=== PATIENT | male | born 1960 | race Caucasian/White ===

== ENCOUNTER 2016-10-19 04:30 | Inpatient (IN) ==
[2016-10-19] MEDS ORDERED: NS 2,000 ML ONE (04:39)
[2016-10-19] MEDS ORDERED: NARCAN ONE (04:42)
[2016-10-19] MEDS ORDERED: NS 1,000 ML IV ONE ×4 (04:45→05:45)
[2016-10-19] MEDS ORDERED: AMIDATE ONE (04:46)
[2016-10-19] MEDS ORDERED: QUELICIN ONE (04:47)
[2016-10-19] MEDS ORDERED: AMIDATE IV ONE (04:58)
[2016-10-19] MEDS ORDERED: DIPRIVAN 1% 1,000 MG/100 ML BOTTLE ONE (04:59)
[2016-10-19] MEDS ORDERED: QUELICIN IV ONE (04:59)
[2016-10-19] MEDS ORDERED: NARCAN IV ONE (05:00)
[2016-10-19] MEDS: DIPRIVAN 1% 1,000 MG/100 ML BOTTLE IV SCH ×4 (05:05→23:27)
[2016-10-19] MEDS ORDERED: ZOSYN 3.375 GM/NS 3.375 GM/50 ML IVPB IV ONE (05:50)
[2016-10-19] MEDS ORDERED: VANCOMYCIN 1 GM/NS 1 GM/250 ML IVPB IV ONE ×3 (05:51→16:00)
[2016-10-19 06:07] LABS: ALLEN TEST YES; BLOOD TYPE ARTERIAL; DRAW SITE R RADIAL; PCO2(98.6) 32 mmHg (35-45); PO2(98.6) 211 mmHg (60-100); SAMPLE BLOOD; SRATE 16 BPM; TVOL 500 mL; pH(98.6) 7.29 (7.35-7.45)
[2016-10-19 06:08] LABS: MODALITY VENTILATOR
[2016-10-19] MEDS: LEVOPHED 8 MG in D5 1/2 NS 250 ML IV SCH ×6 (06:15→20:21)
--- NOTE | 2016-10-19 06:28 | PROVIDER DOCUMENTATION ---
HPI-Critical Care - General Chief Complaint: Shortness of Breath Stated Complaint: SOB Time Seen by Provider: 10/19/16 05:42 Source: EMS, half-way records Unable to obtain history due to:: urgency Allergies/Adverse Reactions: Allergies Allergy/AdvReac Type Severity Reaction Status Date / Time Sulfa (Sulfonamide Allergy Severe ANAPHYLAXIS Verified 10/19/16 05:21 Antibiotics) Home Medications: Home Medication List Medication Instructions Recorded Confirmed Last Taken Type Fluoxetine HCl [Prozac] 20 mg PO DAILY 07/29/14 10/19/16 10/18/16 History Furosemide [Lasix] 20 mg PO DAILY 07/29/14 10/19/16 10/18/16 History Multivit,Th Iron,Other Min 1 each PO DAILY 07/29/14 10/19/16 10/18/16 History [Thera-M] Polyethylene Glycol 3350 [Miralax] 17 gm PO BID 07/29/14 10/19/16 10/18/16 History Ropinirole HCl [Requip] 1 mg PO QHS 07/29/14 10/19/16 10/18/16 History Cyanocobalamin 1,000 microgm .SEE ORDER 05/13/15 10/19/16 Unknown History DIRECTED Diazepam [Valium] 5 mg PO HS 05/13/15 10/19/16 10/18/16 History Meloxicam [Mobic] 15 mg PO DAILY 04/30/16 10/19/16 10/18/16 History Potassium Chloride E.r. [Klor-Con] 10 meq PO DAILY 10/19/16 10/19/16 10/18/16 History - History of Present Illness-Critical Care Nature of Presenting Problem: 56 yo WM with mental retardation lives in assisted. He was found in extremis early this am with near agonal respiration , hypotension, and non verbal. Baseline is not known but he has apparently been bed and wheelchair bound for years. The aid who came with him preports that he had fever yesterday Onset/Duration: reports: unsure Timing: reports: getting worse EMS Initial Findings:: unresponsive EMS Initial HR: 130 EMS Initial BP: 80/60 EMS Initial D-stick: >120 EMS Initial EKG Rhythm: sinus Pre-hospital Treatment: Initiated oxygen, Initiated other (no IV) Improves Condition (Modifying Factors): improves with: nothing Nitro Today/Relief: no nitro taken today Aspirin Treatment Today: no aspirin today Prior Chest Pain/Cardiac Workup: reports: no prior chest pain Similar Symptoms Previously?: No Recently Seen Here or By Another Healthcare Provider: No Review of Systems - Adult - REVIEW OF SYSTEMS - ADULT ROS:: unobtainable per condition Constitutional: reports: fever Past History - Adult - PAST MEDICAL HISTORY-ADULT Review of Records: reports: Nursing Assessment Review, Medications Reviewed, Social history reviewed & non-contributory. (spoke with patient,s mother who confirms full code status) Major Childhood Illnesses: reports: denies history Cardiovascular: reports: cardiac disease Genitourinary: reports: cancer (testicular) Musculoskeletal: reports: other (contractures in legs unable to ambulitate) Neurological: reports: cognitive dysfunction (MR), Seizures/Epilepsy - PRIOR SURGERIES/PROCEDURES Surgical/Procedure History: reports: orthopedic (extremity) (elbow), other ( polyp removed, testicular) - IMMUNIZATION STATUS Childhood Immunizations: See Nurse Assessment Flu Vaccine: See Nurse Assessment - SOCIAL HISTORY Smoking: non-smoker Physical Exam-General - PHYSICAL EXAM-ADULT Initial Vital Signs Reviewed: Yes - CONSTITUTIONAL General Appearance: obtunded - EYES Eyes: PERRL/EOMI, pink conjunctivae, sunken eyes - HEAD, EARS, NOSE, MOUTH & THROAT HENMT: normocephalic/atraumatic, dental decay, pharyngeal erythema, other (bile noted in trachea while intubation in progress) - NECK Neck: supple - RESPIRATORY Respiratory: respiratory distress, decreased breath sounds, rales, rhonchi, retractions, splinting, increased rate - CARDIOVASCULAR Cardiovascular: regular rate, rhythm - GASTROINTESTINAL (ABDOMEN) Abdominal Exam: non tender, no organomegaly (Baclofen pump noted in RLQ), no pulsatile mass - LYMPHATIC Lymphatic: no adenopathy - MUSCULOSKELETAL Back Exam: decreased range of motion, other (bilateral knee contractures) Extremity: slow capillary refill Peripheral Pulses: radial (R): 1+, radial (L): 1+, dorsalis-pedis (R): 1+, dorsalis-pedis (L): 1+ - SKIN Integumentary: normal color, other (dry) Progress - PLAN OF CARE/RESULTS Progress/Plan/Lab Results: Vital Signs - 8 hr 10/19/16 04:38 10/19/16 04:50 10/19/16 05:00 Temperature Pulse Rate 107 H 105 H 99 H Respiratory Rate 22 18 Blood Pressure 77/48 77/48 92/60 O2 Sat by Pulse Oximetry 82 L 90 L 100 10/19/16 05:18 10/19/16 05:54 10/19/16 06:42 Temperature 97.6 F Pulse Rate 101 H 94 H 97 H Respiratory Rate 25 H 26 H 24 Blood Pressure 95/47 71/38 77/46 O2 Sat by Pulse Oximetry 100 100 95 10/19/16 06:47 10/19/16 06:57 Temperature Pulse Rate 111 H 98 H Respiratory Rate 23 22 Blood Pressure 87/51 85/55 O2 Sat by Pulse Oximetry 97 97 Laboratory Results - last 24 hr 10/19/16 05:50 Specimen Type ARTERIAL Sample Site R RADIAL pH 7.29 L pCO2 32 L pO2 211 H HCO3 17.2 L Base Excess -10.0 L Graham Test YES A-a O2 Difference 462.0 Lactate 3.00 H Blood Gas Modality VENTILATOR Spontaneous Rate 16 FiO2 % 100.0 Tidal Volume 500 PEEP 5.0 Orders Category Date Time Status CHEST-PORTABLE [RAD] Stat Exams 10/19/16 05:49 Completed ABG [RESP] Routine Lab 10/19/16 05:50 Completed BLOOD CULTURE [BLDCUL] Stat Lab 10/19/16 05:40 Received CBC WITH ELECTRONIC DIFF [HEME] Stat Lab 10/19/16 05:30 Results COMPREHENSIVE METABOLIC PANEL [CHEM] Stat Lab 10/19/16 05:30 Received PROTIME WITH INR [COAG] Stat Lab 10/19/16 05:30 Received UA NIMS W/REFLEX CULT [URINALYSIS] Stat Lab 10/19/16 05:43 Uncollected 0.9% Sodium Chloride Inj [Ns] 1,000 ml Med 10/19/16 04:39 Discontinued .ROUTE As Directed 0.9% Sodium Chloride Inj [Ns] 1,000 ml Med 10/19/16 04:45 Discontinued IV 999 mls/hr 0.9% Sodium Chloride Inj [Ns] 1,000 ml Med 10/19/16 05:25 Discontinued IV 999 mls/hr 0.9% Sodium Chloride Inj [Ns] 1,000 ml Med 10/19/16 05:44 Discontinued IV 999 mls/hr 0.9% Sodium Chloride Inj [Ns] 1,000 ml Med 10/19/16 05:45 Discontinued IV 999 mls/hr Dextrose 5%-0.45% NaCl Inj [D5 1/2 Ns] 250 ml Med 10/19/16 06:00 Active Norepinephrine [Levophed] 8 mg IV As Directed Dopamine 400 mg/D5w Med 10/19/16 07:10 Ordered 400 mg in 500 ml IV As Directed Etomidate [Amidate] Med 10/19/16 04:58 Discontinued 20 mg IV NOW ONE Etomidate [Amidate] Med 10/19/16 04:46 Discontinued 40 mg .ROUTE .STK-MED ONE Naloxone [Narcan] Med 10/19/16 04:42 Discontinued 2 mg .ROUTE .STK-MED ONE Naloxone [Narcan] Med 10/19/16 05:00 Discontinued 2 mg IV NOW ONE Piperacil/Tazobact 3.375 gm/Ns [Zosyn 3.375 gm/Ns] Med 10/19/16 05:50 Discontinued 3.375 gm in 50 ml IV NOW Propofol [Diprivan 1%] Med 10/19/16 04:59 Discontinued 1,000 mg in 100 ml .ROUTE As Directed Propofol [Diprivan 1%] Med 10/19/16 05:05 Active 1,000 mg in 100 ml IV 4.763 mls/hr Succinylcholine [Quelicin] Med 10/19/16 04:59 Discontinued 140 mg IV NOW ONE Succinylcholine [Quelicin] Med 10/19/16 04:47 Discontinued 200 mg .ROUTE .STK-MED ONE Vancomycin 1 gm/Ns Med 10/19/16 05:51 Discontinued 1 gm in 250 ml IV NOW He arrived hypotensive and without angioaccess. He was breathing 40 times per min and with O2 sat of 80% prompting urgent intubatiion and then placement of central line, blood sampling , cultures, etc. He was given 3000 ml of saline with increase in BP to 95/ at which a norepi drip was started. He did have a large BM shortly after admission. Zosyn and vancomycin started, CXR confirms advanced ARDS. Result Diagrams: 10/19/16 05:30 - XRAY 1 XRAY Study: Chest Impression: Abnormal (ARDS pattern with satisfactory placement of endotracheal tube , central line, and possibly ngt.) - CONSULTS/PCP/HOSPITALIST Notification #1 *Consult/PCP/Hospitalist*: Dr Connell Time Discussed: 07:12 Reason/Comments: Discussed with Donald - CHANGE OF SHIFT REPORT (ED Provider) Items Pending: Labs Procedures - INTUBATION Mallampati Class: 1 Intubation Method: orotracheal Equipment: ETT Pretreated with 100% Oxygen?: Yes Breath Sounds after Intubation: equal ETT Primary Tube Confirmation: Capnometry CO2 Change, Direct Visualization, Chest Rise and Fall, Tube placement verified on XRAY Intubation Complications: no complications Vent Settings: Initial ventilator orders written Departure - Departure Date of Disposition Decision: 10/19/16 Time of Disposition Decision: 07:13 DIAGNOSIS: ARDS (adult respiratory distress syndrome) Disposition: ADMITTED INPATIENT 09 Certified Medical Emergency: Emergent Condition: Critical Referrals and Follow-Ups: None,PCP [Primary Care Provider] - - Critical Care Note This patient required my direct & personal management of CC.: Yes Total Time (mins): 120 Critical Care Statement: This patient required my direct personal management to treat or rule out processes, the absence of which, could potentiallly result in sudden, clinically significant life or limb threatening deterioration.
--- NOTE | 2016-10-19 06:54 | Diag Imaging Result Doc PS360 ---
EXAM: CHEST-PORTABLE HISTORY: post intubation/CENTRAL LINE TECHNIQUE: Portable COMPARISON: 04/30/2016 FINDINGS: An endotracheal tube has been placed since the prior exam. The tip lies approximately 4 cm above the marsha. Interval placement of a left subclavian line with tip overlying the mid superior vena cava. No pneumothorax. Interval development of dense bilateral infiltrates. Heart is not enlarged. No pleural effusions identified. IMPRESSION: 1.Endotracheal and left subclavian lines in good position 2.Interval development of dense bilateral infiltrates. Electronically signed by Errol Santos 10/19/2016 6:52 AM
[2016-10-19 07:03] LABS: MANUAL DIFF NEEDED? NO
[2016-10-19] MEDS ORDERED: DOPAMINE 400 MG/D5W 400 MG/500 ML IV.SOLN IV SCH (07:10)
[2016-10-19 07:17] LABS: EOS# 0.01 X1000 (0.0-0.7); EOS% 0.4 % (0.0-10.0); HEMATOCRIT 36.5 % (42.0-52.0); HEMOGLOBIN 11.8 g/dL (14.0-18.0); LYMPH# 0.42 X1000 (1.2-3.4); LYMPH% 17.6 % (20.5-51.1); MCH 31.6 PG (27-31); MCHC 32.3 g/dL (33-37); MCV 97.6 FL (81-99); MONO# 0.05 X1000 (0.11-0.59); MONO% 2.1 % (1.7-9.3); MPV 10.6 FL (7.4-10.4); NEUT% 79.9 % (42.2-75.2); PLT 99 X1000 (130-400); RBC 3.74 XMIL (4.7-6.1)
[2016-10-19 07:24] LABS: INR 1.22
[2016-10-19 07:42] LABS: ALBUMIN 2.3 g/dL (3.5-5.0); CALCIUM 7.3 mg/dL (8.8-10.2); POTASSIUM 3.4 mmol/L (3.5-5.1); TOTAL BILIRUBIN 0.46 mg/dL (0.20-1.00)
[2016-10-19] MEDS ORDERED: DUONEB (A & A) INH PRN (07:55)
[2016-10-19] MEDS ORDERED: VANCOMYCIN IV PER PHARMACY MISC SCH (08:00)
[2016-10-19] MEDS: NEO-SYNEPHRINE 50 MG in NS 250 ML IV SCH ×5 (08:22→20:21)
[2016-10-19 08:29] LABS: PROTEIN CREAT RATIO 0.8; UR CREAT RANDOM 156.9 mg/dL (14-26); UR PROT RANDOM 123.5 mg/dL
[2016-10-19 08:32] LABS: URINE SOURCE CLEAN CATCH
[2016-10-19 08:33] LABS: FREE T4 1.02 ng/dL (0.93-1.70)
[2016-10-19 08:34] LABS: UR AMPHETAMINES QUAL NONE DETECTED (NONE DETECT); UR BARBITUATES QUAL NONE DETECTED (NONE DETECT); UR BENZODIAZEPIN QUAL PRESUMPTIVE POSITIVE (NONE DETECT); UR CANNABINOIDS QUAL NONE DETECTED (NONE DETECT); UR COCAINE QUAL NONE DETECTED (NONE DETECT); UR METHADONE QUAL NONE DETECTED (NONE DETECT); UR OPIATES QUAL NONE DETECTED (NONE DETECT); UR OXYCODONE QUAL NONE DETECTED (NONE DETECT); UR PCP QUAL NONE DETECTED (NONE DETECT)
[2016-10-19 08:40] LABS: BILIRUBIN URINE NEGATIVE (NEGATIVE); BLOOD URINE LARGE (NEGATIVE); CLARITY CLEAR (CLEAR); COLOR YELLOW; GLUCOSE URINE NEGATIVE (NEGATIVE); LEUKOCYTES URINE MODERATE (NEGATIVE); NITRITE URINE NEGATIVE (NEGATIVE); PH URINE 5.5; PROTEIN URINE 100 mg/dL (NEGATIVE); SP GRAVITY URINE 1.025; UROBILINOGEN URINE 0.2 EU/dL (0.2-1.0)
[2016-10-19 08:42] LABS: ACETAMINOPHEN 3.2 ug/mL (10-30)
[2016-10-19] MEDS: POTASSIUM CHLORIDE 20 MEQ/SWI 20 MEQ/100 ML IVPB IV SCH ×2 (08:43→10:54)
[2016-10-19 08:48] LABS: URINE CULTURE NEEDED? YES
[2016-10-19 08:49] LABS: URINE WBC 20-40 /HPF (<10)
[2016-10-19 08:50] LABS: URINE EPITHELIAL CELLS <10 /HPF (<10)
[2016-10-19 08:51] LABS: URINE CAST NONE SEEN /LPF; URINE CRYSTAL NONE SEEN /HPF
[2016-10-19] MEDS ORDERED: NS 1,000 ML ONE (08:56)
[2016-10-19] MEDS: NS 1,000 ML IV SCH ×4 (09:04→23:28)
[2016-10-19] MEDS: HEPARIN SUBQ SCH ×2 (09:22→20:20)
[2016-10-19] MEDS: PEPCID IV SCH ×2 (09:22→20:20)
[2016-10-19 09:34] LABS: ALLEN TEST YES; BE -9.6 mmoll (-3.0-3.0); BLOOD TYPE ARTERIAL; DRAW SITE L RADIAL; METHB 0.1 % (0.0-1.5); O2(CT) 17.3 mL/dL (15.0-23.0); PCO2(98.6) 36 mmHg (35-45); PO2(98.6) 221 mmHg (60-100); SAMPLE BLOOD; SAO2 100.8 % (95.0-100.0); SRATE 16 BPM; THB 12.1 g/dL (11.5-17.4); TVOL 500 mL; pH(98.6) 7.27 (7.35-7.45)
[2016-10-19 09:36] LABS: MODALITY VENTILATOR
[2016-10-19] MEDS: VERSED 100 MG in NS 80 ML IV SCH ×2 (09:53→11:35)
[2016-10-19] MEDS: DUONEB (A & A) INH SCH ×3 (09:55→21:07)
[2016-10-19] MEDS ORDERED: NS 1,000 ML IV PRN (12:49)
[2016-10-19] MEDS: MERREM 500 MG in NS 50 ML IV SCH ×2 (14:06→21:37)
[2016-10-19] MEDS: LEVAQUIN 250 MG/D5W 250 MG/50 ML IVPB IV SCH (14:47)
[2016-10-19] MEDS: TYLENOL LIQUID PO PRN ×2 (20:20→21:23)
--- NOTE | 2016-10-19 20:48 | CONSULTATION ---
DATE OF CONSULTATION: 10/19/2016 DIAGNOSES: 1. Aspiration pneumonia. 2. Respiratory failure. 3. Mental retardation with dependency. 4. Septic shock. 5. Acute on chronic renal failure. RECOMMENDATIONS: He is being mechanically ventilated, will volume resuscitate him and give him broad-spectrum antibiotics, enteral feedings, DVT prophylaxis will be implemented. He will hopefully stabilize and improve although I am not sure what our functional outcome will be. Will follow closely along with you. HISTORY: This very unfortunate 56-year-old male white apparently is a resident of a shelter. He requires 1-on-1 support with assistance in bathing and dressing and feeding. He developed respiratory distress after some nausea and vomiting today and presented to the emergency room where he was intubated and a central line was placed by Dr. Marcial. He subsequently is placed in the ICU on mechanical support and I am consulted to assist in his care. He can give no further history. PAST MEDICAL HISTORY: Is positive for a history of testicular cancer with therapy, he has also had a history of mental retardation and dependency. REVIEW OF SYSTEMS: Except for the features mentioned above are negative for weight loss, night sweats, weakness or anorexia. No ENT symptoms of odynophagia, dysphagia, epistaxis or painful swallowing. No eye symptoms of blindness, blurring or diplopia. No other cardiac or pulmonary symptoms other than mentioned, no nausea, vomiting, constipation, diarrhea, the review of systems except for the features mentioned above are all otherwise negative. FAMILY HISTORY: Noncontributory. SOCIAL HISTORY: He is a resident in a shelter for several years and is dependent. PHYSICAL EXAM: Vital signs: Shows a blood pressure of 100/60 with a pulse of 120, respirations of 20 on mechanical ventilation and has a temperature of 97.4 degrees. HEENT: Reveals a membreno- shaped face. Pupils are equal and reactive. Nonicteric. Chest: Reveals bilateral equal breath sounds with mechanical ventilation. Cardiac: Reveals a regular rhythm without an appreciable murmur. Abdomen: Soft. Skin: Warm and dry. Neurologically: He is sedated, has reportedly moved all 4. LAB: The sodium is 140, potassium 3.4, chloride 106, CO2 , BUN 41, creatinine 2.1, glucose 100. White count is 2300 with a hemoglobin 11.8, hematocrit 36.2, platelets of 99,000. ABG shows a 7.27 pH, 36 CO2 and 221 O2 on 100%, rate is 16, assist control 500 tidal volume, 5 of PEEP. cc: Royal Alexandra MD
--- NOTE | 2016-10-19 21:07 | Diag Imaging Result Doc PS360 ---
EXAM: CHEST/ABD TUBE PLACEMENT HISTORY: ng tube placement TECHNIQUE: Portable upright AP chest and abdomen single view COMPARISON: Compared to portable chest performed earlier FINDINGS: Interval placement of a nasogastric tube. This overlies the esophagus and stomach. There are bilateral lung infiltrates. These actually appear somewhat less pronounced than they did previously. Heart is not enlarged. IMPRESSION: Nasogastric tube overlies the esophagus and stomach. Interval decrease in the bilateral infiltrates. Electronically signed by Errol Santos 10/19/2016 9:05 PM
[2016-10-20] MEDS: LEVOPHED 8 MG in D5 1/2 NS 250 ML IV SCH ×4 (01:28→20:21)
[2016-10-20] MEDS: NEO-SYNEPHRINE 50 MG in NS 250 ML IV SCH (01:29)
[2016-10-20] MEDS: DUONEB (A & A) INH SCH ×4 (03:20→21:05)
[2016-10-20] MEDS: DIPRIVAN 1% 1,000 MG/100 ML BOTTLE IV SCH ×4 (04:05→22:31)
[2016-10-20 04:41] LABS: HEMOGLOBIN 11.6 g/dL (14.0-18.0); MCHC 33.1 g/dL (33-37); MCV 96.7 FL (81-99); MPV 11.2 FL (7.4-10.4); RBC 3.62 XMIL (4.7-6.1)
[2016-10-20 04:56] LABS: ALLEN TEST YES; BE -11.1 mmoll (-3.0-3.0); BLOOD TYPE ARTERIAL; DRAW SITE R RADIAL; METHB 1.5 % (0.0-1.5); O2(CT) 16.2 mL/dL (15.0-23.0); PCO2(98.6) 32 mmHg (35-45); PO2(98.6) 147 mmHg (60-100); SAMPLE BLOOD; SAO2 98.7 % (95.0-100.0); SRATE 16 BPM; THB 11.7 g/dL (11.5-17.4); TVOL 500 mL; pH(98.6) 7.27 (7.35-7.45)
[2016-10-20 04:58] LABS: MODALITY VENTILATOR
[2016-10-20] MEDS: MERREM 500 MG in NS 50 ML IV SCH ×3 (05:09→21:54)
[2016-10-20 05:18] LABS: CALCIUM 7.4 mg/dL (8.8-10.2); POTASSIUM 5.6 mmol/L (3.5-5.1)
[2016-10-20] MEDS: NS 1,000 ML IV SCH (06:10)
--- NOTE | 2016-10-20 07:20 | Diag Imaging Result Doc PS360 ---
CHEST-PORTABLE - 10/20/2016 INDICATION: dyspnea TECHNIQUE: COMPARISON: 10/19/2016 FINDINGS: Support lines and tubes are stable. There is improvement in the diffuse bilateral multifocal alveolar infiltrates. Heart size remains top normal. No pneumothorax or large effusion. IMPRESSION: Improvement from prior. Electronically signed by Immanuel Brown 10/20/2016 7:18 AM
--- NOTE | 2016-10-20 07:55 | HISTORY AND PHYSICAL ---
CHIEF COMPLAINT: Respiratory failure. HISTORY OF PRESENT ILLNESS: The patient is a 56-year-old male who lives in a assisted. Apparently overnight, he became more lethargic, short of breath, difficulty to arouse. Therefore, he was brought to the emergency department. REVIEW OF SYSTEMS: The patient apparently typically is bed and wheelchair bound for the last several years. Over the past 24 hours, he has had fever. His blood pressure has become low. He has become more short of breath and obviously labored breathing. He had fever in the past 24 hours per the aide. Otherwise, the aide denies any knowledge of chest pains, GI or issues. PAST MEDICAL HISTORY: Known coronary artery disease, history of testicular cancer. He has moderate cognitive dysfunction, history of seizures, had surgery on his elbow. FAMILY HISTORY: Noncontributory. SOCIAL HISTORY: Patient is a nonsmoker and nondrinker. He lives in a assisted. PHYSICAL EXAMINATION: VITAL SIGNS: Temperature 97.6, pulse 98-107, respiratory rate 18-26, BP 77/48. GENERAL: Patient is in moderate distress. He is nonverbal. HEENT: Normocephalic and atraumatic. Positive pharyngeal erythema. Poor dentition. NECK: Supple. No appreciable JVD or bruits. CARDIOVASCULAR: Tachycardia. Otherwise, no appreciable murmur. CHEST: Decreased breath sounds throughout. He is currently intubated. There is report of bile in his trachea during the intubation process. ABDOMEN: Soft. No masses. Nondistended. EXTREMITIES: No edema. NEUROLOGIC: Unable to assess. Patient currently is sedated and intubated, although the ER notes he was nonverbal and would not respond to commands prior to sedation. LABS: ABG with a pH of 7.2, pCO2 of 32, PO2 of 211, with a -10 base excess on a 100% FiO2 and mechanical ventilation. ASSESSMENT: 1. Acute respiratory failure. 2. Sepsis secondary to pneumonia. 3. Pneumonia. 4. Acute respiratory distress syndrome. 5. Fever. PLAN: We will admit the patient to the ICU. Consult pulmonology. Continue antibiotics which have been started in the ER. We will continue ventilatory support as well as pressors for his blood pressure. Hopefully, the patient will recover. Currently, he has a poor prognosis. TIME SPENT: 35 minutes were spent in total care. cc: MD Dr. Graham Duncan
[2016-10-20] MEDS: PEPCID IV SCH ×2 (08:11→19:31)
[2016-10-20] MEDS: LEVAQUIN 250 MG/D5W 250 MG/50 ML IVPB IV SCH (08:11)
[2016-10-20] MEDS: HEPARIN SUBQ SCH ×2 (08:11→20:20)
--- NOTE | 2016-10-20 12:52 | EKG Report ---
Test Performed on : 10/19/2016 06:01:25 AM Test Reason : SOB Blood Pressure : / mmHG Vent. Rate : 100 BPM Atrial Rate : 100 BPM P-R Int : 142 ms QRS Dur : 076 ms QT Int : 356 ms P-R-T Axes : 056 -27 054 degrees QTc Int : 459 ms Normal sinus rhythm. Low voltage QRS Borderline ECG When compared with ECG of 13-MAY-2015 04:40, Non-specific change in ST segment in Inferior leads Unconfirmed Result
[2016-10-20] MEDS: SODIUM BICARBONATE 8.4% 100 MEQ in D5W 1,000 ML IV SCH ×2 (14:24→20:21)
[2016-10-21] MEDS: LEVOPHED 8 MG in D5 1/2 NS 250 ML IV SCH ×3 (01:27→17:20)
[2016-10-21] MEDS: DIPRIVAN 1% 1,000 MG/100 ML BOTTLE IV SCH ×7 (02:10→23:45)
[2016-10-21] MEDS: VANCOMYCIN 1,500 MG in NS 250 ML IV SCH (03:18)
[2016-10-21] MEDS: SODIUM BICARBONATE 8.4% 100 MEQ in D5W 1,000 ML IV SCH ×4 (03:46→23:45)
[2016-10-21] MEDS: DUONEB (A & A) INH SCH ×4 (03:56→20:49)
[2016-10-21 04:36] LABS: ALLEN TEST YES; BE -2.9 mmoll (-3.0-3.0); BLOOD TYPE ARTERIAL; DRAW SITE R RADIAL; METHB 0.6 % (0.0-1.5); O2(CT) 14.3 mL/dL (15.0-23.0); PCO2(98.6) 37 mmHg (35-45); PO2(98.6) 168 mmHg (60-100); SAMPLE BLOOD; SRATE 16 BPM; THB 10.1 g/dL (11.5-17.4); TVOL 500 mL; pH(98.6) 7.38 (7.35-7.45)
[2016-10-21 04:37] LABS: MODALITY VENTILATOR
[2016-10-21 04:57] LABS: HEMATOCRIT 30.3 % (42.0-52.0); MCH 31.5 PG (27-31); MCV 95.6 FL (81-99); RBC 3.17 XMIL (4.7-6.1)
[2016-10-21] MEDS: MERREM 500 MG in NS 50 ML IV SCH ×3 (05:07→21:00)
[2016-10-21 05:14] LABS: CALCIUM 7.9 mg/dL (8.8-10.2); MAGNESIUM 1.5 mg/dL (1.5-2.7); POTASSIUM 4.4 mmol/L (3.5-5.1); TOTAL BILIRUBIN 0.32 mg/dL (0.20-1.00); TOTAL PROTEIN 4.7 g/dL (6.3-8.3)
--- NOTE | 2016-10-21 07:17 | Diag Imaging Result Doc PS360 ---
EXAM: CHEST-PORTABLE HISTORY: respiratory failure TECHNIQUE: AP portable chest at 0500 COMMENT: There is an endotracheal tube with its tip at thoracic inlet and a left subclavian central venous catheter with its tip in superior vena cava. There is fluffy alveolar opacification throughout much of the left lung. This was also the case at the time the previous study 10/20/2016, however there may be some slight improvement in the apical portion of the upper lobe. There is also some improvement in opacification of the right upper and lower lobes despite the fact that the inspiration is less optimal than on the previous study. IMPRESSION: Improved pulmonary edema and/or pneumonia. Electronically signed by Alfredito Fulton 10/21/2016 7:15 AM
[2016-10-21] MEDS: LEVAQUIN 250 MG/D5W 250 MG/50 ML IVPB IV SCH (08:40)
[2016-10-21] MEDS: PEPCID IV SCH ×2 (08:40→19:10)
[2016-10-21] MEDS: HEPARIN SUBQ SCH ×2 (08:40→20:27)
--- NOTE | 2016-10-21 13:29 | EKG Report ---
Test Performed on : 10/21/2016 10:36:54 AM Test Reason : TACHYCARDIA Blood Pressure : / mmHG Vent. Rate : 072 BPM Atrial Rate : 072 BPM P-R Int : 126 ms QRS Dur : 078 ms QT Int : 426 ms P-R-T Axes : 062 027 065 degrees QTc Int : 466 ms Normal sinus rhythm. Low voltage QRS Borderline ECG When compared with ECG of 19-OCT-2016 06:01, (Unconfirmed) Non-specific change in ST segment in Anterior leads Confirmed by Finn Melendez MD ([id number]) on 11/04/2016 1:15:51 PM
[2016-10-21] MEDS: ALBUMIN 25% IV SCH ×2 (13:34→19:09)
[2016-10-21] MEDS ORDERED: LASIX IV ONE (22:00)
[2016-10-22] MEDS: ALBUMIN 25% IV SCH (01:56)
[2016-10-22] MEDS: DUONEB (A & A) INH SCH ×4 (03:42→21:35)
[2016-10-22] MEDS: DIPRIVAN 1% 1,000 MG/100 ML BOTTLE IV SCH ×6 (03:46→22:23)
[2016-10-22 04:32] LABS: ALLEN TEST YES; BLOOD TYPE ARTERIAL; DRAW SITE R RADIAL; PCO2(98.6) 43 mmHg (35-45); PO2(98.6) 106 mmHg (60-100); SAMPLE BLOOD; SRATE 12 BPM; TVOL 500 mL; pH(98.6) 7.46 (7.35-7.45)
[2016-10-22 04:33] LABS: MODALITY VENTILATOR
[2016-10-22] MEDS: MERREM 500 MG in NS 50 ML IV SCH ×3 (05:22→22:23)
[2016-10-22 05:43] LABS: HEMATOCRIT 27.9 % (42.0-52.0); HEMOGLOBIN 9.2 g/dL (14.0-18.0); MCH 32.1 PG (27-31); MCV 97.2 FL (81-99); MPV 11.5 FL (7.4-10.4); RBC 2.87 XMIL (4.7-6.1)
[2016-10-22 06:06] LABS: ALBUMIN 2.7 g/dL (3.5-5.0); CALCIUM 8.2 mg/dL (8.8-10.2); MAGNESIUM 1.5 mg/dL (1.5-2.7); POTASSIUM 3.8 mmol/L (3.5-5.1); TOTAL BILIRUBIN 0.52 mg/dL (0.20-1.00); TOTAL PROTEIN 5.1 g/dL (6.3-8.3)
--- NOTE | 2016-10-22 07:19 | Diag Imaging Result Doc PS360 ---
EXAM: CHEST-PORTABLE HISTORY: respiratory failure TECHNIQUE: Portable chest COMPARISON: 10/21/2016 FINDINGS: Endotracheal tube remains in good position. No change in the nasogastric tube or left subclavian line. No pneumothorax. There are bilateral infiltrates. Heart is not enlarged. No pleural effusions identified. The overall appearance is quite similar to that of the prior exam. IMPRESSION: Stable chest. Electronically signed by Errol Santos 10/22/2016 7:17 AM
[2016-10-22] MEDS: PEPCID IV SCH ×2 (08:21→20:13)
[2016-10-22] MEDS: LEVAQUIN 250 MG/D5W 250 MG/50 ML IVPB IV SCH (08:21)
[2016-10-22] MEDS: HEPARIN SUBQ SCH ×2 (08:22→20:12)
[2016-10-22] MEDS: LEVOPHED 8 MG in D5 1/2 NS 250 ML IV SCH ×2 (09:39→22:22)
[2016-10-22] MEDS: D5W 1,000 ML IV SCH ×2 (09:57→23:24)
[2016-10-22] MEDS: NEUTRA-PHOS PO SCH ×3 (11:14→22:23)
[2016-10-22] MEDS: SODIUM BICARBONATE 8.4% 100 MEQ in D5W 1,000 ML IV SCH ×2 (11:29→22:31)
[2016-10-22] MEDS: VANCOMYCIN 1,500 MG in NS 250 ML IV SCH (17:07)
[2016-10-22] MEDS: SODIUM CHLORIDE 0.9% INJ SCH (20:13)
[2016-10-22] MEDS: TYLENOL LIQUID PO PRN (20:24)
[2016-10-23] MEDS: DIPRIVAN 1% 1,000 MG/100 ML BOTTLE IV SCH ×7 (01:15→22:58)
[2016-10-23] MEDS: DUONEB (A & A) INH SCH ×4 (03:38→18:55)
[2016-10-23 04:15] LABS: ALLEN TEST YES; BE 9.9 mmoll (-3.0-3.0); BLOOD TYPE ARTERIAL; DRAW SITE R RADIAL; METHB 1.1 % (0.0-1.5); O2(CT) 13.7 mL/dL (15.0-23.0); PO2(98.6) 123 mmHg (60-100); SAMPLE BLOOD; SAO2 98.7 % (95.0-100.0); SRATE 12 BPM; THB 9.9 g/dL (11.5-17.4); TVOL 500 mL; pH(98.6) 7.41 (7.35-7.45)
[2016-10-23 04:16] LABS: MODALITY VENTILATOR; PCO2(98.6) 57 mmHg (35-45)
[2016-10-23 05:10] LABS: ALBUMIN 2.9 g/dL (3.5-5.0); CALCIUM 8.4 mg/dL (8.8-10.2); MAGNESIUM 1.8 mg/dL (1.5-2.7); POTASSIUM 3.9 mmol/L (3.5-5.1); TOTAL BILIRUBIN 0.43 mg/dL (0.20-1.00); TOTAL PROTEIN 5.2 g/dL (6.3-8.3)
[2016-10-23] MEDS: MERREM 500 MG in NS 50 ML IV SCH ×3 (05:14→23:00)
--- NOTE | 2016-10-23 07:18 | Diag Imaging Result Doc PS360 ---
EXAM: CHEST-PORTABLE INDICATION: respiratory failure TECHNIQUE: One view COMPARISON: 10/22/2016 FINDINGS: Support tubes and lines are in stable positions. Bilateral diffuse infiltrates are again noted. There has been interval worsening at the left lower lung zone. The infiltrates are grossly stable, otherwise. Cardiac silhouette is stable. IMPRESSION: Diffuse bilateral infiltrates with interval worsening at the left lower lung zone as described. Electronically signed by Jackson Bunch 10/23/2016 7:16 AM
[2016-10-23] MEDS: PEPCID IV SCH ×2 (07:56→19:56)
[2016-10-23] MEDS: LEVAQUIN 250 MG/D5W 250 MG/50 ML IVPB IV SCH (07:56)
[2016-10-23] MEDS: HEPARIN SUBQ SCH ×2 (08:02→20:00)
[2016-10-23] MEDS: SODIUM CHLORIDE 0.9% INJ SCH ×2 (08:12→19:56)
--- NOTE | 2016-10-23 09:44 | EKG Report ---
Test Performed on : 10/22/2016 6:45:33 PM Test Reason : ICU. NOT ORDERED IN [place] Blood Pressure : / mmHG Vent. Rate : 121 BPM Atrial Rate : 064 BPM P-R Int : 000 ms QRS Dur : 072 ms QT Int : 350 ms P-R-T Axes : 000 -23 -22 degrees QTc Int : 497 ms Atrial fibrillation. with rapid ventricular response. Low voltage QRS Nonspecific T wave abnormality Abnormal ECG No previous ECGs available Confirmed by Finn Melendez MD ([id number]) on 10/23/2016 12:50:57 PM
--- NOTE | 2016-10-23 10:25 | Diag Imaging Result Doc PS360 ---
EXAM: KUB ABDOMEN INDICATION: rlq fullness TECHNIQUE: One view COMPARISON: 10/19/2016 FINDINGS: A mechanical device projects over the right lower quadrant, likely an insulin pump. There are several metallic clips projecting of the left upper quadrant. There is a calcific density that projects over the superior left kidney this is probably actually a granuloma in the overlying spleen as there are other calcified granulomata in the spleen. An intrarenal stone is also possible. There is increased stool in the rectum. I suppose this could represent mild constipation. However, there is no evidence of significant constipation involving the remainder of the colon. There are unremarkable bowel gas patterns. There is no evidence of organomegaly. IMPRESSION: 1.Questionable intrarenal stone on the left. 2.Increased stool in the rectum. 3.Grossly unremarkable, otherwise. Electronically signed by Jackson Bunch 10/23/2016 10:23 AM
[2016-10-23] MEDS: SODIUM BICARBONATE 8.4% 100 MEQ in D5W 1,000 ML IV SCH (11:36)
[2016-10-23] MEDS: LEVOPHED 8 MG in D5 1/2 NS 250 ML IV SCH (11:37)
[2016-10-23] MEDS ORDERED: CITRATE OF MAGNESIA PO ONE (13:03)
[2016-10-23] MEDS: LASIX IV SCH (13:30)
--- NOTE | 2016-10-23 13:58 | EKG Report ---
Test Performed on : 10/23/2016 09:59:56 AM Test Reason : RHYTHM CHANGE Blood Pressure : / mmHG Vent. Rate : 069 BPM Atrial Rate : 069 BPM P-R Int : 136 ms QRS Dur : 080 ms QT Int : 402 ms P-R-T Axes : 023 -15 020 degrees QTc Int : 430 ms Normal sinus rhythm. Low voltage QRS Nonspecific T wave abnormality Abnormal ECG When compared with ECG of 22-OCT-2016 18:45, (Unconfirmed) Sinus rhythm. has replaced Atrial fibrillation. Vent. rate has decreased BY 52 BPM Inverted T waves have replaced nonspecific T wave abnormality in Anterior leads Nonspecific T wave abnormality, improved in Lateral leads Confirmed by Finn Melendez MD ([id number]) on 10/24/2016 1:09:14 PM
--- NOTE | 2016-10-23 14:31 | Diag Imaging Result Doc PS360 ---
EXAM: RENAL STONE SEARCH HISTORY: ? renal stone TECHNIQUE: CT urogram without contrast COMMENT: There are alveolar opacities in both lower lobes and the lingula. There is some atelectasis in the right middle lobe. This was not present on 10/28/2011. There are bilateral pleural effusions which were also not present previously. There is an NG tube with its tip in the stomach. There is no evidence of nephrolithiasis. Both renal pelves are somewhat prominent. There are numerous granulomata in the spleen. There is pericholecystic fluid and there is fluid in the subhepatic space. Some beam hardening artifact is present from a pump over the right iliac fossa. There is a fair amount of stool in the rectum. The mucosa appears somewhat thickened in the rectum. No evidence of bowel obstruction is otherwise present. There is no evidence of appendicitis. Some presacral edema is present which was not present previously. There is no evidence of acute bony disease. IMPRESSION: Bilateral lower lobe pneumonia and pleural effusions. Mild ascites. The possibility of stercoral proctitis cannot be excluded. Electronically signed by Alfredito Fulton 10/23/2016 2:29 PM
[2016-10-23 16:06] LABS: URINE CULTURE NEEDED? NO; URINE MICRO REVIEW NEEDED? NO; URINE SOURCE CATH
[2016-10-23 16:10] LABS: BILIRUBIN URINE NEGATIVE (NEGATIVE); BLOOD URINE TRACE (NEGATIVE); COLOR STRAW; GLUCOSE URINE NEGATIVE (NEGATIVE); LEUKOCYTES URINE NEGATIVE (NEGATIVE); NITRITE URINE NEGATIVE (NEGATIVE); PROTEIN URINE TRACE mg/dL (NEGATIVE); SP GRAVITY URINE 1.005; TURBIDITY URINE CLEAR (CLEAR); UROBILINOGEN URINE NORMAL (NORMAL)
[2016-10-23 16:12] LABS: UR EPITHELIAL CELLS <10 /HPF (<10); URINE BACTERIA NEGATIVE /HPF; URINE RBC <10 /HPF (<10); URINE WBC <10 /HPF (<10)
[2016-10-23] MEDS: D5W 1,000 ML IV SCH (16:16)
--- NOTE | 2016-10-23 17:02 | CONSULTATION ---
DATE OF CONSULTATION: 10/23/2016 IMPRESSION: 1. Episode of atrial fibrillation with rapid ventricular rate, now spontaneously converted back to sinus rhythm. 2. Respiratory failure. 3. Aspiration pneumonia. 4. Sepsis with Klebsiella. 5. Developmental delay since premature . 6. History of testicular cancer. Patient is status bilateral orchiectomy 2002. The patient had recurrence of lymph nodes the following year in 2003 and had a port placed in the right subclavian and received chemotherapy. 7. Seizure disorder. RECOMMENDATIONS: 1. Continue to monitor. 2. Given edematous right upper extremity following use of right arm for IV, would determine patency of right subclavian vein. This may be chronically occluded. I would check venous ultrasound/Doppler. 3. Given very low CHADSVASC score, would not anticipate the patient would benefit from anticoagulation, even if he has recurrent atrial fibrillation under other circumstances. I suspect more likely his atrial fibrillation was provoked by stress of noncardiac illness. HISTORY: This 56-year-old white male with past history of developmental delay, since premature , seizure disorder, and testicular cancer who resides in a long term was admitted with lethargy, shortness of breath. He has been observed to vomit while lethargic. He has developed respiratory failure. He has been found to have aspiration pneumonia as well as sepsis with positive blood cultures for Klebsiella. He is intubated and on ventilator. While in the intensive care unit he demonstrated atrial fibrillation with rapid ventricular rate, but converted back to sinus rhythm spontaneously. He apparently has some history of tachycardia noted at times by medical personnel in the past. Patient has no history of palpitations or known cardiac problems. PAST MEDICAL HISTORY: 1. Developmental delay since premature . 2. Seizure disorder. 3. Testicular cancer. A. Status post bilateral orchiectomy 2002. B. Recurrence of testicular cancer in lymph nodes, after which patient underwent course of chemotherapy utilizing a central venous port in the right subclavian vein. The central venous port in right subclavian vein apparently developed problems with infection and was removed and patient had a significant hematoma in the right neck following its removal. PAST SURGICAL HISTORY: Two previous abdominal surgeries 1997 and unspecified elbow surgery. ALLERGIES: He is allergic or intolerant to sulfa. MEDICATIONS: As listed. SOCIAL HISTORY: He lives in a long term. He does not smoke or use alcohol. He has a very supportive mother. FAMILY HISTORY: Negative for premature coronary disease. REVIEW OF SYSTEMS: Not obtainable given the patient on ventilator and sedated. PHYSICAL EXAMINATION: General: A middle-aged male who is sedated on ventilator. Vital Signs: As recorded are stable, including blood pressure 101/63, heart rate 65 and regular with ECG monitor showing sinus rhythm. HEENT: Mucous membranes are moist. Neck: Supple without jugular venous distention. No carotid bruits. Chest: Clear to auscultation anteriorly/bilaterally. Cardiac: Reveals a regular rate and rhythm without appreciable murmur or gallop. Abdomen: Soft. Bowel sounds audible. Extremities: Without edema with exception of right upper extremity which demonstrates mild to moderate edema from fingertips up to upper arm. ECG obtained yesterday evening demonstrates atrial fibrillation with rapid ventricular rate, low voltage QRS and nonspecific T-wave abnormality. ECG monitor currently shows patient has converted to sinus rhythm. cc: MD Royal Page MD
[2016-10-23] MEDS: MUCOMYST 20% INH SCH (18:55)
[2016-10-24] MEDS: LASIX IV SCH ×3 (01:54→21:19)
[2016-10-24] MEDS: DIPRIVAN 1% 1,000 MG/100 ML BOTTLE IV SCH ×3 (01:59→09:01)
[2016-10-24] MEDS: DUONEB (A & A) INH SCH ×4 (03:22→19:18)
[2016-10-24 03:59] LABS: MANUAL DIFF NEEDED? NO
[2016-10-24 04:09] LABS: BASO% 0.5 % (0.0-0.8); EOS# 0.26 X1000 (0.0-0.7); EOS% 3.5 % (0.0-10.0); HEMATOCRIT 31.1 % (42.0-52.0); HEMOGLOBIN 10.3 g/dL (14.0-18.0); IMM GRAN# 0.07 X1000 (0.0-0.04); IMM GRAN% 0.9 % (0.0-0.5); LYMPH# 1.01 X1000 (1.2-3.4); LYMPH% 13.5 % (20.5-51.1); MCH 31.6 PG (27-31); MCHC 33.1 g/dL (33-37); MCV 95.4 FL (81-99); MONO# 0.75 X1000 (0.11-0.59); MPV 10.6 FL (7.4-10.4); NEUT% 71.6 % (42.2-75.2); PLT 75 X1000 (130-400); RBC 3.26 XMIL (4.7-6.1)
[2016-10-24 04:20] LABS: ALLEN TEST YES; BE 11.3 mmoll (-3.0-3.0); BLOOD TYPE ARTERIAL; DRAW SITE R RADIAL; METHB 1.7 % (0.0-1.5); O2(CT) 16.3 mL/dL (15.0-23.0); PCO2(98.6) 42 mmHg (35-45); PO2(98.6) 139 mmHg (60-100); SAMPLE BLOOD; SAO2 98.6 % (95.0-100.0); SRATE 12 BPM; THB 11.9 g/dL (11.5-17.4); TVOL 500 mL; pH(98.6) 7.53 (7.35-7.45)
[2016-10-24 04:21] LABS: MODALITY VENTILATOR
[2016-10-24 04:34] LABS: ALBUMIN 2.5 g/dL (3.5-5.0); CALCIUM 8.8 mg/dL (8.8-10.2); POTASSIUM 3.7 mmol/L (3.5-5.1); TOTAL BILIRUBIN 0.35 mg/dL (0.20-1.00); TOTAL PROTEIN 5.7 g/dL (6.3-8.3)
[2016-10-24] MEDS ORDERED: VANCOMYCIN 1,200 MG in NS 250 ML IV SCH ×2 (05:36→08:00)
[2016-10-24] MEDS: D5W 1,000 ML IV SCH ×2 (05:53→21:15)
[2016-10-24] MEDS: MERREM 500 MG in NS 50 ML IV SCH ×2 (05:53→14:09)
[2016-10-24] MEDS: LEVOPHED 8 MG in D5 1/2 NS 250 ML IV SCH ×2 (06:31→17:21)
--- NOTE | 2016-10-24 07:17 | Diag Imaging Result Doc PS360 ---
EXAM: CHEST-PORTABLE HISTORY: respiratory failure TECHNIQUE: AP portable upright at 0455 COMMENT: There are alveolar opacities throughout both lungs particularly in the mid lung field on the left. Some improvement in the left lower lobe is present and the hemidiaphragm is now visible. Otherwise there has been no appreciable change. IMPRESSION: Slightly improved pulmonary edema and/or pneumonia. Electronically signed by Alfredito Fulton 10/24/2016 7:15 AM
[2016-10-24] MEDS: PEPCID IV SCH ×2 (07:44→21:19)
[2016-10-24] MEDS: LEVAQUIN 250 MG/D5W 250 MG/50 ML IVPB IV SCH (07:44)
[2016-10-24] MEDS: TYLENOL LIQUID PO PRN ×2 (07:50→15:56)
[2016-10-24] MEDS: HEPARIN SUBQ SCH ×2 (09:01→21:20)
[2016-10-24] MEDS: MUCOMYST 20% INH SCH ×2 (09:28→19:18)
--- NOTE | 2016-10-24 10:04 | ECHO REPORT ---
ORDER DATE: 10/23/2016 INTERPRETING PHYSICIAN: Dr. Shmuel Be. ECHOCARDIOGRAPHIC MEASUREMENTS: 1. Interventricular septum 0.8 cm. 2. Left ventricular posterior wall 0.8. 3. Diastolic diameter 4.0. 4. Left atrium 3.4. 5. Aorta 2.9 SUMMARY OF THE 2-DIMENSIONAL IMAGIN. Normal left ventricular cavity size. Estimated ejection fraction of 65%. 2. Pulmonic valve not well visualized. Aortic valve leaflets are trileaflet. Mitral valve was normal. Tricuspid valve was normal. 3. Peak velocity across the aortic valve less than 2 m/sec. There is no aortic stenosis or regurgitation. There is [id number]-[id number] mitral regurgitation. Mild tricuspid regurgitation. 4. Anterior echo-free space suggestive of pericardial fat pad was noted. There is no pericardial effusion or obvious intracardiac mass or thrombus. cc: MD Laura Packer PA Gregory S. Cheatham, MD
[2016-10-24] MEDS ORDERED: NS IV ONE (10:30)
[2016-10-24] MEDS ORDERED: VITAMIN C IV ONE (10:30)
[2016-10-24 11:25] LABS: ALLEN TEST YES; BE 13.5 mmoll (-3.0-3.0); BLOOD TYPE ARTERIAL; DRAW SITE R RADIAL; METHB 0.9 % (0.0-1.5); O2(CT) 16.1 mL/dL (15.0-23.0); PCO2(98.6) 48 mmHg (35-45); PO2(98.6) 69 mmHg (60-100); SAMPLE BLOOD; SAO2 95.9 % (95.0-100.0); THB 12.2 g/dL (11.5-17.4); pH(98.6) 7.51 (7.35-7.45)
[2016-10-24 11:27] LABS: MODALITY VENTILATOR
[2016-10-24] MEDS: SOLU-CORTEF IV SCH ×2 (14:11→20:50)
[2016-10-24] MEDS ORDERED: VASELINE TOP PRN (14:26)
[2016-10-24] MEDS ORDERED: CORDARONE 360 MG/D5W 360 MG/200 ML IV.SOLN IV ONE (17:13)
[2016-10-24] MEDS: CORDARONE 150 MG/D5W 150 MG/100 ML IV.SOLN IV ONE ×2 (17:21→17:25)
[2016-10-24] MEDS ORDERED: CORDARONE IV ONE (17:24)
--- NOTE | 2016-10-24 17:59 | PROGRESS NOTE ---
DATE: 10/24/2016 SUBJECTIVE: The patient continues on intravenous Levophed for blood pressure support. He received some intravenous Lasix this morning to promote diuresis. He has had episodes of atrial fibrillation, rapid ventricular rate recur. He continues without chest discomfort or dyspnea on supplemental oxygen per mask. OBJECTIVE: Vital Signs: Blood pressure 126/81. Heart rate 109 with ECG monitor presently showing sinus rhythm with frequent premature supraventricular complexes. Chest: Auscultation of chest reveals coarse breath sounds bilaterally. Cardiac exam: A regular rate and rhythm without appreciable murmur or gallop. LABORATORY DATA: Includes a BUN of 34, creatinine 1.7, hematocrit 31.1. IMPRESSION: 1. Respiratory failure. 2. Aspiration pneumonia. 3. Sepsis Klebsiella pneumoniae. 4. Recurrent atrial fibrillation with rapid ventricular rate. 5. History of testicular cancer and previous bilateral orchiectomy. Final recurrence of testicular cancer in the lymph nodes, he received chemotherapy and had a port placed in the right subclavian. 6. Seizure disorder. RECOMMENDATIONS: 1. Suppress atrial fibrillation with intravenous amiodarone until further clinical improvement. 2. Followup venous Doppler/ultrasound study on right upper extremity, right subclavian. This was obtained to assess right upper extremity swelling which developed after the patient had IV in right upper extremity. cc: MD Royal Page MD
[2016-10-24] MEDS: ROCEPHIN 2 GM/NS 2 GM/50 ML IVPB IV SCH (18:50)
--- NOTE | 2016-10-24 20:28 | CONSULTATION ---
DATE OF CONSULTATION: 10/24/2016 CONCLUSION: The patient was admitted to the hospital with respiratory failure due to the presence of Klebsiella pneumonia bacteremia and UTI. Which of these entities came first is hard for me to say. He could have had pneumonia which became bacteremic or he could have had a urinary tract infection which became bacteremic and then hematogenously involved the lung. Proteus was also isolated from the patient's sputum and I am not sure how much of the pneumonia is due to Proteus. I am concerned that the patient may have an immunoglobulin deficiency in view of the fact that he became so ill quickly. I think overall though the patient is getting better as manifested by the fact that he has been extubated today, his white count has become normal and his chest x-ray looks better. RECOMMENDATIONS: I discontinued all the patient's antibiotics he is on now and have placed him on Rocephin 2 g IV every 24 hours. DISCUSSION: The patient is unable to provide a history and no family member is present. The patient lives in a mcc and he developed a fever, his blood pressure became low and he became dyspneic with labored respirations. He was admitted to the hospital and went to the intensive care unit where he was intubated. His laboratory studies from today show a CBC with a white count of 7500, hemoglobin 10.3, and platelet count 75,000. Blood gases show a pH of 7.51, PO2 of 69, and a pCO2 of 48. Patient's creatinine is 1.7, GFR is 42. Liver function studies are normal. An echocardiogram does not show any evidence of endocarditis or pericardial effusion. Chest x-ray shows bilateral opacities which are improving. The patient's urinalysis showed no white cells or bacteria. PAST MEDICAL HISTORY: Positive for coronary artery disease, testicular cancer, moderate cognitive dysfunction, seizures. PAST SURGICAL HISTORY: Positive for surgery on the patient's elbow. FAMILY HISTORY: Unobtainable. REVIEW OF SYSTEMS: Unobtainable. SOCIAL HISTORY: The patient is a nonsmoker and nondrinker. He lives in a mcc. ALLERGIES: His only allergy is to sulfa. MEDICATIONS: Medications that he takes in the mcc include Requip, MiraLAX, multivitamin, Mobic, Lasix, Prozac, Valium and vitamin B12. PHYSICAL EXAMINATION: Vital Signs: Temperature 100.1 degrees, pulse 82, respirations 14, blood pressure 105/56. The patient is 5 feet 9 inches tall, weighs 168 pounds. General: This is an ill-appearing, middle-aged male. He is in no acute distress. Head, eyes, ears, nose, and throat: No drainage is noted from the nose or ears. He did not respond to verbal stimuli. He did not track with his eyes. Neck: No meningismus. Thorax: No increased AP diameter. Lungs: Scattered rhonchi bilaterally. Cardiovascular: Heart rate was very rapid, it appeared to be irregular. Abdomen: Soft and nontender. Extremities: Legs were not swollen or erythematous. Integument: No rash noted. Thank you for the consultation. cc: MD Royal Miller MD
[2016-10-24] MEDS ORDERED: CORDARONE 540 MG in D5W 289.2 ML IV ONE (23:30)
[2016-10-25] MEDS: LEVOPHED 8 MG in D5 1/2 NS 250 ML IV SCH ×3 (02:36→21:47)
[2016-10-25] MEDS: DUONEB (A & A) INH SCH ×4 (03:12→19:04)
[2016-10-25 04:12] LABS: ALLEN TEST YES; BE 13.7 mmoll (-3.0-3.0); BLOOD TYPE ARTERIAL; DRAW SITE R RADIAL; METHB 0.8 % (0.0-1.5); O2(CT) 17.1 mL/dL (15.0-23.0); PCO2(98.6) 47 mmHg (35-45); PO2(98.6) 80 mmHg (60-100); SAMPLE BLOOD; SAO2 97.1 % (95.0-100.0); THB 12.8 g/dL (11.5-17.4); pH(98.6) 7.52 (7.35-7.45)
[2016-10-25 04:13] LABS: MODALITY COOL AEROSOL
[2016-10-25] MEDS: SOLU-CORTEF IV SCH ×3 (04:24→21:37)
[2016-10-25 06:31] LABS: ALBUMIN 2.8 g/dL (3.5-5.0); CALCIUM 8.7 mg/dL (8.8-10.2); POTASSIUM 3.8 mmol/L (3.5-5.1); TOTAL BILIRUBIN 0.31 mg/dL (0.20-1.00); TOTAL PROTEIN 6.6 g/dL (6.3-8.3)
[2016-10-25] MEDS: MUCOMYST 20% INH SCH ×2 (08:13→19:04)
[2016-10-25] MEDS: LASIX IV SCH ×3 (08:45→21:37)
[2016-10-25] MEDS: PEPCID IV SCH ×2 (08:46→21:37)
[2016-10-25] MEDS: SODIUM CHLORIDE 0.9% INJ SCH (08:46)
[2016-10-25] MEDS: D5W 1,000 ML IV SCH ×2 (08:46→10:45)
[2016-10-25] MEDS: HEPARIN SUBQ SCH (08:46)
--- NOTE | 2016-10-25 09:10 | Diag Imaging Result Doc PS360 ---
CHEST-PORTABLE - 10/25/2016 INDICATION: respiratory failure TECHNIQUE: COMPARISON: 10/24/2016 FINDINGS: Endotracheal tube is no longer visible. Stable left central line and nasogastric tube in good position. There is improvement in the multifocal diffuse bilateral infiltrates that are mixed. Improvement is most pronounced in the left midlung. Heart size remains normal. No pneumothorax or large effusion. IMPRESSION: Extubation. Significant improvement in the infiltrates. Electronically signed by Immanuel Brown 10/25/2016 9:07 AM
[2016-10-25] MEDS ORDERED: CITRATE OF MAGNESIA PO ONE (09:36)
[2016-10-25] MEDS ORDERED: LOVENOX 1 MG/KG SUBQ SCH (11:30)
[2016-10-25] MEDS ORDERED: HEPARIN 25,000 UNITS/D5W 25,000 UNIT/250 ML IV.SOLN IV SCH (11:30)
--- NOTE | 2016-10-25 12:05 | PROGRESS NOTE ---
DATE: 10/25/2016 SUBJECTIVE: Mr. Cordero, today, just prior to my entering the room apparently had an episode of transient altered mental status. His eyes remained open and he was nonresponsive for a brief period of time. He was on Levophed which they were titrating down and he had a systolic at that time around 60. Levophed was titrated back up. His pulse rate was in the 50s. His O2 saturation was normal and his Accu-Chek was normal. Within 5 minutes or so, the patient began coming around with a little bit of slurred speech and apparent improving back to his baseline per nursing staff as well as the sitter present in the room. He had no bowel or bladder incontinence and no shaking episodes. PHYSICAL EXAMINATION: Vital signs: Afebrile. Heart rate is 67. Blood pressure 113/70. General: He is in no acute distress. Cardiovascular: He sounds to be in a regular rate and rhythm. Telemetry currently seems to show sinus rhythm. He has no lower extremity edema. Chest: Clear bilaterally. No increased work of breathing. Abdomen: Soft, nontender, nondistended. Neurologic: Noted the patient was speaking and was speaking somewhat slurred but apparently he was returning back to baseline per family. He is somewhat slow in his mentation. He was moving all extremities but was again a bit slow with responses. He did not have a CBC today. His ABG was reviewed. His sodium is 143 potassium 3.8. BUN 41, creatinine 1.8 which is roughly stable. ASSESSMENT: 1. Transient episode of altered mental status. 2. Atrial fibrillation. 3. Pneumonia. 4. History of respiratory failure. PLAN: Due to his transient altered mental status episode, I asked the nursing staff to contact the primary team. This is my first day seeing the patient and I do not know what his baseline was but, according to nursing staff, he was returning towards it. We escalated back up the Levophed and his blood pressure came up into the 90s systolic. I have ordered a non-contrast head CT to evaluate. If this is unremarkable, then I would stop prophylactic heparin and place him on heparin drip as he has a right subclavian DVT by ultrasound yesterday. I would choose heparin over Lovenox as the patient's GFR is fluctuating around 30, and he does appear to have a low muscle mass, so I believe that is likely a potential overestimate. Heparin will not be started until the results of the negative head CT are back. cc: MD Royal Sanchez MD
--- NOTE | 2016-10-25 13:14 | Diag Imaging Result Doc PS360 ---
HEAD W/O CONTRAST - 10/25/2016 INDICATION: acute episode of AMS TECHNIQUE: A CT dose reduction protocol was used. COMPARISON: 02/20/2012 FINDINGS: The ventricles and sulci are normal in size and contour. No intracranial mass or hemorrhage. The skull is intact. The sinuses mastoids and middle ears are clear. IMPRESSION: Negative exam. Electronically signed by Immanuel Brown 10/25/2016 1:12 PM
[2016-10-25] MEDS ORDERED: CORDARONE 540 MG in D5W 289.2 ML IV ONE (17:13)
[2016-10-25] MEDS: ROCEPHIN 2 GM/NS 2 GM/50 ML IVPB IV SCH (17:34)
[2016-10-25] MEDS: CORDARONE 360 MG/D5W 360 MG/200 ML IV.SOLN IV SCH ×2 (18:56→21:47)
[2016-10-25] MEDS ORDERED: HEPARIN IV ONE (21:09)
[2016-10-26] MEDS: DUONEB (A & A) INH SCH ×4 (03:05→19:11)
[2016-10-26] MEDS: SOLU-CORTEF IV SCH ×3 (04:00→20:19)
[2016-10-26] MEDS ORDERED: HEPARIN IV ONE ×2 (04:00→09:30)
[2016-10-26] MEDS: CORDARONE 360 MG/D5W 360 MG/200 ML IV.SOLN IV SCH ×3 (07:03→18:46)
[2016-10-26 07:18] LABS: MAGNESIUM 3.2 mg/dL (1.5-2.7)
[2016-10-26] MEDS: D5W 1,000 ML IV SCH ×2 (07:18→13:12)
[2016-10-26 07:24] LABS: ALBUMIN 3.1 g/dL (3.5-5.0); CALCIUM 8.8 mg/dL (8.8-10.2); POTASSIUM 3.5 mmol/L (3.5-5.1); TOTAL BILIRUBIN 0.23 mg/dL (0.20-1.00); TOTAL PROTEIN 6.9 g/dL (6.3-8.3)
[2016-10-26] MEDS: MUCOMYST 20% INH SCH ×2 (08:00→19:11)
[2016-10-26] MEDS ORDERED: D5 NS 1,000 ML IV SCH (08:14)
--- NOTE | 2016-10-26 08:24 | Diag Imaging Result Doc PS360 ---
CHEST-PORTABLE - 10/26/2016 INDICATION: respiratory failure TECHNIQUE: COMPARISON: 10/25/2016 FINDINGS: Stable left central line. There is further improvement in the background interstitial infiltrates consistent with edema. Stable multifocal, nodular infiltrates in the right midlung. Nasogastric tube has been removed. IMPRESSION: Improvement from prior. Electronically signed by Immanuel Brown 10/26/2016 8:22 AM
[2016-10-26] MEDS: PEPCID IV SCH ×2 (08:47→20:19)
[2016-10-26] MEDS: LEVOPHED 8 MG in D5 1/2 NS 250 ML IV SCH (08:47)
[2016-10-26] MEDS: SODIUM CHLORIDE 0.9% INJ SCH (08:47)
[2016-10-26] MEDS: HEPARIN 25,000 UNITS/D5W 25,000 UNIT/250 ML IV.SOLN IV SCH (10:13)
[2016-10-26 10:22] LABS: BASO% 1.1 % (0.0-0.8); EOS# 0.02 X1000 (0.0-0.7); EOS% 0.3 % (0.0-10.0); HEMATOCRIT 34.2 % (42.0-52.0); HEMOGLOBIN 11.1 g/dL (14.0-18.0); IMM GRAN# 0.05 X1000 (0.0-0.04); IMM GRAN% 0.8 % (0.0-0.5); LYMPH% 20.2 % (20.5-51.1); MANUAL DIFF NEEDED? YES; MCH 30.9 PG (27-31); MCHC 32.5 g/dL (33-37); MCV 95.3 FL (81-99); MONO# 0.47 X1000 (0.11-0.59); MONO% 7.3 % (1.7-9.3); MPV 10.3 FL (7.4-10.4); NEUT% 70.3 % (42.2-75.2); PLT 150 X1000 (130-400); RBC 3.59 XMIL (4.7-6.1)
[2016-10-26 10:51] LABS: LYMPHS 22 % (21-51); MONO 4 % (1-9)
[2016-10-26] MEDS: ROCEPHIN 2 GM/NS 2 GM/50 ML IVPB IV SCH (17:36)
[2016-10-26] MEDS ORDERED: STERILE WATER INJ. ONE (20:24)
[2016-10-27] MEDS: CORDARONE 360 MG/D5W 360 MG/200 ML IV.SOLN IV SCH ×4 (01:14→18:19)
[2016-10-27] MEDS: HEPARIN 25,000 UNITS/D5W 25,000 UNIT/250 ML IV.SOLN IV SCH ×4 (01:30→21:27)
[2016-10-27] MEDS: DUONEB (A & A) INH SCH ×4 (03:22→19:00)
[2016-10-27] MEDS: SOLU-CORTEF IV SCH ×3 (05:03→20:18)
--- NOTE | 2016-10-27 05:41 | EKG Report ---
Test Performed on : 10/24/2016 4:39:52 PM Test Reason : tachycardia Blood Pressure : / mmHG Vent. Rate : 112 BPM Atrial Rate : 112 BPM P-R Int : 124 ms QRS Dur : 072 ms QT Int : 372 ms P-R-T Axes : 043 -28 060 degrees QTc Int : 507 ms Sinus tachycardia. with premature atrial complexes. with aberrant conduction. Low voltage QRS Borderline ECG When compared with ECG of 24-OCT-2016 16:37, (Unconfirmed) Sinus rhythm. has replaced Atrial flutter. Confirmed by Finn Melendez MD ([id number]) on 10/27/2016 8:49:51 AM
[2016-10-27 06:20] LABS: ALBUMIN 2.8 g/dL (3.5-5.0); CALCIUM 8.4 mg/dL (8.8-10.2); POTASSIUM 3.2 mmol/L (3.5-5.1); TOTAL BILIRUBIN 0.18 mg/dL (0.20-1.00); TOTAL PROTEIN 6.3 g/dL (6.3-8.3)
[2016-10-27] MEDS ORDERED: HEPARIN IV ONE (07:00)
--- NOTE | 2016-10-27 07:08 | Diag Imaging Result Doc PS360 ---
EXAM: CHEST-PORTABLE HISTORY: respiratory failure TECHNIQUE: AP portable semiupright at 0510 COMMENT: The inspiration is slightly better than on the previous study of 10/26/2016. Otherwise, there has been no significant change. There is still patchy opacity throughout much of the left lung consistent with pneumonia. IMPRESSION: Patchy bronchopneumonia. Essentially stable since 10/26/2016. Electronically signed by Alfredito Fulton 10/27/2016 7:06 AM
[2016-10-27] MEDS: MUCOMYST 20% INH SCH ×2 (07:30→18:59)
[2016-10-27] MEDS: PEPCID IV SCH ×2 (08:10→20:18)
[2016-10-27] MEDS: D5W 1,000 ML IV SCH ×2 (08:10→21:28)
[2016-10-27] MEDS: POTASSIUM CHLORIDE 10% LIQUID PO SCH ×2 (08:11→21:27)
[2016-10-27] MEDS: LEVOPHED 8 MG in D5 1/2 NS 250 ML IV SCH (08:11)
[2016-10-27] MEDS ORDERED: LASIX IV SCH (09:00)
--- NOTE | 2016-10-27 09:13 | PROGRESS NOTE ---
DATE: 10/27/2016 VITAL SIGNS: Temperature 98.8, heart rate 72 and regular, respirations 24, blood pressure 90/49, O2 saturation on 2 liters nasal oxygen 96%. LABORATORY: Sodium 140, potassium 3.2, BUN 46, creatinine 1.5, glucose 117, calcium 8.4. Albumin 2.8. Chest x-ray reveals patchy bronchopneumonia, stable since 10/26. OBJECTIVE: Patient is on p.o. ice chips. Lungs sound fairly clear. He is alert and oriented. Mental status is baseline. PLAN: Add p.o. potassium. Change to low-dose Eliquis will be considered. Ceftriaxone is continued. He will be kept in ICU today. cc: MD Royal Waldrop MD
[2016-10-27] MEDS: LASIX IV SCH (11:48)
[2016-10-27] MEDS: ZYRTEC PO SCH (14:34)
[2016-10-27] MEDS: ROCEPHIN 2 GM/NS 2 GM/50 ML IVPB IV SCH (18:03)
--- NOTE | 2016-10-27 19:28 | PROGRESS NOTE ---
DATE: 10/27/2016 PRESENT ILLNESS: The patient has a Klebsiella pneumonia urinary tract infection and bacteremia. He also has Proteus that was isolated from the sputum. MEDICATIONS: The patient is receiving Rocephin 2 g IV every 24 hours. PHYSICAL EXAMINATION: Vital Signs: Temperature is 98 degrees, pulse 79, respirations 16, blood pressure 112/66. General: This is a somewhat ill-appearing, middle-aged male. He is in no acute distress. Ear, nose and throat: The patient has very poor oral hygiene. Lungs: There were bilateral rhonchi. Cardiovascular: Heart rate was regular. Abdomen: Soft and nontender. LAB AND X-RAY: Chest x-ray shows left lung opacities. CBC today shows a white count of 6450, hemoglobin 11.1, and platelet count 150,000. Creatinine is 1.5. GFR is 49. ASSESSMENT AND PLAN: Patient has a Klebsiella pneumonia bacteremia and urinary tract infection. My plan is to continue with Rocephin for the time being. COMORBIDITIES: He does have poor oral hygiene and this could be further exacerbated by aspiration. cc: MD Royal Miller MD
[2016-10-27] MEDS: SODIUM CHLORIDE 0.9% INJ SCH (20:19)
--- NOTE | 2016-10-27 21:33 | PROGRESS NOTE ---
DATE: 10/27/2016 SUBJECTIVE: Patient continues without chest discomfort or dyspnea. Has progressively been improving from a standpoint of his pneumonia. He seems to be feeling better. Mental status appears to be back at baseline. He is in no distress. OBJECTIVE: Vital Signs: Blood pressure 100/55, heart rate 81 and regular with ECG monitor showing sinus rhythm. Oxygen saturation 91% on room air. Chest: Clear to auscultation. Cardiac Exam: Reveals a regular rate and rhythm without appreciable murmur or gallop. Abdomen: Soft, nontender. Neurologic Exam: Reveals him to be alert and very responsive. He is somewhat slow in his mentation. Moves all 4 extremities equally well. IMPRESSION: 1. Pneumonia with Klebsiella species. This appears to be clinically improving. 2. Episodes of atrial fibrillation with rapid ventricular rate likely provoked by stress of illness. Patient continues in sinus rhythm and is currently on intravenous amiodarone. 3. History of testicular cancer and previous bilateral orchiectomy. Following recurrence of testicular cancer lymph nodes he received chemotherapy and had a port placed in the right subclavian. 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 4. Seizure disorder. 5. Developmental delay since premature . RECOMMENDATIONS: Discontinue amiodarone at this point and monitor rhythm. cc: MD Royal Page MD
[2016-10-28] MEDS: DUONEB (A & A) INH SCH ×4 (03:09→19:41)
[2016-10-28 04:49] LABS: MANUAL DIFF NEEDED? NO
[2016-10-28 04:57] LABS: BASO% 0.3 % (0.0-0.8); HEMOGLOBIN 8.8 g/dL (14.0-18.0); IMM GRAN# 0.02 X1000 (0.0-0.04); IMM GRAN% 0.3 % (0.0-0.5); LYMPH# 0.86 X1000 (1.2-3.4); LYMPH% 13.1 % (20.5-51.1); MCH 30.8 PG (27-31); MCHC 31.4 g/dL (33-37); MCV 97.9 FL (81-99); MONO# 0.25 X1000 (0.11-0.59); MONO% 3.8 % (1.7-9.3); MPV 11.1 FL (7.4-10.4); NEUT% 82.5 % (42.2-75.2); PLT 155 X1000 (130-400); RBC 2.86 XMIL (4.7-6.1)
[2016-10-28 05:21] LABS: ALBUMIN 2.7 g/dL (3.5-5.0); CALCIUM 8.4 mg/dL (8.8-10.2); POTASSIUM 3.8 mmol/L (3.5-5.1); TOTAL BILIRUBIN 0.29 mg/dL (0.20-1.00)
[2016-10-28] MEDS: SOLU-CORTEF IV SCH ×3 (05:33→20:49)
[2016-10-28] MEDS: MUCOMYST 20% INH SCH ×2 (07:32→19:41)
--- NOTE | 2016-10-28 07:36 | Diag Imaging Result Doc PS360 ---
CHEST-PORTABLE - 10/28/2016 INDICATION: respiratory failure TECHNIQUE: COMPARISON: 10/27/2016 FINDINGS: There is little change in the infiltrate throughout the left lung. Stable patchy infiltrate at the right base as well. Heart size remains normal. Pulmonary vascularity is top normal. No pneumothorax or large effusion. Stable left central line. IMPRESSION: Grossly stable bilateral infiltrates. Electronically signed by Immanuel Brown 10/28/2016 7:34 AM
[2016-10-28] MEDS: POTASSIUM CHLORIDE 10% LIQUID PO SCH ×2 (08:10→20:49)
[2016-10-28] MEDS: ELIQUIS PO SCH ×2 (08:10→20:54)
[2016-10-28] MEDS: ZYRTEC PO SCH (08:10)
[2016-10-28] MEDS: PEPCID IV SCH ×2 (08:10→20:49)
[2016-10-28] MEDS: LASIX IV SCH (09:42)
--- NOTE | 2016-10-28 11:36 | PROGRESS NOTE ---
DATE: 10/28/2016 SUBJECTIVE: Patient is feeling well this morning and denies significant shortness of breath. There is minimal cough. He tolerated clear liquids well yesterday. OBJECTIVE: Vital Signs: Temperature 98.4 degrees, heart rate 68, respirations 15, blood pressure 108/65, off Claudy-Synephrine, O2 saturation 93% on 2L nasal oxygen. LABORATORY: Hemoglobin 8.8, hematocrit 28.0, white blood count 6500. Sodium 140, potassium 3.8, chloride 96, BUN 46, creatinine 1.5, glucose 105, calcium 8.4, total protein 6.0, albumin 2.7. PLAN: Increase to full liquids p.o. and change heparin to Eliquis. If he continues to do well today, he will be transferred to a medical bed on the floor tomorrow. cc: MD Royal Waldrop MD
[2016-10-28] MEDS: SODIUM CHLORIDE 0.9% INJ SCH (11:59)
--- NOTE | 2016-10-28 17:14 | Extremity Venous Study ---
PROCEDURE NAME: Venous U/S Right Arm - 10/23/2016 REFERRING PHYSICIAN: Dr. Stevenson. READING PHYSICIAN: Dr. Ariel Osman. FOREIGN EXCHANGE POSITION CLERK: Ada. INDICATION: Right arm swelling. FINDINGS: The deep and superficial veins of the right upper extremity were imaged throughout their course. There is thrombosis of the right subclavian vein with no flow present. The remaining deep and superficial veins were compressible, patent and without thrombosis. INTERPRETATION: Acute deep vein thrombosis of the right subclavian vein. cc: MD Laura Nolasco PA Gregory S. Cheatham, MD
--- NOTE | 2016-10-28 17:57 | PROGRESS NOTE ---
DATE: 10/28/2016 SUBJECTIVE: Patient continues without dyspnea and is progressively feeling better. He has some cough but this is improving as well. OBJECTIVE: Vital Signs: Blood pressure 100/50, heart rate 80 and regular with ECG monitor showing sinus rhythm, oxygen saturation 96% on nasal cannula oxygen at 2 L/minute. Chest: Clear to auscultation. Cardiac Exam: Reveals a regular rate and rhythm without appreciable murmur or gallop. There is no evidence of peripheral edema. IMPRESSION: 1. Pneumonia with Klebsiella. This is improving clinically. 2. Episodes of atrial fibrillation with rapid ventricular rate, provoked by stress of noncardiac illness. Patient continues in sinus rhythm off amiodarone. 3. Left subclavian vein thrombosis. It is not clear whether this is acute or chronic given that patient previously had a venous port in the left subclavian vein and this had to be removed as it had technical issues. 4. History of testicular cancer and previous bilateral orchiectomy and later chemotherapy following recurrence in lymph nodes. 5. Seizure disorder. 6. Developmental delay since premature . RECOMMENDATIONS: 1. Continue to monitor rhythm and leave off amiodarone. 2. It is reasonable to anticoagulate for 3-6 months in light of lack of certainty as to whether thrombosis of right subclavian vein is acute or chronic. My suspicion is this may more likely be chronic and as such it is likely that patency of left subclavian vein will not be restored. 3. We will see further on an as needed basis from a cardiovascular standpoint. cc: MD Royal Page MD
[2016-10-28] MEDS: D5W 1,000 ML IV SCH (18:16)
[2016-10-28] MEDS: ROCEPHIN 2 GM/NS 2 GM/50 ML IVPB IV SCH (18:16)
--- NOTE | 2016-10-28 19:38 | PROGRESS NOTE ---
DATE: 10/28/2016 PRESENT ILLNESS: The patient has a Klebsiella pneumonia, urinary tract infection and associated bacteremia. Proteus also was isolated from the sputum. MEDICATIONS: The patient is on Rocephin 2 g IV every 24 hours. This is the 4th day of treatment with Rocephin. Overall, since the patient's admission on October 19, this is the 9th day of treatment with antibiotics. PHYSICAL EXAMINATION: Vital Signs: Temperature is 98.8 degrees, pulse 80, respirations 34, blood pressure 196/42. General: This is a somewhat ill-appearing, middle-aged male. He is in no acute distress. Head, eyes, ears, nose, and throat: Patient has poor oral hygiene. Lungs: Clear to auscultation. Today. Cardiovascular: Heart rate is regular. Abdomen: Soft and nontender. The patient's legs are not red or swollen. LABORATORY AND X-RAY: Chest x-ray shows stable bilateral infiltrates. CBC shows a white count of 6.57, hemoglobin 8.8, and platelet count 155,000. Creatinine is 1.5. The GFR is 49. Liver function studies are normal. ASSESSMENT AND PLAN: 1. Patient has pneumonia, bacteremia and urinary tract infection, all caused by Klebsiella. The plan is to continue with Rocephin for now. 2. Comorbidities in this patient include poor oral hygiene and possible aspiration. cc: MD Royal Miller MD
[2016-10-29] MEDS: DUONEB (A & A) INH SCH ×4 (02:35→20:43)
[2016-10-29] MEDS: SOLU-CORTEF IV SCH ×3 (03:10→20:10)
--- NOTE | 2016-10-29 06:11 | Diag Imaging Result Doc PS360 ---
EXAM: CHEST-PORTABLE HISTORY: respiratory failure TECHNIQUE: Portable AP COMPARISON: 10/28/2016 FINDINGS: The patient is rotated to the right. No change in the left subclavian line. No pneumothorax. The heart is not enlarged. There are increased interstitial markings bilaterally. Questionable small right pleural effusion. IMPRESSION: No interval improvement. Electronically signed by Errol Santos 10/29/2016 6:09 AM
[2016-10-29 06:23] LABS: BASO% 0.3 % (0.0-0.8); HEMATOCRIT 27.2 % (42.0-52.0); HEMOGLOBIN 8.6 g/dL (14.0-18.0); IMM GRAN# 0.03 X1000 (0.0-0.04); IMM GRAN% 0.5 % (0.0-0.5); LYMPH% 9.6 % (20.5-51.1); MANUAL DIFF NEEDED? YES; MCHC 31.6 g/dL (33-37); MCV 98.2 FL (81-99); MONO# 0.21 X1000 (0.11-0.59); MONO% 3.4 % (1.7-9.3); MPV 11.3 FL (7.4-10.4); NEUT% 86.2 % (42.2-75.2); PLT 245 X1000 (130-400); RBC 2.77 XMIL (4.7-6.1)
[2016-10-29 06:30] LABS: CALCIUM 8.4 mg/dL (8.8-10.2); POTASSIUM 3.8 mmol/L (3.5-5.1)
[2016-10-29] MEDS: PEPCID IV SCH ×2 (07:55→20:10)
[2016-10-29] MEDS: ELIQUIS PO SCH ×2 (07:59→20:10)
[2016-10-29] MEDS: ZYRTEC PO SCH (07:59)
[2016-10-29] MEDS: POTASSIUM CHLORIDE 10% LIQUID PO SCH ×2 (07:59→20:10)
--- NOTE | 2016-10-29 08:00 | PROGRESS NOTE ---
DATE: 10/29/2016 VITAL SIGNS: Stable with temperature 97.8 degrees, rate 64, respiration 18, blood pressure 96/53, O2 saturation 96% on 2 L nasal oxygen. LABORATORY: Hemoglobin 8.6, hematocrit 27.2, white blood count 6,200, with 86% neutrophils. Sodium 141, potassium 3.8, BUN 45, creatinine 1.5, glucose 107, calcium 8.4. The patient continues to slowly improve. There is mild cough, but lungs are fairly clear. He has been tolerating full liquids and has increased to GI soft diet. He is transferred to the floor with continuation of nebulizer treatments and Rocephin. Sputum culture revealed Proteus mirabilis and Klebsiella. Urine culture revealed Klebsiella. Blood culture also showed Klebsiella. Attempts will be made to get him up in a chair some today. cc: MD Royal Waldrop MD
[2016-10-29 08:26] LABS: BANDS 4 % (0-1); LYMPHS 2 % (21-51); MONO 2 % (1-9)
[2016-10-29] MEDS: LASIX IV SCH (09:16)
[2016-10-29] MEDS: D5W 1,000 ML IV SCH ×2 (09:20→18:13)
[2016-10-29] MEDS: MUCOMYST 20% INH SCH ×2 (15:14→20:43)
[2016-10-29] MEDS: ROCEPHIN 2 GM/NS 2 GM/50 ML IVPB IV SCH (18:13)
[2016-10-30] MEDS: DUONEB (A & A) INH SCH ×4 (03:13→19:37)
[2016-10-30] MEDS: SOLU-CORTEF IV SCH (04:46)
[2016-10-30] MEDS: D5W 1,000 ML IV SCH ×3 (04:46→21:50)
[2016-10-30] MEDS: ELIQUIS PO SCH ×2 (08:02→21:50)
[2016-10-30] MEDS: ZYRTEC PO SCH (08:02)
[2016-10-30] MEDS: POTASSIUM CHLORIDE 10% LIQUID PO SCH ×2 (08:02→21:48)
[2016-10-30] MEDS: SODIUM CHLORIDE 0.9% INJ SCH (08:02)
[2016-10-30] MEDS: PEPCID IV SCH (08:02)
--- NOTE | 2016-10-30 08:43 | PROGRESS NOTE ---
DATE: 10/30/2016 PRESENT ILLNESS: The patient has a Klebsiella pneumoniae, urinary tract infection, and associated bacteremia. From the patient's sputum, Proteus was also isolated in addition to Klebsiella. MEDICATIONS: This is the 6th day of treatment with Rocephin in a dose of 2 g IV every 24 hours. Overall, since the patient's admission on September 19, this is the 11th day of treatment with antibiotics. PHYSICAL EXAMINATION: Vital Signs: Temperature is 97.9 degrees, pulse 74, respirations 13, blood pressure 80/46. Generally: This is a fairly healthy-appearing, middle-aged male. He is in no acute distress. Lungs: Clear to auscultation. Cardiovascular: Regular heart rate. Abdomen: Soft and nontender. Extremities: The patient's IV sites are not erythematous or swollen. The patient does have some pressure sores on his legs which are being treated with local dressings. LAB AND X-RAY: There is no lab or radiographic study for today. ASSESSMENT AND PLAN: Patient has pneumonia, bacteremia, and a urinary tract infection caused by Klebsiella. The plan is to continue Rocephin for a total of 14 days. COMORBIDITIES: Include poor oral hygiene and possible aspiration. cc: MD Royal Miller MD MTDD
--- NOTE | 2016-10-30 09:47 | PROGRESS NOTE ---
DATE: 10/30/2016 SUBJECTIVE AND OBJECTIVE: Vital Signs: Temperature 98.7 degrees, heart rate 72, respirations 15, blood pressure 94/51. O2 saturation on 2 liters nasal oxygen 96%. I and Os: 2260/1500 with positive balance 760. He is eating fairly well. There is mild cough. Lungs: No rales or rhonchi. PLAN: Transfer to the floor when a bed is available. Orders were given for transfer yesterday. cc: MD Royal Waldrop MD
[2016-10-30] MEDS: MUCOMYST 20% INH SCH ×2 (09:56→19:37)
[2016-10-30] MEDS: ROCEPHIN 2 GM/NS 2 GM/50 ML IVPB IV SCH (18:11)
[2016-10-31] MEDS: DUONEB (A & A) INH SCH ×5 (03:01→21:24)
[2016-10-31] MEDS: MUCOMYST 20% INH SCH ×2 (07:07→19:12)
[2016-10-31] MEDS: D5W 1,000 ML IV SCH ×2 (07:57→18:23)
--- NOTE | 2016-10-31 09:05 | PROGRESS NOTE ---
DATE: 10/31/2016 OBJECTIVE: Vital Signs: Vital signs stable with temperature 98.4 degrees, heart rate 80, respirations 18, blood pressure 97/56, O2 saturation on 2 liters nasal oxygen 94%. General Appearance: The patient is somnolent this morning. Lungs: Are fairly clear. Extremities: There is no peripheral edema. Abdomen: Soft with no mass. This is day [address] Cano desired for patient to be on IV Rocephin for 14 days. PLAN: Chest x-ray will be repeated on Thursday. cc: MD Royal Waldrop MD
[2016-10-31] MEDS: ELIQUIS PO SCH ×2 (09:46→22:51)
[2016-10-31] MEDS: POTASSIUM CHLORIDE 10% LIQUID PO SCH ×2 (09:46→22:51)
[2016-10-31] MEDS: ZYRTEC PO SCH (09:46)
--- NOTE | 2016-10-31 14:16 | PROGRESS NOTE ---
DATE: 10/31/2016 PRESENT ILLNESS: The patient has Klebsiella urinary tract infection, pneumonia and bacteremia. Proteus was also isolated from the patient's sputum, in addition to Klebsiella. MEDICATIONS: This is the 11th day of all the antibiotics that have been used to treat the patient's infections. Currently the patient is receiving Rocephin for the 7th day of treatment. PHYSICAL EXAMINATION: Vital Signs: Temperature is 98.4 degrees, pulse 80, respirations 18, blood pressure 97/56. Generally: A fairly healthy-appearing, middle-aged male. He is in no acute distress. Lungs: Clear to auscultation. Cardiovascular: Regular heart rate. Abdomen: Soft and nontender. Neurologic: Patient is alert. He can move his extremities. Extremities: The patient's IV site is not swollen or tender or erythematous. LAB AND X-RAY: There is no new lab or x-ray for today. ASSESSMENT AND PLAN: Patient has pneumonia, bacteremia, urinary tract infection. The plan is to continue Rocephin to complete a 14 days of treatment which should be done on ThursdayNovember 03. I plan to repeat the patient's CBC and creatinine on ThursdayNovember 03. COMORBIDITIES: Include poor oral hygiene and possible aspiration. cc: MD Royal Miller MD
[2016-10-31] MEDS: ROCEPHIN 2 GM/NS 2 GM/50 ML IVPB IV SCH (18:23)
[2016-11-01] MEDS: DUONEB (A & A) INH SCH ×5 (03:20→20:44)
[2016-11-01] MEDS: D5W 1,000 ML IV SCH ×2 (03:48→14:33)
[2016-11-01 05:52] LABS: MANUAL DIFF NEEDED? NO
[2016-11-01 06:06] LABS: ALBUMIN 2.9 g/dL (3.5-5.0); CALCIUM 8.7 mg/dL (8.8-10.2); MAGNESIUM 2.2 mg/dL (1.5-2.7); POTASSIUM 3.9 mmol/L (3.5-5.1); TOTAL BILIRUBIN 0.4 mg/dL (0.20-1.00); TOTAL PROTEIN 6.3 g/dL (6.3-8.3)
[2016-11-01 06:12] LABS: BASO% 1.3 % (0.0-0.8); EOS# 0.37 X1000 (0.0-0.7); EOS% 4.3 % (0.0-10.0); HEMATOCRIT 27.9 % (42.0-52.0); HEMOGLOBIN 8.6 g/dL (14.0-18.0); IMM GRAN# 0.04 X1000 (0.0-0.04); IMM GRAN% 0.5 % (0.0-0.5); LYMPH# 1.63 X1000 (1.2-3.4); LYMPH% 18.9 % (20.5-51.1); MCHC 30.8 g/dL (33-37); MCV 100.7 FL (81-99); MONO% 8.1 % (1.7-9.3); MPV 10.5 FL (7.4-10.4); NEUT% 66.9 % (42.2-75.2); PLT 527 X1000 (130-400); RBC 2.77 XMIL (4.7-6.1)
[2016-11-01] MEDS: MUCOMYST 20% INH SCH ×2 (07:35→19:11)
--- NOTE | 2016-11-01 08:27 | Diag Imaging Result Doc PS360 ---
EXAM: CHEST-PORTABLE INDICATION: abnormal exam TECHNIQUE: One view COMPARISON: 10/29/2016 FINDINGS: Left central line is in stable position. Bilateral increased interstitial markings are essentially unchanged. This appears to be most significant at the left mid and upper lung zone. There is a focal consolidation in the left upper lobe that is unchanged. The right costophrenic blunting is less prominent suggesting a decreasing small effusion. No new consolidation is identified. Cardiac silhouette is stable. IMPRESSION: Suggestion of a decreasing trace right effusion. Stable chest, otherwise. Electronically signed by Jackson Bunch 11/01/2016 8:24 AM
--- NOTE | 2016-11-01 08:30 | Diag Imaging Result Doc PS360 ---
EXAM: KUB ABDOMEN INDICATION: distention TECHNIQUE: One view COMPARISON: 10/23/2016 FINDINGS: There has been interval development of severe gaseous distention of the rectum and the distal sigmoid colon. There is moderate distention of the remainder of the colon. Consider a functional or mechanical obstruction at the distal rectum. There is no radiographic evidence of constipation. IMPRESSION: Interval development of marked gaseous distention of the rectum and distal sigmoid and moderate gaseous distention of the remainder of the colon as described. Electronically signed by Jackson Bunch 11/01/2016 8:28 AM
[2016-11-01] MEDS: POTASSIUM CHLORIDE 10% LIQUID PO SCH ×2 (09:25→21:55)
[2016-11-01] MEDS: ZYRTEC PO SCH (09:25)
[2016-11-01] MEDS: ELIQUIS PO SCH ×2 (09:25→21:55)
[2016-11-01] MEDS ORDERED: TUMS EXTRA STRENGTH PO ONE (10:18)
--- NOTE | 2016-11-01 11:48 | PROGRESS NOTE ---
DATE: 11/01/2016 PRIMARY CARE PHYSICIAN: Dr. Nixon Stevenson. SUBJECTIVE: Overnight, the patient responding well. Mother at bedside. No acute complaints. The patient is able to make needs known at this time. OBJECTIVE: Vital Signs: Temperature 98.3 degrees, pulse 90, respirations 20, blood pressure 103/54. O2 saturation 93% on 2 L nasal cannula. P.o. intake noted to be bites only. Patient is demonstrating a positive fluid balance of about 300 mL. PHYSICAL EXAMINATION: Calm and comfortable male with overt mental retardation. HEENT shows right eye with diffuse injection, likely chronic. Left eye with mild proptosis. Generally, the patient appears older than stated age. Neck is supple. No JVD. Poor oral dentition. CV: Regular rate. No murmurs, gallops, or rubs. Lungs show rhonchi in the bilateral bases and the right middle lobe, clearing minimally with cough. Abdomen is soft, nontender, nondistended. Bowel sounds positive. Lower extremities: Mild contractures noted but, otherwise, the patient is stable. Good distal pulses. Psychiatric: Patient's mood and affect or at his current baseline. The patient is easy to console, has mild inappropriate questions but easily directed. The patient is able to provide the minimal amount of self-care but is interactive at this time. LABORATORY DATA: Microbiology from 10/21/2016 showed Proteus mirabilis in sputum culture and Klebsiella pneumonia in both sputum and the urine. Chest x-ray 11/01/2016 showed decreasing trace right pleural effusion. Stable chest otherwise. Labs demonstrate a WBC of 8.62 with an hemoglobin and hematocrit of 8.6 and 27.9. Chemistry within normal limits. Creatinine at baseline 1.5 with a glucose of 84-107. Calcium slightly low at 8.7. Alkaline phosphatase 87. Albumin low at 2.9. ASSESSMENT AND PLAN: Patient is a 56-year-old white male with 1. Klebsiella urinary tract infection. 2. Klebsiella pneumonia with bacteremia. 3. Chronic mental retardation. 4. Anemia. 5. Hypocalcemia. PLAN: We will continue the course of treatment alongside Infectious Disease recommendation. There is a concern for aspiration pneumonia, and we will make sure that antibiotic coverage is made for that likelihood. We will also continue appropriate oral care and some incentive spirometry for the condition. The patient requires PT for further prevention of any issues along with this long-term associated hospitalization. Regarding the anemia, the patient will be monitored. Transfusion if patient approaches 8.0. We will repeat the calcium with Tums at this point and check labs in the morning. A chest x-ray is planned for Thursday a.m. as the [facility] when stable. cc: MD Royal Reyes MD
[2016-11-01] MEDS: ROCEPHIN 2 GM/NS 2 GM/50 ML IVPB IV SCH (17:19)
[2016-11-02] MEDS: DUONEB (A & A) INH SCH ×4 (03:10→21:28)
[2016-11-02] MEDS: D5W 1,000 ML IV SCH ×3 (05:26→19:02)
[2016-11-02 05:44] LABS: MANUAL DIFF NEEDED? NO
[2016-11-02 06:01] LABS: BASO% 1.4 % (0.0-0.8); EOS# 0.23 X1000 (0.0-0.7); EOS% 3.3 % (0.0-10.0); HEMATOCRIT 26.6 % (42.0-52.0); HEMOGLOBIN 8.4 g/dL (14.0-18.0); IMM GRAN# 0.03 X1000 (0.0-0.04); IMM GRAN% 0.4 % (0.0-0.5); LYMPH# 1.27 X1000 (1.2-3.4); LYMPH% 18.3 % (20.5-51.1); MCH 31.6 PG (27-31); MCHC 31.6 g/dL (33-37); MONO# 0.71 X1000 (0.11-0.59); MONO% 10.2 % (1.7-9.3); MPV 10.1 FL (7.4-10.4); NEUT% 66.4 % (42.2-75.2); PLT 533 X1000 (130-400); RBC 2.66 XMIL (4.7-6.1)
[2016-11-02 06:17] LABS: ALBUMIN 2.6 g/dL (3.5-5.0); CALCIUM 8.8 mg/dL (8.8-10.2); MAGNESIUM 2.3 mg/dL (1.5-2.7); POTASSIUM 4.2 mmol/L (3.5-5.1); TOTAL BILIRUBIN 0.33 mg/dL (0.20-1.00)
[2016-11-02] MEDS: MUCOMYST 20% INH SCH ×2 (07:20→20:05)
[2016-11-02] MEDS: TYLENOL LIQUID PO PRN (07:40)
[2016-11-02] MEDS: POTASSIUM CHLORIDE 10% LIQUID PO SCH ×2 (08:53→23:05)
[2016-11-02] MEDS: ZYRTEC PO SCH (08:53)
[2016-11-02] MEDS: ELIQUIS PO SCH ×2 (08:54→23:05)
[2016-11-02] MEDS ORDERED: CYANOCOBALAMIN IM ONE (10:02)
--- NOTE | 2016-11-02 18:31 | PROGRESS NOTE ---
DATE: 11/02/2016 PRIMARY CARE PHYSICIAN: Dr. Stevenson. SUBJECTIVE: Overnight patient did have a fever objectively measured 99.5. Liquid Tylenol provided. No additional issues or concerns noted. PHYSICAL EXAMINATION: Vital Signs: Temperature 99.5 degrees, pulse 86, respirations 20, blood pressure 98/46, O2 saturation 97% on 2 L nasal cannula. General: Mentally retarded male with right-sided upper and lower extremities mild contractures. Easily directable. No acute distress. Respiratory: Notes slightly increased work of breathing. Rhonchi still present at the bases bilaterally, right greater than left. CV: Regular rate. No murmurs, gallops, or rubs. Skin: Warm and slightly wet. No rashes, no lesions noted. Extremities: Show 2+ pulses. No cyanosis, clubbing, or edema. HEENT: Showed the continued right eye redness and left eye proptosis. This is likely stable and part of the patient's baseline rate. Neurological: Cranial nerves 2-12 are grossly intact. Psychiatric: Confirmed by mother at bedside, the patient is at baseline mental function. LABORATORY FINDINGS: WBC 6.95, with a hemoglobin and hematocrit of 8.4 and 26.6, platelets of 533,000, neutrophils down to 66.4. Sodium 139. Creatinine continues coming down with a BUN of 28 and creatinine 1.4. The remainder of the electrolytes are complete, albumin 6.0. Chest x-ray on 11/01/2016 shows decreasing trace right pleural effusion, stable chest otherwise. ASSESSMENT AND PLAN: Mr. Cordero is a 56-year-old, white male with: 1. Klebsiella pneumoniae with bacteremia, likely not caused by aspiration. 2. Klebsiella urinary tract infection. 3. Anemia. 4. Hypocalcemia, resolving. 5. Chronic mental retardation. 6. Acute kidney injury. PLAN: We will continue the antibiotic treatments for the condition, Tylenol p.r.n. for any fevers. We will note any fevers greater than 101 and consider broadening up the medication regimen. Finally, the patient requires more additional orders and should be monitored. We will continue to watch the CBC as the patient is getting high-volume fluid resuscitation for the LAUREN. Follow patient closely alongside Infectious Disease and Pulmonary care. cc: MD Royal Reyes MD
[2016-11-02] MEDS: ROCEPHIN 2 GM/NS 2 GM/50 ML IVPB IV SCH (19:01)
[2016-11-03] MEDS: DUONEB (A & A) INH SCH ×3 (03:31→19:29)
[2016-11-03] MEDS: D5W 1,000 ML IV SCH ×2 (04:54→17:05)
--- NOTE | 2016-11-03 06:44 | Diag Imaging Result Doc PS360 ---
EXAM: CHEST-1 VIEW HISTORY: pneumonia TECHNIQUE: Portable COMPARISON: 11/01/2016 FINDINGS: The lungs are well expanded. The heart is not enlarged. No change in the left subclavian line. No pneumothorax. There are infiltrates in the mid lungs. No pleural effusions identified. IMPRESSION: No interval improvement. Electronically signed by Errol Santos 11/03/2016 6:41 AM
[2016-11-03 07:09] LABS: ALBUMIN 2.6 g/dL (3.5-5.0); CALCIUM 8.5 mg/dL (8.8-10.2); POTASSIUM 4.3 mmol/L (3.5-5.1); TOTAL BILIRUBIN 0.19 mg/dL (0.20-1.00); TOTAL PROTEIN 5.9 g/dL (6.3-8.3)
[2016-11-03 07:36] LABS: BASO% 1.1 % (0.0-0.8); EOS# 0.28 X1000 (0.0-0.7); EOS% 4.4 % (0.0-10.0); HEMATOCRIT 26.3 % (42.0-52.0); LYMPH# 1.26 X1000 (1.2-3.4); LYMPH% 19.7 % (20.5-51.1); MANUAL DIFF NEEDED? YES; MCH 31.5 PG (27-31); MCHC 30.4 g/dL (33-37); MCV 103.5 FL (81-99); MONO# 0.73 X1000 (0.11-0.59); MONO% 11.4 % (1.7-9.3); MPV 10.2 FL (7.4-10.4); NEUT% 63.4 % (42.2-75.2); PLT 551 X1000 (130-400); RBC 2.54 XMIL (4.7-6.1)
[2016-11-03] MEDS: MUCOMYST 20% INH SCH ×2 (07:56→19:29)
--- NOTE | 2016-11-03 08:55 | PROGRESS NOTE ---
DATE: 11/03/2016 VITAL SIGNS: Temperature 98.0 degrees, heart rate 75, respirations 20, blood pressure 88/47, O2 saturation 98% on 2 L nasal oxygen. LABORATORY: Hemoglobin 8.0, hematocrit 26.3, white blood count 6,400, with 63% neutrophils. Sodium 138, potassium 4.3, BUN 24, creatinine 1.4. Liver functions normal. Protein and albumin low. Chest x-ray: Basically unchanged with persistent infiltrates in the mid lung tejada bilaterally. SUBJECTIVE: Patient had a fairly good weekend with increasing strength and continued alertness. He complains with some itching in his right eye this morning. There is mild erythema of the conjunctiva compared to the left side. There is no evidence of infection and no exudate. PLAN: Increase activity and ambulate in a wheelchair in the [place]. Antibiotics, Rocephin, is continued. Prednisone eye drops will be used for his right eye. cc: MD Roayl Waldrop MD
[2016-11-03] MEDS ORDERED: CILOXAN OPHTH OINT BOTH EYES SCH (09:00)
[2016-11-03 09:25] LABS: BANDS 2 % (0-1); EOS 4 % (1-10); LYMPHS 26 % (21-51); MONO 12 % (1-9)
[2016-11-03] MEDS: FOLIC ACID PO SCH (09:30)
[2016-11-03] MEDS: ZYRTEC PO SCH (09:30)
[2016-11-03] MEDS: ELIQUIS PO SCH ×2 (09:30→21:53)
[2016-11-03] MEDS: POTASSIUM CHLORIDE 10% LIQUID PO SCH ×2 (09:30→21:52)
[2016-11-03] MEDS: HEMOCYTE PLUS CAPSULE PO SCH (09:35)
[2016-11-03] MEDS: PROZAC PO SCH (09:35)
[2016-11-03] MEDS: CILOXAN OPHTH SOLN BOTH EYES SCH ×2 (12:09→17:24)
--- NOTE | 2016-11-03 16:39 | PROGRESS NOTE ---
DATE: 11/03/2016 PRESENT ILLNESS: The patient has Klebsiella urinary tract infection, pneumonia and bacteremia. Proteus was also isolated from his sputum and may well be involved in the patient's pneumonia as well. MEDICATIONS: This is day 14 of all antibiotics that have been used to treat the patient's infections. Specifically, this is day 10 for Rocephin. PHYSICAL EXAMINATION: Vital Signs: Temperature is 98.1 degrees, pulse 90, respirations 18, blood pressure 106/54. General: The patient looks better than when he came in. He is more awake and talkative. He does not have any labored breathing. Lungs: Clear to auscultation. Cardiovascular: Regular heart rate. Abdomen: Soft and nontender. Thorax: Patient has a subclavian IV in place. The site is not erythematous or swollen. LABORATORY AND X-RAY: CBC for today shows a white count of 6400, hemoglobin 8, platelet count 551,000. Creatinine is 1.4. The GFR is 53. Liver function studies are normal. Chest x-ray shows right middle lobe infiltrate. ASSESSMENT AND PLAN: 1. The patient has received adequate therapy for his pneumonia, bacteremia and urinary tract infection. The chest x-ray lags behind how the patient does clinically and it can take weeks before it will be completely clear. My plan now is to stop the patient's antibiotics. I do not think he needs any more. As far as repeating the patient's chest x-ray, I would wait at least 2-4 weeks before repeating it. 2. The comorbidities in this patient is that he has poor oral hygiene and he may possibly have aspirated to cause his infection. As mentioned above, I am stopping the patient's antibiotics. I am available to see the patient on a p.r.n. basis. I do not think he needs any further antimicrobial therapy. cc: MD Royal Miller MD
[2016-11-03] MEDS: ROCEPHIN 2 GM/NS 2 GM/50 ML IVPB IV SCH (17:25)
[2016-11-04] MEDS: DUONEB (A & A) INH SCH ×3 (03:53→08:49)
[2016-11-04 07:37] VITALS: BP 84/49
[2016-11-04] MEDS: MUCOMYST 20% INH SCH (07:51)
[2016-11-04] MEDS: PROZAC PO SCH (10:09)
[2016-11-04] MEDS: ZYRTEC PO SCH (10:09)
[2016-11-04] MEDS: FOLIC ACID PO SCH (10:09)
[2016-11-04] MEDS: HEMOCYTE PLUS CAPSULE PO SCH (10:09)
[2016-11-04] MEDS: ELIQUIS PO SCH (10:10)
[2016-11-04] MEDS: CILOXAN OPHTH SOLN BOTH EYES SCH (10:10)
[2016-11-04] MEDS: D5W 1,000 ML IV SCH (10:13)
[2016-11-04] MEDS: POTASSIUM CHLORIDE 10% LIQUID PO SCH (10:13)
--- NOTE | 2016-11-05 08:29 | DISCHARGE SUMMARY ---
ADMISSION DATE: 10/20/2016 DISCHARGE DATE: 11/04/2016 FINAL DIAGNOSES: Sepsis, Klebsiella pneumonia, Klebsiella cystitis, mental retardation, atrial fibrillation. DISCHARGE MEDICATIONS: Usual medications plus Keflex 500 mg q.i.d. x5 days. HISTORY: This is the first recent [facility] admission for this 56-year-old, white man, who lives in a [facility], and became progressively weaker with low-grade fever a couple of days prior to admission. COURSE IN THE EMERGENCY ROOM: On presentation to the emergency room, he was hypotensive and dyspneic. Chest x-ray revealed bilateral infiltrates. He required ventilator assistance and was placed in the intensive care unit for close monitoring and care. He also required phenylephrine to supportive his blood pressure. CT of his head revealed no lesions. Renal CT revealed bilateral pneumonia and pleural effusions with mild ascites. There was possibility of proctitis. Venous study of the extremity revealed acute deep vein thrombosis of the right subclavian vein on 10/23/2016. After cultures revealed Klebsiella, he was placed on Rocephin 2 g once daily. He has been on Rocephin for 11 days. Discussion was made with Dr. Cano yesterday and he had been on intravenous antibiotics appropriate for Klebsiella for 14 days. It was okay with him for the patient to be discharged. INITIAL LABORATORY: ABGs revealed pH 7.2, pCO2 32, PO2 211 on ventilator with 100% FiO2. HOSPITAL COURSE: There was steady improvement in pulmonary status and stabilization of blood pressure with hydration. He has been afebrile for most of the hospitalization. Chest x-ray is improved, if there are persistent perihilar infiltrates. Dr. Cano indicated that these changes may not improve for several weeks. O2 saturation on room air this morning is 98%. [facility] is [facility] to [facility] care with home health assistance to the perform range of motion activity and improve functioning. His appetite is good. Keflex will be continued for another 5 days. cc: MD Royal Waldrop MD
== END 2016-11-04 10:58 | disposition home or self-care (01) ==
LOC: ED 04:30 → SUATTDRO 07:56 → EDIPHOLD 07:56 → SUPCPDRO 07:56 → ICU 11:28 → 4N 10-30 08:35
PROVIDERS: ADMIT Family Medicine; ATTEND Family Medicine

== ENCOUNTER 2018-07-01 09:48 | Inpatient (IN) ==
[2018-07-01] MEDS: POTASSIUM CHLORIDE 10 MEQ in NS 1,000 ML IV SCH ×2 (11:00→21:46)
[2018-07-01 12:41] LABS: BASO# 0.03 X1000 (0.0-0.2); BASO% 0.3 % (0.0-0.8); EOS# 0.07 X1000 (0.0-0.7); EOS% 0.7 % (0.0-10.0); HEMATOCRIT 34.7 % (42.0-52.0); HEMOGLOBIN 10.9 g/dL (14.0-18.0); IMM GRAN# 0.11 X1000 (0.0-0.04); IMM GRAN% 1.1 % (0.0-0.5); LYMPH% 13.7 % (20.5-51.1); MCH 34.6 PG (27-31); MCHC 31.4 g/dL (33-37); MCV 110.2 FL (81-99); MONO# 0.79 X1000 (0.11-0.59); MONO% 7.7 % (1.7-9.3); MPV 9.8 FL (7.4-10.4); NEUT# 7.84 X1000 (1.4-6.5); NEUT% 76.5 % (42.2-75.2); PLT 165 X1000 (130-400); RBC 3.15 XMIL (4.7-6.1); RDW 18.3 % (11.5-14.5); WBC 10.24 X1000 (4.8-10.8)
[2018-07-01 12:53] LABS: AGAP 11; ALB/GLOB RATIO 1.2; ALBUMIN 3.2 g/dL (3.5-5.0); ALKALINE PHOSPHATASE 79 U/L (32-122); BUN 38 mg/dL (8-22); CHLORIDE 105 mmol/L (98-107); COSMO 282; CREATININE 0.7 mg/dL (0.7-1.2); ESTIMATED GFR > 60; GLUCOSE 86 mg/dL (70-104); GOT 27 U/L (10-34); GPT 21 U/L (10-44); POTASSIUM 4.5 mmol/L (3.5-5.1); SODIUM 137 mmol/L (136-145); TCO2 21 mmol/L (25-35); TOTAL BILIRUBIN 1.15 mg/dL (0.20-1.00); TOTAL PROTEIN 5.9 g/dL (6.3-8.3)
[2018-07-01 13:15] LABS: EOS 1 % (1-10); LYMPHS 14 % (21-51); MONO 8 % (1-9); SEGS 77 % (42-75)
[2018-07-01] MEDS ORDERED: ZOFRAN PO PRN (17:04)
[2018-07-01] MEDS ORDERED: MIRALAX PO PRN (17:04)
[2018-07-01 18:10] LABS: URINE SOURCE CLEAN CATCH
[2018-07-01 18:14] LABS: BILIRUBIN URINE NEGATIVE (NEGATIVE); BLOOD URINE NEGATIVE (NEGATIVE); COLOR YELLOW; GLUCOSE URINE NEGATIVE (NEGATIVE); KETONE URINE NEGATIVE (NEGATIVE); LEUKOCYTES URINE NEGATIVE (NEGATIVE); NITRITE URINE NEGATIVE (NEGATIVE); PROTEIN URINE 30 mg/dL (NEGATIVE); SP GRAVITY URINE 1.021; TURBIDITY URINE CLEAR (CLEAR); UROBILINOGEN URINE NORMAL (NORMAL)
[2018-07-01 18:16] LABS: UR EPITHELIAL CELLS <10 /HPF (<10); URINE BACTERIA NEGATIVE /HPF; URINE RBC <10 /HPF (<10); URINE WBC <10 /HPF (<10)
--- NOTE | 2018-07-01 19:48 | HISTORY AND PHYSICAL ---
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 HISTORY: This is one of several [facility] admissions for this 58-year-old white man who presented to the office today with extreme weakness. Blood pressure was 82/60, and respirations were 5 per minute. O2 saturation was 92% on room air. He was pale and extremely weak. When lying down in a wheelchair, it seem like he might stop breathing. He was sent to [facility] for direct admission and treatment with IV fluids. LABORATORY: Hemoglobin 10.9, hematocrit 34.7, white blood count 10,200 with normal differential. Sodium 137, potassium 4.5, BUN 38, creatinine 0.7, total protein 5.9, albumin 3.2. Urinalysis pending. PAST MEDICAL HISTORY: Removal of glioblastoma from his right parietal area in [place] a couple of months ago. He is currently on radiation therapy per Dr. Mendez. He was to have a treatment today, but because of his weakness, this was canceled. PRESENT MEDICATIONS: Acyclovir 400 mg b.i.d., dapsone 100 mg daily, diazepam 5 mg at bedtime, Alphagan eye drops in each eye, dexamethasone 2 mg b.i.d., fluoxetine 20 mg 1 daily, Keppra 500 mg b.i.d., Megace 40 mg b.i.d., multivitamins 1 daily, Zofran 8 mg t.i.d. p.r.n., and MiraLAX 17 g daily. ALLERGIES: Sulfa. REVIEW OF SYSTEMS: Moderate weight loss over the past couple of months. Appetite has been poor. Megace does not seem to help improve appetite much. He has times when he is more alert than others. He came to the emergency room a few weeks ago with volume depletion and weakness. After hydration, he was sent back home. FAMILY HISTORY: Unremarkable. SOCIAL HISTORY: He lives in a senior living. He is unable to walk. He uses a motorized wheelchair. PHYSICAL EXAMINATION: VITAL SIGNS: Temperature 98.2 degrees, heart rate 74, respirations 5 to 6 per minute, blood pressure 82/60. GENERAL: Patient is a lethargic white man in no apparent distress, very weak. HEENT: Pupils equal, round, and reactive to light. Mucous membranes are somewhat pale. Pharynx benign with no erythema or exudate. NECK: Supple with no mass or lymphadenopathy. HEART: Regular in rate and rhythm with no murmur, rub or gallop. LUNGS: Clear with no rales or rhonchi. ABDOMEN: Soft with no mass, tenderness, or organomegaly. EXTREMITIES: Thin with no edema or deformity. RECTAL AND GENITALIA: Deferred. IMPRESSION: 1. Dehydration. 2. Lethargy. 3. Anorexia. 4. Glioblastoma right parietal area. 5. Mental retardation. cc: Vince Stevenson MD
[2018-07-01] MEDS: ALPHAGAN P 0.1% OPHTH SOLN BOTH EYES SCH (21:43)
[2018-07-01] MEDS: DECADRON PO SCH (21:44)
[2018-07-01] MEDS: KEPPRA PO SCH (21:44)
--- NOTE | 2018-07-02 08:13 | PROGRESS NOTE ---
DATE: 07/02/2018 Vital signs stable with temperature 98.3 degrees, heart rate 70, respirations 16, blood pressure 100/61, O2 saturation 94% on 3 L nasal oxygen. The patient is arousable but is still weak. He seems to be better with oxygen. Lowest O2 saturation was 88 yesterday. Discussion was made with the patient's mother about a gastrostomy tube for nutrition. She wants to wait at this time. PLAN: Continued hydration, recheck BMP tomorrow morning. cc: Vince Stevenson MD
[2018-07-02] MEDS: POTASSIUM CHLORIDE 10 MEQ in NS 1,000 ML IV SCH ×3 (08:43→15:48)
[2018-07-02] MEDS: ALPHAGAN P 0.1% OPHTH SOLN BOTH EYES SCH ×2 (08:44→22:00)
[2018-07-02] MEDS: PROZAC PO SCH (08:45)
[2018-07-02] MEDS: DECADRON PO SCH ×2 (08:45→22:01)
[2018-07-02] MEDS: CENTRUM TABLET PO SCH (08:45)
[2018-07-02] MEDS: KEPPRA PO SCH (08:45)
[2018-07-02] MEDS ORDERED: MEGACE PO SCH (09:00)
[2018-07-02] MEDS: MEGACE PO SCH (17:45)
[2018-07-03 06:50] LABS: AGAP 8; BUN 24 mg/dL (8-22); CALCIUM 8.4 mg/dL (8.8-10.2); CHLORIDE 114 mmol/L (98-107); COSMO 291; CREATININE 0.6 mg/dL (0.7-1.2); ESTIMATED GFR > 60; GLUCOSE 108 mg/dL (70-104); POTASSIUM 4.7 mmol/L (3.5-5.1); SODIUM 144 mmol/L (136-145); TCO2 22 mmol/L (25-35)
[2018-07-03] MEDS: PROZAC PO SCH (10:07)
[2018-07-03] MEDS: DECADRON PO SCH ×2 (10:08→21:17)
[2018-07-03] MEDS: CENTRUM TABLET PO SCH (10:08)
--- NOTE | 2018-07-03 10:08 | PROGRESS NOTE ---
DATE: 07/03/2018 SUBJECTIVE: Vital signs: Temperature 98.2 degrees, heart rate 69, respirations 16, blood pressure 85/60, O2 saturation 88% on 3 L nasal oxygen. I and O positive 900 in the last 24 hours. He ate all of his breakfast this morning. He had 1 incontinent void. IV attempt by Anesthesia yesterday was unsuccessful. He has a 24-gauge IV in his right pectoral area at 80 mL/hour. Blood pressure last night dropped into the 70s systolic. He was asymptomatic. LABORATORY: Sodium 144, potassium 4.7, BUN 24, creatinine 0.6, glucose 108, calcium 8.4. OBJECTIVE: The patient is arousable but weak. Chest is clear. There is no ankle edema. IMPRESSION: The patient continues to be volume depleted and is not taking in enough p.o. to maintain blood pressure or nutrition. PICC line is considered, but a better option would be a PEG tube for both hydration and nutrition. GI is consulted to evaluate for a PEG tube. cc: Vince Stevenson MD
[2018-07-03] MEDS: ALPHAGAN P 0.1% OPHTH SOLN BOTH EYES SCH ×2 (10:09→21:16)
[2018-07-03] MEDS: POTASSIUM CHLORIDE 10 MEQ in NS 1,000 ML IV SCH ×2 (12:29→16:57)
[2018-07-03 13:12] LABS: INR 0.88; PROTIME 12.7 Seconds (11.0-16.0)
[2018-07-03] MEDS ORDERED: NS 250 ML ONE (13:27)
--- NOTE | 2018-07-03 14:57 | Diag Imaging Result Doc PS360 ---
EXAM: CHEST-PORTABLE - 07/03/2018 HISTORY: PICC placement TECHNIQUE: Portable chest COMPARISON: 06/17/2018 FINDINGS: There has been interval insertion of PICC from the left. The tip of the PICC appears be located at the mid superior vena cava or nearby azygos vein, with its tip oriented medially. Inspiration is mildly shallow. There are no other acute changes identified. Heart size appears normal. IMPRESSION: Tip of PICC in mid superior vena cava or nearby azygos vein, with its tip oriented medially. Mildly shallow inspiration. No other acute changes. Electronically signed by Rafa Castellon 07/03/2018 2:55 PM
[2018-07-03] MEDS: MEGACE PO SCH (16:58)
--- NOTE | 2018-07-03 19:24 | Diag Imaging Result Doc PS360 ---
EXAM: KUB ABDOMEN - 07/03/2018 HISTORY: looking for bowel overlying stomach TECHNIQUE: AP spine abdomen COMPARISON: 11/30/2017 FINDINGS: There is generalized distention of colon with gas and fecal debris. There is no discrete substantial gaseous small bowel distention identified. There is a metallic device over the right lower quadrant. There are surgical clips at the left upper quadrant. This exam does not specifically evaluate for anterior abdominal wall hernia, which would require CT scan. IMPRESSION: Generalized distention of colon with gas and fecal debris. Electronically signed by Rafa Castellon 07/03/2018 7:22 PM
--- NOTE | 2018-07-03 19:31 | GASTROENTEROLOGY CONSULTATION ---
DATE: 07/03/2018 REASON FOR CONSULTATION: PEG tube evaluation. HISTORY OF PRESENT ILLNESS: Mr. Barry Cordero is a 58-year-old bedbound gentleman with MR, prior back injury s/p surgery c/b bilateral LE weakness; seizure disorder; coronary artery disease; prior testicular cancer s/p bilateral orchiectomy and chemoradiation, prior perforated duodenal ulcer requiring laparotomy and repair x2 and lysis of adhesions, and recent diagnosis right parietal glioblastoma s/p resection, undergoing chemoradiation who presented from Dr. Stevenson's office with failure to thrive, hypotension and weakness. In the office, he was noted to have a blood pressure of 82/60 and decreased respirations. He was admitted to the hospital for fluid resuscitation secondary to concern for dehydration. The family at bedside reports that the patient has been eating well and drinking lots of fluids prior to presentation. He denies any abdominal pain, nausea, vomiting or diarrhea. He is bedbound at baseline. His most recent radiation therapy treatment was canceled secondary to his overall weakness. The family says that he has lost about 30 pounds the last 3-4 months. He is not interested in PEG tube placement and is currently refusing. His family attributes his dehydration to being NPO from his last meal in the evening until 12PM the next day each day of radiation therapy which was over the last 8 days, except Thursday and Thursday. REVIEW OF SYSTEMS: Difficult to obtain given AMS PMH: MR, bilateral LE weakness; seizure disorder; coronary artery disease; prior testicular cancer and chemoradiation, prior perforated duodenal ulcer, right parietal glioblastoma PSH: prior back surgery, baclofen pump placement, bilateral orchiectomy, exlap and repair of perforated DU x2, lysis of adhesions, right glioblastoma resection MED: reviewed in chart ALL: Sulfa FAMILY HISTORY: No FHx of GI malignancies SOCIAL HISTORY: He lives in a half-way. He is unable to walk. He uses a motorized wheelchair. No T/E/D PE: VS: 98.0 HR 97 RR 18 BP 91/54 O2 sat 95% on 3L NC GEN: awake, alert, answers some questions appropriately HEENT: strabismus, right parietal craniotomy scar, MMM NECK: supple, no JVD CV: RRR, no murmurs PULM: CTAB, no wheezing ABD: exlap scar and multiple other abdominal scars, right abdomen baclofen pump, BS, NT, no rebound or guarding EXT: no cce, thin, contracted LEs NEURO: RUE weakness, bilateral LE weakness, cognitive deficit LABS: BUN 38 otherwise normal BMP, WBC 10.2 hgb 10.9 plts 165K, INR 0.88 LFTs with albumin 3.2 otherwise normal, UA neg, CXR neg for PNA A/P: Mr. Barry Cordero is a 58-year-old bedbound gentleman with recent diagnosis right parietal glioblastoma s/p resection, undergoing chemoradiation, who was admitted with hypovolemic hypotension that resolved with fluid resuscitation, weight loss, and generalize weakness. GI consulted for PEG tube placement. The patient appears to be eating and drinking well per family and he is currently does not want PEG. He would not be a candidate for endoscopic PEG placement given his complicated history of abdominal surgeries and exam. We will obtain KUB to assess if there is bowel in the LUQ that would also prohibit endoscopic PEG placement. We will also ask nutrition to do calorie counts as it appears that he has been eating well at his half-way except during the days he has radiation since it requires him to remain NPO for a significant portion of the day. #Hypovolemic hypotension: resolved with IVFs #Abnormal weight loss: likely postoperative; will obtain calorie counts; appreciate nutrition recs; pt refusing PEG; may require surgical PEG placement vs. TPN; primary ordering PICC for IVFs at home if necessary #Glioblastoma: recent radiation therapy held given FFT; defer to radiation oncology #History of prior perforated PUD: recommend once daily PPI for ppx Will follow with you. Please call with questions cc: Vince Stevenson MD [facility]
[2018-07-04] MEDS: ALPHAGAN P 0.1% OPHTH SOLN BOTH EYES SCH ×2 (09:00→21:00)
[2018-07-04] MEDS: PROZAC PO SCH (10:08)
[2018-07-04] MEDS: CENTRUM TABLET PO SCH (10:08)
[2018-07-04] MEDS ORDERED: ROBITUSSIN PO PRN (10:09)
[2018-07-04] MEDS: DECADRON PO SCH ×2 (10:37→21:00)
--- NOTE | 2018-07-04 10:47 | PROGRESS NOTE ---
DATE: 07/04/2018 OBJECTIVE: Vital signs stable with temperature 98.4 degrees, heart rate 89, respirations 18, blood pressure 103/68 O2 saturation on room air 97%. Chest x-ray showed good placement of PICC line and no infiltrates. Abdominal x-ray showed some colonic distention and fecal debris, otherwise unremarkable. ASSESSMENT: He is more alert today and more talkative. He has an occasional raspy cough, but lungs are clear to auscultation. PICC line was placed in his left arm yesterday. GI consultation with Dr. Kellogg indicated that he was not a candidate for PEG tube via EGD because of previous surgery. PLAN: Robitussin for cough, and repeat BMP tomorrow morning. Discharge with PICC line will be considered tomorrow. cc: Vince Stevenson MD
[2018-07-04] MEDS: POTASSIUM CHLORIDE 10 MEQ in NS 1,000 ML IV SCH ×2 (12:37→20:59)
[2018-07-04] MEDS: MEGACE PO SCH (17:30)
--- NOTE | 2018-07-05 00:32 | PROVIDER PROGRESS NOTE ---
Progress Note GI Progress Note 07/04/2018 SUBJECTIVE: No acute overnight events. PICC placed. No N/V/F, abdominal pain, rectal bleeding. Per family, patient has eaten well. OBJECTIVE: Last Vital Signs Temp 97.2 F L 07/04/18 21:05 Pulse 96 H 07/04/18 21:05 Resp 22 07/04/18 21:05 BP 109/75 07/04/18 21:05 Pulse Ox 98 07/04/18 21:05 Height 5 ft 9 in Weight 138 lb GEN: sleepy, but arousable HEENT: anicteric, MMM NECK: supple, no jvd CV: RRR, no murmurs PULM: CTAB, no wheezing ABD: soft NT/ND EXT: no cce NEURO: RUE weakness, b/l LE weakness IMAGING: KUB: generalized distension of colon with gas and fecal debris A/P: Mr. Barry Cordero is a 58-year-old bedbound gentleman with recent diagnosis right parietal glioblastoma s/p resection, undergoing chemoradiation, who was admitted with hypovolemic hypotension that resolved with fluid resuscitation. He also has abnormal weight loss and generalize weakness. GI consulted for PEG tube placement. He would not be a candidate for endoscopic PEG placement given his complicated history of abdominal surgeries and physical exam. KUB also showed bowel located in LUQ overlying stomach. He is eating well. Calorie counts under way. #Hypovolemic hypotension: resolved with IVFs #Abnormal weight loss: likely postoperative; f/u calorie counts; appreciate nutrition recs #Glioblastoma: recent radiation therapy held given FFT; defer to radiation oncology #History of prior perforated PUD: once daily PPI for ppx
[2018-07-05 07:03] LABS: AGAP 10; BUN 30 mg/dL (8-22); CALCIUM 8.6 mg/dL (8.8-10.2); CHLORIDE 114 mmol/L (98-107); COSMO 297; CREATININE 0.5 mg/dL (0.7-1.2); ESTIMATED GFR > 60; GLUCOSE 101 mg/dL (70-104); POTASSIUM 4.4 mmol/L (3.5-5.1); SODIUM 146 mmol/L (136-145); TCO2 22 mmol/L (25-35)
[2018-07-05] MEDS: PROZAC PO SCH (09:58)
[2018-07-05] MEDS: DECADRON PO SCH (09:58)
[2018-07-05] MEDS: CENTRUM TABLET PO SCH (09:58)
[2018-07-05] MEDS: ALPHAGAN P 0.1% OPHTH SOLN BOTH EYES SCH (10:04)
--- NOTE | 2018-07-05 11:00 | GASTROENTEROLOGY PROGRESS NOTE ---
DATE: 07/05/2018 SUBJECTIVE: The patient is resting in bed. I spoke to the patient's family at bedside and also with Dr. Vince Stevenson. The patient is drinking Ensure by mouth and he has a PICC line. He is getting some fluids through the IV. Because of the patient's previous history of abdominal surgery, he is a higher risk candidate for percutaneous endoscopic gastrostomy placement. OBJECTIVE: Vital Signs: Temperature 97.9 degrees, pulse rate of 83, respiratory rate of 12, blood pressure 125/73, saturating 90% on nasal cannula. Body weight of 138 pounds, BMI 20.4 kg. General: The patient is thinly built, lying in bed, in no acute distress. HEENT: Pale. No icterus. Neck: Neck is supple. Abdomen: Midline scar les. No guarding, no rebound. Extremities: No cyanosis or clubbing. Neuro: He is awake but did not answer any questions. LABS: Sodium 142, potassium 4.4, chloride 114, bicarb 22, anion gap 10, BUN of 30, creatinine 0.5, glucose 101, calcium 8.6. AST 27, ALT 21, alkaline phosphatase 179, total protein 5.9, albumin of 3.2. IMPRESSION AND PLAN: 1. Recent diagnosis of right parietal glioblastoma status post resection, undergoing chemo radiation under the care of Dr. Carmina Mendez. The patient will continue to follow along with oncology team as an outpatient. 2. Hypovolemia. He is getting IV fluids. 3. Weight loss, likely postoperative. He is continue Ensure 3 to 4 times daily. 4. If patient continues to have decreased p.o. intake, he may need PEG tube placement. He will be high risk candidate for endoscopic PEG tube placement given complicated history of abdominal surgery and physical exam. 5. History of perforated peptic ulcer disease. Continue on PPIs every day. 6. Bowel regimen with MiraLAX as needed. 7. We will sign off at this time. I have spoken with the patient's family and Dr. Vince Stevenson at bedside. All questions answered. Please call us with any further questions. cc: MD Vince Osuna MD
[2018-07-05 11:41] VITALS: BP 85/49
--- NOTE | 2018-07-05 18:56 | DISCHARGE SUMMARY ---
ADMISSION DATE: 07/01/2018 DISCHARGE DATE: 07/05/2018 FINAL DIAGNOSES: Dehydration, hypotension, lethargy, protein and calorie malnutrition, glioblastoma, right parietal area. DISCHARGE MEDICATIONS: Same as at home, home O2 at 2 liters nasal p.r.n., and 1 L of half-normal saline daily per PICC line for 10 days. HISTORY: This is the first recent [facility] admission for this 58-year-old white man undergoing radiation therapy for glioblastoma of the right parietal area who had anorexia and decrease in p.o. intake over the past few weeks. He presented to the office with lethargy and hypotension. He also had decrease in respiratory rate. He was admitted for hydration and further evaluation. INITIAL LABORATORY: Hemoglobin 10.9, hematocrit 34.7, white blood count 63881 with normal differential. Sodium 137, potassium 4.5, BUN 38, creatinine 0.7, total bilirubin 1.15, total protein 5.9, albumin 3.2. Chest x-ray was done to check position of PICC line and it was satisfactory. Abdominal films revealed dilated colon and some fecal debris otherwise normal. HOSPITAL COURSE: A 24-gauge IV was placed in his right pectoral area and could only be used with fluid 80 mL/h. GI consult was obtained to determine feasibility of a PEG tube. Because of his previous surgery, and probable scar tissue, this could not be done. A PICC line was placed and fluids were given at 150 mL/h. His appetite improved and blood pressure improved. He is feeling well today and is discharged back home with oxygen as needed. His lowest O2 saturation on the day of admission was 88% on room air. He also will be given IV fluids, 1 L a day for 10 days. If he is doing well at that time, the PICC line will be discontinued. He is to return to the office in 1 week for followup. cc: Vince Stevenson MD
== END 2018-07-05 14:45 | disposition home health service (06) | DRG 641 ==
LOC: DIRADM 09:48 → 4N 10:11
PROVIDERS: ADMIT Family Medicine; ATTEND Family Medicine
CPT/HCPCS: 36569; 71010; 71045; 74000; 74018; 80048; 80053; 81001; 85025; 85610; 94761; 97161; A9270; J1642; J3480; J7030; J7050; J8540; S0179

== ENCOUNTER 2018-07-11 00:09 | Inpatient (IN) ==
[2018-07-11 01:00] LABS: URINE SOURCE CLEAN CATCH
[2018-07-11 01:09] LABS: BILIRUBIN URINE NEGATIVE (NEGATIVE); BLOOD URINE NEGATIVE (NEGATIVE); COLOR YELLOW; GLUCOSE URINE NEGATIVE (NEGATIVE); KETONE URINE NEGATIVE (NEGATIVE); LEUKOCYTES URINE NEGATIVE (NEGATIVE); NITRITE URINE NEGATIVE (NEGATIVE); PROTEIN URINE NEGATIVE (NEGATIVE); TURBIDITY URINE CLEAR (CLEAR); UR EPITHELIAL CELLS <10 /HPF (<10); URINE BACTERIA NEGATIVE /HPF; URINE RBC <10 /HPF (<10); URINE WBC <10 /HPF (<10); UROBILINOGEN URINE NORMAL (NORMAL)
--- NOTE | 2018-07-11 01:14 | PROVIDER DOCUMENTATION ---
HPI-General Adult - General Chief Complaint: Fever Stated Complaint: POSSIBLE PNA CA PATIENT Time Seen by Provider: 07/11/18 00:50 Source: patient, RN/MD, other (caregiver) Allergies/Adverse Reactions: Patient Allergies Allergy/AdvReac Type Severity Reaction Status Date / Time Sulfa (Sulfonamide Allergy Severe ANAPHYLAXIS Verified 11/28/17 10:07 Antibiotics) Home Medications: Home Medication List Medication Instructions Recorded Confirmed Last Taken Type Multivit,Th Iron,Other Min 1 each PO DAILY 07/29/14 07/11/18 11/27/17 09:00 History [Thera-M] Polyethylene Glycol 3350 [Miralax] 17 gm PO PRN PRN 07/29/14 07/11/18 11/27/17 19:00 History Diazepam [Valium] 5 mg PO HS 05/13/15 07/11/18 11/27/17 History Fluoxetine [Prozac] 20 mg PO QAM #30 capsule 11/04/16 07/11/18 11/27/17 09:00 Rx Brimonidine Tartrate [Alphagan P] 1 drp OP BID 11/28/17 07/11/18 07/03/18 History Acyclovir 400 mg PO BID 07/01/18 07/11/18 Unknown History Dapsone 100 mg PO DAILY 07/01/18 07/11/18 Unknown History Dexamethasone [Decadron] 2 mg PO BID 07/01/18 07/11/18 Unknown History Levetiracetam 500 mg PO BID 07/01/18 07/11/18 Unknown History Megestrol Acetate 40 mg PO DAILY 07/01/18 07/11/18 Unknown History Ondansetron HCl [Zofran] 8 mg PO TID PRN PRN 07/01/18 07/11/18 Unknown History Temozolomide 5 mg PO DAILY 07/11/18 07/11/18 Unknown History - History of Present Illness -Gen Adult Nature of Presenting Problems: 58 y/o M brought [place] the ED from his [place] [facility] with his home health nurse and caregiver for a fever and cough. Per home health nurse pt has had a mild dry cough for about 1 week and then tonight pt was noted to have a fever to 99F and it was noted that his cough has increased and deepened. Pt resports he feels "sick". Per caregiver pt has known brain glioblastoma that is currently being treated with radiation and oral chemo. last chemo on Thursday. No IV chemo in many months. Last radiation Thursday. No nausea or vomiting, no dyspnea, no diarrhea. Has small decubitus on his left small toe but no other known skin breakdowns. Review of Systems - Adult - REVIEW OF SYSTEMS - ADULT Constitutional: reports: fever Eyes: reports: no symptoms reported Ears, Nose, Mouth & Throat: reports: no symptoms reported Cardiovascular: reports: no symptoms reported Respiratory: reports: cough Gastrointestinal: reports: no symptoms reported Genitourinary: reports: no symptoms reported Musculoskeletal: reports: no symptoms reported Integumentary: reports: no symptoms reported Neurological: reports: no symptoms reported Psychiatric: reports: no symptoms reported Endocrine: reports: no symptoms reported Hematologic/Lymphatic: reports: no symptoms reported Allergic/Immunologic: reports: no symptoms reported All Other Systems: Reviewed and Negative Past History - Adult - PAST MEDICAL HISTORY-ADULT Review of Records: reports: Old Records Reviewed, Nursing Assessment Review, Medications Reviewed, Social history reviewed & non-contributory. Major Childhood Illnesses: reports: denies history Cardiovascular: reports: cardiac disease Respiratory: reports: pneumonia Genitourinary: reports: cancer (testicular) Musculoskeletal: reports: other (contractures in legs unable to ambulitate) Neurological: reports: cognitive dysfunction (MR), Seizures/Epilepsy - PRIOR SURGERIES/PROCEDURES Surgical/Procedure History: reports: orthopedic (extremity) (elbow), other (polyp removed, testicular) - IMMUNIZATION STATUS Childhood Immunizations: See Nurse Assessment Flu Vaccine: See Nurse Assessment Physical Exam-General - PHYSICAL EXAM-ADULT Initial Vital Signs Reviewed: Yes - CONSTITUTIONAL General Appearance: alert, no apparent distress, other (chronically ill appearing with contractures.) - EYES Eyes: PERRL/EOMI, pale conjunctivae - HEAD, EARS, NOSE, MOUTH & THROAT HENMT: normocephalic/atraumatic, moist mucous membranes, normal ENT inspection, TMs normal, pharynx normal - NECK Neck: non-tender, full range of motion, supple - RESPIRATORY Respiratory: chest non-tender, lungs clear, normal breath sounds, decreased breath sounds (BL bases) - CARDIOVASCULAR Cardiovascular: normal peripheral pulses, regular rate, rhythm, no JVD - GASTROINTESTINAL (ABDOMEN) Abdominal Exam: non tender, soft - MUSCULOSKELETAL Back Exam: no CVA tenderness, no vertebral tenderness Extremity: other (contractures BL, dressed left small toe where pt reportedly has a decubitus ulcer.) - SKIN Integumentary: normal turgor, warm/dry, pallor - NEUROLOGIC Neurologic: other (baseline per caregiver and home health nurse) - PSYCHIATRIC Psych/Mental Status: normal mood/affect, normal thought content, normal thought process, oriented x 3 Progress - PLAN OF CARE/RESULTS Progress/Plan/Lab Results: Vital Signs - 8 hr 07/11/18 00:46 Temperature 97.6 F Pulse Rate 84 Respiratory Rate 18 Blood Pressure 104/77 O2 Sat by Pulse Oximetry 96 Laboratory Results - last 24 hr 07/11/18 00:23 Urine Source CLEAN CATCH Orders Category Date Time Status CHEST-1 VIEW [RAD] Stat Exams 07/11/18 00:52 Ordered BASIC METABOLIC PANEL [CHEM] Stat Lab 07/11/18 00:52 Uncollected BLOOD CULTURE [BLDCUL] Stat Lab 07/11/18 00:52 Uncollected CBC WITH ELECTRONIC DIFF [HEME] Stat Lab 07/11/18 00:52 Uncollected INFLUENZA SCREEN A/B Stat Lab 07/11/18 00:52 Uncollected LACTATE, PLASMA [CHEM] Stat Lab 07/11/18 00:52 Uncollected URINALYSIS W/POSS RFLX CULT [URINALYSIS] Stat Lab 07/11/18 00:23 Results cough with fever, will further evaluate for causes including but not limited to pna, uri, influenza, bronchitis, uti, Result Diagrams: 07/11/18 01:15 07/11/18 01:15 - REASSESSMENT Reassessment #1 Status: other (marked neutropenia, afebrile in the ED. Occasional hypotension but improved with repositioning and per caregiver BP typically runs 90's systolic. Concern for neuropenic fever but without clear source and afebrile in the ED. Lactate normal. Discusssed case with Dr. Manriquez, oncologist building construction ironworker, who would like pt admitted to the hospitalist on neuropenic precautions and recommends treating with 2gm cefipime, 480mcg Neupogen, and transfusion of 2 units of PRBC's. Cefipime, neupogen and PRBC's ordered and pt consented for transfusion. Discussed case with Dr. Newman, hospitalist, who will see and admit pt.) - XRAY 1 XRAY: Bilateral XRAY Study: Chest Impression: Normal (no clear infiltate, no ptx, normal cardiac sillouette) Departure - Departure Date of Disposition Decision: 07/11/18 Time of Disposition Decision: 03:38 DIAGNOSIS: Neutropenic fever Disposition: ADMITTED INPATIENT 09 Certified Medical Emergency: Emergent Condition: Fair Referrals and Follow-Ups: Vince Stevenson MD [Primary Care Provider] - - Critical Care Note This patient required my direct & personal management of CC.: No Attestation - Physician/ AVA Attestation Patient care was provided by Advanced Practice Provider:: No The physician spent face to face time with patient:: Yes Advanced Practice Provider documentation review:: Supervising physician onsite and consulted in the evaluation and care of this patient. The physician did have a face to face encounter with the patient.
[2018-07-11 01:44] LABS: BASO# 0.01 X1000 (0.0-0.2); EOS# 0.01 X1000 (0.0-0.7); HEMATOCRIT 21.3 % (42.0-52.0); HEMOGLOBIN 6.6 g/dL (14.0-18.0); LYMPH# 0.41 X1000 (1.2-3.4); LYMPH% 42.3 % (20.5-51.1); MCH 35.9 PG (27-31); MCV 115.8 FL (81-99); MONO# 0.54 X1000 (0.11-0.59); MONO% 55.7 % (1.7-9.3); MPV 9.4 FL (7.4-10.4); PLT 272 X1000 (130-400); RBC 1.84 XMIL (4.7-6.1); RDW 15.8 % (11.5-14.5); WBC 0.97 X1000 (4.8-10.8)
[2018-07-11 01:59] LABS: AGAP 7; BUN 26 mg/dL (8-22); CALCIUM 8.3 mg/dL (8.8-10.2); CHLORIDE 108 mmol/L (98-107); COSMO 288; CREATININE 0.7 mg/dL (0.7-1.2); ESTIMATED GFR > 60; GLUCOSE 105 mg/dL (70-104); POTASSIUM 4.6 mmol/L (3.5-5.1); SODIUM 142 mmol/L (136-145); TCO2 27 mmol/L (25-35)
[2018-07-11 02:32] LABS: BANDS 20 % (0-1); LYMPHS 80 % (21-51)
[2018-07-11] MEDS ORDERED: NEUPOGEN SUBQ ONE (03:22)
[2018-07-11] MEDS ORDERED: MAXIPIME 2 GM in NS 100 ML IV ONE (03:22)
[2018-07-11] MEDS ORDERED: NS 50 ML ONE (06:31)
--- NOTE | 2018-07-11 07:02 | Diag Imaging Result Doc PS360 ---
EXAM: CHEST-1 VIEW HISTORY: cough TECHNIQUE: Chest single view COMPARISON: 07/03/2018 FINDINGS: The lungs are hyperexpanded. The heart is not enlarged. There is a left sided PICC line. The vessels are not distended. There are no infiltrates. No effusion identified. There is a granuloma in the lower left lung. IMPRESSION: No pneumonia. Electronically signed by Errol Santos 07/11/2018 7:00 AM
[2018-07-11] MEDS ORDERED: TYLENOL PO PRN (10:11)
[2018-07-11] MEDS ORDERED: ZOFRAN IV PRN (10:11)
[2018-07-11] MEDS ORDERED: NS 250 ML ONE (10:33)
[2018-07-11 10:54] LABS: INR 0.93; PROTIME 13.2 Seconds (11.0-16.0); PTT 26.4 Seconds (22.3-41.8)
[2018-07-11] MEDS: VALIUM PO SCH (11:23)
[2018-07-11] MEDS ORDERED: NS 1,000 ML IV SCH (12:30)
--- NOTE | 2018-07-11 13:03 | HISTORY AND PHYSICAL ---
PRIMARY CARE PROVIDER: Dr. Vince Stevenson. DATE AND TIME: 07/11/2018 at 0630. CHIEF COMPLAINT: Fever. HISTORY OF PRESENT ILLNESS: Mr. Cordero is a 58-year-old, male with an extensive past medical history, though most recently he has been diagnosed approximately 2-3 months ago with a brain glioblastoma and is currently receiving oral chemotherapy and radiation. His last radiation treatment was Thursday. He does live at a alf and his caregivers there noted him to have a low-grade fever as well as a cough. They did have him sent to the ER for further evaluation. Though the patient denies any pain at this time, he does report that he has had a cough and some dizziness. He does have a wet sounding cough, though according to his caregivers has not been productive. He is not complaining of any shortness of breath, chest pain, abdominal pain, nausea, vomiting or diarrhea. He has no reported dysuria or urinary frequency. The patient does have a history of cerebral palsy, as well as spinal stenosis with paraplegia, though does have some sensation in his bilateral lower extremities. He does have a PICC line in his left upper extremity. He also does have an implanted baclofen pump. Upon evaluation in the ER, the patient is awake and alert. He is able to answer questions appropriately. He is alert and oriented to person, place and time. The patient's blood pressures have been in the 90s and 100 systolically, though looking back at his blood pressures during his previous admissions, this does appear to be the patient's baseline. He has not been febrile since arriving to the ER. Laboratory results did reveal that the patient had a white blood cell count of 0.97 with an absolute neutrophil count of 0. He was also found to be anemic with a hemoglobin of 6.6, hematocrit 21. Though at this time there is not a clear source of infection, he has had a reported cough though his chest x-ray at this time does not show any acute abnormalities. Urinalysis did not show any signs of infection. The patient's lung sounds upon auscultation were slightly diminished in the bases, though this may be secondary to the patient not taking full, deep breaths during the time that I was auscultating breath sounds. Bowel sounds were present and were hypoactive. We are awaiting a flat and upright abdomen x-ray at this time. Blood cultures, as well as urine culture have been obtained. They did perform a influenza screen which was negative. At this time, the patient will be placed inpatient admission. He will placed on neutropenic precautions and neutropenic diet. We will administer IV antibiotics of cefepime. REVIEW OF SYSTEMS: A 14-point review of systems was conducted with the patient. All were negative except for pertinent positives as mentioned in above history of present illness. PAST MEDICAL HISTORY: 1. Cerebral palsy. 2. Spinal stenosis with paraplegia. 3. Seizure disorder. 4. Coronary artery disease. 5. History of testicular with chemoradiation. 6. History of previous perforated duodenal ulcers. Recent diagnosis of a brain glioblastoma, currently receiving radiation oral chemotherapy. Followed by Dr. Corley and Dr. Mendez. PAST SURGICAL HISTORY: 1. Prior back surgery. 2. Baclofen pump placement. 3. Bilateral orchiectomy. 4. Exploratory laparotomy repair of perforated duodenal ulcer x2. 5. Lysis of adhesions. 6. Right glioblastoma resection at [facility]. 7. Left PICC line placement. SOCIAL HISTORY: There is no known tobacco, alcohol or illicit drug use. The patient is unable to walk and is wheelchair bound. He does live in a alf. His mother was present at bedside during my examination. FAMILY HISTORY: There is no known family history of malignancies. HOME MEDICATIONS: 1. Acyclovir 400 mg p.o. b.i.d. 2. Alphagan 0.2% ophthalmic solution, 1 drop in right eye b.i.d. 3. Refresh Optive advanced drops, 1 drop in the right eye 4 times a day. 4. Dapsone 100 mg p.o. daily. 5. Decadron 2 mg p.o. b.i.d. 6. Valium 5 mg p.o. daily. 7. Trusopt 2% ophthalmic solution, 1 drop in right three times a day. 8. Prozac 20 mg p.o. daily. 9. Anusol HC cream, 1 application per rectum b.i.d. 10. Lantiseptic 1 application topically b.i.d. to affected areas. 11. Latanoprost ophthalmic eye drops, 1 drop in right eye daily at 2100. 12. Keppra 500 mg p.o. b.i.d. 13. Megestrol acetate 40 mg p.o. daily. 14. Multivitamin 1 p.o. daily. 15. Bactroban ointment 1 application topically twice a day to affected area. 16. Rhopressa 1 drop right eye daily at 2200 hours. 17. Zofran 8 mg p.o. t.i.d. p.r.n. for nausea. 18. MiraLAX 17 g p.o. p.r.n. for constipation. 19. Temozolomide 5 mg p.o. daily. DIAGNOSTIC DATA/LABORATORY RESULTS: White blood cell count 0.97, hemoglobin 6.6, hematocrit 21.3. Absolute neutrophil count is 0. Platelet count is 272,000. PT 13.2, INR 0.97, PTT is 26.4. Sodium 142, potassium 4.6, chloride 108, serum bicarb was 27, BUN 26, creatinine is 0.7, glucose 105, calcium 8.3, plasma lactate is 1.4. Urinalysis was obtained via clean catch, was negative for protein, glucose, ketones, blood, nitrites, leukocytes, white blood cells, or bacteria. Chest x-ray showed no infiltrates or effusion. There was a granuloma noted in the left lower lung. This is per Radiology. Pending diagnostic studies at this time include an abdomen flat and upright x-ray as well as urine and blood cultures. PHYSICAL EXAMINATION: VITAL SIGNS: Temperature 98.1 degrees, heart 79, respirations 12, blood pressure is 106/71, oxygen saturation is 99% nasal cannula at 2 L. GENERAL: Mr. Cordero is a very pleasant, 58-year-old, male who was resting in the ER stretcher. He was in no acute distress. He was awake, alert and able to answer questions appropriately. HEENT: Head is atraumatic, normocephalic. Left pupil was 3 mm, round, reactive to light. Right pupil is dilated and slightly misshapen. The patient has had cataract surgery on this eye. 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 Conjunctivae were slightly pale. Oral mucosa is moist. Oropharynx clear. NECK: Supple. Trachea midline. CARDIOVASCULAR: Patient has S1-S2 present. No murmurs, gallops, rubs appreciated. Regular rate and rhythm. PULMONARY: Patient has symmetrical chest expansion bilaterally. Lung sounds in upper lung tejada were clear to auscultation, though he did sound a little diminished in bilateral bases. The patient was not taking good deep breaths. This may be contributing to this. ABDOMEN: Soft, nontender, nondistended. The bowel sounds were hypoactive. He does have a baclofen pump noted in the right lower quadrant of his abdomen. EXTREMITIES: No cyanosis or edema noted. Pulse and sensory were intact in all extremities. Radial pulses and pedal pulses are 2+ bilaterally. The patient is not able to move his bilateral lower extremities, though he does have sensation that is decreased. He does have some contractures of bilateral lower extremities as well. INTEGUMENTARY: The patient's skin is pink, warm, and dry. NEUROLOGICAL: Patient is alert and oriented to person, place, and time. He does have some neurological deficits, as mentioned above of loss of motor control in bilateral lower extremities. He does have some decreased sensation. Other than this, there does not appear to be any new focal neurological deficits noted. ASSESSMENT AND PLAN: 1. Neutropenic fever. The patient has at the alf low grade fevers that were reported to be 99, though he has been afebrile since arrival to the ER. Given this, we have placed him on neutropenic precautions. He will be on a neutropenic diet. Blood cultures and urine culture have been obtained. A chest x-ray and urinalysis did not show any signs of infection. At this time, there is not a clear source of infection. We have placed him with antibiotic coverage of cefepime IV. We will place consults with Dr. Corley with Oncology, who has been following the patient. We also will place a consults with Dr. Cano with Infectious Disease as well. We will continue to follow the patient's condition closely. 2. History of cerebral palsy, aware. 3. Recent history of diagnosis of a brain glioblastoma, currently receiving oral chemotherapy and radiation. As previously mentioned, we have placed a consult with Dr. Corley. We will defer the further management of this to her and we will await her evaluation and recommendations. 4. Anemia. The patient's hemoglobin was. 6.6, hematocrit was 21.3. We have ordered for the patient to receive 2 units of packed red blood cells. One he has been transfused, we will redraw his hemoglobin and hematocrit and monitor his response to his transfusions. The patient does have blood pressure within normal limits at this time. 5. Seizure disorder. We will continue the patient's Keppra. 6. Deep vein thrombosis prophylaxis will be provided with SCDs. The patient has been placed on the medical floor with telemetry. He will have vital signs q.4 hours. We will do strict intake and output, incentive spirometry. We will encourage turn, cough and deep breathing. Also we will have orders for the patient to be turned every [address] heel protectors as well. We will elevate the head and implement aspiration precautions. Further orders and recommendations pending hospital course, diagnostic studies, and physician evaluation. Dictated by ALEX Pozo for Nico Newman MD cc: MD Vince Cronin MD MTDD
--- NOTE | 2018-07-11 13:14 | Diag Imaging Result Doc PS360 ---
EXAM: ABDOMEN FLAT/UPRIGHT HISTORY: Decreased bowel sounds,Neutropenic fever TECHNIQUE: Flat and upright, two views COMPARISON: 07/03/2018 FINDINGS: No free air beneath the diaphragm. No organomegaly. Prominent stool in the colon. This is actually less pronounced than on the prior study. IMPRESSION: Interval improvement in the constipation Electronically signed by Errol Santos 07/11/2018 1:12 PM
[2018-07-11] MEDS: PROTONIX IV SCH (14:24)
[2018-07-11] MEDS: KEPPRA PO SCH ×2 (14:30→22:53)
[2018-07-11] MEDS ORDERED: LANOXIN IV ONE (15:21)
[2018-07-11] MEDS ORDERED: LANOXIN ONE (15:25)
[2018-07-11] MEDS ORDERED: CORDARONE 360 MG/D5W 360 MG/200 ML IV.SOLN IV ONE (15:57)
[2018-07-11] MEDS: ZOSYN 3.375 GM in NS 50 ML IV SCH ×2 (16:17→22:51)
--- NOTE | 2018-07-11 16:29 | CARDIOLOGY CONSULTATION ---
DATE: 07/11/2018 Cardiology consulted for atrial fibrillation, rapid ventricular rate. Mr. Cordero is a 58-year-old gentleman with extensive past medical history. He has recently been diagnosed with a brain glioblastoma and is currently undergoing oral chemo therapy and radiation last radiation treatment was Thursday. He lives in a care home and his caregiver noted that he was noted to have low-grade fever with irregular heartbeat as well. Subsequently came to the emergency room was noted to be in atrial fibrillation with rapid ventricular rate and hypotension, patient was given blood transfusion. Currently patient is in atrial fibrillation with a rate of 100 to 125 beats per minute. Cardizem was given. He does have a PICC line in the left upper extremity. He does have implanted baclofen pump. He was noted to be anemic with a hemoglobin of 6.6, hematocrit of 21 and severe neutropenia. Patient is bedbound and has had significant cerebral palsy and spinal stenosis following which he is paraplegic. He has had surgery as well. REVIEW OF SYSTEM: 14 -point review of systems was done.GI: There is no history of nausea, vomiting, diarrhea. There is no history of hematemesis or melena. Central nervous system: As above. Genitourinary: No dysuria or hematuria. PAST MEDICAL HISTORY: 1. Cerebral palsy. 2. Spinal stenosis with paraplegia status post surgery to his spine 4 or 5 years back. 3. Recent diagnosis of glioblastoma status post chemoradiation. 4. Seizure disorder. 5. History of testicular and chemoradiation. 6. Perforated duodenal ulcers in the past. 7. Back surgery. 8. Baclofen pump. 9. Bilateral orchiectomy. 10. Carcinoma of his prostate related to and following diagnosis of prostate cancer. 11. Exploratory laparotomy, repair of perforated duodenal ulcers. SOCIAL HISTORY: Patient does not drink or smoke. He lives in a care home. HOME MEDICATIONS: Acyclovir, dapsone 100 mg, Decadron 2 mg p.o. b.i.d., Prozac 20, Lantiseptic, Keppra 500 b.i.d., megestrol, Zofran, MiraLAX, temozolomide 5 mg. EXAMINATION: Blood pressure was 90/70, heart rate 120.Cardiovascular: Normal jugular venous pressure. First and second heart sounds were heard. There is no S3 gallop. Respiratory: Normal air entry. There is no crepitations or rhonchi. Abdomen: Soft, nontender. There was no guarding or rigidity. Bowel sounds were heard. Central nervous system: Patient is alert, oriented to space, he does have neurological deficits and loss of motor control in bilateral lower extremities and decreased sensation, detailed central nervous system examination not performed. ASSESSMENT AND PLAN: Mr. Barry Cordero is a 58-year-old gentleman with multiple medical problems including 1. Cerebral palsy . 2. Paraplegia following spinal surgery. 3. Seizure disorder. 4. Prostate cancer. 5. Orchiectomy. 6. History of duodenal ulcers status post surgery was diagnosed to have glioblastoma is undergoing chemoradiation. Patient from a cardiac standpoint was noted to be in atrial fibrillation in the past. There is no atrial fibrillation. Discussed this with his caregiver. Given this, we will put him on amiodarone IV per standard protocol. Given his recent glioblastoma diagnosis and treatment I leave him on aspirin alone for anticoagulation therapy. 7. Neutropenic fevers, is severely neutropenic and management per Oncology. 8. As far as anemia is concerned the patient's hemoglobin was 6.6 with hematocrit 21.3, he was given blood transfusion. 9. Has seizure disorder. He is on Keppra, I have not made any changes. 10. Will get an echocardiogram to assess cardiac and valvular function. Thank you for the consult. Follow hospital course. cc: MD Vince Packer MD
[2018-07-11] MEDS ORDERED: MEGACE PO SCH (16:30)
[2018-07-11] MEDS ORDERED: MAXIPIME 1 GM in NS 50 ML IV SCH (16:30)
[2018-07-11 17:35] LABS: HEMATOCRIT 31.4 % (42.0-52.0); HEMOGLOBIN 10.2 g/dL (14.0-18.0)
--- NOTE | 2018-07-11 17:40 | PROGRESS NOTE ---
DATE: 07/11/2018 SUBJECTIVE: A 58-year-old, white male, disabled person, recently diagnosed with glioblastoma and operated on by Dr.rhett Hicks in [place] with chemo and radiation by Dr. Corley and Dr. Mendez. He has known history of cerebral palsy. He was admitted last night by hospitalist under the care of Dr. Stevenson. The patient is waiting to be admitted. Patient has pancytopenia with normal platelet count due to chemotherapy. The patient did receive 2 units of packed RBCs. He has known history of atrial fibrillation. I was called. Blood pressure was low and rapid atrial fibrillation. The patient was seen in the emergency room on a stat basis after calling the nurses. I gave a dose of Lanoxin. PAST MEDICAL HISTORY: Reviewed. PAST SURGICAL HISTORY: Reviewed. MEDICINES: Reviewed. ALLERGIES: Sulfa. OBJECTIVE: General: The patient is asymptomatic. At bedside caregiver, nurse practitioner were there. Vital Signs: The patient is tachycardic. Blood pressure was stable after atrial fibrillation. HEENT: He is slightly pale. Chest: Bilateral air entry. Cardiac: Normal heart sounds. Abdomen: Belly is soft, nontender. Extremities: No edema noted. INVESTIGATIONS: EKG with rapid atrial fibrillation. CBC: White cell count 0.9, hematocrit 21, platelets 272,000. PT/INR is normal. SMA 7 is normal. Urinalysis is clear. Abdominal x-ray improved of constipation. Chest x-ray stable. ASSESSMENT AND PLAN: 1. Anemia due to chemotherapy status post 2 units of packed RBCs. Repeat the CBC. 2. Neutropenic precautions as per Dr. Corley. 3. Atrial fibrillation. Hemodynamics unstable. Continue IV saline. Lanoxin was given, and I started on Cordarone drip. Consult with Dr. Be. He wants to put him on aspirin and also echocardiography. Patient has known history of PAF in and out. He stopped taking the blood thinners prior to the brain tumor. 4. Neutropenia. Neupogen was given. Continue on IV Zosyn. 5. History of seizures from the recent brain surgery on [place] and currently medically stable. There is no need to do immediate direct cardioversion. Continue IV fluids, and Dr. Argueta is going to follow up. cc: MD Vince Torrez MD MTDD
[2018-07-11] MEDS: ALPHAGAN 0.2% OPHTH SOLN RIGHT EYE SCH ×2 (18:21→22:52)
[2018-07-11] MEDS: [UNRECOGNIZED DRUG - OTHER] RIGHT EYE SCH (18:23)
[2018-07-11] MEDS: CARBOXYMETHYLCELLULOSE RIGHT EYE SCH (18:23)
[2018-07-11] MEDS: GLYCERIN RIGHT EYE SCH (18:23)
[2018-07-11] MEDS: TRUSOPT 2% OPH SOLN RIGHT EYE SCH ×2 (18:29→22:55)
--- NOTE | 2018-07-11 18:39 | INFECTIOUS DISEASE CONSULT REP ---
DATE: 07/11/2018 CONCLUSION: The patient is being admitted to the hospital with neutropenic fever. RECOMMENDATIONS: I have discontinued cefepime and placed the patient on Zosyn. DISCUSSION: The patient is unable to provide a history. The history was taken from his mother. The patient had has been having chemotherapy and radiation therapy. He has become very tired, weak, and he has had fever. This all started about 3 days ago. He also is dyspneic. He is receiving both chemotherapy and radiation therapy for a glioblastoma. Studies thus far show a CBC with a white count of 970 and an absolute neutrophil count of 0, hemoglobin is 6.6, platelet count is 272,000. Chest x-ray shows improvement in the patient's constipation. Chest x-ray shows no pneumonia. Blood and urine cultures are negative. Creatinine is 0.7. GFR is greater than 60. Urinalysis shows no white cells or bacteria. Swab for influenza is negative. PAST MEDICAL HISTORY/REVIEW OF SYSTEMS: Eyes and Ears: The patient can hear and see okay. Neck: The patient is not having any pain when he moves his head. Respiratory: No cough or shortness of breath. The patient has been having dyspnea for the past 3 days. He is not coughing, however. GI: No nausea, vomiting, or diarrhea. : No dysuria. Neurologic: The patient is paraplegic. He also has left arm plegia. The patient is incontinent of urine. Endocrine: The patient does not have diabetes or thyroid disease. PREVIOUS HOSPITALIZATIONS AND OPERATIONS: 1. He has had surgery on his brain for his glioblastoma. 2. He has had surgery for a perforated duodenal ulcer. 3. He has had removal of a testicular cancer. 4. He has had placement of a baclofen pump in the right side of the abdomen. MEDICAL DISEASES: Positive for: 1. Glioblastoma. 2. Testicular cancer. 3. Seizure disorder. INFECTIOUS DISEASE HISTORY: Positive for pneumonia and UTI. FAMILY HISTORY: Positive for hypertension and cancer. SOCIAL HISTORY: The patient lives with his mother. ALLERGIES: The patient is allergic to sulfa. HOME MEDICATIONS: Include: 1. Acyclovir. 2. Dapsone. 3. Dexamethasone. 4. Valium. 5. Prozac. 6. Levetiracetam. 7. Megestrol. 8. Vitamins and minerals. 9. Zofran. 10. Temozolomide. 11. MiraLAX. PHYSICAL EXAMINATION: Vital Signs: Temperature is 97.7 degrees, pulse 101, respirations 18, blood pressure 101/63. The patient weighs 145 pounds. General: This is a chronically ill appearing, middle-aged male. He is in no acute distress. Head, Eyes, Ears, Nose, and Throat: He can hear my spoken words and see near objects. He has poor oral hygiene. There are no white patches on his tongue. Neck: The patient does not have pain when he turns his head. Lungs: Clear to auscultation. Cardiovascular: Heart rate is regular. Abdomen: Soft. On the right side, there is a baclofen pump present. There is no abdominal tenderness. Neurologic: The patient is awake. He has paraplegia and paralysis of his left arm also. Integument: No rash noted. Thank you for the consult. cc: MD Vince Miller MD
[2018-07-11] MEDS: NEO-SYNEPHRINE 50 MG in NS 250 ML IV SCH (21:25)
[2018-07-11] MEDS ORDERED: CORDARONE 540 MG in D5W 289.2 ML IV ONE (21:57)
[2018-07-11] MEDS ORDERED: PATIENT'S OWN MED RIGHT EYE SCH (22:00)
[2018-07-11] MEDS: XALATAN 0.005% OPH SOLN RIGHT EYE SCH (22:54)
[2018-07-11] MEDS: LANTISEPTIC CREAM TOP SCH (22:55)
[2018-07-11] MEDS: PATIENT'S OWN MED RIGHT EYE SCH (22:58)
[2018-07-11] MEDS: BACTROBAN OINTMENT TOP SCH (23:47)
[2018-07-11] MEDS: ANUSOL-HC CREAM PR SCH (23:48)
[2018-07-12] MEDS: ZOSYN 3.375 GM in NS 50 ML IV SCH ×4 (04:45→21:37)
[2018-07-12 05:43] LABS: AGAP 10; ALB/GLOB RATIO 0.9; ALBUMIN 2.5 g/dL (3.5-5.0); ALKALINE PHOSPHATASE 56 U/L (32-122); BUN 24 mg/dL (8-22); CALCIUM 7.8 mg/dL (8.8-10.2); CHLORIDE 106 mmol/L (98-107); COSMO 288; CREATININE 0.7 mg/dL (0.7-1.2); ESTIMATED GFR > 60; GLUCOSE 155 mg/dL (70-104); GOT 13 U/L (10-34); GPT 16 U/L (10-44); SODIUM 141 mmol/L (136-145); TCO2 25 mmol/L (25-35); TOTAL BILIRUBIN 0.65 mg/dL (0.20-1.00); TOTAL PROTEIN 5.2 g/dL (6.3-8.3)
[2018-07-12 06:30] LABS: BASO# 0.04 X1000 (0.0-0.2); BASO% 1.6 % (0.0-0.8); EOS# 0.06 X1000 (0.0-0.7); EOS% 2.4 % (0.0-10.0); HEMATOCRIT 31.4 % (42.0-52.0); HEMOGLOBIN 10.3 g/dL (14.0-18.0); LYMPH# 1.26 X1000 (1.2-3.4); LYMPH% 50.6 % (20.5-51.1); MCH 34.4 PG (27-31); MCHC 32.8 g/dL (33-37); MONO# 1.12 X1000 (0.11-0.59); MPV 9.4 FL (7.4-10.4); NEUT% 0.4 % (42.2-75.2); PLT 299 X1000 (130-400); RBC 2.99 XMIL (4.7-6.1); RDW 20.2 % (11.5-14.5); WBC 2.49 X1000 (4.8-10.8)
[2018-07-12] MEDS: LANTISEPTIC CREAM TOP SCH ×3 (06:38→21:38)
[2018-07-12] MEDS: VALIUM PO SCH (07:02)
--- NOTE | 2018-07-12 07:31 | EKG Report ---
Test Performed on : 07/11/2018 3:05:32 PM Test Reason : tachycardia Blood Pressure : / mmHG Vent. Rate : 146 BPM Atrial Rate : 300 BPM P-R Int : 000 ms QRS Dur : 068 ms QT Int : 294 ms P-R-T Axes : 000 -33 082 degrees QTc Int : 458 ms Atrial fibrillation. with rapid ventricular response. with premature ventricular or aberrantly conduc marybeth complexes. Left axis deviation Abnormal ECG When compared with ECG of 17-JUN-2018 12:15, (Unconfirmed) Atrial fibrillation. has replaced Sinus rhythm. Vent. rate has increased BY 94 BPM Confirmed by Bret MCGOVERN, Ad ([id number]) on 07/12/2018 9:06:21 AM
[2018-07-12 07:39] LABS: NEUT# 0.01 X1000 (1.4-6.5)
[2018-07-12] MEDS: NEO-SYNEPHRINE 50 MG in NS 250 ML IV SCH ×2 (07:44→16:17)
--- NOTE | 2018-07-12 08:45 | PROGRESS NOTE ---
DATE: 07/12/2018 SUBJECTIVE: The patient is a 58-year-old white man recently hospitalized with dehydration and hypotension, who developed hypotension despite 1 L daily per PICC line at his residence. 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 He was brought to the emergency room early the morning of 07 11 and admitted for further evaluation and treatment. He had anemia and was transfused 2 units of packed red blood cells. He also developed atrial fibrillation which resolved with digoxin and amiodarone. LABORATORY: Neutropenic with WBC 2.5, hemoglobin 10.3, hematocrit 31.4, neutrophils 0.01. OBJECTIVE: Vital signs temperature 99.4 degrees, heart rate 68, respiration 13, blood pressure 86/59, O2 saturation on 4 L nasal oxygen 92%. The patient is improved since yesterday according to his mother. He is more alert and with no respiratory distress despite some hypoxia. Chest x- ray yesterday showed no pneumonia. Abdominal x-ray yesterday showed interval improvement in constipation since 07/03. PLAN: Consent continue supportive care. If he continues to improve, discharge will be considered tomorrow. cc: Vince Stevenson MD
[2018-07-12] MEDS: KEPPRA PO SCH ×2 (09:51→21:37)
[2018-07-12] MEDS: ASPIRIN PO SCH (09:51)
[2018-07-12] MEDS: THERA M PLUS PO SCH (09:51)
[2018-07-12] MEDS: PROZAC PO SCH (09:52)
[2018-07-12] MEDS: BACTROBAN OINTMENT TOP SCH ×2 (09:53→21:38)
[2018-07-12] MEDS: TRUSOPT 2% OPH SOLN RIGHT EYE SCH ×3 (09:53→21:37)
[2018-07-12] MEDS: ALPHAGAN 0.2% OPHTH SOLN RIGHT EYE SCH ×2 (10:05→21:38)
[2018-07-12] MEDS: ANUSOL-HC CREAM PR SCH ×2 (10:05→22:34)
[2018-07-12] MEDS: PATIENT'S OWN MED RIGHT EYE SCH ×4 (10:06→22:35)
[2018-07-12] MEDS: PROTONIX IV SCH (13:17)
--- NOTE | 2018-07-12 14:53 | ECHO REPORT ---
ORDER DATE: 07/12/2018 INDICATION: Atrial fibrillation, cerebral palsy, anemia. FINDINGS: 1. Right atrium appears normal in size at 2.5 cm. 2. Trace tricuspid regurgitation. RV systolic pressure 22. 3. Normal RV size and systolic function. 4. No significant pulmonic insufficiency. 5. Normal left atrial size with a dimension of 2.2 cm. 6. No mitral valve prolapse. No significant mitral regurgitation or mitral stenosis. 7. Normal LV size, end-diastolic dimension of 3.3. Normal wall thicknesses with a posterior and interventricular septal wall thickness 1 cm each. Somewhat hyperdynamic LV systolic function with an estimated EF greater than 70%. 8. Aortic valve opens well. No evidence of stenosis or insufficiency. 9. Aorta appears normal in visualized segments. 10. No evidence of significant pericardial effusion on this study. cc: MD Shmuel Sanchez MD Robert Allen, MD
[2018-07-12] MEDS: MEGACE PO SCH (16:16)
--- NOTE | 2018-07-12 19:44 | INFECTIOUS DISEASE PROGRESS NO ---
DATE: 07/12/2018 PRESENT ILLNESS: The patient was admitted the hospital with neutropenic fever. In the last 24 hours, he has not had any fever and his white blood cell count is recovering. MEDICATIONS: The patient is on Zosyn as a single agent. This is day 1 of treatment with that antibiotic. PHYSICAL EXAMINATION: Vital Signs: Temperature is 99, pulse 79, respirations 22, blood pressure 102/63. General: This is a chronically ill-appearing, middle-aged male. He has a decreased level of consciousness. HEENT: There is no drainage from the nose or ears. The patient's eyes were closed. I could not see in his mouth. Neck: The patient did not seem to have pain when I moved his neck. Lungs: Clear to auscultation. Cardiovascular: Regular heart rate. Abdomen: Soft and nontender. Neurologic: The patient is lying still. He did not move his extremities to request. There was no tremor. LAB AND X-RAY: Chest x-ray shows clear lung tejada. CBC shows a white count up to 2490 with an absolute neutrophil count of 10, hemoglobin is 10.3, platelet count is 299,000. Creatinine is 0.7. GFR is greater than 60. Swab for influenza was negative. Blood cultures are pending. Urine culture is growing a gram-negative valeriy. ASSESSMENT AND PLAN: For now, I am going to continue Zosyn. The patient does have a urinary tract infection and with his white count so low, I think it would be reasonable to treat the infection. COMORBIDITIES: He has a glioblastoma, for which he is undergoing chemotherapy and radiation therapy. He also has history of testicular cancer and seizure disorder. cc: MD Vince Miller MD
[2018-07-12] MEDS: XALATAN 0.005% OPH SOLN RIGHT EYE SCH (21:37)
[2018-07-12] MEDS: NON-FORMULARY BULK MED RIGHT EYE SCH (22:35)
[2018-07-13] MEDS: NEO-SYNEPHRINE 50 MG in NS 250 ML IV SCH ×3 (01:09→23:56)
[2018-07-13] MEDS: ZOSYN 3.375 GM in NS 50 ML IV SCH ×4 (03:22→23:17)
[2018-07-13] MEDS: PROZAC PO SCH (06:00)
[2018-07-13] MEDS: VALIUM PO SCH (06:01)
--- NOTE | 2018-07-13 08:17 | PROGRESS NOTE ---
DATE: 07/13/2018 OBJECTIVE: Temperature 98 degrees, heart rate 66, respirations 13, blood pressure 92/60, O2 saturation on nasal oxygen 96%. The patient continues to need Claudy-Synephrine for blood pressure maintenance. He is receiving Zosyn for urinary tract infection. Blood culture is negative for growth. Lungs are clear to auscultation. Abdomen is soft. PLAN: Range of motion exercises for extremities. cc: Vince Stevenson MD
[2018-07-13] MEDS: BACTROBAN OINTMENT TOP SCH ×2 (08:25→21:09)
[2018-07-13] MEDS: LANTISEPTIC CREAM TOP SCH (08:25)
[2018-07-13] MEDS: SYSTANE EYE DROPS RIGHT EYE SCH ×4 (08:26→20:01)
[2018-07-13] MEDS: ALPHAGAN 0.2% OPHTH SOLN RIGHT EYE SCH ×2 (08:26→21:08)
[2018-07-13] MEDS: TRUSOPT 2% OPH SOLN RIGHT EYE SCH ×3 (08:27→20:02)
[2018-07-13] MEDS: KEPPRA PO SCH ×2 (08:27→20:01)
[2018-07-13] MEDS: ASPIRIN PO SCH (08:27)
[2018-07-13] MEDS: THERA M PLUS PO SCH (08:27)
--- NOTE | 2018-07-13 09:50 | INFECTIOUS DISEASE PROGRESS NO ---
DATE: 07/13/2018 PRESENT ILLNESS: The patient was admitted with neutropenic fever, which has now cleared and his CBC from yesterday showed there was improvement in his neutropenia. The patient does have a gram- negative valeriy urinary tract infection. MEDICATIONS: This is the second day of treatment with Zosyn. PHYSICAL EXAMINATION: Vital Signs: Temperature is 99 degrees, pulse 66, respirations 10, blood pressure 92/60. General: This is a chronically ill-appearing, middle-aged male. He is in no acute distress. Head, eyes, ears, nose, and throat: There is no drainage from the nose or ears. I did not see any white patches on his tongue. Neck: There was no pain when he moved his head. Lungs: Clear to auscultation. Cardiovascular: Heart rate is regular. Abdomen: Soft and nontender. Neurologic: The patient today is more alert. He did follow request to open his mouth. He does not have a tremor. He is lying in a position and he appears to have contractures. LABORATORY AND X-RAY: There is no new radiographic study. Blood cultures thus far negative. Urine culture is growing a gram-negative valeriy. There were no new laboratory studies back yet today. ASSESSMENT AND PLAN: 1. The patient appears to be improving. His CBC is getting better. The patient is in no acute distress, and he is not having any fever. He does have a urinary tract infection and possibly that contributed to the reason why the patient was admitted to the hospital. We should have the identity and susceptibility by today and as long as the patient is doing well and his CBC is recovering. I agree with Dr. Stevenson that the patient could go home most likely tomorrow from an infectious disease point of view. 2. Comorbidities: The patient has a glioblastoma for which he is undergoing radiation therapy and chemotherapy. He also has a history of testicular cancer and a seizure disorder. cc: MD Vince Miller MD
[2018-07-13] MEDS: ANUSOL-HC CREAM PR SCH ×2 (10:01→21:10)
[2018-07-13] MEDS: PROTONIX IV SCH (11:31)
[2018-07-13 12:01] LABS: BASO# 0.05 X1000 (0.0-0.2); BASO% 1.6 % (0.0-0.8); EOS# 0.09 X1000 (0.0-0.7); EOS% 2.9 % (0.0-10.0); HEMATOCRIT 32.3 % (42.0-52.0); HEMOGLOBIN 10.4 g/dL (14.0-18.0); IMM GRAN# 0.02 X1000 (0.0-0.04); IMM GRAN% 0.6 % (0.0-0.5); LYMPH% 25.9 % (20.5-51.1); MCH 34.6 PG (27-31); MCHC 32.2 g/dL (33-37); MCV 107.3 FL (81-99); MONO# 1.19 X1000 (0.11-0.59); MONO% 38.5 % (1.7-9.3); MPV 9.2 FL (7.4-10.4); NEUT# 0.94 X1000 (1.4-6.5); NEUT% 30.5 % (42.2-75.2); PLT 288 X1000 (130-400); RBC 3.01 XMIL (4.7-6.1); RDW 18.9 % (11.5-14.5); WBC 3.09 X1000 (4.8-10.8)
[2018-07-13 12:33] LABS: BANDS 20 % (0-1); EOS 2 % (1-10); HYPOCHROM 1+; LYMPHS 40 % (21-51); MONO 20 % (1-9); SEGS 16 % (42-75)
[2018-07-13] MEDS: MEGACE PO SCH (16:04)
[2018-07-13] MEDS: XALATAN 0.005% OPH SOLN RIGHT EYE SCH (21:10)
[2018-07-13] MEDS: NON-FORMULARY BULK MED RIGHT EYE SCH (21:33)
[2018-07-14 06:12] LABS: BASO# 0.02 X1000 (0.0-0.2); BASO% 0.5 % (0.0-0.8); EOS# 0.09 X1000 (0.0-0.7); EOS% 2.3 % (0.0-10.0); HEMATOCRIT 34.4 % (42.0-52.0); IMM GRAN# 0.06 X1000 (0.0-0.04); IMM GRAN% 1.6 % (0.0-0.5); LYMPH# 0.89 X1000 (1.2-3.4); LYMPH% 23.2 % (20.5-51.1); MCH 34.6 PG (27-31); MCV 108.2 FL (81-99); MONO% 20.9 % (1.7-9.3); MPV 9.4 FL (7.4-10.4); NEUT# 1.97 X1000 (1.4-6.5); NEUT% 51.5 % (42.2-75.2); PLT 280 X1000 (130-400); RBC 3.18 XMIL (4.7-6.1); RDW 18.6 % (11.5-14.5); WBC 3.83 X1000 (4.8-10.8)
[2018-07-14] MEDS: ZOSYN 3.375 GM in NS 50 ML IV SCH (06:12)
[2018-07-14] MEDS: VALIUM PO SCH (06:12)
[2018-07-14] MEDS: PROZAC PO SCH (06:12)
[2018-07-14 06:21] LABS: AGAP 8; BUN 21 mg/dL (8-22); CALCIUM 8.9 mg/dL (8.8-10.2); CHLORIDE 111 mmol/L (98-107); COSMO 289; CREATININE 0.7 mg/dL (0.7-1.2); ESTIMATED GFR > 60; GLUCOSE 90 mg/dL (70-104); POTASSIUM 4.4 mmol/L (3.5-5.1); SODIUM 144 mmol/L (136-145); TCO2 25 mmol/L (25-35)
[2018-07-14 07:48] LABS: BANDS 9 % (0-1); EOS 3 % (1-10); LYMPHS 23 % (21-51); MONO 22 % (1-9); POLYCHROM 1+; SEGS 42 % (42-75)
--- NOTE | 2018-07-14 08:24 | INFECTIOUS DISEASE PROGRESS NO ---
DATE: 07/14/2018 PRESENT ILLNESS: The patient had neutropenic fever. His white count today is up to 3830 with an absolute neutrophil count of 1970. The patient's urinary tract infection is being caused by E coli which is susceptible to the current antibiotic that he is on, namely Zosyn. MEDICATIONS: This is the third day of treatment with Zosyn. PHYSICAL EXAMINATION: Vital Signs: Temperature is 98.8 degrees, pulse 62, respirations 18, blood pressure 100/56. General: This is a chronically ill-appearing, middle-aged male. He is in no acute distress. Head/eyes/ears/nose/throat: No drainage noted from the nose or ears. I was not able to visualize his mouth. Neck: The patient did not seem to have any pain when I passively moved his neck. Lungs: Clear to auscultation. Cardiovascular: Heart rate is regular. Abdomen: Soft and nontender. Neurologic: The patient is lying in a position. He was not able to carry on a coherent conversation at this time. There is no tremor. LAB AND X-RAY: Today the CBC shows a white count of 3830 with an absolute neutrophil count of 1970. Hemoglobin is 11, platelet count is 280,000. Creatinine is 0.7. GFR is greater than 60. Blood cultures are sterile. Urine grew E coli. Swab for influenza was negative. ASSESSMENT AND PLAN: The patient has not had anymore fever. His white blood cell count is recovering. I think the patient's urinary tract infection can be switched from Zosyn to oral Keflex. The patient has had neutropenia and is clearing rapidly. He does have an Escherichia coli urinary tract infection, but no bacteremia. COMORBIDITIES: The patient's comorbidities include the following: Glioblastoma for which he is under radiation therapy and chemotherapy. He also has a history of testicular cancer and a seizure disorder. cc: MD Vince Miller MD MTDD
[2018-07-14] MEDS: KEFLEX PO SCH ×3 (08:47→23:48)
[2018-07-14] MEDS: KEPPRA PO SCH ×2 (08:48→19:59)
[2018-07-14] MEDS: ALPHAGAN 0.2% OPHTH SOLN RIGHT EYE SCH ×2 (08:48→19:59)
[2018-07-14] MEDS: SYSTANE EYE DROPS RIGHT EYE SCH ×4 (08:48→19:59)
[2018-07-14] MEDS: THERA M PLUS PO SCH (08:48)
[2018-07-14] MEDS: ASPIRIN PO SCH (08:48)
[2018-07-14] MEDS: TRUSOPT 2% OPH SOLN RIGHT EYE SCH ×3 (08:49→21:05)
[2018-07-14] MEDS: BACTROBAN OINTMENT TOP SCH ×2 (08:57→19:59)
--- NOTE | 2018-07-14 09:15 | PROGRESS NOTE ---
DATE: 07/14/2018 VITAL SIGNS: Stable with temperature 98, heart rate 62, respirations 18, blood pressure 100/56, O2 saturation 99% on nasal oxygen. LABORATORY: Hemoglobin 11.0, hematocrit 34.4, white blood count 3800, with normal differential. Sodium 144, potassium 4.4, BUN 21, creatinine 0.7, glucose 102, calcium 8.9. ASSESSMENT AND PLAN: The patient continues to slowly improve. He continues to be on a Claudy- Synephrine drip and this was tapered some last night, but he still needs the drip to maintain an adequate blood pressure. He is eating and drinking fairly well. Lungs are clear. Abdomen is soft. Dr. Cano changed him to oral Keflex. From his standpoint, the patient will be ready to go home when his blood pressure is stable off Claudy-Synephrine. cc: Vince Stevenson MD
[2018-07-14] MEDS: PROTONIX IV SCH (12:14)
[2018-07-14] MEDS: SODIUM CHLORIDE 0.9% INJ SCH (12:14)
[2018-07-14] MEDS: NEO-SYNEPHRINE 50 MG in NS 250 ML IV SCH ×2 (12:33→21:08)
[2018-07-14] MEDS: MEGACE PO SCH (16:37)
[2018-07-14] MEDS: NS 1,000 ML IV SCH (17:21)
[2018-07-14] MEDS: XALATAN 0.005% OPH SOLN RIGHT EYE SCH (21:05)
[2018-07-14] MEDS: ANUSOL-HC CREAM PR SCH (21:50)
[2018-07-15] MEDS: NS 1,000 ML IV SCH ×4 (01:20→23:18)
[2018-07-15] MEDS: VALIUM PO SCH (06:23)
[2018-07-15] MEDS: PROZAC PO SCH (06:23)
[2018-07-15] MEDS: ANUSOL-HC CREAM PR SCH ×2 (07:37→08:36)
--- NOTE | 2018-07-15 08:17 | PROGRESS NOTE ---
DATE: 07/15/2018 Vital signs stable on Claudy-Synephrine with heart rate 70, respirations 17, blood pressure 106/67, O2 saturation 98% on nasal oxygen. The patient continues to need Claudy-Synephrine. Attempts were made to taper and stop over the last 24 hours and blood pressure dropped after Claudy-Synephrine had been taken off for a while. Blood pressure recorded on the computer readings is generally better than yesterday since IV fluids were increased. Hopefully, his blood pressure will stabilize soon and he can be discharged. He has been afebrile. He has a mild occasional cough, but lungs are clear to auscultation. Abdomen is soft. Urine in the Castro bag is clear. PLAN: Get him out of the bed and in a chair twice today. Continue range of motion exercises. Recheck BMP tomorrow morning. cc: Vince Stevenson MD
[2018-07-15] MEDS: ALPHAGAN 0.2% OPHTH SOLN RIGHT EYE SCH ×2 (08:35→20:13)
[2018-07-15] MEDS: TRUSOPT 2% OPH SOLN RIGHT EYE SCH ×3 (08:35→20:12)
[2018-07-15] MEDS: KEPPRA PO SCH ×2 (08:36→20:12)
[2018-07-15] MEDS: KEFLEX PO SCH ×3 (08:36→23:18)
[2018-07-15] MEDS: THERA M PLUS PO SCH (08:36)
[2018-07-15] MEDS: ASPIRIN PO SCH (08:37)
--- NOTE | 2018-07-15 09:10 | HEMO/ONC CONSULTATION ---
DATE: 07/12/2018 REQUESTING PHYSICIAN: Hospitalist Service. REASON FOR CONSULTATION: Consultation is for glioblastoma multiforme, patient known. HISTORY OF PRESENT ILLNESS: Mr. Cordero is a 58-year-old, male who is known to us we are currently treating him for GBM with Temodar with concurrent radiation therapy. He presented to [facility] on his admission date after he experienced a low-grade fever and cough. Upon evaluation in the ER, the patient was found to be hypotensive though they do note that he was close to his baseline blood pressure. Lab results revealed the patient to be neutropenic. He has been admitted for further evaluation and treatment. PAST MEDICAL HISTORY: 1. Cerebral palsy. 2. Spinal stenosis with paraplegia. 3. Seizure disorder. 4. Coronary artery disease. 5. History of testicular cancer with chemo and radiation. 6. History of previous perforated duodenal ulcers. 7. Recent diagnosis of glioblastoma and currently on Temodar with concurrent radiation. PAST SURGICAL HISTORY: 1. Back surgery. 2. Baclofen pump placement. 3. Bilateral arterectomy. 4. Exploratory laparotomy with repair of his perforated duodenal ulcer. 5. Lysis of adhesions. 6. Resection of his glioblastoma. 7. Left PICC line placement. SOCIAL HISTORY: The patient does not use any tobacco alcohol or illicit drugs. He is wheelchair bound. He lives in a half-way where he is taken well care of. He has a very supportive mother as well who is at his bedside. FAMILY HISTORY: Negative for any cancers. PHYSICAL EXAMINATION: Vital Signs: Temperature 99.4 degrees, heart rate 78, respirations 14, blood pressure 97/66, O2 saturations 97% on 2 L nasal cannula. General: This is a male who has cerebral palsy who is lying in his hospital bed. He has caregivers and his mother at his bedside. HEENT: Head appears to be normocephalic, atraumatic. Eyes: Pupils equal, round, reactive. Ears, nose, throat, neck, mouth: Mucosa is normal and gross auditory acuity is intact. Cardiovascular: S1, S2 heard with no murmurs, gallops, rubs appreciated. Respiratory: Some coarse breath sounds bilaterally. Gastrointestinal: Abdomen is soft. Positive bowel sounds. Musculoskeletal: He has noted deformities related to cerebral palsy. Neurologic: Patient is alert. LABS AND STUDIES: White blood cells 2.49, hemoglobin 10.3, hematocrit 31.4, platelet count 299,000. ANC is 0.01. Sodium 141, potassium 4.0, chloride 106, CO2 25, BUN 24, creatinine 0.7, glucose 155. ASSESSMENT AND PLAN: 1. Glioblastoma multiforme. He is currently on Temodar and concurrent radiation. We are going to hold both treatments as he is acutely ill and in the ICU. We will consider resumption of treatment once he is recovered and discharged. 2. Neutropenic fever. Continue reverse isolation. Continue neutropenic precautions. Continue broad-spectrum and IV antibiotics. Continue to monitor counts closely, and also continue IV antibiotics, holding Temodar as per above. 3. Anemia. Patient is status post 2 units of packed red blood cells. Again. Monitor daily CBCs as per above. 4. Seizure disorder. He will continue Keppra. Thank you for consulting us on Mr. Cordero while he is at [facility]. We will continue follow along and adjust our treatment plan per his hospital course. Dictated by ZAIN Harley for Garrick Manriquez MD cc: MD Vince Ryan MD
[2018-07-15] MEDS: BACTROBAN OINTMENT TOP SCH ×2 (09:57→20:13)
[2018-07-15] MEDS: SYSTANE EYE DROPS RIGHT EYE SCH ×4 (09:57→20:12)
[2018-07-15] MEDS: PROTONIX IV SCH (11:55)
[2018-07-15] MEDS: SODIUM CHLORIDE 0.9% INJ SCH (11:56)
--- NOTE | 2018-07-15 14:22 | INFECTIOUS DISEASE PROGRESS NO ---
DATE: 07/15/2018 PRESENT ILLNESS: The patient has an E coli urinary tract infection. His neutropenia is getting better and he is no longer febrile. MEDICATIONS: The patient is on p.o. Keflex. PHYSICAL EXAMINATION: Vital Signs: Temperature is 100, pulse 84, respirations 15, blood pressure 117/88. General: This is a chronically ill-appearing middle-aged male, but today he actually looks more alert and he seems comfortable. Head, Eyes, Ears, Nose and Throat: No drainage noted from the nose or ears. Neck: No pain when I moved his head. Lungs: Clear to auscultation. Cardiovascular: Regular heart rate. Abdomen and Flanks: Soft and nontender. Neurologic: The patient is more alert today. He is talking. LAB AND X-RAY: There is no new lab or x-ray for today. ASSESSMENT AND PLAN: The patient has a urinary tract infection. My suggestion is to treat the patient for 10 more days with Keflex 500 mg p.o. every 8 hours. I am signing off the patient's case now. I am available to see him on a p.r.n. basis. COMORBIDITIES: He has a glioblastoma for which he is taking chemotherapy and radiation therapy. He has had a history of testicular cancer and he also has a seizure disorder. As mentioned above, I am signing off the patient's case. I am available to see him on a p.r.n. basis. cc: MD Vince Miller MD
[2018-07-15] MEDS: DUONEB (A & A) INH SCH ×2 (16:16→21:08)
[2018-07-15] MEDS: CLINDAMYCIN 900 MG/D5W 900 MG/50 ML IVPB IV SCH ×2 (16:21→23:18)
[2018-07-15] MEDS: MEGACE PO SCH (16:21)
--- NOTE | 2018-07-15 16:34 | Diag Imaging Result Doc PS360 ---
EXAM: CHEST-PORTABLE INDICATION: possible aspiration. TECHNIQUE: One view COMPARISON: 07/11/2018 FINDINGS: The left PICC line is in stable position. There is evidence of prior granulomatous disease, stable. The lungs are grossly clear, otherwise. There is no discrete pleural fluid collection or pneumothorax. The cardiomediastinal silhouette and central vasculature are grossly unremarkable. IMPRESSION: Stable chest with no definite acute pathology. Electronically signed by Jackson Bunch 07/15/2018 4:32 PM
[2018-07-15] MEDS ORDERED: ANUSOL-HC CREAM PR PRN (17:02)
--- NOTE | 2018-07-15 17:48 | PROGRESS NOTE ---
DATE: 07/15/2018 VITAL SIGNS: Afebrile, heart rate 86, respirations 11, blood pressure 110/72, O2 saturation on 4 L nasal oxygen 99%. SUBJECTIVE: Patient aspirated some lunch early afternoon when being fed in the recumbent position by his mother. He was able to cough up a moderate amount of food and some was suctioned out. He was given nebulizer treatment. Chest x-ray shows no change, with no infiltrate. OBJECTIVE: Lungs sound fairly clear to auscultation. O2 saturation did not change after aspiration. PLAN: Continue supportive care. His mother asked for no manual CPR. He is a level 2 DNR with medications and oxygen only. cc: Vince Stevenson MD
[2018-07-15] MEDS: XALATAN 0.005% OPH SOLN RIGHT EYE SCH (20:13)
[2018-07-16] MEDS: DUONEB (A & A) INH SCH ×4 (03:08→20:18)
[2018-07-16] MEDS: NS 1,000 ML IV SCH ×3 (03:31→16:33)
[2018-07-16 05:56] LABS: AGAP 9; BUN 17 mg/dL (8-22); CALCIUM 8.4 mg/dL (8.8-10.2); CHLORIDE 113 mmol/L (98-107); COSMO 288; CREATININE 0.6 mg/dL (0.7-1.2); ESTIMATED GFR > 60; GLUCOSE 84 mg/dL (70-104); POTASSIUM 4.1 mmol/L (3.5-5.1); SODIUM 144 mmol/L (136-145); TCO2 22 mmol/L (25-35)
[2018-07-16] MEDS: VALIUM PO SCH (06:26)
[2018-07-16] MEDS: PROZAC PO SCH (06:26)
[2018-07-16] MEDS: SYSTANE EYE DROPS RIGHT EYE SCH ×4 (08:11→20:49)
[2018-07-16] MEDS: CLINDAMYCIN 900 MG/D5W 900 MG/50 ML IVPB IV SCH ×3 (08:11→23:50)
[2018-07-16] MEDS: KEPPRA PO SCH ×2 (08:12→20:48)
[2018-07-16] MEDS: TRUSOPT 2% OPH SOLN RIGHT EYE SCH ×3 (08:12→20:48)
[2018-07-16] MEDS: ALPHAGAN 0.2% OPHTH SOLN RIGHT EYE SCH ×2 (08:12→20:46)
[2018-07-16] MEDS: ASPIRIN PO SCH (08:12)
[2018-07-16] MEDS: BACTROBAN OINTMENT TOP SCH ×2 (08:12→20:50)
[2018-07-16] MEDS: KEFLEX PO SCH ×2 (08:13→16:10)
[2018-07-16] MEDS: THERA M PLUS PO SCH (08:13)
--- NOTE | 2018-07-16 08:41 | PROGRESS NOTE ---
DATE: 07/16/2018 OBJECTIVE: Vital signs: Afebrile, heart rate 75, respirations 10, blood pressure 102/60, O2 saturation on nasal oxygen 100%. Despite aspiration yesterday, his chest sounds clear this morning. He was off Claudy-Synephrine for a few hours last night, but had to be restarted early this morning. Blood pressure this morning is stable on low-dose Claudy-Synephrine. Diet will be increased. PLAN: If he can be off Claudy-Synephrine by tomorrow morning, there is possibility of being sent home. There was question of whether he is able to stay at home at this time related to his need for oxygen and IV fluids. Social Service consult will be obtained. cc: Vince Stevenson MD
[2018-07-16] MEDS: NEO-SYNEPHRINE 50 MG in NS 250 ML IV SCH (09:32)
[2018-07-16] MEDS: SODIUM CHLORIDE 0.9% INJ SCH (12:26)
[2018-07-16] MEDS: PROTONIX IV SCH (12:27)
[2018-07-16] MEDS: MEGACE PO SCH (16:10)
[2018-07-16] MEDS: XALATAN 0.005% OPH SOLN RIGHT EYE SCH (20:45)
[2018-07-17] MEDS: KEFLEX PO SCH ×3 (00:45→16:52)
[2018-07-17] MEDS: NS 1,000 ML IV SCH ×3 (01:01→16:52)
[2018-07-17] MEDS: DUONEB (A & A) INH SCH ×4 (04:00→22:00)
[2018-07-17] MEDS: PROZAC PO SCH (06:05)
[2018-07-17] MEDS: CLINDAMYCIN 900 MG/D5W 900 MG/50 ML IVPB IV SCH ×3 (06:05→16:51)
[2018-07-17] MEDS: VALIUM PO SCH (06:05)
[2018-07-17 06:24] LABS: BASO# 0.04 X1000 (0.0-0.2); BASO% 0.7 % (0.0-0.8); EOS# 0.11 X1000 (0.0-0.7); HEMATOCRIT 24.9 % (42.0-52.0); HEMOGLOBIN 7.9 g/dL (14.0-18.0); IMM GRAN% 3.6 % (0.0-0.5); LYMPH# 1.45 X1000 (1.2-3.4); LYMPH% 25.9 % (20.5-51.1); MCHC 31.7 g/dL (33-37); MCV 110.2 FL (81-99); MONO# 0.58 X1000 (0.11-0.59); MONO% 10.4 % (1.7-9.3); MPV 9.5 FL (7.4-10.4); NEUT# 3.22 X1000 (1.4-6.5); NEUT% 57.4 % (42.2-75.2); PLT 305 X1000 (130-400); RBC 2.26 XMIL (4.7-6.1); RDW 17.3 % (11.5-14.5)
--- NOTE | 2018-07-17 07:22 | Diag Imaging Result Doc PS360 ---
EXAM: CHEST-PORTABLE 07/17/2018 HISTORY: aspiration TECHNIQUE: AP portable at 0536 COMMENT: The inspiration is suboptimal. Considering the degree of inspiration there has been no significant change since 07/15/2018. IMPRESSION: Stable chest. Electronically signed by Alfredito Fulton 07/17/2018 7:20 AM
[2018-07-17 07:37] LABS: LYMPHS 34 % (21-51); MONO 10 % (1-9); SEGS 54 % (42-75)
[2018-07-17] MEDS: TRUSOPT 2% OPH SOLN RIGHT EYE SCH ×3 (09:14→20:09)
[2018-07-17] MEDS: BACTROBAN OINTMENT TOP SCH ×2 (09:15→20:08)
[2018-07-17] MEDS: THERA M PLUS PO SCH (09:15)
[2018-07-17] MEDS: KEPPRA PO SCH ×2 (09:15→20:06)
[2018-07-17] MEDS: SYSTANE EYE DROPS RIGHT EYE SCH ×4 (09:15→20:11)
[2018-07-17] MEDS: ALPHAGAN 0.2% OPHTH SOLN RIGHT EYE SCH ×2 (09:15→20:09)
[2018-07-17] MEDS: ASPIRIN PO SCH (09:16)
[2018-07-17] MEDS: PROTONIX IV SCH (14:15)
[2018-07-17] MEDS: MEGACE PO SCH (16:52)
[2018-07-17] MEDS: XALATAN 0.005% OPH SOLN RIGHT EYE SCH (20:09)
[2018-07-18] MEDS: CLINDAMYCIN 900 MG/D5W 900 MG/50 ML IVPB IV SCH ×5 (00:02→23:00)
[2018-07-18] MEDS: NS 1,000 ML IV SCH ×4 (00:03→18:29)
[2018-07-18] MEDS: KEFLEX PO SCH ×3 (00:03→15:45)
[2018-07-18] MEDS: DUONEB (A & A) INH SCH ×4 (03:41→20:30)
[2018-07-18] MEDS: VALIUM PO SCH (06:13)
[2018-07-18] MEDS: PROZAC PO SCH (06:13)
[2018-07-18] MEDS: TRUSOPT 2% OPH SOLN RIGHT EYE SCH ×3 (08:36→20:50)
[2018-07-18] MEDS: ALPHAGAN 0.2% OPHTH SOLN RIGHT EYE SCH ×2 (08:36→20:50)
[2018-07-18] MEDS: THERA M PLUS PO SCH (08:37)
[2018-07-18] MEDS: KEPPRA PO SCH ×2 (08:37→20:53)
[2018-07-18] MEDS: SYSTANE EYE DROPS RIGHT EYE SCH ×4 (08:37→20:54)
[2018-07-18] MEDS: ASPIRIN PO SCH (08:37)
[2018-07-18] MEDS: BACTROBAN OINTMENT TOP SCH ×2 (09:55→20:51)
[2018-07-18] MEDS: PROTONIX IV SCH (12:53)
[2018-07-18] MEDS ORDERED: ZOFRAN PO PRN (14:44)
[2018-07-18] MEDS ORDERED: MIRALAX PO PRN (14:44)
--- NOTE | 2018-07-18 15:02 | PROGRESS NOTE ---
DATE: 07/18/2018 SUBJECTIVE: I am seeing the patient in Dr. Stevenson's absence today. The patient has continued to be somewhat hypotensive. The Claudy-Synephrine drip has been off. He has some cough that has been present longstanding. OBJECTIVE: T-max 99, pulse 88, respirations 10, blood pressure 78/51, O2 saturation room air 100%.CV: RRR. Lungs: Distant breath sounds, CTA. Abdomen: Soft, nontender, nondistended. Extremities: No calf tenderness or cords. Peripheral pulses 2+. Neuro: The patient is arousable. He looks about but is nonverbal. This is chronic. DATA: Chest x-ray done yesterday shows suboptimal inspiration, stable chest. Microbiology. Urine culture reveals E coli sensitive to Keflex and cefazolin. He is on the Keflex per Dr. Cano who has signed off the case. Blood cultures x2 remain negative. ASSESSMENT.: 1. Hypotension likely in need of resumption of Claudy-Synephrine low-dose. 2. History of aspiration with suspected aspiration pneumonia. 3. Escherichia coli urinary tract infection. 4. Cerebral palsy. 5. History of testicular cancer with prior treatment with chemo many years ago. 6. Seizure disorder. 7. Coronary artery disease. 8. Spinal stenosis with paraplegia. 9. Glioblastoma on radiation and chemotherapy per Dr. Corley and Dr. Mendez. 10. Anemia. PLAN: He is off the chemo and radiation currently. We will resume low-dose Claudy-Synephrine. Continue Keflex and he is on clindamycin per Dr. Stevenson. We will check repeat labs. Consider type and crossmatch and transfusion if required. Continue IV fluids, continue duo nebs q.i.d. Will continue Protonix patient is on. Continue DNR level 2. Repeat chest x-ray in the morning. cc: MD Vince León MD
[2018-07-18 15:38] LABS: BASO# 0.06 X1000 (0.0-0.2); EOS# 0.08 X1000 (0.0-0.7); EOS% 1.3 % (0.0-10.0); HEMOGLOBIN 6.9 g/dL (14.0-18.0); IMM GRAN# 0.26 X1000 (0.0-0.04); IMM GRAN% 4.2 % (0.0-0.5); LYMPH# 1.25 X1000 (1.2-3.4); LYMPH% 20.1 % (20.5-51.1); MCH 33.3 PG (27-31); MCV 111.1 FL (81-99); MONO# 0.54 X1000 (0.11-0.59); MONO% 8.7 % (1.7-9.3); MPV 8.9 FL (7.4-10.4); NEUT# 4.04 X1000 (1.4-6.5); NEUT% 64.7 % (42.2-75.2); PLT 335 X1000 (130-400); RBC 2.07 XMIL (4.7-6.1); WBC 6.23 X1000 (4.8-10.8)
[2018-07-18] MEDS: MEGACE PO SCH (15:45)
[2018-07-18 15:57] LABS: AGAP 9; BUN 19 mg/dL (8-22); CALCIUM 8.5 mg/dL (8.8-10.2); CHLORIDE 112 mmol/L (98-107); COSMO 284; CREATININE 0.6 mg/dL (0.7-1.2); ESTIMATED GFR > 60; GLUCOSE 111 mg/dL (70-104); POTASSIUM 4.2 mmol/L (3.5-5.1); SODIUM 141 mmol/L (136-145); TCO2 20 mmol/L (25-35)
[2018-07-18] MEDS: NEO-SYNEPHRINE 50 MG in NS 250 ML IV SCH (18:12)
[2018-07-18] MEDS: DECADRON PO SCH (20:52)
[2018-07-18] MEDS: XALATAN 0.005% OPH SOLN RIGHT EYE SCH (20:52)
[2018-07-18] MEDS: ZOVIRAX PO SCH (20:52)
[2018-07-19] MEDS: KEFLEX PO SCH ×5 (00:15→23:06)
[2018-07-19] MEDS: NS 1,000 ML IV SCH ×5 (02:41→22:37)
[2018-07-19] MEDS: DUONEB (A & A) INH SCH ×4 (03:05→19:59)
[2018-07-19] MEDS: CLINDAMYCIN 900 MG/D5W 900 MG/50 ML IVPB IV SCH ×2 (06:05→06:55)
[2018-07-19] MEDS: PROZAC PO SCH (06:05)
[2018-07-19] MEDS: VALIUM PO SCH (06:09)
--- NOTE | 2018-07-19 06:49 | Diag Imaging Result Doc PS360 ---
EXAM: CHEST-PORTABLE HISTORY: dyspnea TECHNIQUE: Portable chest single view COMPARISON: 07/17/2018 FINDINGS: The lungs remain well expanded. No cardiomegaly. No change in the left-sided PICC line. No consolidation. No pleural effusions identified. IMPRESSION: Stable chest Electronically signed by Errol Santos 07/19/2018 6:47 AM
--- NOTE | 2018-07-19 08:20 | PROGRESS NOTE ---
DATE: 07/19/2018 VITAL SIGNS: Temperature 98, heart rate 71, respirations 11, blood pressure 98/62, and O2 saturation on nasal oxygen 97%. LABORATORY: CBC yesterday revealed white blood count 6200, hemoglobin 6.9, hematocrit 23.0. OBJECTIVE: There has been no melena. Chest is clear. He is anxious to go home. He continues to need Claudy-Synephrine to maintain blood pressure. PLAN: Transfuse 1 unit of packed red blood cells today and check stool for blood. Most likely, his anemia is related to chronic disease. Hopefully, his blood pressure will stabilize soon off Claudy-Synephrine. At that time, care home will be considered. cc: Vince Stevenson MD
[2018-07-19] MEDS: DECADRON PO SCH ×2 (08:50→21:20)
[2018-07-19] MEDS: THERA M PLUS PO SCH (08:50)
[2018-07-19] MEDS: ASPIRIN PO SCH (08:50)
[2018-07-19] MEDS: KEPPRA PO SCH ×2 (08:50→21:20)
[2018-07-19] MEDS: ZOVIRAX PO SCH ×2 (08:51→22:37)
[2018-07-19] MEDS: DAPSONE PO SCH (08:51)
[2018-07-19] MEDS: ALPHAGAN 0.2% OPHTH SOLN RIGHT EYE SCH ×2 (08:52→21:20)
[2018-07-19] MEDS: TRUSOPT 2% OPH SOLN RIGHT EYE SCH ×3 (08:53→21:13)
[2018-07-19] MEDS: SYSTANE EYE DROPS RIGHT EYE SCH ×4 (08:53→21:20)
[2018-07-19] MEDS: BACTROBAN OINTMENT TOP SCH ×2 (08:53→21:19)
[2018-07-19] MEDS: SODIUM CHLORIDE 0.9% INJ SCH (11:42)
[2018-07-19] MEDS: PROTONIX IV SCH (11:42)
[2018-07-19] MEDS: MEGACE PO SCH (15:29)
[2018-07-19] MEDS: XALATAN 0.005% OPH SOLN RIGHT EYE SCH (21:13)
[2018-07-20] MEDS: NS 1,000 ML IV SCH ×4 (00:52→22:59)
[2018-07-20] MEDS: DUONEB (A & A) INH SCH ×4 (02:59→20:47)
[2018-07-20] MEDS: PROZAC PO SCH ×2 (05:55→06:06)
[2018-07-20] MEDS: VALIUM PO SCH (06:07)
[2018-07-20 06:38] LABS: BASO# 0.02 X1000 (0.0-0.2); BASO% 0.1 % (0.0-0.8); EOS# 0.01 X1000 (0.0-0.7); EOS% 0.1 % (0.0-10.0); HEMATOCRIT 30.8 % (42.0-52.0); HEMOGLOBIN 9.8 g/dL (14.0-18.0); IMM GRAN# 0.13 X1000 (0.0-0.04); IMM GRAN% 0.7 % (0.0-0.5); LYMPH# 0.68 X1000 (1.2-3.4); LYMPH% 3.8 % (20.5-51.1); MCH 32.1 PG (27-31); MCHC 31.8 g/dL (33-37); MONO% 3.3 % (1.7-9.3); NEUT# 16.69 X1000 (1.4-6.5); PLT 366 X1000 (130-400); RBC 3.05 XMIL (4.7-6.1); RDW 21.5 % (11.5-14.5); WBC 18.13 X1000 (4.8-10.8)
[2018-07-20 07:19] LABS: LYMPHS 2 % (21-51); SEGS 98 % (42-75)
--- NOTE | 2018-07-20 08:07 | PROGRESS NOTE ---
DATE: 07/20/2018 VITAL SIGNS: Temperature 98 degrees, heart rate 72, respirations 19, blood pressure 114/73 off Claudy-Synephrine, O2 saturation on room air of 95%. CBC revealed elevated white blood count of 18,100, hemoglobin was 9.8, hematocrit 30.8. There is no swelling or erythema at the PICC line site. He has moderate cough and a few bilateral rhonchi. He continues to take p.o. Keflex. PLAN: Chest x-ray and Robitussin for cough. If chest x-ray is clear, discharge home will be considered soon. PICC line will be kept in for another week for 1 L of IV fluids daily. cc: Vince Stevenson MD
[2018-07-20] MEDS: DECADRON PO SCH (08:12)
[2018-07-20] MEDS: THERA M PLUS PO SCH (08:12)
[2018-07-20] MEDS: KEFLEX PO SCH ×2 (08:12→16:16)
[2018-07-20] MEDS: SYSTANE EYE DROPS RIGHT EYE SCH ×3 (08:13→16:17)
[2018-07-20] MEDS: DAPSONE PO SCH (08:13)
[2018-07-20] MEDS: KEPPRA PO SCH ×2 (08:14→20:52)
[2018-07-20] MEDS: TRUSOPT 2% OPH SOLN RIGHT EYE SCH ×3 (08:14→20:51)
[2018-07-20] MEDS: ASPIRIN PO SCH (08:14)
[2018-07-20] MEDS: ZOVIRAX PO SCH (08:14)
[2018-07-20] MEDS: ALPHAGAN 0.2% OPHTH SOLN RIGHT EYE SCH ×2 (08:15→20:51)
[2018-07-20] MEDS: BACTROBAN OINTMENT TOP SCH (08:15)
[2018-07-20] MEDS: ROBITUSSIN PO SCH ×4 (08:40→20:52)
--- NOTE | 2018-07-20 10:27 | Diag Imaging Result Doc PS360 ---
EXAM: CHEST-PORTABLE 07/20/2018 HISTORY: cough, ronchi TECHNIQUE: AP portable at 0959 COMMENT: There is no evidence of acute cardiac or pulmonary disease. There is a PICC line on the left with its tip in the superior vena cava just above the right atrium. Compared to 07/19/2018 there has been no appreciable change. IMPRESSION: Stable chest. Electronically signed by Alfredito Fulton 07/20/2018 10:24 AM
[2018-07-20] MEDS: PROTONIX IV SCH (12:41)
[2018-07-20] MEDS: SODIUM CHLORIDE 0.9% INJ SCH (12:41)
[2018-07-20] MEDS: MEGACE PO SCH (16:16)
[2018-07-20] MEDS: XALATAN 0.005% OPH SOLN RIGHT EYE SCH (20:53)
[2018-07-21] MEDS: KEFLEX PO SCH ×2 (00:29→07:27)
[2018-07-21] MEDS: ROBITUSSIN PO SCH ×3 (00:30→08:56)
[2018-07-21] MEDS: BACTROBAN OINTMENT TOP SCH ×2 (00:40→08:56)
[2018-07-21] MEDS: DUONEB (A & A) INH SCH ×2 (03:00→07:56)
[2018-07-21] MEDS: VALIUM PO SCH (06:29)
[2018-07-21] MEDS: PROZAC PO SCH (06:29)
[2018-07-21 07:27] LABS: BASO# 0.03 X1000 (0.0-0.2); BASO% 0.2 % (0.0-0.8); EOS% 0.8 % (0.0-10.0); HEMATOCRIT 29.8 % (42.0-52.0); HEMOGLOBIN 9.5 g/dL (14.0-18.0); IMM GRAN# 0.13 X1000 (0.0-0.04); IMM GRAN% 1.1 % (0.0-0.5); LYMPH# 1.32 X1000 (1.2-3.4); LYMPH% 10.8 % (20.5-51.1); MCH 32.2 PG (27-31); MCHC 31.9 g/dL (33-37); MONO# 0.77 X1000 (0.11-0.59); MONO% 6.3 % (1.7-9.3); MPV 9.7 FL (7.4-10.4); NEUT# 9.84 X1000 (1.4-6.5); NEUT% 80.8 % (42.2-75.2); PLT 389 X1000 (130-400); RBC 2.95 XMIL (4.7-6.1); RDW 20.9 % (11.5-14.5); WBC 12.19 X1000 (4.8-10.8)
[2018-07-21 07:37] VITALS: BP 114/60
[2018-07-21] MEDS: TRUSOPT 2% OPH SOLN RIGHT EYE SCH (08:56)
[2018-07-21] MEDS: THERA M PLUS PO SCH (08:56)
[2018-07-21] MEDS: KEPPRA PO SCH (08:56)
[2018-07-21] MEDS: ALPHAGAN 0.2% OPHTH SOLN RIGHT EYE SCH (08:56)
[2018-07-21] MEDS: ASPIRIN PO SCH (08:59)
--- NOTE | 2018-07-21 11:00 | DISCHARGE SUMMARY ---
ADMISSION DATE: 07/11/2018 DISCHARGE DATE: 07/21/2018 FINAL DIAGNOSES: Lethargy, hypotension, anemia, cystitis, atrial fibrillation, mild pneumonia, neuropathy of his legs, mental retardation, glioblastoma right parietal area. CONSULTATIONS: With Dr. Joe Cano, Dr. Corley and Dr. Be. DISCHARGE MEDICATION: Usual medication at home. HISTORY: This is one of several [facility] admissions for this 58-year-old white man, who has been undergoing chemotherapy and radiation therapy for glioblastoma of the right parietal area. His appetite and oral intake decreased. He presented to the office lethargic with respirations, very shallow, and decreased rate of about 5 per minute. Blood pressure was 80/40. He was admitted for further evaluation and treatment. INITIAL LABORATORY: Hemoglobin 6.6, hematocrit 21.3, white blood count 0.97 with zero neutrophils. INR was 0.93. HOSPITAL COURSE: He was treated with intravenous antibiotics, which he was on for about a week, then changed to p.o. Keflex. Urine culture revealed E coli. Blood cultures were negative. He received 3 units of blood and hematocrit jaime to 30. After a week, his hematocrit dropped again, and he required 2 units of blood. Stool was negative for blood. He developed a cough, but chest x-ray on 2 occasions was without infiltrate. With increased chest congestion and cough, nebulizer treatments were added. He required Claudy-Synephrine for more than a week to maintain blood pressure. He was moved to the floor last evening and has not required oxygen. His O2 saturation this morning was 93. Blood pressure this morning was 114/60. He is alert and eating fairly well. He is discharged to return to the long-term. He will receive 1 L of IV fluid per PICC line daily for 1 more week, then IV discontinued. He has a condom catheter and bag since he is primarily bedridden. Staff will get him up in a wheelchair frequently. He is to return to the office in 1 week for followup. cc: Vince Stevenson MD
[2018-07-21] MEDS: NS 1,000 ML IV SCH (11:36)
== END 2018-07-21 12:30 | disposition home or self-care (01) | DRG 871 ==
LOC: ED 00:09 → EDIPHOLD 08:26 → SUATTDRO 08:26 → 3N 14:07 → EDIPHOLD 14:43 → ICU 16:54 → 3N 07-20 18:01
PROVIDERS: ADMIT Family Medicine; ATTEND Family Medicine
CPT/HCPCS: 36430; 71010; 71045; 74019; 74020; 80048; 80053; 81001; 82270; 82533; 82948; 83605; 85014; 85018; 85025; 85610; 85730; 86850; 86900; 86901; 86920; 87040; 87077; 87088; 87186; 87275; 87276; 87804; 93005; 93010; 93306; 94640; 94761; 96361; 96365; 96367; 96368; 96372; 96375; 97161; 99285; A9270; C9113; J0282; J0692; J1160; J1441; J1442; J2370; J2543; J7030; J7050; J7060; J8540; P9016; S0164; S0179; XXXXX

== ENCOUNTER 2018-08-07 15:47 | Inpatient (IN) ==
[2018-08-07] MEDS ORDERED: NS 1,000 ML IV ONE ×2 (16:05→17:30)
[2018-08-07 16:45] LABS: URINE SOURCE CATH
[2018-08-07 16:50] LABS: BASO# 0.03 X1000 (0.0-0.2); BASO% 0.2 % (0.0-0.8); EOS# 0.14 X1000 (0.0-0.7); EOS% 0.7 % (0.0-10.0); HEMATOCRIT 30.2 % (42.0-52.0); HEMOGLOBIN 9.7 g/dL (14.0-18.0); IMM GRAN# 0.04 X1000 (0.0-0.04); IMM GRAN% 0.2 % (0.0-0.5); LYMPH# 0.92 X1000 (1.2-3.4); LYMPH% 4.7 % (20.5-51.1); MCH 32.1 PG (27-31); MCHC 32.1 g/dL (33-37); MONO# 1.77 X1000 (0.11-0.59); MPV 9.6 FL (7.4-10.4); NEUT# 16.81 X1000 (1.4-6.5); NEUT% 85.2 % (42.2-75.2); PLT 196 X1000 (130-400); RBC 3.02 XMIL (4.7-6.1); RDW 17.1 % (11.5-14.5); WBC 19.71 X1000 (4.8-10.8)
[2018-08-07 16:51] LABS: BILIRUBIN URINE NEGATIVE (NEGATIVE); BLOOD URINE NEGATIVE (NEGATIVE); COLOR YELLOW; GLUCOSE URINE NEGATIVE (NEGATIVE); KETONE URINE NEGATIVE (NEGATIVE); LEUKOCYTES URINE NEGATIVE (NEGATIVE); NITRITE URINE NEGATIVE (NEGATIVE); PH URINE 5.5; PROTEIN URINE TRACE mg/dL (NEGATIVE); SP GRAVITY URINE 1.013; TURBIDITY URINE CLEAR (CLEAR); UROBILINOGEN URINE 2 mg/dL (NORMAL)
[2018-08-07 16:53] LABS: UR EPITHELIAL CELLS <10 /HPF (<10); URINE BACTERIA NEGATIVE /HPF; URINE RBC <10 /HPF (<10); URINE WBC <10 /HPF (<10)
[2018-08-07 17:25] LABS: AGAP 14; ALB/GLOB RATIO 1.2; ALBUMIN 3.3 g/dL (3.5-5.0); ALKALINE PHOSPHATASE 93 U/L (32-122); BUN 22 mg/dL (8-22); CALCIUM 8.4 mg/dL (8.8-10.2); CHLORIDE 107 mmol/L (98-107); COSMO 285; CREATININE 0.8 mg/dL (0.7-1.2); ESTIMATED GFR > 60; GLUCOSE 99 mg/dL (70-104); GOT 16 U/L (10-34); GPT 13 U/L (10-44); MAGNESIUM 1.7 mg/dL (1.5-2.7); POTASSIUM 3.8 mmol/L (3.5-5.1); SODIUM 141 mmol/L (136-145); TCO2 20 mmol/L (25-35); TOTAL BILIRUBIN < 0.15 mg/dL (0.20-1.00)
--- NOTE | 2018-08-07 17:27 | Diag Imaging Result Doc PS360 ---
EXAM: CHEST-PORTABLE HISTORY: hypotension TECHNIQUE: Chest single view COMPARISON: 07/20/2018 FINDINGS: The lungs are well expanded. The heart is not enlarged. The vessels are not distended. There are no infiltrates. No effusion identified. There is a granuloma in the left lung. The left-sided PICC line has been removed. IMPRESSION: No significant interval change. Electronically signed by Errol Santos 08/07/2018 5:25 PM
[2018-08-07] MEDS ORDERED: VANCOMYCIN 1 GM/NS 1 GM/250 ML IVPB IV ONE (17:31)
[2018-08-07] MEDS ORDERED: ZOSYN 3.375 GM in NS 50 ML IV ONE (17:31)
--- NOTE | 2018-08-07 17:54 | PROVIDER DOCUMENTATION ---
This chart was entered by Lamar Aquino Scribe, acting as scribe for Ariel Young MD. HPI-General Adult - General Chief Complaint: B/P Problems Stated Complaint: low b/p Time Seen by Provider: 08/07/18 15:59 Source: patient, EMS, other (shelter) Allergies/Adverse Reactions: Patient Allergies Allergy/AdvReac Type Severity Reaction Status Date / Time Sulfa (Sulfonamide Allergy Severe ANAPHYLAXIS Verified 08/07/18 16:40 Antibiotics) Home Medications: Home Medication List Medication Instructions Recorded Confirmed Last Taken Type Multivit,Th Iron,Other Min 1 each PO DAILY 07/29/14 08/07/18 08/06/18 History [Thera-M] Polyethylene Glycol 3350 [Miralax] 17 gm PO PRN PRN 07/29/14 07/11/18 11/27/17 19:00 History Diazepam [Valium] 5 mg PO HS 05/13/15 08/07/18 08/07/18 History Fluoxetine [Prozac] 20 mg PO QAM #30 capsule 11/04/16 08/07/18 08/07/18 Rx Levetiracetam 500 mg PO BID 07/01/18 08/07/18 08/07/18 History Megestrol Acetate 40 mg PO DAILY 07/01/18 08/07/18 08/06/18 History Ondansetron HCl [Zofran] 8 mg PO TID PRN PRN 07/01/18 08/07/18 Unknown History Brimonidine 0.2% Ophth Soln 1 drp RIGHT EYE BID 07/11/18 08/07/18 08/07/18 History [Alphagan 0.2% Ophth Soln] Carboxymethyl/Glycerin/Poly80 1 drp RIGHT EYE 4XDAY 07/11/18 08/07/18 08/07/18 History [Refresh Optive Advanced Drops] Dorzolamide 2% Oph Soln [Trusopt 1 drp RIGHT EYE 07/11/18 08/07/18 08/07/18 History 2% Oph Soln] DAILY@0900,1200,2000 Hydrocortisone 2.5% Cream 1 applicatn [place] BID 07/11/18 08/07/18 08/07/18 History [Anusol-Hc Cream] Lanolin [Lantiseptic] 1 applicatn TOP BID 07/11/18 08/07/18 08/07/18 History Latanoprost [Xalatan] 1 drp RIGHT EYE DAILY@2100 07/11/18 08/07/18 08/06/18 History Mupirocin Ointment [Bactroban 1 applicatn TOP BID 07/11/18 08/07/18 08/07/18 History Ointment] Netarsudil Mesylate [Rhopressa] 1 drp RIGHT EYE DAILY@2200 07/11/18 08/07/18 08/06/18 History Temozolomide 5 mg PO DAILY 07/11/18 07/11/18 Unknown History Cyanocobalamin 1 dose IM DIRECTED 08/07/18 08/07/18 Unknown History Cyanocobalamin 1,000 mcg IM 08/08/18 Unknown History - History of Present Illness -Gen Adult Nature of Presenting Problems: 58 y/o male presents to ED from shelter with hypotension and changes in respiration pattern onset just prior to arrival. Pt has brain and testicular cancer. Pt complains of cough. Pt denies any pain. Mother of pt is at bedside and reports she was admitted recently. Pt was sent home from admission with PICC line. She states he has experienced decreased appetite. Pt is alert and oriented. Location of Pain/Injury: reports: none Pain Radiation: reports: no radiation Quality of Pain: reports: none Severity: reports: mild Onset/Duration: reports: just prior to arrival Timing: reports: still present Context/Activities at Onset: reports: none Modifying Factors: improves with: nothing Associated Symptoms: reports: cough, other (hypotension; changes in respiration pattern; decreased appetite) Similar Symptoms Previously?: No Recently seen or treated by another doctor?: No Review of Systems - Adult - REVIEW OF SYSTEMS - ADULT ROS:: ROS per family Constitutional: reports: other (hypotension; changes in respiration pattern). denies: chills, fever Eyes: reports: no symptoms reported Ears, Nose, Mouth & Throat: reports: no symptoms reported Cardiovascular: reports: other (hypotension). denies: chest pain, palpitations Respiratory: reports: cough, other (changes in respiration pattern). denies: shortness of breath Gastrointestinal: reports: poor appetite. denies: abdominal pain, diarrhea, nausea, vomiting Genitourinary: reports: no symptoms reported Musculoskeletal: denies: back pain, joint pain Integumentary: reports: no symptoms reported Neurological: denies: dizziness/vertigo, seizure Psychiatric: reports: no symptoms reported Endocrine: reports: no symptoms reported Hematologic/Lymphatic: reports: no symptoms reported Allergic/Immunologic: reports: no symptoms reported All Other Systems: Reviewed and Negative Past History - Adult - PAST MEDICAL HISTORY-ADULT Review of Records: reports: Old Records Reviewed, Nursing Assessment Review, Medications Reviewed Major Childhood Illnesses: reports: denies history Cardiovascular: reports: cardiac disease, other (hypotension) Respiratory: reports: pneumonia Genitourinary: reports: cancer (testicular), kidney disease Musculoskeletal: reports: other (contractures in legs unable to ambulitate; cerebral palsy; paraplegia; spinal stenosis) Neurological: reports: cancer/tumor (brain cancer), cognitive dysfunction (MR), Seizures/Epilepsy, other (cerebral palsy; paraplegia; spinal stenosis) Psychiatric: reports: other (ADHD) - PRIOR SURGERIES/PROCEDURES Surgical/Procedure History: reports: orthopedic (extremity) (elbow), other (polyp removed, testicular) - IMMUNIZATION STATUS Childhood Immunizations: See Nurse Assessment Flu Vaccine: See Nurse Assessment - FAMILY HISTORY Family History: reviewed, not pertinent - SOCIAL HISTORY Smoking: non-smoker Substance Use: none/never Alcohol Use Frequency: never Living Situation: group Physical Exam-General - PHYSICAL EXAM-ADULT Initial Vital Signs Reviewed: Yes - CONSTITUTIONAL General Appearance: appears well, alert, no apparent distress - EYES Eyes: PERRL/EOMI, pink conjunctivae - HEAD, EARS, NOSE, MOUTH & THROAT HENMT: normocephalic/atraumatic, moist mucous membranes, normal ENT inspection - NECK Neck: non-tender, full range of motion - RESPIRATORY Respiratory: chest non-tender, lungs clear, normal breath sounds - CARDIOVASCULAR Cardiovascular: normal peripheral pulses, regular rate, rhythm - GASTROINTESTINAL (ABDOMEN) Abdominal Exam: normal bowel sounds, non tender, soft - MUSCULOSKELETAL Back Exam: normal inspection, no CVA tenderness Extremity: normal range of motion, non-tender, normal gait - SKIN Integumentary: normal color, warm/dry - NEUROLOGIC Neurologic: grossly normal - PSYCHIATRIC Psych/Mental Status: normal mood/affect, normal thought content, normal thought process Progress - PLAN OF CARE/RESULTS Progress/Plan/Lab Results: Vital Signs - 8 hr 08/07/18 15:56 Temperature 97.9 F Pulse Rate 89 Respiratory Rate 18 Blood Pressure 95/55 O2 Sat by Pulse Oximetry 98 Orders Category Date Time Status CHEST-PORTABLE [RAD] Stat Exams 08/07/18 16:04 Taken CBC WITH ELECTRONIC DIFF [HEME] Stat Lab 08/07/18 16:32 Completed COMPREHENSIVE METABOLIC PANEL [CHEM] Stat Lab 08/07/18 16:32 Received INFLUENZA SCREEN A/B Stat Lab 08/07/18 16:07 Completed MAGNESIUM [CHEM] Stat Lab 08/07/18 16:32 Received TROPONIN T Stat Lab 08/07/18 16:32 Received URINALYSIS W/POSS RFLX CULT [URINALYSIS] Stat Lab 08/07/18 16:13 Completed 0.9% Sodium Chloride Inj [Ns] 1,000 ml Med 08/07/18 16:05 Active IV 999 mls/hr Influenza A and B are negative. 1725: Pt is A&Ox3 at this time. Pt has DNR in folder from shelter, but it is not valid in ED. Pt states he only wants medicines; he does not want compressions or tubes. Laboratory Tests 08/07/18 08/07/18 08/07/18 16:13 16:32 16:32 WBC 19.71 H RBC 3.02 L Hgb 9.7 L Hct 30.2 L MCV 100.0 H MCH 32.1 H MCHC 32.1 L RDW Std Deviation 17.1 H Plt Count 196 MPV 9.6 Immature Gran % (Auto) 0.2 Neut % (Auto) 85.2 H Lymph % (Auto) 4.7 L [place] % (Auto) 9.0 Eos % (Auto) 0.7 Baso % (Auto) 0.2 Immature Gran # (Auto) 0.04 Neut # (Auto) 16.81 H Lymph # (Auto) 0.92 L [place] # (Auto) 1.77 H Eos # (Auto) 0.14 Baso # (Auto) 0.03 Sodium 141 Potassium 3.8 Chloride 107 Carbon Dioxide 20 L Anion Gap 14 BUN 22 Creatinine 0.8 Estimated GFR/1.73 m2 > 60 BUN/Creatinine Ratio 28 Glucose 99 Calculated Osmolality 285 Calcium 8.4 L Magnesium 1.7 Total Bilirubin < 0.15 L AST 16 ALT 13 Alkaline Phosphatase 93 Troponin T Total Protein 6.0 L Albumin 3.3 L Globulin 2.7 Albumin/Globulin Ratio 1.2 Urine Source CATH Urine Color YELLOW Urine Turbidity CLEAR Urine pH 5.5 Ur Specific [place] 1.013 Urine Protein TRACE A Ur Glucose (Stick) NEGATIVE Ur Ketones (Stick) NEGATIVE Urine Blood NEGATIVE Urine Nitrite NEGATIVE Urine Bilirubin NEGATIVE Urobilinogen Dipstick 2 A Urine Leukocytes NEGATIVE Urine WBC (Auto) <10 Urine RBC (Auto) <10 U Epithel Cells (Auto) <10 Urine Bacteria (Auto) NEGATIVE 08/07/18 16:32 WBC RBC Hgb Hct MCV MCH MCHC RDW Std Deviation Plt Count MPV Immature Gran % (Auto) Neut % (Auto) Lymph % (Auto) [place] % (Auto) Eos % (Auto) Baso % (Auto) Immature Gran # (Auto) Neut # (Auto) Lymph # (Auto) [place] # (Auto) Eos # (Auto) Baso # (Auto) Sodium Potassium Chloride Carbon Dioxide Anion Gap BUN Creatinine Estimated GFR/1.73 m2 BUN/Creatinine Ratio Glucose Calculated Osmolality Calcium Magnesium Total Bilirubin AST ALT Alkaline Phosphatase Troponin T 0.088 Total Protein Albumin Globulin Albumin/Globulin Ratio Urine Source Urine Color Urine Turbidity Urine pH Ur Specific [place] Urine Protein Ur Glucose (Stick) Ur Ketones (Stick) Urine Blood Urine Nitrite Urine Bilirubin Urobilinogen Dipstick Urine Leukocytes Urine WBC (Auto) Urine RBC (Auto) U Epithel Cells (Auto) Urine Bacteria (Auto) Result Diagrams: 08/08/18 06:16 08/07/18 16:32 - REASSESSMENT Reassessment #1 Status: unchanged (Prolonged discussion with patient, his mother and the FOUR CORNER STAYER MACHINE OPERATOR from the shelter. Patient initially stated that he wanted to go back to the shelter for IV fluids and PO medications. However, he then stated that he would do what the FOUR CORNER STAYER MACHINE OPERATOR of the home and his mother recommended. They both wanted him to be admitted for IVF and IV antibiotics.) - EKG 1 Time of EKG reading by physician:: 16:22 EKG Read and Signed by:: Ariel Young EKG Interpretation (*Must complete 3 of following elements*): Abnormal Rate: 93 Rhythm: Sinus w/ occasional PVCs [place]: normal QRS: PVC's, other (L anterior fascicular block) TX Interval: normal ST Wave: normal - XRAY 1 XRAY Study: Chest Impression: Normal (FINDINGS: The lungs are well expanded. The heart is not enlarged. The vessels are not distended. There are no infiltrates. No effusion identified. There is a granuloma in the left lung. The left-sided PICC line has been removed. IMPRESSION: No significant interval change. Electronically signed by Errol Santos 08/07/2018 5:25 PM) - CONSULTS/PCP/HOSPITALIST Notification #1 *Consult/PCP/Hospitalist*: Dr. Queen for Dr. Stevenson Time Discussed: 17:42 Reason/Comments: Hypotension Consult Disposition: other (Call back with pt decision on admission.) Departure - Departure Date of Disposition Decision: 08/07/18 Time of Disposition Decision: 18:45 DIAGNOSIS: Hypotension Disposition: ADMITTED INPATIENT 09 Certified Medical Emergency: Emergent Condition: Serious - Critical Care Note This patient required my direct & personal management of CC.: Yes Total Time (mins): 41 Critical Care Statement: This patient required my direct personal management to treat or rule out processes, the absence of which, could potentiallly result in sudden, clinically significant life or limb threatening deterioration. Attestation - Physician/ AVA Attestation Patient care was provided by Advanced Practice Provider:: No The physician spent face to face time with patient:: Yes Advanced Practice Provider documentation review:: Supervising physician onsite and consulted in the evaluation and care of this patient. The physician did have a face to face encounter with the patient. This chart was documented by the indicated scribe, (Lamar Aquino Scribe) and accurately reflects the services I performed and decisions made by me, Ariel Young MD, as attested by the provider's signature.
[2018-08-07] MEDS ORDERED: 1/2 NS 1,000 ML IV ONE (19:39)
[2018-08-07] MEDS ORDERED: VANCOMYCIN IV PER PHARMACY MISC SCH (20:00)
[2018-08-07] MEDS ORDERED: ZOFRAN PO PRN (20:00)
[2018-08-07] MEDS ORDERED: MIRALAX PO PRN (20:00)
--- NOTE | 2018-08-07 21:28 | HISTORY AND PHYSICAL ---
HISTORY OF PRESENT ILLNESS: Mr. Cordero is a 58-year-old white gentleman who is developmentally disabled and recently was diagnosed to have glioblastoma affecting the right side of the brain and was operated by Dr. Pablo Hicks in [place] in May 2018. Had radiation and some chemotherapy by Dr. Corley recently. He said he has been in a shelter and was found to be hypotensive. Hence, he was brought to the emergency room where also his blood pressure was found to be low. It was 89/61 when he came in, and he had leukocytosis. Hence, he was admitted. He is a patient of Dr. Vince Stevenson for a long time. He was admitted 2 weeks ago for infection and was kept in the ICU for several days. He had an accident a few years ago and had injury to the cervical spine where he was operated, and thereafter he could not walk. He is a nonsmoker. Does not drink. MEDICATIONS: Hydrocortisone 2.5% lotion, brimonidine eyedrops, polyethylene glycol, Zofran tablet, Keppra 500 mg b.i.d., latanoprost eyedrops in the right eye, Prozac 20 mg daily, diazepam 5 mg at bedtime. REVIEW OF SYSTEMS: Other than not feeling well, is noncontributory. PHYSICAL EXAMINATION: VITAL SIGNS: Reveal temperature 98.7 degrees Fahrenheit, pulse 80 per minute, respiratory rate 16 per minute. Blood pressure came back up to 92/39 after some IV fluids. HEENT: Head normocephalic. Pupils PERRLA. Fundus examination could not be done. NECK: Supple. JVP normal. ENT examination unremarkable. There is no evidence of lymphadenopathy, thyroid enlargement. EXTREMITIES: No pedal edema or calf tenderness. There is presence of anemia. He has a sore on the left ankle. BREAST EXAM: Normal. CHEST: Normal inspection. Lungs clear on auscultation. PMI in the normal position. CARDIOVASCULAR: Heart sounds normal. No murmur, gallop or rub noted. ABDOMEN: Nondistended. Hernial orifices normal. No guarding, rigidity, free fluid, masses, or organomegaly. Bowel sounds normal. RECTAL: Deferred. EMERGENCY VETERINARIAN: Higher functions normal. The patient is able to respond well. He eats by himself. Speech is slightly slurred, otherwise normal. Cranial nerves normal. Motor and sensory system examination reveals generalized muscle atrophy, hypotonia. He has weak hand supervisor soakers on both sides. He moves his legs to some extent. Deep tendon reflexes are sluggish. Plantars downgoing. SKULL AND SPINE EXAMINATION: Detailed exam could not be done. No cerebellar signs or signs of meningeal irritation. Local motor exam unremarkable. SKIN: Exam reveals mild dehydration. He has a sore on the on the lateral malleolus of the of the left ankle. CLINICAL IMPRESSION: Hypotension, leukocytosis, possible infection. After the blood cultures, we will start IV vancomycin and Zosyn. We will also get a follow-up consultation with Dr. Corley. cc: Ad Queen MD
[2018-08-07] MEDS ORDERED: VANCOMYCIN 1,100 MG in NS 250 ML IV ONE (22:00)
[2018-08-07] MEDS: VALIUM PO SCH (22:32)
[2018-08-07] MEDS: KEPPRA PO SCH (22:32)
[2018-08-07] MEDS: NS 1,000 ML IV SCH (22:32)
[2018-08-08] MEDS: XALATAN 0.005% OPH SOLN RIGHT EYE SCH ×2 (00:33→22:05)
[2018-08-08] MEDS: ALPHAGAN 0.2% OPHTH SOLN RIGHT EYE SCH ×3 (00:35→22:05)
[2018-08-08] MEDS: SYSTANE EYE DROPS RIGHT EYE SCH ×5 (00:36→22:03)
[2018-08-08] MEDS: TRUSOPT 2% OPH SOLN RIGHT EYE SCH ×4 (00:36→22:05)
[2018-08-08] MEDS: ANUSOL-HC CREAM PR SCH ×3 (00:38→22:06)
[2018-08-08] MEDS: BACTROBAN OINTMENT TOP SCH ×3 (00:38→22:06)
[2018-08-08] MEDS: ZOSYN 3.375 GM in NS 50 ML IV SCH ×4 (00:49→18:41)
[2018-08-08] MEDS: PATIENT'S OWN MED RIGHT EYE SCH ×2 (05:56→22:07)
[2018-08-08] MEDS: NS 1,000 ML IV SCH ×3 (05:56→21:53)
[2018-08-08 06:32] LABS: BASO# 0.03 X1000 (0.0-0.2); BASO% 0.2 % (0.0-0.8); EOS# 0.31 X1000 (0.0-0.7); EOS% 2.4 % (0.0-10.0); HEMATOCRIT 32.3 % (42.0-52.0); HEMOGLOBIN 10.4 g/dL (14.0-18.0); IMM GRAN# 0.03 X1000 (0.0-0.04); IMM GRAN% 0.2 % (0.0-0.5); LYMPH# 0.57 X1000 (1.2-3.4); LYMPH% 4.4 % (20.5-51.1); MCH 32.4 PG (27-31); MCHC 32.2 g/dL (33-37); MCV 100.6 FL (81-99); MONO# 1.15 X1000 (0.11-0.59); MONO% 8.9 % (1.7-9.3); MPV 9.2 FL (7.4-10.4); NEUT# 10.83 X1000 (1.4-6.5); NEUT% 83.9 % (42.2-75.2); PLT 231 X1000 (130-400); RBC 3.21 XMIL (4.7-6.1); RDW 17.2 % (11.5-14.5); WBC 12.92 X1000 (4.8-10.8)
[2018-08-08 07:03] LABS: AGAP 12; BUN 17 mg/dL (8-22); CALCIUM 8.5 mg/dL (8.8-10.2); CHLORIDE 117 mmol/L (98-107); COSMO 289; CREATININE 0.7 mg/dL (0.7-1.2); ESTIMATED GFR > 60; GLUCOSE 76 mg/dL (70-104); POTASSIUM 3.7 mmol/L (3.5-5.1); SODIUM 145 mmol/L (136-145); TCO2 16 mmol/L (25-35)
[2018-08-08] MEDS: THERA M PLUS PO SCH (09:33)
[2018-08-08] MEDS: PROZAC PO SCH (09:34)
[2018-08-08] MEDS: KEPPRA PO SCH ×2 (09:34→22:01)
[2018-08-08] MEDS: PATIENT'S OWN MED PO SCH (09:45)
[2018-08-08] MEDS: PATIENT'S OWN MED TOP SCH ×2 (09:45→22:07)
[2018-08-08] MEDS ORDERED: ZOSYN ONE (11:26)
[2018-08-08] MEDS: MEGACE PO SCH (18:42)
[2018-08-08] MEDS: VANCOMYCIN 1,650 MG in NS 250 ML IV SCH (21:54)
[2018-08-08] MEDS: VALIUM PO SCH (22:01)
[2018-08-09] MEDS: ZOSYN 3.375 GM in NS 50 ML IV SCH ×4 (03:07→18:01)
--- NOTE | 2018-08-09 04:17 | PROGRESS NOTE ---
DATE: 08/08/2018 Mr. Cordero had good oral intake yesterday. They did the flu test in ER, which was negative. His lungs are clear. Heart sounds are normal. Abdomen soft, nontender. His chest x-ray was unremarkable. Vital signs are stable today. Blood pressure was 99/61. It is much better than yesterday. CBC shows white count of 12.92, hemoglobin 10.4, hematocrit 32.3. This is a significant improvement here also. We will continue with the current management on him. -7 cc: Ad Queen MD
--- NOTE | 2018-08-09 08:15 | PROGRESS NOTE ---
DATE: 08/09/2018 Vital signs stable with temperature 98.7 degrees, heart rate 71, respirations 16, blood pressure 97/54, O2 saturation on room air 97%. Laboratory yesterday revealed hemoglobin to be 10.4, hematocrit 32.3, white blood count 12,900. BUN was 17 and creatinine 0.7. Initial plasma lactate was 2.6. Initial white blood count on 08/07/2018 was 19,700. The patient is on intravenous antibiotics with vancomycin and piperacillin. He continues to cough at times. Lungs are clear to auscultation. Chest x-ray on 08/07/2018 indicated no infiltrates. The patient is improved, but still weak. PLAN: Get him up in a chair today. If he does well today, discharge home will be considered tomorrow. cc: MD Ad Waldrop MD
[2018-08-09] MEDS: SYSTANE EYE DROPS RIGHT EYE SCH ×4 (08:23→22:12)
[2018-08-09] MEDS: TRUSOPT 2% OPH SOLN RIGHT EYE SCH ×3 (08:23→22:16)
[2018-08-09] MEDS: BACTROBAN OINTMENT TOP SCH (08:24)
[2018-08-09] MEDS: ALPHAGAN 0.2% OPHTH SOLN RIGHT EYE SCH ×2 (08:24→22:16)
[2018-08-09] MEDS: ANUSOL-HC CREAM PR SCH ×2 (08:25→22:16)
[2018-08-09] MEDS: KEPPRA PO SCH ×2 (08:26→22:12)
[2018-08-09] MEDS: THERA M PLUS PO SCH (08:26)
[2018-08-09] MEDS: PROZAC PO SCH (08:26)
[2018-08-09] MEDS: NS 1,000 ML IV SCH ×2 (09:41→13:02)
[2018-08-09] MEDS: PATIENT'S OWN MED TOP SCH ×2 (10:30→22:19)
[2018-08-09] MEDS: PATIENT'S OWN MED PO SCH (10:30)
--- NOTE | 2018-08-09 10:53 | EKG Report ---
Test Performed on : 08/07/2018 4:22:00 PM Test Reason : ED. No order in [place] Blood Pressure : / mmHG Vent. Rate : 093 BPM Atrial Rate : 093 BPM P-R Int : 130 ms QRS Dur : 070 ms QT Int : 376 ms P-R-T Axes : 067 -64 070 degrees QTc Int : 467 ms Sinus rhythm. with occasional premature ventricular complexes. Left anterior fascicular block Abnormal ECG When compared with ECG of 11-JUL-2018 15:05, Sinus rhythm. has replaced Atrial fibrillation. Vent. rate has decreased BY 53 BPM Unconfirmed Result
[2018-08-09] MEDS ORDERED: TYLENOL PO PRN (16:22)
[2018-08-09] MEDS: MEGACE PO SCH (16:28)
--- NOTE | 2018-08-09 17:00 | HEMO/ONC CONSULTATION ---
DATE: 08/09/2018 REQUESTING PHYSICIAN: Consultation requested by hospitalist service. REASON FOR CONSULTATION: Consultation is for GBM, patient known. HISTORY OF PRESENT ILLNESS: Mr. Cordero is a 58-year-old gentleman, whom we had most recently been seeing for glioblastoma. He was receiving concurrent radiation and Temodar (chemotherapy) but was unable to tolerate treatment, and it was discontinued toward the beginning of July 2018. Since that time, the patient has been at his long-term and not receiving any treatment. It appears that he started to experience hypotension and was actually transfer to the [facility] Emergency Department. He was found have leukocytosis and has now been admitted for sepsis and IV antibiotics. The patient has a previous history of testicular cancer for which he received chemotherapy and radiation. He is currently resting and is no acute distress. PAST MEDICAL HISTORY: 1. Cerebral palsy. 2. Spinal stenosis with paraplegia. 3. Seizure disorder. 4. Coronary artery disease. 5. History of testicular cancer, status post chemotherapy and radiation, no evidence of recurrence. 6. History of perforated duodenal ulcers. 7. Recent diagnosis of glioblastoma and was previously on Temodar with concurrent radiation but was unable to proceed with any further treatment secondary to toxicities. All treatment has been discontinued at this time. PAST SURGICAL HISTORY: 1. Back surgery. 2. Baclofen pump replacement. 3. Bilateral arterectomy. 4. Exploratory laparotomy to repair his perforated duodenal ulcer. 5. Lysis of adhesions. 6. Resection of his glioblastoma multiforme. 7. Left PICC line placement. SOCIAL HISTORY: Patient has not used any tobacco, alcohol, or illicit drugs. He is wheelchair bound. Lives at a long-term and is well taken care of at the long-term. He has around-the- clock care. He has a very supportive mother, who is with him today at bedside. FAMILY HISTORY: Negative for cancer. PHYSICAL EXAMINATION: Vital Signs: Temperature 99 degrees, heart rate 70, respirations 16, blood pressure 79/42, O2 saturation 98% on room air. General: This is a male, resting comfortably in bed in no acute distress. Head: Normocephalic, atraumatic. Eyes: Pupils equal, round, rand reactive. Ears, nose, throat, neck, mouth: Oral mucosa appears to be normal. Trachea is midline. Cardiovascular: Regular rate and rhythm. Respiratory: Normal respiratory effort with no rhonchi, rales, or wheezing noted. Gastrointestinal: Abdomen is soft. Positive bowel sounds. Musculoskeletal: He has muscle changes and posturing typical of cerebral palsy. Neurologic: Patient is arousable and alert. Able to answer questions. LABS AND STUDIES: White blood cells 12.92, hemoglobin 10.4, platelet count 231,000. ASSESSMENT AND PLAN: 1. Glioblastoma multiforme. Patient was previously on Temodar with concurrent radiation. However, he was unable to tolerate treatment due to decline in performance status and increasing toxicities. He has not received any chemotherapy or radiation since the end of June/beginning of July 2018. He remains currently off of all treatment. We did briefly discuss with the patient and his mother the possibility of hospice care, but they have not initiated any hospice care at this time. We are going to go ahead and order a Palliative Care consult. 2. Hypotension with leukocytosis. Continue infectious workup, including IV antibiotics. Treat per cultures once they result. 3. Cerebral palsy. Aware. 4. Seizures. Continue current management with Nicolette Orourke. Management per primary team. We would like to thank you for consulting us on Mr. Cordero. We will continue to follow along and adjust our treatment plan per his hospital course. Dictated by ZAIN Harley for Franny Corley MD cc: MD Ad Sanchez MD I have seen and examined the patient and the note above reflects my history, physical, assessment and plan. Franny Corley MD [facility]
[2018-08-09] MEDS ORDERED: NON-FORMULARY BULK MED RIGHT EYE SCH (22:00)
[2018-08-09] MEDS: VANCOMYCIN 1,650 MG in NS 250 ML IV SCH (22:12)
[2018-08-09] MEDS: VALIUM PO SCH (22:12)
[2018-08-09] MEDS: XALATAN 0.005% OPH SOLN RIGHT EYE SCH (22:13)
[2018-08-10] MEDS: ZOSYN 3.375 GM in NS 50 ML IV SCH ×2 (02:20→06:21)
[2018-08-10] MEDS: NS 1,000 ML IV SCH (04:29)
[2018-08-10] MEDS ORDERED: NON-FORMULARY BULK MED RIGHT EYE SCH (07:15)
[2018-08-10 08:07] VITALS: BP 117/69
[2018-08-10] MEDS: KEPPRA PO SCH (08:27)
[2018-08-10] MEDS: PROZAC PO SCH (08:27)
[2018-08-10] MEDS: THERA M PLUS PO SCH (08:27)
[2018-08-10] MEDS: ANUSOL-HC CREAM PR SCH (08:29)
[2018-08-10] MEDS: BACTROBAN OINTMENT TOP SCH (08:29)
[2018-08-10] MEDS: ALPHAGAN 0.2% OPHTH SOLN RIGHT EYE SCH (08:31)
[2018-08-10] MEDS: TRUSOPT 2% OPH SOLN RIGHT EYE SCH (08:32)
[2018-08-10] MEDS: SYSTANE EYE DROPS RIGHT EYE SCH (08:46)
[2018-08-10] MEDS: PATIENT'S OWN MED TOP SCH (09:43)
--- NOTE | 2018-08-10 14:15 | DISCHARGE SUMMARY ---
ADMISSION DATE: 08/07/2018 DISCHARGE DATE: 08/10/2018 HISTORY: This is one of several [facility] admissions for this 58-year-old white man, disabled and essentially bedridden with a low-grade fever and shortness of breath for about 24 hours. He was brought to the Emergency Room, [place] [address]. Blood cultures were done, and he was placed on vancomycin and Zosyn. Initial impression was hypotension, leukocytosis, tachypnea comma and glioblastoma right parietal area. There was a small decubitus ulcer on the lateral malleolus of the left ankle. INITIAL LABORATORY: Hemoglobin 9.7, hematocrit 30.2, white blood count 16480 with 85% neutrophils, and 4.7% lymphocytes. Flu tests were negative. Chest x-ray showed no infiltrates or effusion. There was a granuloma in the left lung. HOSPITAL COURSE: By the day after admission, white blood count dropped to 12,900. He initially had low-grade fever, but this resolved. He continues to be weak, but is eating and drinking fairly well. Discussion was made with his mother by myself and Oncology. Recommendation was for her to consider hospice care. He is anxious to go home and is discharged today on his usual medications including Keflex 500 mg q.i.d. for another week. Staff are to call the office if he develops recurrent hypotension. If so, he will be given IV fluids at home by the nurse practitioner. Discussion was made with her this morning. Attempts will be made to keep him at home. cc: MD Ad Waldrop MD
[2018-08-27] MEDS ORDERED: CYANOCOBALAMIN IM SCH (09:00)
== END 2018-08-10 09:58 | disposition home or self-care (01) | DRG 315 ==
LOC: SUPCPDRO → ED 15:47 → 4N 18:33
PROVIDERS: ADMIT Internal Medicine; ATTEND Family Medicine
CPT/HCPCS: 51701; 71010; 71045; 80048; 80053; 81001; 83605; 83735; 84484; 85025; 87040; 87275; 87276; 87804; 93005; 96361; 96365; 96368; 97110; 97162; 99285; 99291; A9270; J2543; J3370; J7030; J7040; P9612; S0179

== ENCOUNTER 2018-10-28 15:07 | Inpatient (IN) ==
[2018-10-28] MEDS ORDERED: NS 1,000 ML IV ONE ×2 (15:56→17:10)
[2018-10-28] MEDS ORDERED: ROCEPHIN 1 GM in NS 50 ML IV ONE (16:10)
[2018-10-28 16:17] LABS: BASO# 0.02 X1000 (0.0-0.2); BASO% 0.2 % (0.0-0.8); HEMATOCRIT 33.4 % (42.0-52.0); HEMOGLOBIN 11.5 g/dL (14.0-18.0); IMM GRAN# 0.37 X1000 (0.0-0.04); IMM GRAN% 2.9 % (0.0-0.5); LYMPH# 0.65 X1000 (1.2-3.4); LYMPH% 5.2 % (20.5-51.1); MCHC 34.4 g/dL (33-37); MCV 95.7 FL (81-99); MONO# 0.39 X1000 (0.11-0.59); MONO% 3.1 % (1.7-9.3); MPV 9.4 FL (7.4-10.4); NEUT# 11.18 X1000 (1.4-6.5); NEUT% 88.6 % (42.2-75.2); PLT 158 X1000 (130-400); RBC 3.49 XMIL (4.7-6.1); RDW 17.9 % (11.5-14.5); WBC 12.61 X1000 (4.8-10.8)
[2018-10-28 16:21] LABS: INR 1.04; PROTIME 14.5 Seconds (11.0-16.0)
[2018-10-28 16:49] LABS: URINE SOURCE CATH
--- NOTE | 2018-10-28 16:50 | Diag Imaging Result Doc PS360 ---
EXAM: CHEST-PORTABLE INDICATION: possible sepsis/cough TECHNIQUE: One view COMPARISON: 09/21/2018 FINDINGS: The patient is rotated toward the right. There is airspace consolidation in the right lower lung zone, likely in the right lower lobe, suggesting pneumonia. There is evidence of prior granulomatous disease, stable. There is no discrete pleural fluid collection or pneumothorax. The cardiomediastinal silhouette and central vasculature are grossly unremarkable. IMPRESSION: Airspace consolidation involving the right lower lung zone suggesting pneumonia. Follow-up is recommended to assure clearing. Electronically signed by Jackson Bunch 10/28/2018 4:47 PM
[2018-10-28 16:53] LABS: UR EPITHELIAL CELLS <10 /HPF (<10); URINE BACTERIA 1+ /HPF; URINE RBC <10 /HPF (<10); URINE WBC 20-40 /HPF (<10)
[2018-10-28 16:54] LABS: BILIRUBIN URINE NEGATIVE (NEGATIVE); BLOOD URINE NEGATIVE (NEGATIVE); COLOR YELLOW; GLUCOSE URINE NEGATIVE (NEGATIVE); KETONE URINE NEGATIVE (NEGATIVE); LEUKOCYTES URINE MODERATE (NEGATIVE); NITRITE URINE NEGATIVE (NEGATIVE); PH URINE 5.5; PROTEIN URINE TRACE mg/dL (NEGATIVE); SP GRAVITY URINE 1.015; TURBIDITY URINE CLEAR (CLEAR); UROBILINOGEN URINE 3 mg/dL (NORMAL)
[2018-10-28 16:59] LABS: AGAP 11; ALB/GLOB RATIO 1.2; ALBUMIN 2.8 g/dL (3.5-5.0); ALKALINE PHOSPHATASE 77 U/L (32-122); BUN 29 mg/dL (8-22); CALCIUM 8.6 mg/dL (8.8-10.2); CHLORIDE 96 mmol/L (98-107); COSMO 270; CREATININE 0.7 mg/dL (0.7-1.2); ESTIMATED GFR > 60; GLUCOSE 121 mg/dL (70-104); GOT 13 U/L (10-34); GPT 26 U/L (10-44); POTASSIUM 4.2 mmol/L (3.5-5.1); SODIUM 131 mmol/L (136-145); TCO2 24 mmol/L (25-35); TOTAL BILIRUBIN 0.38 mg/dL (0.20-1.00); TOTAL PROTEIN 5.2 g/dL (6.3-8.3)
[2018-10-28 17:01] LABS: ALLEN TEST YES; BE -1.9 mmoll (-3.0-3.0); BLOOD TYPE ARTERIAL; HCO3-(ACT) 23.4 mmoll (20.0-26.0); METHB 1.4 % (0.0-1.5); O2(CT) 12.7 mL/dL (15.0-23.0); O2HB 95.2 % (95.0-99.0); PCO2(98.6) 31 mmHg (35-45); PO2(98.6) 86 mmHg (60-100); SAMPLE BLOOD; SAO2 98.3 % (95.0-100.0); THB 9.4 g/dL (11.5-17.4); pH(98.6) 7.45 (7.35-7.45)
[2018-10-28 17:03] LABS: MODALITY CANNULA
[2018-10-28] MEDS ORDERED: CLINDAMYCIN 600 MG/NS 600 MG/50 ML IVPB IV ONE (17:06)
--- NOTE | 2018-10-28 17:28 | PROVIDER DOCUMENTATION ---
This chart was entered by Hailee Kovacs Scribe, acting as scribe for Nuria Quan MD. HPI-General Adult - General Chief Complaint: SEPSIS ALERT - D Stated Complaint: HYPOTENSION Time Seen by Provider: 10/28/18 15:23 Source: family Allergies/Adverse Reactions: Patient Allergies Allergy/AdvReac Type Severity Reaction Status Date / Time Sulfa (Sulfonamide Allergy Severe ANAPHYLAXIS Verified 08/07/18 16:40 Antibiotics) Home Medications: Home Medication List Medication Instructions Recorded Confirmed Last Taken Type Multivit,Th Iron,Other Min 1 each PO DAILY 07/29/14 08/07/18 08/06/18 History [Thera-M] Polyethylene Glycol 3350 [Miralax] 17 gm PO PRN PRN 07/29/14 07/11/18 11/27/17 19:00 History Diazepam [Valium] 5 mg PO HS 05/13/15 08/07/18 08/07/18 History Fluoxetine [Prozac] 20 mg PO QAM #30 capsule 11/04/16 08/07/18 08/07/18 Rx Levetiracetam 500 mg PO BID 07/01/18 08/07/18 08/07/18 History Megestrol Acetate 40 mg PO DAILY 07/01/18 08/07/18 08/06/18 History Ondansetron HCl [Zofran] 8 mg PO TID PRN PRN 07/01/18 08/07/18 Unknown History Brimonidine 0.2% Ophth Soln 1 drp RIGHT EYE BID 07/11/18 08/07/18 08/07/18 Hi story [Alphagan 0.2% Ophth Soln] Carboxymethyl/Glycerin/Poly80 1 drp RIGHT EYE 4XDAY 07/11/18 08/07/18 08/07/18 History [Refresh Optive Advanced Drops] Dorzolamide 2% Oph Soln [Trusopt 1 drp RIGHT EYE 07/11/18 08/07/18 08/07/18 History 2% Oph Soln] DAILY@0900,1200,2000 Hydrocortisone 2.5% Cream 1 applicatn OH BID 07/11/18 08/07/18 08/07/18 History [Anusol-Hc Cream] Lanolin [Lantiseptic] 1 applicatn TOP BID 07/11/18 08/07/18 08/07/18 History Latanoprost [Xalatan] 1 drp RIGHT EYE DAILY@2100 07/11/18 08/07/18 08/06/18 History Mupirocin Ointment [Bactroban 1 applicatn TOP BID 07/11/18 08/07/18 08/07/18 History Ointment] Netarsudil Mesylate [Rhopressa] 1 drp RIGHT EYE DAILY@2200 07/11/18 08/07/18 08/06/18 History Temozolomide 5 mg PO DAILY 07/11/18 07/11/18 Unknown History Cyanocobalamin 1 dose IM DIRECTED 08/07/18 08/07/18 Unknown History Cyanocobalamin 1,000 mcg IM 08/08/18 Unknown History - History of Present Illness -Gen Adult Nature of Presenting Problems: Patient is a 58 year old male who presents to the ED via EMS with low blood pressure and low heart rate. Family states noticing patient's blood pressure and heart rate this afternoon. Family reports history of pneumonia. Denies shor tness of breath and cough. Location of Pain/Injury: reports: none Pain Radiation: reports: no radiation Quality of Pain: reports: none Severity: reports: mild Onset/Duration: reports: this afternoon Timing: reports: still present Context/Activities at Onset: reports: light activity Associated Symptoms: reports: denies symptoms Similar Symptoms Previously?: Yes Recently seen or treated by another doctor?: Yes Review of Systems - Adult - REVIEW OF SYSTEMS - ADULT ROS:: ROS per family Constitutional: reports: no symptoms reported. denies: chills, fever, fatique Eyes: reports: no symptoms reported Ears, Nose, Mouth & Throat: reports: no symptoms reported Cardiovascular: reports: no symptoms reported Respiratory: reports: no symptoms reported. denies: cough, shortness of breath, wheezing Gastrointestinal: reports: no symptoms reported Genitourinary: reports: no symptoms reported Musculoskeletal: reports: no symptoms reported Integumentary: reports: no symptoms reported Neurological: reports: no symptoms reported Psychiatric: reports: no symptoms reported Endocrine: reports: no symptoms reported Hematologic/Lymphatic: reports: no symptoms reported Allergic/Immunologic: reports: no symptoms reported All Other Systems: Reviewed and Negative Past History - Adult - PAST MEDICAL HISTORY-ADULT Review of Records: reports: Old Records Reviewed, Nursing Assessment Review, Medications Reviewed, Social history reviewed & non-contributory. 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; cerebral palsy; paraplegia; spinal stenosis) Neurological: reports: cancer/tumor (brain cancer), cognitive dysfunction (MR), Seizures/Epilepsy, other (cerebral palsy; paraplegia; spinal stenosis) Psychiatric: reports: other (ADHD) Endocrine/Immune: reports: denies history Other Conditions: reports: denies history - PRIOR SURGERIES/PROCEDURES Surgical/Procedure History: reports: orthopedic (extremity) (elbow), other (polyp removed, testicular) - IMMUNIZATION STATUS Childhood Immunizations: See Nurse Assessment Flu Vaccine: See Nurse Assessment - FAMILY HISTORY Family History: reviewed, not pertinent - SOCIAL HISTORY Smoking: denies Substance Use: denies Living Situation: family Physical Exam-General - PHYSICAL EXAM-ADULT Initial Vital Signs Reviewed: Yes - CONSTITUTIONAL General Appearance: alert, no apparent distress. negative: lethargic - HEAD, EARS, NOSE, MOUTH & THROAT HENMT: normocephalic/atraumatic, moist mucous membranes. negative: angioedema - RESPIRATORY Respiratory: chest non-tender, lungs clear, normal breath sounds. negative: respiratory distress, crackles - CARDIOVASCULAR Cardiovascular: normal peripheral pulses, regular rate, rhythm. negative: tachycardia - GASTROINTESTINAL (ABDOMEN) Abdominal Exam: normal bowel sounds, non tender, soft. negative: rigid - MUSCULOSKELETAL Extremity: other (contractures to bilateral lower extremities.). negative: eryt mary ann, swelling - SKIN Integumentary: normal color, normal turgor, warm/dry. negative: cyanosis, erythema, rash - PSYCHIATRIC Psych/Mental Status: other (oriented to person). negative: oriented x 3, disoriented x 3 Progress - PLAN OF CARE/RESULTS Progress/Plan/Lab Results: Vital Signs - 8 hr 10/28/18 15:10 Temperature 98.4 F Pulse Rate 98 H Respiratory Rate 20 Blood Pressure 91/68 O2 Sat by Pulse Oximetry 91 L Laboratory Results - last 24 hr 10/28/18 10/28/18 10/28/18 15:57 15:57 15:57 WBC 12.61 H RBC 3.49 L Hgb 11.5 L Hct 33.4 L MCV 95.7 MCH 33.0 H MCHC 34.4 RDW Std Deviation 17.9 H Plt Count 158 MPV 9.4 Immature Gran % (Auto) 2.9 H Neut % (Auto) 88.6 H Lymph % (Auto) 5.2 L Runnels % (Auto) 3.1 Eos % (Auto) 0.0 Baso % (Auto) 0.2 Immature Gran # (Auto) 0.37 H Neut # (Auto) 11.18 H Lymph # (Auto) 0.65 L Runnels # (Auto) 0.39 Eos # (Auto) 0.00 Baso # (Auto) 0.02 PT INR PTT (Actin FS) Specimen Type Sample Site pH pCO2 pO2 HCO3 Base Excess Oxyhemoglobin ABG O2 Sat (Calculated) ABG O2 Saturation ABG Carboxyhemoglobin ABG Methemoglobin Graham Test A-a O2 Difference Total Hemoglobin Lactate Liter Flow Blood Gas Modality FiO2 % Sodium 131 L Potassium 4.2 Chloride 96 L Carbon Dioxide 24 L Anion Gap 11 BUN 29 H Creatinine 0.7 Estimated GFR/1.73 m2 > 60 BUN/Creatinine Ratio 41 Glucose 121 H POC Glucose Calculated Osmolality 270 Calcium 8.6 L Total Bilirubin 0.38 AST 13 ALT 26 Alkaline Phosphatase 77 Troponin T 0.036 Total Protein 5.2 L Albumin 2.8 L Globulin 2.4 Albumin/Globulin Ratio 1.2 Plasma Lactate Urine Source Urine Color Urine Turbidity Urine pH Ur Specific [place] Urine Protein Ur Glucose (Stick) Ur Ketones (Stick) Urine Blood Urine Nitrite Urine Bilirubin Urobilinogen Dipstick Urine Leukocytes Urine WBC (Auto) Urine RBC (Auto) U Epithel Cells (Auto) Urine Bacteria (Auto) 10/28/18 10/28/18 10/28/18 15:57 15:57 16:35 WBC RBC Hgb Hct MCV MCH MCHC RDW Std Deviation Plt Count MPV Immature Gran % (Auto) Neut % (Auto) Lymph % (Auto) Runnels % (Auto) Eos % (Auto) Baso % (Auto) Immature Gran # (Auto) Neut # (Auto) Lymph # (Auto) Runnels # (Auto) Eos # (Auto) Baso # (Auto) PT 14.5 INR 1.04 PTT (Actin FS) 25.0 Specimen Type Sample Site pH pCO2 pO2 HCO3 Base Excess Oxyhemoglobin ABG O2 Sat (Calculated) ABG O2 Saturation ABG Carboxyhemoglobin ABG Methemoglobin Graham Test A-a O2 Difference Total Hemoglobin Lactate Liter Flow Blood Gas Modality FiO2 % Sodium Potassium Chloride Carbon Dioxide Anion Gap BUN Creatinine Estimated GFR/1.73 m2 BUN/Creatinine Ratio Glucose POC Glucose Calculated Osmolality Calcium Total Bilirubin AST ALT Alkaline Phosphatase Troponin T Total Protein Albumin Globulin Albumin/Globulin Ratio Plasma Lactate 2.9 H Urine Source CATH Urine Color YELLOW Urine Turbidity CLEAR Urine pH 5.5 Ur Specific [place] 1.015 Urine Protein TRACE A Ur Glucose (Stick) NEGATIVE Ur Ketones (Stick) NEGATIVE Urine Blood NEGATIVE Urine Nitrite NEGATIVE Urine Bilirubin NEGATIVE Urobilinogen Dipstick 3 A Urine Leukocytes MODERATE A Urine WBC (Auto) 20-40 A Urine RBC (Auto) <10 U Epithel Cells (Auto) <10 Urine Bacteria (Auto) 1+ 10/28/18 10/28/18 16:40 16:50 WBC RBC Hgb Hct MCV MCH MCHC RDW Std Deviation Plt Count MPV Immature Gran % (Auto) Neut % (Auto) Lymph % (Auto) Runnels % (Auto) Eos % (Auto) Baso % (Auto) Immature Gran # (Auto) Neut # (Auto) Lymph # (Auto) Runnels # (Auto) Eos # (Auto) Baso # (Auto) PT INR PTT (Actin FS) Specimen Type ARTERIAL Sample Site R RADIAL pH 7.45 pCO2 31 L pO2 86 HCO3 23.4 Base Excess -1.9 Oxyhemoglobin 95.2 ABG O2 Sat (Calculated) 12.7 L ABG O2 Saturation 98.3 ABG Carboxyhemoglobin 1.70 ABG Methemoglobin 1.4 Graham Test YES A-a O2 Difference 132.0 Total Hemoglobin 9.4 L Lactate 1.00 Liter Flow 4.0 Blood Gas Modality CANNULA FiO2 % 36.0 Sodium Potassium Chloride Carbon Dioxide Anion Gap BUN Creatinine Estimated GFR/1.73 m2 BUN/Creatinine Ratio Glucose POC Glucose 123 H Calculated Osmolality Calcium Total Bilirubin AST ALT Alkaline Phosphatase Troponin T Total Protein Albumin Globulin Albumin/Globulin Ratio Plasma Lactate Urine Source Urine Color Urine Turbidity Urine pH Ur Specific [place] Urine Protein Ur Glucose (Stick) Ur Ketones (Stick) Urine Blood Urine Nitrite Urine Bilirubin Urobilinogen Dipstick Urine Leukocytes Urine WBC (Auto) Urine RBC (Auto) U Epithel Cells (Auto) Urine Bacteria (Auto) Orders Category Date Time Status Cardiac Monitoring DIRECTED Care 10/28/18 16:07 Active Finger Stick Blood Sugar (ED) DIRECTED Care 10/28/18 16:07 Completed IV Insertion ORDERED Care 10/28/18 16:09 Active Notify MD of + Sepsis Screen NOW Care 10/28/18 16:09 Active Notify Physician As Ordered Care 10/28/18 16:09 Active Oxygen Therapy- ED Nursing DIRECTED Care 10/28/18 16:07 Active Saline Loc NOW Care 10/28/18 16:07 Active CHEST-PORTABLE [RAD] Stat Exams 10/28/18 16:23 Completed ABG [RESP] Routine Lab 10/28/18 16:50 Completed BLOOD CULTURE [BLDCUL] Stat Lab 10/28/18 15:55 Results CBC WITH ELECTRONIC DIFF [HEME] Stat Lab 10/28/18 15:57 Completed CK PROFILE [SP CHEM] Stat Lab 10/28/18 15:57 Received COMPREHENSIVE METABOLIC PANEL [CHEM] Stat Lab 10/28/18 15:57 Completed LACTATE, PLASMA [CHEM] Q3H Lab 10/28/18 15:57 Completed LACTATE, PLASMA [CHEM] Q3H Lab 10/28/18 19:15 Uncollected LACTATE, PLASMA [CHEM] Q3H Lab 10/28/18 22:15 Uncollected PROTIME WITH INR [COAG] Stat Lab 10/28/18 15:57 Completed PTT [COAG] Stat Lab 10/28/18 15:57 Completed TROPONIN T Stat Lab 10/28/18 15:57 Completed URINALYSIS [URINALYSIS] Stat Lab 10/28/18 16:35 Completed 0.9% Sodium Chloride Inj [Ns] 1,000 ml Med 10/28/18 15:56 Discontinued IV 999 mls/hr 0.9% Sodium Chloride Inj [Ns] 1,000 ml Med 10/28/18 17:10 Active IV 999 mls/hr CefTRIAXONE [Rocephin] 1 gm Med 10/28/18 16:10 Discontinued 0.9% Sodium Chloride Inj [Ns] 50 ml IV NOW Clindamycin 600 mg/Ns Med 10/28/18 17:06 Active 600 mg in 50 ml IV NOW Oxygen Device Stat Oth 10/28/18 16:09 Active EKG [EKG] Stat Ther 10/28/18 15:57 Ordered Result Diagrams: 10/28/18 15:57 10/28/18 15:57 - XRAY 1 XRAY Study: Chest Impression: See EMR Report ( EXAM: CHEST-PORTABLE INDICATION: possible sepsis/cough TECHNIQUE: One view COMPARISON: 09/21/2018 FINDINGS: The pa tient is rotated toward the right. There is airspace consolidation in the right lower lung zone, likely in the right lower lobe, suggesting pneumonia. There is evidence of prior granulomatous disease, stable. There is no discrete pleural fluid collection or pneumothorax. The cardiomediastinal silhouette and central vasculature are grossly unremarkable. IMPRESSION: Airspace consolidation involving the right lower lung zone suggesting pneumonia. Follow-up is recommended to assure clearing. Electronically signed by Jackson Bunch 10/28/2018 4:47 PM 10/28/181646 Interpreting Physician: Jackson Bunch MD Dictated Date/Time: 10/28/181645 cc: Nuria Quan MD; Vince Stevenson MD) - CONSULTS/PCP/HOSPITALIST Notification #1 *Consult/PCP/Hospitalist*: Dr. Ardon Time Discussed: 17:27 Consult Disposition: Admit (PNA, sepsis) Departure - Departure Date of Disposition Decision: 10/28/18 Time of Disposition Decision: 17:27 DIAGNOSIS: Sepsis associated hypotension, Pneumonia Disposition: HOME 01 Certified Medical Emergency: Emergent Condition: Stable Referrals and Follow-Ups: Vince Stevenson MD [Primary Care Provider] - - Critical Care Note This patient required my direct & personal management of CC.: No Attestation - Physician/ AVA Attestation The physician spent face to face time with patient:: Yes Advanced Practice Provider documentation review:: Supervising physician onsite and consulted in the evaluation and care of this patient. The physician did have a face to face encounter with the patient. This chart was documented by the indicated scribe, (Hailee Kovacs Scribe) and accurately reflects the services I performed and decisions made by me, Nuria Quan MD, as attested by the provider's signature.
[2018-10-28] MEDS ORDERED: ZOFRAN IV PRN (18:55)
[2018-10-28] MEDS ORDERED: NS + KCL 20 MEQ 1,000 ML IV ONE (18:55)
[2018-10-28] MEDS: DUONEB (A & A) INH SCH ×2 (19:53→23:50)
--- NOTE | 2018-10-28 20:25 | HISTORY AND PHYSICAL ---
CHIEF COMPLAINT: Low blood pressure and cough. HISTORY OF PRESENT ILLNESS: The patient is a 58-year-old, white male, followed by Dr. Vince Stevenson, who is brought in to the ER for evaluation. The patient suffers from glioblastoma multiforme of right parietal area and has been under the care of Dr. Corley and Dr. Mendez. He has not been able to take additional chemotherapy due to advancement of the tumors on the right. He apparently has 2 of them. He has completed a round of radiation therapy per Dr. Mendez. He had low blood pressures develop this morning, and began to be lethargic and not responsive, not answering questions, according to his mother. He has had admissions before due to hypotension. MEDICATIONS PRIOR TO ADMISSION: Have not been verified by the nursing personnel. ALLERGIES: Sulfa. PAST MEDICAL HISTORY: 1. Glioblastoma multiforme with resection about May 2018 at [facility]. Then, underwent chemotherapy x3, then was unable to tolerate additional of that per Dr. Fam, and received radiation treatment per Dr. Mendez. Apparently, the tumors are advancing. 2. History of removal of testicular cancer. 3. Possible cerebral palsy. 4. Seizure disorder. 5. Spinal stenosis with paraplegia. 6. Coronary artery disease. 7. History of perforated duodenal ulcer in 1997. 8. History of right eye blindness over the past few months, followed by Ophthalmology. PAST SURGICAL HISTORY: 1. Back surgery. 2. Bilateral orchiectomy. 3. Exploratory laparotomy due to perforated duodenal ulcer x2. 4. Lysis of adhesions. 5. May 2018, right glioblastoma resection at [facility] [place]. 6. Left PICC line. FAMILY HISTORY: Noncontributory. SOCIAL HISTORY: The patient [place] in the local area. He is bed-bound. Mother is with him today. No smoking. No alcohol. PHYSICAL EXAMINATION: VITAL SIGNS: Temperature 98.4 degrees, pulse 98, respirations 20, blood pressure 91/68, O2 saturation on room air 91%. Weight 160 pounds, 5 feet 9 inches tall. GENERAL: Frail, elderly appearing, chronically ill-appearing, white male. SKIN: No active breakdown seen. Chronic changes to the right pupil, very prominent. Left pupil, regular. Sclerae clear on the left. Oropharynx, dry mucous membranes. Has his mouth open quite a lot, but this can be closed. Dry mucous membranes. No major redness. NECK: No LA, TMG, JVD, or bruits. CARDIOVASCULAR: RRR without distinct murmur. LUNGS: Decreased breath sounds of right lung base, very prominent. Otherwise, CTA bilaterally. ABDOMEN: Scar in the upper abdomen in the vertical plane from previous perforated ulcer surgeries. Active bowel sounds. Nondistended. EXTREMITIES: Contractures to the legs and flaccid paralysis to the arms, fairly prominent. NEUROLOGIC: Patient does respond to his mother, but is nonverbal at present. He does look about somewhat with her coaxing. LABORATORY AND DIAGNOSTIC DATA: White count 12.6, hemoglobin 11.5, hematocrit 33.4, MCV 95, platelets 158,000, neutrophils 88, lymphocytes 5.2. PT 14.5, INR 1.04, PTT 25. ABG on 3 L shows pH 7.45, pCO2 of 31, PO2 of 86, HC03 of 23, O2 saturation 98.3. Sodium 131, potassium 4.2, chloride 96, CO2 of 24, BUN 29, creatinine 0.7, glucose 121, calcium 8.6. Total bilirubin 0.38, AST 13, ALT 26, alkaline phosphatase 77. Total CK 30, troponin 0.036. Total protein 5.2, albumin 2.8, plasma lactate 2.9. Urinalysis is a catheterized specimen, shows 20 to 40 WBCs, nitrite negative, ketones and glucose negative, trace protein, moderate leukocytes. Chest x-ray reveals airspace consolidation involving the right lower lung zone, suggesting pneumonia. ASSESSMENT: 1. Probable sepsis. 2. Hypotension. 3. Right pneumonia. 4. Glioblastoma multiforme. 5. Do not resuscitate level 1, per mother's request. 6. Possible history of cerebral palsy. 7. Seizure disorder. PLAN: Blood cultures x2 have been obtained. The patient has received Rocephin and clindamycin by the nurse practitioner, and I will continue those and will add Zyvox. Place him in the ICU on telemetry. Continue his anticonvulsant medication orally, and otherwise, keep him NPO. He has received vigorous IV hydration for his blood pressure in the emergency room. We will continue him on IV fluids to keep his blood pressure up. Consider pressor agents if required. cc: Shyam Ardon MD
[2018-10-28] MEDS: CLINDAMYCIN 600 MG/NS 600 MG/50 ML IVPB IV SCH (20:46)
[2018-10-28] MEDS: ROCEPHIN 1 GM in NS 50 ML IV SCH (21:29)
[2018-10-28] MEDS ORDERED: LEVOPHED 8 MG in D5 1/2 NS 250 ML IV SCH (23:00)
[2018-10-28] MEDS: ZYVOX 600 MG/D5W 600 MG/300 ML IVPB IV SCH (23:16)
[2018-10-28] MEDS: KEPPRA PO SCH (23:16)
[2018-10-29] MEDS: LEVOPHED 8 MG in D5 1/2 NS 250 ML IV SCH (01:28)
[2018-10-29] MEDS: DUONEB (A & A) INH SCH ×6 (03:55→23:21)
[2018-10-29] MEDS: CLINDAMYCIN 600 MG/NS 600 MG/50 ML IVPB IV SCH (05:04)
[2018-10-29] MEDS: CLINDAMYCIN 600 MG/D5W 600 MG/50 ML IVPB IV SCH ×3 (05:05→20:00)
--- NOTE | 2018-10-29 06:07 | EKG Report ---
Test Performed on : 10/29/2018 04:45:22 AM Test Reason : CP Blood Pressure : / mmHG Vent. Rate : 087 BPM Atrial Rate : 087 BPM P-R Int : 110 ms QRS Dur : 076 ms QT Int : 400 ms P-R-T Axes : 019 -20 064 degrees QTc Int : 481 ms Sinus rhythm. with short HI Prolonged QT Abnormal ECG When compared with ECG of 07-AUG-2018 16:22, premature ventricular complexes. are no longer present Confirmed by Joe Covington MD ([id number]) on 10/30/2018 9:07:24 PM
[2018-10-29] MEDS: KEPPRA PO SCH ×2 (08:20→20:01)
[2018-10-29] MEDS: ZYVOX 600 MG/D5W 600 MG/300 ML IVPB IV SCH ×2 (08:20→19:52)
--- NOTE | 2018-10-29 08:46 | PROGRESS NOTE ---
DATE: 10/29/2018 VITAL SIGNS: Temperature 98 degrees, heart rate 85, respirations 18, blood pressure 97/69, and O2 saturation 98% on 2 liters nasal oxygen. SUBJECTIVE: The patient is a 58-year-old white man with hypotension and cough, who was given Rocephin yesterday at his alf, but appetite and p.o. intake decreased, and blood pressure decreased. He was brought to the emergency room where he was found to have right lower lobe infiltrate on chest x-ray suggestive of pneumonia. He also was felt to be septic with hypotension. He was hydrated and started on antibiotics with clindamycin and Rocephin, also Zyvox. Nebulizer treatments with albuterol and Atrovent were ordered. Initial blood pressure was 91/68 yesterday in the emergency room, and O2 saturation on room air 91%. Patient is arousable but weak. Blood cultures were done and results are pending. He is currently NPO. PLAN: Clear liquids p.o. Elevate head of bed 45 degrees. Continue antibiotics. Current IV fluid rate is 90 mL/h. cc: Vince Stevenson MD
[2018-10-29 09:09] LABS: BASO# 0.05 X1000 (0.0-0.2); BASO% 0.5 % (0.0-0.8); HEMATOCRIT 33.5 % (42.0-52.0); IMM GRAN% 2.7 % (0.0-0.5); LYMPH# 0.89 X1000 (1.2-3.4); LYMPH% 8.1 % (20.5-51.1); MCH 33.5 PG (27-31); MCHC 32.8 g/dL (33-37); MCV 102.1 FL (81-99); MONO% 4.6 % (1.7-9.3); MPV 9.6 FL (7.4-10.4); NEUT# 9.24 X1000 (1.4-6.5); NEUT% 84.1 % (42.2-75.2); PLT 137 X1000 (130-400); RBC 3.28 XMIL (4.7-6.1); RDW 18.2 % (11.5-14.5); WBC 10.98 X1000 (4.8-10.8)
[2018-10-29 09:31] LABS: ANISOCYTOSIS OCCASIONAL; BANDS 7 % (0-1); LYMPHS 5 % (21-51); MONO 1 % (1-9); SEGS 87 % (42-75)
[2018-10-29 10:21] LABS: AGAP 16; BUN 23 mg/dL (8-22); CALCIUM 8.5 mg/dL (8.8-10.2); CHLORIDE 108 mmol/L (98-107); COSMO 283; CREATININE 0.6 mg/dL (0.7-1.2); ESTIMATED GFR > 60; GLUCOSE 101 mg/dL (70-104); POTASSIUM 4.1 mmol/L (3.5-5.1); SODIUM 140 mmol/L (136-145); TCO2 16 mmol/L (25-35)
[2018-10-29] MEDS: ROCEPHIN 1 GM in NS 50 ML IV SCH (18:29)
[2018-10-30] MEDS: DUONEB (A & A) INH SCH ×6 (02:43→23:18)
[2018-10-30] MEDS: CLINDAMYCIN 600 MG/D5W 600 MG/50 ML IVPB IV SCH ×3 (04:49→21:55)
[2018-10-30] MEDS: LEVOPHED 8 MG in D5 1/2 NS 250 ML IV SCH (07:33)
[2018-10-30] MEDS: KEPPRA PO SCH ×2 (08:14→19:59)
[2018-10-30] MEDS: ZYVOX 600 MG/D5W 600 MG/300 ML IVPB IV SCH ×2 (08:14→19:59)
--- NOTE | 2018-10-30 13:00 | Diag Imaging Result Doc PS360 ---
CHEST-PORTABLE - 10/30/2018 INDICATION: pneumonia COMPARISON: 10/28/2018 FINDINGS: There is worsening coarse infiltrates throughout the right lung base. Heart size is normal. No pneumothorax or pleural effusion. IMPRESSION: Worsening extensive infiltrate throughout the right lung base compatible with pneumonia. Electronically signed by Immanuel Brown 10/30/2018 12:58 PM
--- NOTE | 2018-10-30 13:02 | PROGRESS NOTE ---
DATE: 10/30/2018 SUBJECTIVE: The patient has no new complaints this morning. OBJECTIVE: Vital Signs: Stable. Blood pressure 95/62, apparently he runs in the 80s and 90s regularly. Respirations 13, pulse 94, temp 98.4 degrees Fahrenheit. HEENT: Normocephalic. He is bald in that he has probably been shaved. He has glioblastoma multiforme and has had some surgery and a little bit of chemo which he could not tolerate very well and then radiation therapy. Neck: Supple. Lungs: Have a few rales in the right base. Heart: Regular rate and rhythm without murmurs, gallops, friction rubs. Abdomen: Soft. Active bowel sounds. No organomegaly or tenderness. Neurological: Stable. White count 99384, hemoglobin 11.0. That was yesterday. He has had no lab yet today and it will be ordered. His urine culture had no growth. His blood cultures had coagulase-negative Staphylococcus, probably just a contaminant. ASSESSMENT: 1. Right lower lobe pneumonia. 2. Sepsis ruled out. 3. Hypotension. Some of this may be his normal. 4. Glioblastoma multiforme. 5. Seizure disorder. 6. Possible history of cerebral palsy. PLAN: Continue to support. Continue IV antibiotics. We will get a chest x-ray and lab work. cc: MD Vince Orellana Jr, MD
[2018-10-30] MEDS ORDERED: NS 250 ML IV ONE (16:00)
[2018-10-30] MEDS: ROCEPHIN 1 GM in NS 50 ML IV SCH (18:52)
[2018-10-31] MEDS: DUONEB (A & A) INH SCH ×6 (02:47→23:13)
[2018-10-31] MEDS: CLINDAMYCIN 600 MG/D5W 600 MG/50 ML IVPB IV SCH ×3 (05:47→21:59)
[2018-10-31 06:28] LABS: BASO# 0.02 X1000 (0.0-0.2); BASO% 0.2 % (0.0-0.8); EOS# 0.41 X1000 (0.0-0.7); EOS% 4.4 % (0.0-10.0); HEMATOCRIT 29.4 % (42.0-52.0); HEMOGLOBIN 10.1 g/dL (14.0-18.0); IMM GRAN# 0.26 X1000 (0.0-0.04); IMM GRAN% 2.8 % (0.0-0.5); LYMPH# 0.89 X1000 (1.2-3.4); LYMPH% 9.6 % (20.5-51.1); MCH 33.2 PG (27-31); MCHC 34.4 g/dL (33-37); MCV 96.7 FL (81-99); MONO# 0.17 X1000 (0.11-0.59); MONO% 1.8 % (1.7-9.3); MPV 10.4 FL (7.4-10.4); NEUT# 7.56 X1000 (1.4-6.5); NEUT% 81.2 % (42.2-75.2); PLT 98 X1000 (130-400); RBC 3.04 XMIL (4.7-6.1); RDW 17.8 % (11.5-14.5); WBC 9.31 X1000 (4.8-10.8)
[2018-10-31] MEDS: ZYVOX 600 MG/D5W 600 MG/300 ML IVPB IV SCH ×2 (07:15→19:15)
[2018-10-31 09:35] LABS: AGAP 16; BUN 15 mg/dL (8-22); CALCIUM 8.4 mg/dL (8.8-10.2); CHLORIDE 108 mmol/L (98-107); COSMO 288; CREATININE 0.6 mg/dL (0.7-1.2); ESTIMATED GFR > 60; GLUCOSE 145 mg/dL (70-104); POTASSIUM 2.8 mmol/L (3.5-5.1); SODIUM 143 mmol/L (136-145); TCO2 19 mmol/L (25-35)
[2018-10-31] MEDS: KEPPRA PO SCH ×2 (09:36→20:16)
[2018-10-31] MEDS: LEVOPHED 8 MG in D5 1/2 NS 250 ML IV SCH (10:37)
[2018-10-31] MEDS: POTASSIUM CHLORIDE 20 MEQ/SWI 20 MEQ/100 ML IVPB IV SCH ×3 (12:47→20:16)
--- NOTE | 2018-10-31 12:57 | PROGRESS NOTE ---
DATE: 10/31/2018 SUBJECTIVE: The patient is not talking much today. I asked him if he was hurting anywhere, and he said no. He did not answer any other questions. His mother was in the room with him, and she did talk. OBJECTIVE: Vital Signs: Stable with temperature 99.1 degrees Fahrenheit, pulse 101, blood pressure 92/50, oxygen saturation is 100% with 3 L. HEENT: Normocephalic. Lungs: Have rales and wheezes in the right lung [place]. Heart: Sounds regular rate and rhythm without murmurs, gallops, friction rubs. Abdomen: Soft. Active bowel sounds. No organomegaly or tenderness. Neurological: The patient is slow. He has a glioblastoma. DIAGNOSTIC STUDIES: Chest x-ray shows worsening extensive infiltrate throughout the right lung base compatible with pneumonia. Laboratory shows white count 9310, hemoglobin 10.1. Potassium was 2.8. ASSESSMENT: 1. Right lower lobe pneumonia. 2. Sepsis, ruled out. 3. Glioblastoma multiforme. 4. Seizure disorder. 5. Possible history of cerebral palsy. PLAN: We will replace potassium. The patient is already on IV antibiotics. We will continue to watch. cc: MD Vince Orellana Jr, MD
[2018-10-31] MEDS: ROCEPHIN 1 GM in NS 50 ML IV SCH (18:16)
[2018-11-01] MEDS: POTASSIUM CHLORIDE 20 MEQ/SWI 20 MEQ/100 ML IVPB IV SCH (00:44)
[2018-11-01] MEDS: DUONEB (A & A) INH SCH ×6 (03:14→23:17)
[2018-11-01] MEDS: LEVOPHED 8 MG in D5 1/2 NS 250 ML IV SCH ×2 (04:23→21:37)
[2018-11-01] MEDS: CLINDAMYCIN 600 MG/D5W 600 MG/50 ML IVPB IV SCH ×3 (04:23→20:11)
[2018-11-01 05:38] LABS: BASO# 0.01 X1000 (0.0-0.2); BASO% 0.1 % (0.0-0.8); EOS# 0.05 X1000 (0.0-0.7); EOS% 0.5 % (0.0-10.0); HEMATOCRIT 27.1 % (42.0-52.0); HEMOGLOBIN 9.2 g/dL (14.0-18.0); IMM GRAN# 0.18 X1000 (0.0-0.04); IMM GRAN% 1.8 % (0.0-0.5); LYMPH# 1.05 X1000 (1.2-3.4); LYMPH% 10.8 % (20.5-51.1); MCH 32.5 PG (27-31); MCHC 33.9 g/dL (33-37); MCV 95.8 FL (81-99); MPV 9.9 FL (7.4-10.4); NEUT# 8.36 X1000 (1.4-6.5); NEUT% 85.8 % (42.2-75.2); PLT 115 X1000 (130-400); RBC 2.83 XMIL (4.7-6.1); RDW 17.8 % (11.5-14.5); WBC 9.75 X1000 (4.8-10.8)
[2018-11-01 06:00] LABS: AGAP 12; BUN 16 mg/dL (8-22); CALCIUM 7.8 mg/dL (8.8-10.2); CHLORIDE 109 mmol/L (98-107); COSMO 282; CREATININE 0.6 mg/dL (0.7-1.2); ESTIMATED GFR > 60; GLUCOSE 90 mg/dL (70-104); POTASSIUM 3.7 mmol/L (3.5-5.1); SODIUM 141 mmol/L (136-145); TCO2 20 mmol/L (25-35)
[2018-11-01] MEDS: ZYVOX 600 MG/D5W 600 MG/300 ML IVPB IV SCH ×2 (07:32→20:11)
[2018-11-01] MEDS: KEPPRA PO SCH ×2 (08:45→20:11)
--- NOTE | 2018-11-01 08:45 | PROGRESS NOTE ---
DATE: 11/01/2018 VITAL SIGNS: Temperature 98 degrees, heart rate 99, respiration 12, blood pressure 95/63, and O2 saturation on 2 liters nasal oxygen 99%. LABORATORY: Hemoglobin 9.2, hematocrit 27.1, white blood count 9700 with 86% neutrophils. Sodium 141, potassium 3.7, BUN 16, and creatinine 0.6, calcium 7.8. OBJECTIVE: The patient continues to be weak with moderate cough. Lungs reveal decreased breath sounds and rhonchi at the right base. Left is fairly clear. DIAGNOSTIC: Chest x-ray on Thursday reveal worsening infiltrate on the right lower lung area. PLAN: Continue antibiotics with Rocephin, Zyvox, and clindamycin.vibropercussion will be done per Respiratory Therapy. Nebulizer treatments are continued. Chest x-ray will be done tomorrow morning. cc: Vince Stevenson MD MTDD
[2018-11-01] MEDS: ROCEPHIN 1 GM in NS 50 ML IV SCH (20:10)
[2018-11-02] MEDS: DUONEB (A & A) INH SCH ×6 (03:26→23:35)
[2018-11-02] MEDS: CLINDAMYCIN 600 MG/D5W 600 MG/50 ML IVPB IV SCH ×3 (04:00→20:00)
[2018-11-02] MEDS: ZYVOX 600 MG/D5W 600 MG/300 ML IVPB IV SCH ×2 (06:29→19:58)
[2018-11-02 06:37] LABS: EOS# 0.04 X1000 (0.0-0.7); EOS% 0.8 % (0.0-10.0); HEMATOCRIT 28.1 % (42.0-52.0); HEMOGLOBIN 9.3 g/dL (14.0-18.0); IMM GRAN# 0.09 X1000 (0.0-0.04); IMM GRAN% 1.7 % (0.0-0.5); LYMPH# 0.76 X1000 (1.2-3.4); LYMPH% 14.4 % (20.5-51.1); MCH 31.8 PG (27-31); MCHC 33.1 g/dL (33-37); MCV 96.2 FL (81-99); MONO# 0.13 X1000 (0.11-0.59); MONO% 2.5 % (1.7-9.3); MPV 9.9 FL (7.4-10.4); NEUT# 4.26 X1000 (1.4-6.5); NEUT% 80.6 % (42.2-75.2); PLT 90 X1000 (130-400); RBC 2.92 XMIL (4.7-6.1); RDW 17.3 % (11.5-14.5); WBC 5.28 X1000 (4.8-10.8)
[2018-11-02 06:42] LABS: AGAP 15; BUN 16 mg/dL (8-22); CALCIUM 8.3 mg/dL (8.8-10.2); CHLORIDE 106 mmol/L (98-107); COSMO 280; CREATININE 0.6 mg/dL (0.7-1.2); ESTIMATED GFR > 60; GLUCOSE 80 mg/dL (70-104); POTASSIUM 3.5 mmol/L (3.5-5.1); SODIUM 140 mmol/L (136-145); TCO2 19 mmol/L (25-35)
--- NOTE | 2018-11-02 07:45 | Diag Imaging Result Doc PS360 ---
EXAM: CHEST-PORTABLE INDICATION: pneumonia TECHNIQUE: One view COMPARISON: 10/30/2018 FINDINGS: There has been interval improvement of the infiltrate at the right lung base. There is a vague nodular opacity projecting over the left lung base near the lateral periphery. It is not clearly identified previously. No other new consolidation is identified. Cardiac silhouette is stable. IMPRESSION: Interval improvement of consolidation on the right and development of vague nodular opacity at the periphery of the left lung base. Electronically signed by Jackson Bunch 11/02/2018 7:43 AM
[2018-11-02] MEDS: KEPPRA PO SCH ×2 (08:43→20:00)
--- NOTE | 2018-11-02 09:40 | PROGRESS NOTE ---
DATE: 11/02/2018 VITAL SIGNS: Temperature 98 degrees, heart rate 100, respirations 14, blood pressure 105/76, O2 saturation on 2 liters nasal oxygen 100%. LABORATORY: Hemoglobin 9.3, hematocrit 28.1, white blood count 5300 with 81% neutrophils. Sodium 140, potassium 3.5, BUN 16, creatinine 0.6, glucose 80, calcium 8.3. Lactate 2.7 on 10/28/2018. The patient seems to be slowly improving, especially since there is improvement in x-ray. There are some nodular densities at the left lateral base of uncertain etiology, possible pneumonia. He continues to be on a low dose of Levophed at 1 mcg. With persistent hypotension and debilitation, it is felt he will benefit from 1 unit of blood to improve oxygen-carrying capacity. Vibropercussion was ordered yesterday. His cough sounds a little looser. PLAN: Continue current therapy. Hopefully, he will be able to get off the Levophed today. cc: Vince Stevenson MD
[2018-11-02] MEDS: D5 NS 1,000 ML IV SCH ×2 (13:55→22:20)
[2018-11-02] MEDS: ROCEPHIN 1 GM in NS 50 ML IV SCH (18:24)
[2018-11-03] MEDS: DUONEB (A & A) INH SCH ×6 (03:32→23:13)
[2018-11-03] MEDS: CLINDAMYCIN 600 MG/D5W 600 MG/50 ML IVPB IV SCH ×3 (05:12→20:58)
[2018-11-03] MEDS: D5 NS 1,000 ML IV SCH ×3 (05:13→14:26)
[2018-11-03] MEDS: ZYVOX 600 MG/D5W 600 MG/300 ML IVPB IV SCH ×2 (07:14→18:08)
--- NOTE | 2018-11-03 09:37 | PROGRESS NOTE ---
DATE: 11/03/2018 VITAL SIGNS: Temperature 98.3 degrees, heart rate 114, respirations 17, blood pressure 113/73 on Levophed, O2 saturation 95% on 3 L nasal oxygen. The patient is more alert this morning and still has a raspy cough. He is hoarse from both coughing and mouth breathing. Lungs reveal decreased breath sounds at the right base but no increase in upper airway congestion. He apparently ate breakfast well this morning. Abdomen is soft. Pupillary status is the same with dilated right pupil, unresponsive to light. Corneal reflex is absent. PLAN: Continue treatment in the ICU until he is off Levophed. Hopefully, he can be transferred tomorrow to the floor. cc: Vince Stevenson MD
[2018-11-03] MEDS: KEPPRA PO SCH ×2 (09:52→20:58)
[2018-11-03] MEDS: ROCEPHIN 1 GM in NS 50 ML IV SCH (18:08)
[2018-11-04] MEDS: D5 NS 1,000 ML IV SCH ×3 (03:32→23:45)
[2018-11-04] MEDS: DUONEB (A & A) INH SCH ×6 (03:47→22:40)
[2018-11-04] MEDS: CLINDAMYCIN 600 MG/D5W 600 MG/50 ML IVPB IV SCH ×2 (04:34→16:59)
[2018-11-04] MEDS: ZYVOX 600 MG/D5W 600 MG/300 ML IVPB IV SCH ×2 (06:53→23:17)
[2018-11-04] MEDS: KEPPRA PO SCH (08:02)
--- NOTE | 2018-11-04 08:10 | PROGRESS NOTE ---
DATE: 11/04/2018 VITAL SIGNS: Temperature 98.2 degrees, heart rate 108, respirations 13, blood pressure 110/68 off Levophed. SUBJECTIVE: He seems to be continuing slow improvement. He does not answer questions, but has a mask with nebulizer treatments in process. There is still moderate cough. Abdomen is soft. PLAN: Repeat chest x-ray tomorrow. Also, transfer to the floor on telemetry. cc: Vince Stevenson MD
[2018-11-04 12:07] LABS: INR 1.13; PROTIME 14.7 Seconds (11.0-16.0)
[2018-11-04] MEDS ORDERED: NS 250 ML ONE (14:09)
--- NOTE | 2018-11-04 15:48 | Diag Imaging Result Doc PS360 ---
EXAM: CHEST-PORTABLE 11/04/2018 HISTORY: picc placement TECHNIQUE: AP portable at 1538 COMMENT: There is a PICC line on the left with its tip just within the right atrium. There is increasing ill-defined opacity in the right upper lobe and to some extent the lower lobe and/or middle lobe. The inspiration is less optimal than on 11/02/2018. Some of the opacities visible previously in the costophrenic angle on the left are not as well seen. IMPRESSION: Worsened right upper lobe and right lower lobe pneumonia. Electronically signed by Alfredito Fulton 11/04/2018 3:45 PM
[2018-11-04] MEDS: ROCEPHIN 1 GM in NS 50 ML IV SCH (18:35)
[2018-11-05] MEDS: CLINDAMYCIN 600 MG/D5W 600 MG/50 ML IVPB IV SCH ×3 (01:14→20:42)
[2018-11-05] MEDS: DUONEB (A & A) INH SCH ×6 (03:02→22:48)
[2018-11-05] MEDS: KEPPRA PO SCH (05:05)
--- NOTE | 2018-11-05 07:04 | Diag Imaging Result Doc PS360 ---
EXAM: CHEST-PORTABLE 11/05/2018 HISTORY: pneumonia TECHNIQUE: AP portable upright at 0505 COMMENT: There is patchy alveolar opacity throughout the right lung and in the left lower lobe behind the heart. This has not changed appreciably since 11/04/2018. The heart size is not enlarged. Compared to 11/02/2018 there has definitely been worsening in the right opacities. IMPRESSION: Bilateral bronchopneumonia worse on the right than the left. Electronically signed by Alfredito Fulton 11/05/2018 7:02 AM
[2018-11-05] MEDS ORDERED: PROCALAMINE 1,000 ML IV SCH (08:00)
[2018-11-05] MEDS: KEPPRA 500 MG in NS 100 ML IV SCH ×2 (09:20→19:54)
[2018-11-05] MEDS: CLINIMIX E 4.25%-5% SOLUTION 1,000 ML IV SCH (09:46)
[2018-11-05] MEDS: ZYVOX 600 MG/D5W 600 MG/300 ML IVPB IV SCH ×2 (09:47→20:39)
--- NOTE | 2018-11-05 09:56 | PROGRESS NOTE ---
DATE: 11/05/2018 VITAL SIGNS: Stable with temperature 98 degrees, heart rate 99, respirations 18, blood pressure 109/59, and O2 saturation 91% on room air. He had been on nasal oxygen earlier with O2 saturation of 95. He is somewhat lethargic and is hoarse, but tries to answer simple questions. Since yesterday, chest x-ray has shown increase in infiltrates both lungs, more so on the right. Blood culture on 10/28 revealed coag-negative staph. Otherwise, other blood culture was negative. White blood count since admission [place]ded [place] [address] to 5000. He most likely has had aspiration pneumonia with worsening. He is changed back to clear liquids p.o. and given aminosyn IV for nutrition. He continues to receive nebulizer treatments and triple antibiotic therapy. PLAN: Continue supportive care. With his increase in pneumonia, there will probably be an extended hospital stay before returning back to his care home. Hopefully, he will begin to improve through the day today. cc: Vince Stevenson MD MTDD
[2018-11-05] MEDS: SANTYL OINT TOP SCH (13:37)
[2018-11-05] MEDS: ROCEPHIN 1 GM in NS 50 ML IV SCH (18:10)
[2018-11-06] MEDS: CLINIMIX E 4.25%-5% SOLUTION 1,000 ML IV SCH ×4 (00:39→16:14)
[2018-11-06] MEDS: DUONEB (A & A) INH SCH ×6 (03:22→22:41)
[2018-11-06] MEDS: CLINDAMYCIN 600 MG/D5W 600 MG/50 ML IVPB IV SCH ×3 (04:30→22:46)
[2018-11-06] MEDS: KEPPRA 500 MG in NS 100 ML IV SCH ×2 (08:26→19:59)
[2018-11-06] MEDS: ZYVOX 600 MG/D5W 600 MG/300 ML IVPB IV SCH ×2 (08:53→20:36)
[2018-11-06] MEDS: SANTYL OINT TOP SCH (13:00)
[2018-11-06] MEDS: ROCEPHIN 1 GM in NS 50 ML IV SCH (18:20)
--- NOTE | 2018-11-06 19:13 | PROGRESS NOTE ---
DATE: 11/06/2018 58-year-old white gentleman admitted to the hospital on 10/28/2018 with aspiration pneumonia. Patient is well known from the previous admission. Most of the history was obtained from the patient's mother at bedside and previous reports. REVIEW OF SYSTEMS: He is sleepy. No history was obtained. He is bedridden. PAST MEDICAL HISTORY: Reviewed. PAST SURGICAL HISTORY: Reviewed. MEDICINES: Reviewed. ALLERGIES: Sulfa. EXAMINATION: Temperature 97, pulse 93, blood pressure 109/59. He is bedridden, contracted, sleeping. PICC line was noted on the left side. Generalized edema noted all over the body. Midline abdominal scar present.Chest: Bilateral air entry. No rhonchi. Extremities: Contracted with multiple ulcers with bandages noted. INVESTIGATIONS: CBC on 11/02/2018, CBC 5.2, hematocrit 28, platelets 96,000, PT 14, INR 1.1. 730. Sodium 140, potassium 3.5, chloride 106, BUN 16, creatinine 0.6. Blood cultures, coag- negative staph. Chest x-ray bilateral bronchopneumonia mostly on the right side. ASSESSMENT AND PLAN: 1. Aspiration pneumonia currently on IV clindamycin 600 q. 8. 2. IV ceftriaxone q. 12, Zyvox 600 IV q. 12 hours. 3. Seizure disorder. She is on IV Keppra q. 12. Continue IV Clinimix. 4. History of brain tumor resection May 2018, [facility], status post chemo prophylactic seizure medicine. Continue present treatment. DNR level 1 and followup. LEVEL OF DOCUMENTATION: 35 minutes. cc: MD Vince Torrez MD
[2018-11-07] MEDS: CLINIMIX E 4.25%-5% SOLUTION 1,000 ML IV SCH ×3 (01:24→18:27)
[2018-11-07] MEDS: DUONEB (A & A) INH SCH ×6 (03:04→23:52)
[2018-11-07] MEDS: CLINDAMYCIN 600 MG/D5W 600 MG/50 ML IVPB IV SCH ×4 (04:00→22:10)
[2018-11-07] MEDS: ZYVOX 600 MG/D5W 600 MG/300 ML IVPB IV SCH ×2 (08:14→22:54)
[2018-11-07] MEDS: KEPPRA 500 MG in NS 100 ML IV SCH ×2 (08:14→22:02)
[2018-11-07] MEDS ORDERED: TRANSDERM-SCOP TD SCH (12:30)
[2018-11-07] MEDS: SANTYL OINT TOP SCH (13:33)
--- NOTE | 2018-11-07 17:49 | PROGRESS NOTE ---
DATE: 11/07/2018 SUBJECTIVE: The patient is awake. More coughing spells, intermittent choking. Mother was at bedside. OBJECTIVE: Vital signs: Temperature is 98 degrees, pulse 97, blood pressure is stable. HEENT: He is choking with oropharyngeal secretions. Chest: Some rhonchi. Cardiovascular: Distant heart sounds. PICC line on the left side noted. Abdomen: Midline abdominal scar. Extremities: Contracted. LABS: None reported. ASSESSMENT AND PLAN: 1. Aspiration pneumonia, high risk for choking. Started on scopolamine patch. 2. IV Clinimix. Continue IV antibiotics with clindamycin and ceftriaxone and Zyvox. Will repeat the labs in the morning, chest x-ray and blood work. Continue present treatment. Living Will, DNR. LEVEL OF DOCUMENTATION: Twenty-five minutes. cc: MD Vince Torrez MD
[2018-11-07] MEDS: ROCEPHIN 1 GM in NS 50 ML IV SCH (18:54)
[2018-11-08] MEDS: CLINIMIX E 4.25%-5% SOLUTION 1,000 ML IV SCH ×2 (01:46→19:04)
[2018-11-08] MEDS: DUONEB (A & A) INH SCH ×6 (03:42→22:32)
[2018-11-08] MEDS: CLINDAMYCIN 600 MG/D5W 600 MG/50 ML IVPB IV SCH ×3 (04:14→21:19)
--- NOTE | 2018-11-08 07:14 | Diag Imaging Result Doc PS360 ---
EXAM: CHEST-PORTABLE INDICATION: dyspnea TECHNIQUE: One view COMPARISON: 11/05/2018 FINDINGS: The left PICC line is in stable position. Patchy vague airspace consolidations seen throughout the right lung and at the left lung base is approximately stable. No new consolidation is identified. Cardiac silhouette is stable. IMPRESSION: Stable chest. Electronically signed by Jackson Bunch 11/08/2018 7:12 AM
[2018-11-08 07:46] LABS: HEMATOCRIT 20.8 % (42.0-52.0); IMM GRAN# 0.03 X1000 (0.0-0.04); IMM GRAN% 0.7 % (0.0-0.5); LYMPH# 0.63 X1000 (1.2-3.4); LYMPH% 15.5 % (20.5-51.1); MCH 32.7 PG (27-31); MCHC 33.7 g/dL (33-37); MCV 97.2 FL (81-99); MONO# 0.15 X1000 (0.11-0.59); MONO% 3.7 % (1.7-9.3); MPV 10.9 FL (7.4-10.4); NEUT# 3.25 X1000 (1.4-6.5); NEUT% 80.1 % (42.2-75.2); PLT 66 X1000 (130-400); RBC 2.14 XMIL (4.7-6.1); RDW 17.1 % (11.5-14.5); WBC 4.06 X1000 (4.8-10.8)
[2018-11-08 07:50] LABS: AGAP 13; BUN 39 mg/dL (8-22); CALCIUM 8.3 mg/dL (8.8-10.2); CHLORIDE 109 mmol/L (98-107); COSMO 296; CREATININE 0.5 mg/dL (0.7-1.2); ESTIMATED GFR > 60; GLUCOSE 91 mg/dL (70-104); POTASSIUM 2.8 mmol/L (3.5-5.1); SODIUM 144 mmol/L (136-145); TCO2 22 mmol/L (25-35)
[2018-11-08] MEDS: KEPPRA 500 MG in NS 100 ML IV SCH ×2 (08:08→21:19)
--- NOTE | 2018-11-08 08:11 | PROGRESS NOTE ---
DATE: 11/08/2018 OBJECTIVE: Vital signs: Temperature 99.1 degrees, heart rate 119, respiratory rate 16, blood pressure 106/59, O2 saturation 94% on nasal oxygen. I and O reveals poor p.o. intake, but with IV 125 per hour. Extremities: He has increased edema, especially in the arms and feet. Lungs: Chest x-ray shows no significant change with persistent patchy infiltrates on the right and left mid lung field. Neurologic: He is alert, but continues to be hoarse and is speaking very little in answer to questions. PLAN: Decrease IV fluids and add IV Lasix 20 mg once daily. Aminosyn is continued, but rate is dropped to 75 mL/h. IV antibiotics are continued. Hopefully he can be discharged this week if there is improvement in his mental function and pneumonia. cc: Vince Stevenson MD
[2018-11-08] MEDS: ZYVOX 600 MG/D5W 600 MG/300 ML IVPB IV SCH ×2 (08:48→23:55)
[2018-11-08] MEDS ORDERED: [UNRECOGNIZED DRUG - OTHER] IV SCH (09:00)
[2018-11-08] MEDS: POTASSIUM CHLORIDE 20 MEQ/SWI 20 MEQ/100 ML IVPB IV SCH ×2 (09:17→12:08)
[2018-11-08] MEDS: KLOR-CON PO SCH (12:20)
[2018-11-08] MEDS: LASIX IV SCH (12:21)
[2018-11-08] MEDS: SANTYL OINT TOP SCH (12:22)
[2018-11-08] MEDS: ROCEPHIN 1 GM in NS 50 ML IV SCH ×2 (17:09→17:20)
[2018-11-09] MEDS: DUONEB (A & A) INH SCH ×6 (03:44→23:31)
[2018-11-09] MEDS: CLINDAMYCIN 600 MG/D5W 600 MG/50 ML IVPB IV SCH ×3 (05:41→20:56)
[2018-11-09 07:23] LABS: BASO# 0.01 X1000 (0.0-0.2); BASO% 0.2 % (0.0-0.8); EOS# 0.02 X1000 (0.0-0.7); EOS% 0.4 % (0.0-10.0); HEMATOCRIT 24.1 % (42.0-52.0); HEMOGLOBIN 7.8 g/dL (14.0-18.0); IMM GRAN# 0.06 X1000 (0.0-0.04); IMM GRAN% 1.2 % (0.0-0.5); LYMPH# 0.69 X1000 (1.2-3.4); MCH 32.2 PG (27-31); MCHC 32.4 g/dL (33-37); MCV 99.6 FL (81-99); MONO# 0.22 X1000 (0.11-0.59); MONO% 4.5 % (1.7-9.3); NEUT# 3.93 X1000 (1.4-6.5); NEUT% 79.7 % (42.2-75.2); PLT 80 X1000 (130-400); RBC 2.42 XMIL (4.7-6.1); RDW 17.4 % (11.5-14.5); WBC 4.93 X1000 (4.8-10.8)
[2018-11-09 08:06] LABS: AGAP 12; BUN 43 mg/dL (8-22); CALCIUM 8.3 mg/dL (8.8-10.2); CHLORIDE 107 mmol/L (98-107); COSMO 293; CREATININE 0.5 mg/dL (0.7-1.2); ESTIMATED GFR > 60; GLUCOSE 106 mg/dL (70-104); POTASSIUM 3.4 mmol/L (3.5-5.1); SODIUM 141 mmol/L (136-145); TCO2 22 mmol/L (25-35)
[2018-11-09] MEDS: KEPPRA 500 MG in NS 100 ML IV SCH ×2 (08:32→20:22)
--- NOTE | 2018-11-09 08:34 | PROGRESS NOTE ---
DATE: 11/09/2018 Temperature 99 degrees axillary, heart rate 122, respirations 18, blood pressure 111/64, O2 saturation 99% on nonrebreather mask. LABORATORY: Hemoglobin 7.8, hematocrit 24.1, white blood count 4900. Sodium 141, potassium 3.4, BUN 43, creatinine 0.5, calcium 8.3. Patient's O2 saturation dropped to 87% and he was initially placed on 5 L nasal oxygen and then changed to a mask. There are increased expiratory upper airway sounds, rhonchi bilaterally. He seems less alert. PLAN: Continue nebulizer treatments and antibiotics. Also, give 1 unit of packed red blood cells today. cc: Vince Stevenson MD
[2018-11-09] MEDS: CLINIMIX E 4.25%-5% SOLUTION 1,000 ML IV SCH (10:05)
[2018-11-09] MEDS: ZYVOX 600 MG/D5W 600 MG/300 ML IVPB IV SCH ×2 (10:05→22:03)
[2018-11-09] MEDS: KLOR-CON PO SCH (10:05)
[2018-11-09] MEDS: LASIX IV SCH (10:08)
[2018-11-09] MEDS: SANTYL OINT TOP SCH (10:24)
[2018-11-09] MEDS: NS 500 ML IV PRN (16:27)
[2018-11-09] MEDS ORDERED: TYLENOL PR PRN (17:00)
[2018-11-09] MEDS: ROCEPHIN 1 GM in NS 50 ML IV SCH (18:17)
[2018-11-09 21:31] LABS: BASO# 0.07 X1000 (0.0-0.2); BASO% 1.3 % (0.0-0.8); EOS# 0.18 X1000 (0.0-0.7); EOS% 3.2 % (0.0-10.0); HEMATOCRIT 22.9 % (42.0-52.0); HEMOGLOBIN 7.8 g/dL (14.0-18.0); IMM GRAN# 0.17 X1000 (0.0-0.04); IMM GRAN% 3.1 % (0.0-0.5); LYMPH# 0.46 X1000 (1.2-3.4); LYMPH% 8.3 % (20.5-51.1); MCH 32.4 PG (27-31); MCHC 34.1 g/dL (33-37); MONO# 0.24 X1000 (0.11-0.59); MONO% 4.3 % (1.7-9.3); NEUT# 4.42 X1000 (1.4-6.5); NEUT% 79.8 % (42.2-75.2); PLT 63 X1000 (130-400); RBC 2.41 XMIL (4.7-6.1); WBC 5.54 X1000 (4.8-10.8)
[2018-11-10] MEDS: CLINIMIX E 4.25%-5% SOLUTION 1,000 ML IV SCH ×2 (01:03→12:44)
[2018-11-10] MEDS: DUONEB (A & A) INH SCH ×6 (03:32→23:20)
[2018-11-10] MEDS: CLINDAMYCIN 600 MG/D5W 600 MG/50 ML IVPB IV SCH (04:30)
--- NOTE | 2018-11-10 07:07 | Diag Imaging Result Doc PS360 ---
EXAM: CHEST-PORTABLE 11/10/2018 HISTORY: pneumonia TECHNIQUE: AP portable at 0555 COMMENT: There are patchy opacities bilaterally which appears slightly worse than on 11/08/2018. It is certainly worse than on 10/28/2018. IMPRESSION: Patchy bronchopneumonia. Electronically signed by Alfredito Fulton 11/10/2018 7:04 AM
--- NOTE | 2018-11-10 08:05 | PROGRESS NOTE ---
DATE: 11/10/2018 VITAL SIGNS: Temperature 98.7 degrees, heart rate 110, respirations 20, blood pressure 102/58, O2 saturation of 97% on nonrebreather mask. Chest x-ray showed worsening with patchy bronchopneumonia bilaterally. There are rhonchi bilaterally on auscultation. The patient is fairly alert but weak. There is 2 to 3+ edema of his feet. He has a small irritated area at the superior meatus of the penis related to his Castro. PLAN: Lab is pending. Dr. Douglas is consulted for assistance in management of his pneumonia. cc: Vince Stevenson MD
[2018-11-10] MEDS: LASIX IV SCH (08:15)
[2018-11-10] MEDS: KLOR-CON PO SCH (08:16)
[2018-11-10] MEDS: KEPPRA 500 MG in NS 100 ML IV SCH ×2 (08:19→20:39)
[2018-11-10 08:26] LABS: AGAP 10; BUN 32 mg/dL (8-22); CALCIUM 8.1 mg/dL (8.8-10.2); CHLORIDE 109 mmol/L (98-107); COSMO 289; CREATININE 0.5 mg/dL (0.7-1.2); ESTIMATED GFR > 60; GLUCOSE 88 mg/dL (70-104); POTASSIUM 2.9 mmol/L (3.5-5.1); SODIUM 142 mmol/L (136-145); TCO2 23 mmol/L (25-35)
[2018-11-10] MEDS: ZYVOX 600 MG/D5W 600 MG/300 ML IVPB IV SCH ×2 (09:02→21:23)
[2018-11-10 10:12] LABS: ALLEN TEST YES; BE 2.3 mmoll (-3.0-3.0); BLOOD TYPE ARTERIAL; HCO3-(ACT) 26.7 mmoll (20.0-26.0); METHB 0.9 % (0.0-1.5); O2(CT) 11.7 mL/dL (15.0-23.0); PCO2(98.6) 38 mmHg (35-45); PO2(98.6) 135 mmHg (60-100); SAMPLE BLOOD; SAO2 99.3 % (95.0-100.0); THB 8.4 g/dL (11.5-17.4); pH(98.6) 7.45 (7.35-7.45)
[2018-11-10 10:13] LABS: MODALITY VENTIMASK
[2018-11-10] MEDS: ZITHROMAX 500 MG/NS 500 MG/250 ML IVPB IV SCH (12:45)
[2018-11-10] MEDS: SANTYL OINT TOP SCH (16:52)
[2018-11-10] MEDS: ROCEPHIN 1 GM in NS 50 ML IV SCH (17:00)
--- NOTE | 2018-11-10 21:47 | CONSULTATION ---
DATE OF CONSULTATION: 11/10/2018 REQUESTING PROVIDER: Dr. Vince King. REASON FOR CONSULTATION: Pneumonia. HISTORY OF PRESENT ILLNESS: This is a 58-year-old male with a medical history of glioblastoma multiforme, testicular cancer, possible cerebral palsy, seizure disorder, spinal stenosis with paraplegia and coronary artery disease. He presented to the ER on 10/28/2018 with sepsis and shock. Initial workup in the ER also revealed right pneumonia. Since admission, he has been treated with Rocephin and linezolid, but today chest x-ray showing worsened patchy bronchopneumonia and he still requiring Ventimask with FiO2 50%. He also have a low fever up to 100 degrees last night. The patient currently is lying on bed with no acute distress noted. He is on a NC at 5L and apparently is tolerating well. The patient's mother and caregiver are at the bedside. The patient did try to talk and answer some of my questions during my assessment. Per patient's mother, he is getting better today and more alert than he used to be since admission. She also reports that patient has very poor cough effort. She thinks the patient does have some chest congestion as she noticed some audible breathing noise at times. And the respiratory therapist has been suctioning him as needed. The patient has severe bilateral lower and upper extremity pitting edema. He apparently has already experienced several episodes of aspiration, but he is not qualified for PEG tube placement secondary to history of perforated duodenal ulcer. The patient's mother reports patient never really complained of any pain. PAST MEDICAL HISTORY: 1. Glioblastoma multiforme with resection in May 2018 at [facility], status post chemotherapy x3 per Dr. Corley and radiation treatments per Dr. Mendez. The patient's mother reported that the brain CT recently showed a new spot of brain tumor. 2. History of removal of testicular cancer. 3. Possible cerebral palsy. 4. Seizure disorder. 5. Spinal stenosis with paraplegia. 6. Coronary artery disease. 7. History of perforated duodenal ulcer in 1997, status post exploratory laparotomy. 8. 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 PAST SURGICAL HISTORY: 1. Back surgery. 2. Bilateral arterectomy. 3. Exploratory laparotomy due to perforated duodenal ulcer x2. 4. Lysis of adhesions. 5. Right glioblastoma resection at [facility] in May 2018. 6. Left PICC line placement. 7. Baclofen pump placement. SOCIAL HISTORY: The patient is bed/wheelchair bound. He lives in a skilled nursing. He has a very supportive mother who is at the bedside at this time. He has no history of tobacco, alcohol or illicit drug use. FAMILY HISTORY: Reviewed and noncontributory. REVIEW OF SYSTEMS: Difficult to be obtained due to the patient's mental status. PHYSICAL EXAMINATION: Vital Signs: Temperature 98.7 degrees, blood pressure 102/58, pulse 87, respiratory rate 20, oxygen saturation 98% on Venturi mask with FiO2 of 50%. General: Chronically ill-appearing, lying in bed with no acute distress. The patient's caregiver and mother are at the bedside. HEENT: Normocephalic, atraumatic. Trachea midline. Mucosa pink and moist. Respiratory: Breathing even and unlabored. Symmetrical excursion. Auscultation revealed coarse breathing sounds in bilateral upper lung zones with mild diffuse wheezing on the left side of the lung anteriorly. Cardiovascular: Regular rate and wheezing. Gastrointestinal: Soft, nondistended, nontender. Normoactive bowel sounds in all 4 quadrants. Extremities: Contractures to the left and flexed paralysis bilateral upper extremities. Pitting edema, 2 to 3+ on bilateral upper and lower extremities. Extremities: No cyanosis, no clubbing. Dorsalis pedis 1+ bilaterally. Neurologic: The patient is alert. He does respond to some of my simple questions by saying yes or no and most of time he remains nonverbal or sleeping. He has general weakness. LAB DATA: White blood cell lab data: Sodium 142, potassium 2.9, chloride 109, carbon dioxide 23, BUN 32, creatinine 0.5, glucose 88. ProBNP 17,064. ABG, pH 7.45, pCO2 38, PO2 135, HC03 of 26.7, base excess 2.3, oxyhemoglobin 97.0, and lactate 2.30. IMAGING DATA: Chest x-ray showed patchy opacities bilaterally which appears slightly worse than on 11/08/2018. It is certainly worse than on 10/28/2018. ASSESSMENT: This is a 58-year-old male with medical history of glioblastoma multiforme, testicular cancer, possible cerebral opacity, seizure disorder, spinal stenosis, coronary artery disease. He has been admitted since 10/28/2018 with septic shock and right pneumonia. He still required Ventimask with FiO2 50%. Chest x-ray this morning showed worsening patchy bronchi- pneumonia bilaterally. 1. Acute hypoxic respiratory failure. 2. Bilateral bronchi-pneumonia worsen compared on 10/28/2018. 3. Shock: Blood pressure 79/43 this morning at 4 a.m. PLAN: 1. Continue supplemental oxygen as needed. 2. Continue antibiotics and bronchodilators; will add azithromycin. 3. Follow up with chest x-ray, ProBNP, ABG and blood cultures. 4. The patient is Do Not Resuscitate 1. 5. Continue diuretics as needed. 6. Further recommendations pending hospital course. Thank you for the courtesy of this consult. Dictated by ALEX Bonds for So Salas MD cc: ALEX Bonds MD Robert Allen, MD MTDD
[2018-11-11] MEDS: CLINIMIX E 4.25%-5% SOLUTION 1,000 ML IV SCH ×2 (00:55→12:17)
[2018-11-11] MEDS: DUONEB (A & A) INH SCH ×6 (03:15→23:44)
[2018-11-11 04:07] LABS: BLOOD TYPE ARTERIAL; HCO3-(ACT) 26.4 mmoll (20.0-26.0); METHB 1.1 % (0.0-1.5); O2(CT) 20.4 mL/dL (15.0-23.0); O2HB 96.3 % (95.0-99.0); PCO2(98.6) 40 mmHg (35-45); PO2(98.6) 105 mmHg (60-100); SAMPLE BLOOD; SAO2 99.2 % (95.0-100.0); pH(98.6) 7.43 (7.35-7.45)
[2018-11-11 04:08] LABS: ALLEN TEST YES; MODALITY CANNULA
--- NOTE | 2018-11-11 06:18 | Diag Imaging Result Doc PS360 ---
EXAM: CHEST-1 VIEW HISTORY: SOB TECHNIQUE: Chest single view COMPARISON: 11/10/2018 FINDINGS: No cardiomegaly. Mild increased interstitial markings bilaterally. No pleural effusions identified. No change in the left-sided PICC line. IMPRESSION: No interval improvement. Electronically signed by Errol Santos 11/11/2018 6:15 AM
--- NOTE | 2018-11-11 08:25 | PROGRESS NOTE ---
DATE: 11/11/2018 VITAL SIGNS: Temperature 98.9 degrees, heart rate 101, respirations 16, blood pressure 98/58, O2 saturation on 5 L nasal oxygen 96%. Laboratory is pending. Attempts were made to draw blood from his PICC line, but were unsuccessful. Chest x-ray shows stable cardiomegaly and increased interstitial markings bilaterally. There was no essential change from previous x-ray. Clinically, he seems a little better. There are a few scattered rhonchi, but seem to be improved. He seems more alert with his eyes open. PLAN: Continue current therapy. Blood gases this morning reveal pH 7.43, pCO2 of 40, and PO2 at 105 on 40% via nasal cannula. He has been decreased from 50% Ventimask yesterday. cc: Vince Stevenson MD
[2018-11-11] MEDS: KLOR-CON PO SCH (09:36)
[2018-11-11] MEDS: LASIX IV SCH (09:37)
[2018-11-11] MEDS: KEPPRA 500 MG in NS 100 ML IV SCH ×2 (09:37→20:50)
[2018-11-11] MEDS: ZYVOX 600 MG/D5W 600 MG/300 ML IVPB IV SCH ×2 (10:06→21:40)
[2018-11-11] MEDS: ZITHROMAX 500 MG/NS 500 MG/250 ML IVPB IV SCH (12:16)
[2018-11-11] MEDS: SANTYL OINT TOP SCH (15:35)
[2018-11-11] MEDS: ROCEPHIN 1 GM in NS 50 ML IV SCH (17:31)
[2018-11-11] MEDS ORDERED: LASIX IV ONE (17:33)
[2018-11-11] MEDS: POTASSIUM CHLORIDE 20 MEQ/SWI 20 MEQ/100 ML IVPB IV SCH ×2 (18:12→20:50)
[2018-11-12] MEDS: CLINIMIX E 4.25%-5% SOLUTION 1,000 ML IV SCH ×2 (03:58→16:26)
[2018-11-12] MEDS: DUONEB (A & A) INH SCH ×6 (04:19→22:53)
[2018-11-12] MEDS: KLOR-CON PO SCH (08:11)
[2018-11-12] MEDS: LASIX IV SCH (08:11)
[2018-11-12] MEDS: KEPPRA 500 MG in NS 100 ML IV SCH ×2 (08:12→20:28)
[2018-11-12 08:25] LABS: BASO# 0.01 X1000 (0.0-0.2); BASO% 0.1 % (0.0-0.8); EOS# 0.01 X1000 (0.0-0.7); EOS% 0.1 % (0.0-10.0); HEMATOCRIT 24.9 % (42.0-52.0); HEMOGLOBIN 8.1 g/dL (14.0-18.0); IMM GRAN# 0.16 X1000 (0.0-0.04); IMM GRAN% 2.4 % (0.0-0.5); LYMPH# 0.74 X1000 (1.2-3.4); LYMPH% 10.9 % (20.5-51.1); MCHC 32.5 g/dL (33-37); MCV 98.4 FL (81-99); MONO# 0.54 X1000 (0.11-0.59); MPV 11.8 FL (7.4-10.4); NEUT# 5.31 X1000 (1.4-6.5); NEUT% 78.5 % (42.2-75.2); PLT 85 X1000 (130-400); RBC 2.53 XMIL (4.7-6.1); RDW 16.9 % (11.5-14.5); WBC 6.77 X1000 (4.8-10.8)
[2018-11-12 08:39] LABS: AGAP 11; BUN 30 mg/dL (8-22); CHLORIDE 100 mmol/L (98-107); COSMO 282; CREATININE 0.4 mg/dL (0.7-1.2); ESTIMATED GFR > 60; GLUCOSE 98 mg/dL (70-104); SODIUM 138 mmol/L (136-145); TCO2 27 mmol/L (25-35)
[2018-11-12] MEDS: ZYVOX 600 MG/D5W 600 MG/300 ML IVPB IV SCH ×2 (08:54→20:54)
[2018-11-12] MEDS: SANTYL OINT TOP SCH (09:07)
--- NOTE | 2018-11-12 09:23 | PROGRESS NOTE ---
DATE: 11/12/2018 VITAL SIGNS: Temperature 99.6 degrees, heart rate 106, respirations 20, blood pressure 106/54, O2 saturation 93 on 3 L nasal oxygen. He is more alert. There is minimal cough. Chest is clearing. There are a few rhonchi, but decreased over the last couple of days. He is eating a little better. He occasionally has cough when trying to swallow. There have been no signs of recurrent aspiration. Laboratory is pending. There were unable to access the PICC line for blood sample yesterday. Long-term plan is for him to return to the retirement. Hopefully, this will be possible by next week. Edema is slightly less in both hands and feet. cc: Vince Stevenson MD
[2018-11-12] MEDS: ZITHROMAX 500 MG/NS 500 MG/250 ML IVPB IV SCH (10:57)
[2018-11-12] MEDS: ROCEPHIN 1 GM in NS 50 ML IV SCH (17:36)
--- NOTE | 2018-11-12 18:00 | PROGRESS NOTE ---
DATE: 11/12/2018 SUBJECTIVE: Joe had a brief seizure this afternoon lasting less than 2 minutes. He was unresponsive during the seizure. He seems back to baseline now. He is on Keppra 500 mg IV every 12 hours. OBJECTIVE: Vital signs: Temperature 99.1 degrees, heart rate 110, respirations 18, blood pressure 93/58, O2 saturation on nasal oxygen 96%. ASSESSMENT/PLAN: If he has additional seizures, Dr. Sanches may be consulted, and Keppra dose may be increased. cc: Vince Stevenson MD
--- NOTE | 2018-11-12 19:17 | PULMONOLOGY PROGRESS NOTE ---
DATE: 11/12/2018 SUBJECTIVE: The patient is awake. He is currently having his dressing changed on his PICC line, which was completed during my presence. He voices no complaints. OBJECTIVE: Maximum temperature in the last 24 hours 99.7 degrees, BP 93/58, heart rate 110, respiratory rate 18, oxygen saturation 96% on nasal cannula.HEENT: Pupils are equal and reactive. Oropharynx appears clear. Neck is supple. Chest reveals minimal crackles in the lung bases. Cardiac exam: S1, S2. Abdomen is soft. Extremities reveal trace edema. LABORATORY DATA: White blood count 6.77, hemoglobin 8.1, platelet count 85,000. Sodium 138, potassium 4.0, chloride 100, bicarbonate 27, BUN 30, creatinine 0.4. IMPRESSION: A 58-year-old with: 1. Pneumonia. 2. Acute hypoxemic respiratory failure. 3. Glioblastoma multiforme with progression of disease. 4. History of testicular cancer. 5. Seizure disorder. 6. Cerebral palsy with learning disability. PLAN: 1. Continue oxygen for hypoxemic respiratory failure. 2. Continue bronchial hygiene. 3. Continue safe swallowing practices for aspiration pneumonia. 4. Prognosis is poor. End-of-life discussions have been held, and he will be allowed to have a natural if he has a significant cardiac or pulmonary event. cc: MD Vince Santos MD
[2018-11-13] MEDS: DUONEB (A & A) INH SCH ×6 (03:26→22:55)
[2018-11-13] MEDS: CLINIMIX E 4.25%-5% SOLUTION 1,000 ML IV SCH ×2 (04:12→17:58)
[2018-11-13] MEDS: KEPPRA 500 MG in NS 100 ML IV SCH ×2 (08:45→20:39)
[2018-11-13] MEDS: ZITHROMAX 500 MG/NS 500 MG/250 ML IVPB IV SCH (08:45)
[2018-11-13] MEDS: LASIX IV SCH (08:46)
[2018-11-13] MEDS: KLOR-CON PO SCH (08:46)
[2018-11-13] MEDS: SANTYL OINT TOP SCH (08:47)
[2018-11-13] MEDS: ZYVOX 600 MG/D5W 600 MG/300 ML IVPB IV SCH ×2 (10:33→20:40)
--- NOTE | 2018-11-13 13:21 | PROGRESS NOTE ---
DATE: 11/13/2018 Mr. Cordero has a history of brain tumor and he had a seizure yesterday. He is on Keppra. He did not have any seizure in the last 24 hours. His oral intake is very poor. Overall condition is unchanged. He has a history of pneumonia. His white count is 6.77, hemoglobin 8.1, hematocrit 24.9. Electrolytes are normal. BUN is 30, creatinine 0.4. Blood cultures are so far negative. He is on ceftriaxone 1 g IV, azithromycin. He is also on Clinimix. We will continue with the current management on him. -2 cc: MD Vince Oconnor MD
[2018-11-13] MEDS: ROCEPHIN 1 GM in NS 50 ML IV SCH (18:50)
--- NOTE | 2018-11-13 20:13 | PULMONOLOGY PROGRESS NOTE ---
DATE: 11/13/2018 SUBJECTIVE: Mother is at the bedside. He appears to be comfortable. She reports no new issues. OBJECTIVE: The patient has been afebrile for the last 24 hours. Blood pressure 103/58, heart rate 103, respiratory rate 14, oxygen saturation 98% on 3 L per nasal cannula.HEENT: Pupils are equal and reactive. Oropharynx appears clear. Neck is supple. Chest reveals occasional rhonchi bilaterally. Cardiac exam: Regular rate. Normal S1, S2. Abdomen is soft. Extremities are without edema. IMPRESSION: A 58-year-old with: 1. Pneumonia. 2. Acute hypoxemic respiratory failure. 3. Glioblastoma multiforme with progression of disease. 4. Seizure disorder. 5. History of testicular cancer. 6. Cerebral palsy with learning disability. PLAN: 1. Continue current antibiotics. 2. Continue oxygen for hypoxemic respiratory failure. 3. Continue bronchial hygiene. 4. Continue safe swallowing practices. 5. Follow up chest x-ray tomorrow morning. 6. End-of-life discussions have occurred. The patient will be allowed to have a natural if he were to have a significant cardiopulmonary event. cc: MD Vince Santos MD
[2018-11-14] MEDS: DUONEB (A & A) INH SCH ×6 (03:11→22:34)
[2018-11-14] MEDS: CLINIMIX E 4.25%-5% SOLUTION 1,000 ML IV SCH ×2 (06:45→20:37)
[2018-11-14 07:06] LABS: HEMATOCRIT 22.8 % (42.0-52.0); HEMOGLOBIN 7.3 g/dL (14.0-18.0); MCH 32.3 PG (27-31); MCV 100.9 FL (81-99); RBC 2.26 XMIL (4.7-6.1); RDW 15.7 % (11.5-14.5); WBC 4.95 X1000 (4.8-10.8)
[2018-11-14 07:32] LABS: ESTIMATED GFR > 60
[2018-11-14 07:39] LABS: AGAP 12; ALB/GLOB RATIO 0.4; ALBUMIN 1.6 g/dL (3.5-5.0); ALKALINE PHOSPHATASE 78 U/L (32-122); BUN 27 mg/dL (8-22); CALCIUM 8.6 mg/dL (8.8-10.2); CHLORIDE 103 mmol/L (98-107); COSMO 285; CREATININE 0.4 mg/dL (0.7-1.2); GLUCOSE 100 mg/dL (70-104); GOT 12 U/L (10-34); GPT 11 U/L (10-44); PHOSPHORUS 3.8 mg/dL (2.7-4.5); POTASSIUM 4.2 mmol/L (3.5-5.1); SODIUM 140 mmol/L (136-145); TCO2 25 mmol/L (25-35); TOTAL BILIRUBIN 0.17 mg/dL (0.20-1.00); TOTAL PROTEIN 5.2 g/dL (6.3-8.3)
--- NOTE | 2018-11-14 09:06 | Diag Imaging Result Doc PS360 ---
EXAM: CHEST-PORTABLE 11/14/2018 HISTORY: abnormal exam TECHNIQUE: AP portable at 0852 COMMENT: There are patchy opacities present throughout the right lung and in the left lower lobe. This was also the case at the time the previous study of 11/11/2018. There may be slight improvement with regard to the parahilar opacity in the right upper lobe otherwise are has been no appreciable change. IMPRESSION: Minimal improvement in right upper lobe pneumonia. Electronically signed by Alfredito Fulton 11/14/2018 9:03 AM
[2018-11-14] MEDS: LASIX IV SCH (09:26)
[2018-11-14] MEDS: KEPPRA 500 MG in NS 100 ML IV SCH ×2 (09:26→20:39)
[2018-11-14] MEDS: KLOR-CON PO SCH (09:26)
[2018-11-14] MEDS: ZYVOX 600 MG/D5W 600 MG/300 ML IVPB IV SCH ×2 (09:26→20:44)
[2018-11-14] MEDS: SANTYL OINT TOP SCH (09:27)
[2018-11-14] MEDS: ZITHROMAX 500 MG/NS 500 MG/250 ML IVPB IV SCH (09:27)
--- NOTE | 2018-11-14 12:40 | PROGRESS NOTE ---
DATE: 11/14/2018 Mr. Cordero has right upper lobe pneumonia, which shows slight improvement. His blood pressure was 89/48. However, his mother thinks that is fair blood pressure for him. His white count is 4.95, hemoglobin 7.3, hematocrit 22.8. We will continue with the current management. -8 cc: MD Vince Oconnor MD
--- NOTE | 2018-11-14 15:20 | PULMONOLOGY PROGRESS NOTE ---
DATE: 11/14/2018 SUBJECTIVE: The patient is awake and alert. He does not appear interactive but when asked how he is doing, he reports "fine". OBJECTIVE: The patient has been afebrile for the last 24 hours. Blood pressure 91/60, heart rate 115, respiratory rate 24, oxygen saturation 100% on nasal cannula. HEENT: Pupils are equal and reactive. Oropharynx appears clear. Neck is supple. Chest revealed occasional rhonchi bilaterally with crackles at the right base. Cardiac Examination: S1, S2. Increased rate. Abdomen is soft. Extremities reveal trace edema. Laboratories: Chest x-ray reveals infiltrate in the right lung and the left base with some marginal improvement on the right. IMPRESSION: A 58-year-old with: 1. Aspiration pneumonia. 2. Acute hypoxemic respiratory failure. 3. Glioblastoma multiforme with progression of disease. 4. Seizure disorder. 5. Cerebral palsy with learning disability. PLAN: 1. Continue current antibiotics. 2. Continue oxygen. 3. Continue safe swallowing practices. 4. Agree with current resuscitation status, which will allow the patient to have a natural . It is anticipated that he will have progressive difficulty with seizures and aspiration as his [employer] disease progresses. He is a candidate for hospice. cc: MD Vince Santos MD
[2018-11-14] MEDS: ROCEPHIN 1 GM in NS 50 ML IV SCH (18:25)
[2018-11-15] MEDS: DUONEB (A & A) INH SCH ×6 (03:44→22:56)
--- NOTE | 2018-11-15 08:21 | PROGRESS NOTE ---
DATE: 11/15/2018 VITAL SIGNS: Vital signs stable with temperature 98.2 degrees, heart rate 101, respirations 17, blood pressure 89/47, and O2 saturation on 2 liters nasal oxygen 95%. SUBJECTIVE: The patient is alert and responsive. Chest x-ray has improved. LABORATORY: Yesterday, revealed low protein and albumin. Also, white blood count was 4900, hemoglobin 7.3, hematocrit 22.8, and MCV 100.9. PLAN: Transfuse 1 unit of blood, check Hemoccult, and give B12. Consideration will be made for transfer back home tomorrow with hospice care. cc: Vince Stevenson MD
[2018-11-15] MEDS: KEPPRA 500 MG in NS 100 ML IV SCH (08:47)
[2018-11-15] MEDS: LASIX IV SCH (08:55)
[2018-11-15] MEDS: ZYVOX 600 MG/D5W 600 MG/300 ML IVPB IV SCH ×2 (09:02→21:21)
[2018-11-15] MEDS: CLINIMIX E 4.25%-5% SOLUTION 1,000 ML IV SCH ×2 (09:02→23:38)
[2018-11-15] MEDS: ZITHROMAX 500 MG/NS 500 MG/250 ML IVPB IV SCH (09:15)
[2018-11-15] MEDS ORDERED: KEPPRA 250 MG in NS 100 ML IV ONE (11:16)
[2018-11-15] MEDS: NS 500 ML IV PRN (11:39)
[2018-11-15] MEDS: VALIUM IV PRN ×2 (11:56→16:38)
[2018-11-15] MEDS: KLOR-CON PO SCH (12:13)
[2018-11-15] MEDS: MUCOMYST 20% INH SCH ×2 (15:14→19:33)
[2018-11-15] MEDS: SANTYL OINT TOP SCH (16:39)
[2018-11-15] MEDS ORDERED: NS 500 ML IV ONE (17:44)
[2018-11-15] MEDS: ROCEPHIN 1 GM in NS 50 ML IV SCH (18:06)
[2018-11-15] MEDS: KEPPRA 750 MG in NS 100 ML IV SCH (20:22)
[2018-11-16] MEDS: DUONEB (A & A) INH SCH ×6 (03:18→23:56)
[2018-11-16 06:53] LABS: BASO# 0.01 X1000 (0.0-0.2); BASO% 0.2 % (0.0-0.8); EOS# 0.04 X1000 (0.0-0.7); EOS% 0.8 % (0.0-10.0); HEMATOCRIT 25.9 % (42.0-52.0); HEMOGLOBIN 8.2 g/dL (14.0-18.0); IMM GRAN# 0.12 X1000 (0.0-0.04); IMM GRAN% 2.3 % (0.0-0.5); LYMPH# 0.69 X1000 (1.2-3.4); LYMPH% 13.5 % (20.5-51.1); MCH 30.8 PG (27-31); MCHC 31.7 g/dL (33-37); MCV 97.4 FL (81-99); MONO# 0.81 X1000 (0.11-0.59); MONO% 15.8 % (1.7-9.3); MPV 10.1 FL (7.4-10.4); NEUT# 3.46 X1000 (1.4-6.5); NEUT% 67.4 % (42.2-75.2); PLT 135 X1000 (130-400); RBC 2.66 XMIL (4.7-6.1); RDW 15.6 % (11.5-14.5); WBC 5.13 X1000 (4.8-10.8)
[2018-11-16] MEDS: MUCOMYST 20% INH SCH ×2 (07:36→20:43)
[2018-11-16] MEDS: ZYVOX 600 MG/D5W 600 MG/300 ML IVPB IV SCH ×2 (08:08→20:18)
[2018-11-16] MEDS: SANTYL OINT TOP SCH (08:55)
[2018-11-16] MEDS: KEPPRA 750 MG in NS 100 ML IV SCH ×2 (08:55→19:45)
--- NOTE | 2018-11-16 09:46 | Diag Imaging Result Doc PS360 ---
EXAM: CT HEAD W/O CONTRAST 11/16/2018 HISTORY: encephalopathy TECHNIQUE: This exam was performed using automated exposure control, adjustment of mA or kV according to patient size, and/or use of iterative reconstruction technique. COMMENT: There is an apparent mass in the right parietal convexity measuring at least 2.1 cm in AP dimension. This is actually somewhat larger than on the previous study of 09/14/2018. There is still a considerable degree of vasogenic edema around this lesion. There is no evidence of bleed or abnormal extra-axial fluid collection. There has been previous right parietal convexity craniotomy. IMPRESSION: Right parietal mass with vasogenic edema. This appears slightly worse than on the previous study of 09/14/2018. Further evaluation with MRI with and without contrast may be desirable, if possible, and otherwise postcontrast CT may be of further value. Electronically signed by Alfredito Fulton 11/16/2018 9:44 AM
[2018-11-16] MEDS: ZITHROMAX 500 MG/NS 500 MG/250 ML IVPB IV SCH (11:04)
[2018-11-16] MEDS: DECADRON IV SCH ×2 (12:55→20:19)
[2018-11-16] MEDS: CLINIMIX E 4.25%-5% SOLUTION 1,000 ML IV SCH (13:21)
[2018-11-16] MEDS ORDERED: NS 500 ML IV ONE (16:40)
[2018-11-16] MEDS: ROCEPHIN 1 GM in NS 50 ML IV SCH (18:28)
[2018-11-17] MEDS: CLINIMIX E 4.25%-5% SOLUTION 1,000 ML IV SCH (01:38)
[2018-11-17] MEDS: DUONEB (A & A) INH SCH ×3 (03:24→11:30)
[2018-11-17] MEDS: DECADRON IV SCH (04:06)
--- NOTE | 2018-11-17 06:34 | Diag Imaging Result Doc PS360 ---
CHEST-1 VIEW - 11/17/2018 INDICATION: SOB COMPARISON: 11/14/2018 FINDINGS: Stable left PICC line in good position. Stable hazy infiltrates throughout the right lung diffusely. No significant infiltrates on the left side. Heart size remains normal. No pneumothorax or large effusion. IMPRESSION: No change from prior. Electronically signed by Immanuel Brown 11/17/2018 6:31 AM
[2018-11-17] MEDS: MUCOMYST 20% INH SCH (07:58)
[2018-11-17 08:49] VITALS: BP 94/51
[2018-11-17] MEDS: ZYVOX 600 MG/D5W 600 MG/300 ML IVPB IV SCH (09:16)
[2018-11-17] MEDS: SANTYL OINT TOP SCH (10:58)
[2018-11-17] MEDS: KEPPRA 750 MG in NS 100 ML IV SCH (10:59)
[2018-11-17] MEDS: ZITHROMAX 500 MG/NS 500 MG/250 ML IVPB IV SCH (11:01)
--- NOTE | 2018-11-17 11:46 | DISCHARGE SUMMARY ---
ADMISSION DATE: 10/28/2018 DISCHARGE DATE: 11/17/2018 FINAL DIAGNOSES: 1. Bilateral pneumonia, aspiration with positive blood culture for Staphylococcus coagulase- negative, other blood cultures negative. 2. Enlarging glioblastoma right parietal area with edema. 3. Focal seizures left arm with loss of consciousness. 4. Protein calorie malnutrition. 5. Hypotension. 6. Sepsis. 7. Glaucoma right eye with loss of vision. DISPOSITION: Back to [facility] with hospice care, [facility]. CONSULTATION: With Bernard Douglas MD, Pulmonology. This is 1 of several [facility] admissions for this 58-year-old white man with change in mental status and extreme weakness with hypotension over several days. He presented to the emergency room and was admitted for treatment of pneumonia. There was also evidence of sepsis. Hydration was initiated. He was placed on several antibiotics after blood cultures were obtained. INITIAL LABORATORY: Hemoglobin 11.0, hematocrit 33.5, white blood count 10,900 with 84% neutrophils. Sodium 131, potassium 4.2, BUN 29, creatinine 0.7, glucose 121, protein 5.2, albumin 2.8, plasma lactate 2.9. HOSPITAL COURSE: He improved over several days then had some aspiration issues resulting in worsening of his pneumonia. He initially had left-sided pneumonia then after aspiration bilateral pneumonia. Dr. Douglas was consulted for assistance. Dr. Salas saw the patient and added Zithromax. He seemed to improve over several days, but had some hypotension. He then developed seizures. CT scan of his head revealed enlarging glioblastoma right parietal area with edema, but no shift of the hemisphere passed midline. There was blunting of sulci laterally on CT scan due to the edema. He was given Decadron IV as well as Keppra dose increased to 750 mg b.i.d. Seizures have decreased. He had a few yesterday, but none since last night. He is in good spirits this morning. Hospice has visited for a couple of days. Dr. Douglas agrees with hospice care at home. He is discharged home on the above medicines including Keppra, Valium, albuterol, and will stay at home if possible. [facility] as well as staff at the [facility] will be involved in his care. He is discharged by ambulance. cc: Vince Stevenson MD
[2018-11-17] MEDS ORDERED: KEPPRA LIQUID PO SCH (21:00)
[2018-11-17] MEDS ORDERED: VALIUM PO SCH (21:00)
[2018-11-18] MEDS ORDERED: DECADRON PO SCH (09:00)
== END 2018-11-17 12:58 | disposition hospice, home (50) | DRG 871 ==
LOC: ED 15:07 → ICU 21:24 → 3N 11-04 10:04
PROVIDERS: ADMIT Family Medicine; ATTEND Family Medicine

== ENCOUNTER 2019-01-29 11:33 | Inpatient (IN) ==
[2019-01-29] MEDS ORDERED: NS 500 ML IV ONE ×4 (12:37→22:13)
[2019-01-29] MEDS ORDERED: ZOFRAN IV PRN (12:37)
[2019-01-29] MEDS ORDERED: SODIUM CHLORIDE 0.9% INJ ONE (12:38)
[2019-01-29] MEDS ORDERED: PROTONIX IV ONE (12:38)
[2019-01-29] MEDS ORDERED: NS 1,000 ML IV SCH (12:45)
[2019-01-29] MEDS ORDERED: VANCOMYCIN IV PER PHARMACY MISC SCH (12:45)
--- NOTE | 2019-01-29 13:38 | HISTORY AND PHYSICAL ---
SUBJECTIVE: The patient cannot speak to me. He has had glioblastoma. He has had this operated on. He is noncommunicative. He is actually in no code blue level 1. PRESENT ILLNESS: Patient is a 58-year-old, white male, status post glioblastoma who has had surgery. No further treatment is expected. Apparently he had some mental incapacitation before the tumor. He was in care home sitting and became hypotensive. He has decubitus ulcers on his sacrum. He was sent in to [place] emergency room. Dr. King, his regular doctor happened to be going by [place] on his way out of [facility] and stopped in to check on him. Agreed with emergency room doctor the patient needed to be sent back to [facility] and to be treated. He has apparently had sepsis in the past. His blood pressure was very low at 40 systolic initially. He has been given some IV fluids. ALLERGIES: Looking back in old records he is allergic to sulfa. PAST MEDICAL HISTORY: Includes a glioblastoma multiform with resection in May 2018 at [facility] and then underwent chemotherapy and was unable to tolerate additional treatment. Has history of removal of testicular cancer, possible cerebral palsy, seizure disorder, spinal stenosis with paraplegia, coronary artery disease, history of perforated duodenal ulcer in 1997, history of right eye blindness over the last few months followed by Ophthalmology. PAST SURGICAL HISTORY: Includes back surgery, bilateral orchiectomy, exploratory lap due to perforated duodenal ulcer x2, lysis of adhesions, surgery for the right sided glioblastoma and has had a PICC line in the past. FAMILY HISTORY: Is noncontributory. SOCIAL HISTORY: He is bed bound. No alcohol or tobacco use. PHYSICAL EXAMINATION: He was just coming in to the ICU when I saw him. Not all the vital signs have been taken but his blood pressure was 64 systolic. We will give him bolus of IV fluids. HEENT: He is normocephalic. EOMs intact. Could not see throat well. He could not open his mouth. TMs within normal limits. LUNGS: Have a few wheezes and apparently had a chest x-ray at the [place] ER that was normal. HEART: Regular rate and rhythm without murmurs, gallops, friction rubs. ABDOMEN: Soft. Active bowel sounds. No organomegaly or tenderness. EXTREMITIES: The patient has his legs curled up like he has contractions. I did not see his decubitus. The nurses had just put new dressings over them they do have pictures and that will be placed in the chart. No lab thus far. PLAN: We will admit and try to control blood pressure as his hypotension is severe. We will treat him as though he has sepsis and possibly infected decubitus ulcers. cc: MD Vince Orellana Jr, MD
[2019-01-29] MEDS: TAZIDIME 2 GM/NS 2 GM/100 ML IVPB IV SCH ×2 (14:00→21:36)
[2019-01-29] MEDS ORDERED: VANCOMYCIN 2,000 MG in NS 500 ML IV ONE (15:00)
[2019-01-29 16:32] LABS: URINE SOURCE CATH
[2019-01-29 16:39] LABS: BILIRUBIN URINE NEGATIVE (NEGATIVE); BLOOD URINE MODERATE (NEGATIVE); CLARITY SLIGHTLY CLOUDY (CLEAR); COLOR YELLOW; GLUCOSE URINE NEGATIVE (NEGATIVE); KETONE URINE NEGATIVE (NEGATIVE); LEUKOCYTES URINE LARGE (NEGATIVE); NITRITE URINE NEGATIVE (NEGATIVE); PROTEIN URINE 30 mg/dL (NEGATIVE); UROBILINOGEN URINE 0.2 EU/dL (0.2-1.0)
[2019-01-29 16:40] LABS: URINE BACTERIA 2+ /HFP; URINE EPITHELIAL CELLS <10 /HPF (<10); URINE RBC <10 /HPF (<10); URINE WBC TNTC /HPF (<10)
[2019-01-29] MEDS: LEVOPHED 8 MG in D5 1/2 NS 250 ML IV SCH ×2 (18:35→22:49)
--- NOTE | 2019-01-29 21:22 | Diag Imaging Result Doc PS360 ---
EXAM: CHEST-PORTABLE HISTORY: central line placement TECHNIQUE: Chest single view COMPARISON: 11/17/2018 FINDINGS: The lungs are well expanded. There is a left jugular line. The tip overlies the mid chest. The patient is rotated to the left. No pneumothorax identified. The heart is not enlarged. The vessels are not distended. There are no infiltrates. No effusion identified. IMPRESSION: Negative exam. Electronically signed by Errol Santos 01/29/2019 9:19 PM
[2019-01-29 21:27] LABS: INR 1.35; PROTIME 16.9 Seconds (11.0-16.0)
[2019-01-29 21:28] LABS: PTT 29.1 Seconds (22.3-41.8)
[2019-01-29] MEDS: KEPPRA LIQUID PO SCH (21:36)
[2019-01-29 21:57] LABS: CK INDEX 0.9 (0.0-2.5); CK-MB 9.95 ng/mL (0.0-5.0)
[2019-01-29] MEDS: SODIUM BICARBONATE 8.4% 100 MEQ in D5W 1,000 ML IV SCH (22:49)
[2019-01-29] MEDS ORDERED: ZYVOX 600 MG/D5W 600 MG/300 ML IVPB IV ONE (23:05)
[2019-01-29 23:21] LABS: BASO# 0.03 X1000 (0.0-0.2); BASO% 0.1 % (0.0-0.8); HEMATOCRIT 37.8 % (42.0-52.0); HEMOGLOBIN 11.9 g/dL (14.0-18.0); IMM GRAN# 1.21 X1000 (0.0-0.04); IMM GRAN% 5.4 % (0.0-0.5); LYMPH# 0.42 X1000 (1.2-3.4); LYMPH% 1.9 % (20.5-51.1); MCH 31.6 PG (27-31); MCHC 31.5 g/dL (33-37); MCV 100.5 FL (81-99); MONO# 0.49 X1000 (0.11-0.59); MONO% 2.2 % (1.7-9.3); MPV 9.3 FL (7.4-10.4); NEUT# 20.29 X1000 (1.4-6.5); NEUT% 90.4 % (42.2-75.2); PLT 165 X1000 (130-400); RBC 3.76 XMIL (4.7-6.1); RDW 14.4 % (11.5-14.5); WBC 22.44 X1000 (4.8-10.8)
[2019-01-29 23:32] LABS: ALB/GLOB RATIO 1.1; ALBUMIN 2.4 g/dL (3.5-5.0); CREATININE 1.4 mg/dL (0.7-1.2); POTASSIUM 5.8 mmol/L (3.5-5.1); TOTAL BILIRUBIN 0.41 mg/dL (0.20-1.00); TOTAL PROTEIN 4.5 g/dL (6.3-8.3)
[2019-01-30 00:05] LABS: BANDS 22 % (0-1); LYMPHS 1 % (21-51); MONO 1 % (1-9); NRBC 1 % (0-0); SEGS 72 % (42-75)
--- NOTE | 2019-01-30 00:06 | PULMONOLOGY CONSULTATION ---
DATE: 01/29/2019 REQUESTING PHYSICIAN: Dr. Walter Salinas. REASON FOR CONSULTATION: Sepsis. HISTORY OF PRESENT ILLNESS: Mr. Cordero is a 58-year-old white male with history of cerebral palsy and learning disability with a complicated medical history (see outlined below) who was diagnosed with a glioblastoma multiforme in May of this year. He underwent resection followed by chemotherapy and radiation therapy. The patient is now bed bound and in a retirement. Caregiver reports he went for a refill on his baclofen pump 2 days ago and was doing well, and would respond to commands and would talk. Today, he became less responsive with increased work of breathing and diffuse erythema. He was evaluated at [facility] Emergency Room. He had a metabolic acidosis with a respiratory alkalosis on his arterial blood gas along with significant leukopenia and bandemia. The patient was transferred to [facility] for additional evaluation and treatment. He has been hypotensive and has been initiated on Levophed. PAST MEDICAL HISTORY: 1. Glioblastoma multiforme as per above. 2. History of testicular cancer. 3. Cerebral palsy. 4. Seizure disorder. 5. Spinal stenosis with paraplegia. 6. Status post baclofen pump placement. 7. History of back surgery. 8. Coronary artery disease. 9. Status post exploratory laparotomy for perforated duodenal ulcer. SOCIAL HISTORY: The patient is bed-bound. He has an attentive mother. No history of tobacco or alcohol use. FAMILY HISTORY: Noncontributory to current presentation. REVIEW OF SYSTEMS: Cannot be obtained. PHYSICAL EXAMINATION: General: Reveals a frail, chronically ill-appearing male. Vital Signs: He is hypotensive. Heart rate 115. Oxygen saturation 100%. HEENT: Pupils are equal. Bitemporal wasting. Oropharynx appears dry. Neck: Supple. Chest: Reveals occasional rhonchi bilaterally. Cardiac: Increased rate, regular rhythm. Abdomen: Mildly distended and tender. Back: Reveals 2 stage IV decubitus ulcers on each buttock, each approximately 3 x 3 cm in width and depth. LABORATORIES: Chest x-ray reveals left central line in good position. No pneumothorax. No acute infiltrates. Urinalysis reveals cloudy urine with ive-komtzihg-qq-count white blood cells. White blood count 2.1, hemoglobin 13.7, platelet count 184,000 with 56% neutrophils and 14% bands. Sodium 142, potassium 4.1, chloride 103, glucose 120, bicarbonate 18, BUN 34, creatinine 0.7, lactate 3.5. Troponin 0.475. IMPRESSION: A 58-year-old with: 1. Glioblastoma multiforme with progression of disease. 2. Septic shock. 3. Urinary tract infection. 4. Large bilateral decubitus ulcers. 5. Hypoxemic respiratory failure. RECOMMENDATIONS: 1. Continue volume resuscitation. 2. Continue gram-positive and gram-negative coverage pending results of culture data. 3. Continue comfort measures. 4. Levophed if needed for hemodynamic shock. 5. Continue DNR level 1. The patient has a portable DNR on the chart. cc: MD Vince Santos MD
[2019-01-30] MEDS: SODIUM BICARBONATE 8.4% 100 MEQ in D5W 1,000 ML IV SCH ×7 (00:15→21:59)
[2019-01-30] MEDS: LEVOPHED 8 MG in D5 1/2 NS 250 ML IV SCH ×5 (04:27→23:29)
[2019-01-30] MEDS: PITRESSIN 40 UNIT in NS 100 ML IV SCH ×3 (04:28→23:59)
[2019-01-30 04:43] LABS: ALLEN TEST YES; BE -8.3 mmoll (-3.0-3.0); BLOOD TYPE ARTERIAL; HCO3-(ACT) 18.4 mmoll (20.0-26.0); METHB 1.4 % (0.0-1.5); O2(CT) 22.1 mL/dL (15.0-23.0); O2HB 97.3 % (95.0-99.0); PCO2(98.6) 23 mmHg (35-45); PO2(98.6) 225 mmHg (60-100); SAMPLE BLOOD; SAO2 99.7 % (95.0-100.0); THB 15.8 g/dL (11.5-17.4)
[2019-01-30 04:46] LABS: MODALITY NRB
[2019-01-30] MEDS: TAZIDIME 2 GM/NS 2 GM/100 ML IVPB IV SCH ×3 (04:47→21:08)
--- NOTE | 2019-01-30 05:11 | EKG Report ---
Test Performed on : 01/29/2019 10:27:51 PM Test Reason : EVALUATION Blood Pressure : / mmHG Vent. Rate : 112 BPM Atrial Rate : 112 BPM P-R Int : 124 ms QRS Dur : 066 ms QT Int : 302 ms P-R-T Axes : 000 -30 151 degrees QTc Int : 412 ms Sinus tachycardia. Left axis deviation Low voltage QRS ST & T wave abnormality, consider lateral ischemia Abnormal ECG When compared with ECG of 29-OCT-2018 04:45, T wave inversion now evident in Lateral leads Confirmed by Gloria MCGOVERN, Roderick Rosa ([id number]) on 01/30/2019 7:27:16 AM
[2019-01-30 06:23] LABS: BASO# 0.03 X1000 (0.0-0.2); BASO% 0.1 % (0.0-0.8); EOS# 0.01 X1000 (0.0-0.7); HEMATOCRIT 38.7 % (42.0-52.0); HEMOGLOBIN 12.2 g/dL (14.0-18.0); IMM GRAN# 0.33 X1000 (0.0-0.04); IMM GRAN% 1.5 % (0.0-0.5); LYMPH# 0.66 X1000 (1.2-3.4); MCH 31.4 PG (27-31); MCHC 31.5 g/dL (33-37); MCV 99.5 FL (81-99); MONO# 0.45 X1000 (0.11-0.59); MONO% 2.1 % (1.7-9.3); MPV 9.4 FL (7.4-10.4); NEUT# 20.45 X1000 (1.4-6.5); NEUT% 93.3 % (42.2-75.2); PLT 142 X1000 (130-400); RBC 3.89 XMIL (4.7-6.1); RDW 14.5 % (11.5-14.5); WBC 21.93 X1000 (4.8-10.8)
[2019-01-30 06:42] LABS: MAGNESIUM 1.8 mg/dL (1.5-2.7); PHOSPHORUS 4.3 mg/dL (2.7-4.5)
[2019-01-30 06:57] LABS: CALCIUM 6.1 mg/dL (8.8-10.2)
[2019-01-30 06:58] LABS: CREATININE 1.3 mg/dL (0.7-1.2); POTASSIUM 5.3 mmol/L (3.5-5.1)
[2019-01-30] MEDS ORDERED: ZYVOX 600 MG/D5W 600 MG/300 ML IVPB IV SCH (07:00)
--- NOTE | 2019-01-30 07:04 | Diag Imaging Result Doc PS360 ---
EXAM: CHEST-PORTABLE 01/30/2019 HISTORY: abnormal exam TECHNIQUE: AP portable at 0510 COMMENT: The inspiration is suboptimal. Considering the degree of inspiration there has been no significant change since 01/29/2019. IMPRESSION: Stable chest. Electronically signed by Alfredito Fulton 01/30/2019 7:01 AM
[2019-01-30] MEDS ORDERED: ALBUMIN 25% IV ONE (07:42)
[2019-01-30 07:53] LABS: BANDS 26 % (0-1); LYMPHS 1 % (21-51); MONO 2 % (1-9); NRBC 2 % (0-0)
[2019-01-30 07:54] LABS: METAMYELOCYTES 6 %; MYELOCYTES 4 %; SEGS 61 % (42-75)
[2019-01-30 07:55] LABS: LARGE PLATELETS 1+
[2019-01-30] MEDS: KEPPRA LIQUID PO SCH ×2 (08:38→21:07)
[2019-01-30] MEDS: ZYVOX 600 MG/D5W 600 MG/300 ML IVPB IV SCH ×2 (10:41→22:46)
--- NOTE | 2019-01-30 10:47 | INFECTIOUS DISEASE CONSULT REP ---
DATE: 01/30/2019 CONCLUSIONS: The patient was admitted to the hospital with possible sepsis. Origins of the sepsis could include the following. The patient has bilateral infected buttock ulcers. He also has a urinary tract infection. When I examined the patient, he seemed to aspirate, but 2 separate chest x-rays did not see any evidence of pneumonia. The patient yesterday complained of abdominal pain. RECOMMENDATIONS: I agree with treating the patient with Zyvox and ceftazidime pending culture results. I have ordered an ultrasound because the patient yesterday was complaining of abdominal pain, and his alkaline phosphatase is elevated at 324. DISCUSSION: The patient is unable to provide a history. The information I got was from the computer. The patient became hypotensive yesterday. He went to [place] [facility], and the patient's regular doctor, Dr. Stevenson, saw the patient at [place] and ordered that the patient should be transferred to [facility]. He is in the Intensive Care Unit at this time. His studies thus far are 2 chest x-ray showing no pneumonia. The patient's CBC is 21,930 with 93% neutrophils, hemoglobin is 12.2, and platelet count is 142,000. Blood, urine and buttocks cultures are pending. Alkaline phosphatase is 324. Urinalysis shows white cells and bacteria. REVIEW OF SYSTEMS: This is unable to be obtained. According to the patient's family member and the nurse who takes care of him, he was complaining of abdominal pain yesterday, and he had erythema all over his body. PAST MEDICAL HISTORY: Positive for glioblastoma which has been treated with surgery, radiation therapy and chemotherapy. The patient also has a history of testicular cancer which has been removed surgically. The patient also may have cerebral palsy, a seizure disorder, spinal stenosis with paraplegia, coronary artery disease, perforated duodenal ulcer, right eye blindness. PAST SURGICAL HISTORY: Positive for back surgery, bilateral orchiectomy, exploratory laparotomy due to duodenum ulcer x2, lysis of adhesions, surgery for removal of the right- sided glioblastoma. The patient has an implanted baclofen pump. FAMILY HISTORY: Said to be noncontributory. SOCIAL HISTORY: The patient is bedbound. He does not drink alcoholic beverages or smoke cigarettes. ALLERGIES: The patient has an allergy to sulfa manifested by anaphylaxis and vancomycin manifested by rash. HOME MEDICATIONS: Tylenol, albuterol inhaler, Alphagan eyedrops, Decadron, Valium, latanoprost, Keppra, Imodium and topiramate. PHYSICAL EXAMINATION: Vital signs: Temperature is 98.1, pulse 123, respirations 36, blood pressure is 71/45. General: This is an ill-appearing middle-aged male. He seems to be in some degree of acute distress. Head, eyes, ears, nose and throat: No drainage noted from the nose or ears. I could not understand his speech when he attempted to talk. I got a limited view of his mouth, but I did not see any white patches. Neck: No meningismus. Lungs: Clear to auscultation. Cardiovascular: Heart rate is regular. Abdomen is soft except in the right lower quadrant where the patient had a Baclofen pump installed. The abdomen was not tender. Neurologic: The patient is awake. He attempted to talk, but I could not understand what he was saying. He did not move any of his extremities when I requested him to. There was no tremor. Integument: The patient has 2 large buttock ulcerated areas. I saw them from pictures taken. There was red beefy tissue, but also purulence was noted, and there is some erythema surrounding the wounds. cc: MD Vince Miller MD MTDSandy
--- NOTE | 2019-01-30 13:13 | PROGRESS NOTE ---
DATE: 01/30/2019 SUBJECTIVE: The patient is more alert this morning. Still not communicating well. Seems to complain of abdominal discomfort. Dr. Cano has ordered an ultrasound of his abdomen tomorrow. I am going to go ahead and do a flat plate of his abdomen today. OBJECTIVE: Blood pressure is better at 105/56, respirations 28, pulse 112 on pressor agents and after fluid boluses, temperature is 98.1 degrees Fahrenheit. HEENT: He is normocephalic. Lungs: Clear to auscultation and percussion without rhonchi, rales, or wheezes. Heart: Regular rate and rhythm without murmurs, gallops, or friction rubs. Abdomen: Soft. Active bowel sounds. No organomegaly but does seem to have some generalized tenderness and a little guarding. Neurological Examination: The patient is still not very communicative. He has had a glioblastoma multiforme and has had surgery for that and chemotherapy but it was not completely resolved. Laboratory Data: White count is down from 22,000 to 21,930, hemoglobin 12.2. He is growing gram- negative rods in his urine. Urinalysis did show white blood cells too numerous to count. He has decubitus ulcers as well. Calcium was low at 6.1 but his albumin was also very low and so I ordered some albumin for him. We will see what his albumin and calcium are in the morning. ASSESSMENT: 1. Probable sepsis. 2. Urinary tract infection. 3. Decubitus ulcers. 4. Hypoalbuminemia. 5. Hypocalcemia. 6. Abdominal tenderness. 7. History of glioblastoma multiforme. 8. Severe hypotension. PLAN: Continue support. I appreciate help from all the specialists. Also, it should be noted that he did have a blood gas today that had a lactate of 7.90. cc: MD Vince Orellana Jr, MD
[2019-01-30] MEDS ORDERED: VANCOMYCIN 1,700 MG in NS 250 ML IV SCH (15:00)
--- NOTE | 2019-01-30 17:14 | EKG Report ---
Test Performed on : 01/30/2019 09:10:18 AM Test Reason : evaluation Blood Pressure : / mmHG Vent. Rate : 116 BPM Atrial Rate : 116 BPM P-R Int : 146 ms QRS Dur : 076 ms QT Int : 312 ms P-R-T Axes : 066 -57 075 degrees QTc Int : 433 ms Sinus tachycardia. Left anterior fascicular block Abnormal ECG When compared with ECG of 29-JAN-2019 22:27, T wave inversion less evident in Lateral leads Confirmed by Roderick Castro MD ([id number]) on 01/31/2019 3:30:41 PM
--- NOTE | 2019-01-30 18:24 | Diag Imaging Result Doc PS360 ---
EXAM: KUB ABDOMEN 01/30/2019 HISTORY: abdominal pain TECHNIQUE: KUB COMMENT: There is gas and stool in the colon. This has diminished since the previous study of 07/11/2018. There is no evidence of small bowel dilatation. The stomach is not distended. The possibility of colitis in the distal colon cannot be excluded. IMPRESSION: Constipation. Questionable colitis. Electronically signed by Alfredito Fulton 01/30/2019 6:22 PM
--- NOTE | 2019-01-30 18:52 | PULMONOLOGY PROGRESS NOTE ---
DATE: 01/30/2019 SUBJECTIVE: The patient is arousable. He will not follow commands. He is nonverbal. He has mild to moderate work of breathing. He remains on two vasopressors. OBJECTIVE: Vital Signs: Maximum temperature in the last 24 hours 100.0 degrees, blood pressure 95/62, heart rate 123, respiratory rate 39, oxygen saturation 100%. HEENT: Pupils are equal and reactive. Oropharynx appears clear but dry. Neck: Neck is supple. Chest: Reveals shallow breath sounds with occasional rhonchi. Cardiac Exam: S1-S2. Abdomen: Soft with diminished bowel sounds. Extremities: Reveal 1+ peripheral edema. LABORATORIES: Arterial blood gas reveals a pH 7.40, pCO2 of 23, pO2 of 225 with a lactate of 7.9. Sodium 136, potassium 5.3, chloride 97, bicarbonate 15, BUN 44, creatinine 1.3. Lactate 8.3. White blood count 21,000, hemoglobin 12.2, platelet count a 142,000. Microbiology reveals a gram- negative valeriy in his urine. Wound culture is pending. IMPRESSION: A 58-year-old with 1. Septic shock. 2. Urinary tract infection. 3. Large bilateral decubitus ulcers. 4. Glioblastoma multiforme with progression of disease. 5. Hypoxemic respiratory failure. PLAN: 1. Continue volume resuscitation with sodium bicarbonate. 2. Continue current broad-spectrum antibiotics. 3. Continue vasopressors. 4. Overall prognosis is poor. Family is aware. cc: MD Vince Santos MD
[2019-01-31] MEDS: LEVOPHED 8 MG in D5 1/2 NS 250 ML IV SCH ×4 (03:25→18:26)
[2019-01-31] MEDS: SODIUM BICARBONATE 8.4% 100 MEQ in D5W 1,000 ML IV SCH ×4 (03:30→20:46)
[2019-01-31] MEDS: TAZIDIME 2 GM/NS 2 GM/100 ML IVPB IV SCH ×3 (05:03→20:46)
[2019-01-31] MEDS ORDERED: LANOXIN IV ONE (05:09)
--- NOTE | 2019-01-31 05:12 | EKG Report ---
Test Performed on : 01/31/2019 05:01:44 AM Test Reason : AFIB Blood Pressure : / mmHG Vent. Rate : 135 BPM Atrial Rate : 141 BPM P-R Int : 000 ms QRS Dur : 074 ms QT Int : 322 ms P-R-T Axes : 000 -63 089 degrees QTc Int : 483 ms Atrial fibrillation. with rapid ventricular response. Left anterior fascicular block Abnormal ECG When compared with ECG of 30-JAN-2019 09:10, (Unconfirmed) Atrial fibrillation. has replaced Sinus rhythm. Confirmed by Gloria MCGOVERN, Roderick Rosa ([id number]) on 01/31/2019 3:31:13 PM
[2019-01-31] MEDS: ATIVAN IV PRN (06:02)
--- NOTE | 2019-01-31 06:57 | Diag Imaging Result Doc PS360 ---
CHEST-PORTABLE - 01/31/2019 INDICATION: NG placement COMPARISON: 01/30/2019 FINDINGS: There is been placement of a nasogastric tube in good position in the stomach. Stable left internal jugular central line in good position. The lungs are clear and the heart size is normal. IMPRESSION: Good nasogastric tube placement. Electronically signed by Immanuel Brown 01/31/2019 6:54 AM
--- NOTE | 2019-01-31 07:35 | EKG Report ---
Test Performed on : 01/31/2019 06:58:05 AM Test Reason : evaluation Blood Pressure : / mmHG Vent. Rate : 121 BPM Atrial Rate : 138 BPM P-R Int : 000 ms QRS Dur : 070 ms QT Int : 352 ms P-R-T Axes : 000 -57 088 degrees QTc Int : 499 ms Atrial fibrillation. with rapid ventricular response. Left anterior fascicular block Abnormal ECG When compared with ECG of 31-JAN-2019 05:46, (Unconfirmed) Atrial fibrillation. has replaced Sinus rhythm. Confirmed by Gloria MCGOVERN, Roderick Rosa ([id number]) on 01/31/2019 3:31:21 PM
--- NOTE | 2019-01-31 08:12 | EKG Report ---
Test Performed on : 01/31/2019 05:46:53 AM Test Reason : TACHYCARDIA Blood Pressure : / mmHG Vent. Rate : 169 BPM Atrial Rate : 163 BPM P-R Int : 000 ms QRS Dur : 074 ms QT Int : 288 ms P-R-T Axes : 000 -71 070 degrees QTc Int : 482 ms Supraventricular tachycardia. Left anterior fascicular block Abnormal ECG When compared with ECG of 31-JAN-2019 05:01, (Unconfirmed) Sinus rhythm. has replaced Atrial fibrillation. Confirmed by Gloria MCGOVERN, Roderick Rosa ([id number]) on 01/31/2019 3:31:16 PM
--- NOTE | 2019-01-31 08:36 | PROGRESS NOTE ---
DATE: 01/31/2019 VITAL SIGNS: Temperature 98 degrees, heart rate 147 with PACs and atrial fibrillation, blood pressure 123/76 on Levophed, O2 saturation on nonrebreather mask of 100%. The patient had some heart arrhythmias with atrial fibrillation, SVT, and PACs. He also had a seizure early this morning and has been less responsive since that time. He is unable to respond to verbal stimuli at the current time. Laboratory yesterday revealed white blood count at 21,900 with 93% neutrophils. Hemoglobin was 12.2, hematocrit 38.7. Potassium 5.3, BUN 44, creatinine 1.3, glucose 187, calcium 6.1, lactate 8.3. The patient is felt to be septic related to a urinary tract infection. He also has bilateral decubitus ulcers on his buttocks. Respirations are shallow and deep. Lungs are clear to auscultation. Abdomen is soft. I and O positive 4.6 L over the last [address] Douglas's note yesterday indicated septic shock, urinary tract infection, glioblastoma, large bilateral decubitus ulcers, and hypoxemic respiratory failure. Prognosis is poor. Discussion will be made with his mother. He is currently a level 2 Do Not Resuscitate with ACLS medications only. PLAN: Continue supportive care. cc: Vince Stevenson MD
[2019-01-31 08:52] LABS: CREATININE 1.5 mg/dL (0.7-1.2); POTASSIUM 4.6 mmol/L (3.5-5.1)
--- NOTE | 2019-01-31 08:53 | INFECTIOUS DISEASE PROGRESS NO ---
DATE: 01/31/2019 PRESENT ILLNESS: The patient has a gram-negative valeriy urinary tract infection. He also has a gram- negative valeriy infected buttock decubitus ulcers. MEDICATIONS: The patient is on a combination now of ceftazidime and Zyvox. This is day 2 of ceftazidime and day 1 of Zyvox. PHYSICAL EXAMINATION: Vital Signs: Temperature is 98 degrees, pulse 147, respirations 17, blood pressure is 123/76. General: This is an ill-appearing middle-aged male. He is obtunded. Head, eyes, ears, nose, and throat: There is no drainage coming from his nose or ears. I was unable to look into his oral cavity. Neck: No meningismus. Lungs: Bilateral rhonchi. Cardiovascular: Heart rate is regular. Abdomen: Soft and nontender. There is in the right lower quadrant a baclofen pump. Neurologic: The patient is obtunded. He did not respond to verbal stimuli. He does not have a tremor. Integument: As mentioned above the patient has 2 large buttock decubitus ulcers. LAB AND RADIOLOGY STUDIES: There is no new labs yet for today and there is no new radiology study for today back. I ordered an ultrasound of the abdomen because the patient had been complaining of having abdominal pain and also because he has a urinary tract infection, but the results are not present. ASSESSMENT AND PLAN: The patient has a urinary tract infection and infected buttock decubitus ulcers. COMORBIDITIES: The patient does have a glioblastoma still in his head. He also has cerebral palsy, a seizure disorder, spinal stenosis with paraplegia, history of perforated duodenal ulcer, and right eye blindness. cc: MD Vince Miller MD [facility]
[2019-01-31] MEDS: PITRESSIN 40 UNIT in NS 100 ML IV SCH ×2 (09:10→16:11)
[2019-01-31] MEDS ORDERED: LOPRESSOR IV PRN (09:46)
[2019-01-31] MEDS: KEPPRA LIQUID PO SCH ×2 (09:52→20:46)
[2019-01-31 09:59] LABS: CALCIUM 4.7 mg/dL (8.8-10.2)
[2019-01-31 10:13] LABS: BASO# 0.07 X1000 (0.0-0.2); BASO% 0.4 % (0.0-0.8); EOS% 0.5 % (0.0-10.0); HEMATOCRIT 37.8 % (42.0-52.0); HEMOGLOBIN 12.9 g/dL (14.0-18.0); IMM GRAN% 0.5 % (0.0-0.5); LYMPH# 0.41 X1000 (1.2-3.4); LYMPH% 2.1 % (20.5-51.1); MCH 32.2 PG (27-31); MCHC 34.1 g/dL (33-37); MCV 94.3 FL (81-99); MONO# 0.18 X1000 (0.11-0.59); MONO% 0.9 % (1.7-9.3); MPV 10.2 FL (7.4-10.4); NEUT# 18.22 X1000 (1.4-6.5); NEUT% 95.6 % (42.2-75.2); PLT 37 X1000 (130-400); RBC 4.01 XMIL (4.7-6.1); RDW 14.3 % (11.5-14.5); WBC 19.08 X1000 (4.8-10.8)
[2019-01-31 10:35] LABS: BANDS 42 % (0-1); LYMPHS 2 % (21-51); SEGS 54 % (42-75)
[2019-01-31 10:36] LABS: HYPOCHROM 1+; MICROCYTOSIS 1+
[2019-01-31] MEDS: ZYVOX 600 MG/D5W 600 MG/300 ML IVPB IV SCH ×2 (10:48→23:47)
[2019-01-31] MEDS: LANOXIN IV SCH (10:48)
[2019-01-31] MEDS ORDERED: CALCIUM GLUCONATE 1 GM in NS 50 ML IV ONE ×2 (11:06→11:52)
[2019-01-31 11:34] LABS: INR 1.42; PROTIME 17.6 Seconds (11.0-16.0)
[2019-01-31 12:13] LABS: PTT 44.6 Seconds (22.3-41.8)
--- NOTE | 2019-01-31 13:02 | CONSULTATION ---
DATE OF CONSULTATION: 01/31/2019 IMPRESSION: 1. Intermittent atrial fibrillation. Patient currently back in sinus rhythm. 2. Septic shock. 3. Urinary tract infection. 4. Large bilateral decubitus ulcers. 5. Hypoxemic respiratory failure. 6. Glioblastoma multiforme with progression of disease. 7. Cerebral palsy. RECOMMENDATIONS: 1. Continue digoxin. 2. Utilize metoprolol as needed. 3. If atrial fibrillation with RVR is problematic persistently despite initial measures, consider IV amiodarone. HISTORY: This 58-year-old white male with past history of cerebral palsy, learning disability, and glioblastoma multiform diagnosed in May of this year was admitted with diminished responsiveness and shortness of breath. He initially presented to [facility] emergency room, and was found to have hypotension, metabolic acidosis with respiratory alkalosis, and marked leukopenia with bandemia. He was unresponsive. He is felt to have sepsis, and was transferred here for further care. He has been started on intravenous pressors. He manifests atrial fibrillation with rapid ventricular rate transiently. One of the ECGs possibly appeared to be atrial flutter. He has converted back to sinus rhythm. Cardiology has been consulted to assist with care of his atrial tachyarrhythmias. He has a history of recurrent pneumonias. He has history of previous atrial fibrillation in the past associated with acute illness. Previous echocardiography earlier this year indicated normal left ventricular systolic function. PAST MEDICAL HISTORY: 1. Cerebral palsy with learning disorder. 2. Glioblastoma multiforme diagnosed earlier this year. 3. Testicular cancer treated with chemotherapy. 4. Seizure disorder. 5. Spinal stenosis and paraplegia. 6. Status post baclofen pump placement. 7. History of previous unspecified back surgery. 8. Status post abdominal procedure for perforated duodenal ulcer. 9. Status post exploratory laparotomy for perforated duodenal ulcer. ALLERGIES: He is allergic or intolerant to sulfa and vancomycin. MEDICATIONS: As listed. SOCIAL HISTORY: The patient is bed-bound, and lives with his attentive mother. He is her only child. He does not smoke or use alcohol. FAMILY HISTORY: Negative for premature coronary disease. REVIEW OF SYSTEMS: Unobtainable given patient's condition. PHYSICAL EXAMINATION: General: A chronically ill-appearing middle-aged male who does not respond to verbal or physical stimuli on supplemental oxygen per non-rebreather mask. Vital signs: Blood pressure 123/76, heart rate 108 with ECG monitor presently showing sinus rhythm with supraventricular ectopy and oxygen saturation 100%. HEENT: Mucous membranes appear somewhat dry. Neck: Supple without discernible jugular venous distention. There are no carotid bruits. Chest: Auscultation of the chest reveals scattered expiratory rhonchi. Cardiac: Exam reveals somewhat distant heart sounds and a regular rate and rhythm without appreciable murmur or gallop. Abdomen: Soft. Bowel sounds are normal. Extremities: Without edema. PERTINENT DATA: Twelve lead EKG obtained 01/29 demonstrates sinus tach, left axis deviation, and nonspecific ST and T-wave abnormality. Twelve lead EKG early this morning demonstrates atrial fibrillation, rapid ventricular rate, and left anterior fascicular block. Subsequent ECG appears to demonstrate supraventricular tachycardia with possible atrial flutter with RVR. Current ECG monitor shows sinus rhythm with frequent supraventricular ectopy. He does intermittently appear to demonstrate atrial fibrillation. LABORATORY DATA: White blood cell count of 21.93, hematocrit 38.7, hemoglobin 12.2, and platelet count 142,000. Sodium 128, potassium 4.6, chloride 82, carbon dioxide 22 BUN 42, creatinine 1.5, and glucose 237. Lactate yesterday was 8.3. cc: MD Vince Page MD
--- NOTE | 2019-01-31 18:30 | Diag Imaging Result Doc PS360 ---
EXAM: US ABDOMEN-COMPLETE INDICATION: abdominal pain COMPARISON: None. FINDINGS: The gallbladder appears normal with no stones, wall thickening, or pericholecystic fluid. The common bile duct is normal in diameter. Sonographic Naranjo's sign was reported to be negative. The liver is grossly unremarkable. Portal venous flow is hepatopetal. The pancreas is obscured. The aorta and IVC are largely obscured. The spleen is unremarkable. The kidneys are echogenic bilaterally, which is a nonspecific indicator of medical renal disease. The kidneys are unremarkable, otherwise. IMPRESSION: Somewhat echogenic kidneys, which is a nonspecific indicator of medical renal disease. Essentially unremarkable, otherwise. Electronically signed by Jackson Bunch 01/31/2019 6:28 PM
--- NOTE | 2019-01-31 22:38 | PULMONOLOGY PROGRESS NOTE ---
DATE: 01/31/2019 SUBJECTIVE: The patient is poorly responsive. He has mild increased work of breathing. OBJECTIVE: Vital Signs: The patient is afebrile. He remains on vasopressin and Levophed for hypotension. Oxygen saturation 100% on 40% face mask. HEENT: Pupils are equal and reactive. Oropharynx appears clear. Neck: Supple. Chest: Reveals scattered rhonchi bilaterally. Cardiac exam: S1, S2. Abdomen: Soft with diminished bowel sounds. Extremities: Cool to the touch. LABORATORIES: White blood count 19,000, hemoglobin 12.9, platelet count 37,000. Sodium 128, potassium 4.6, chloride 82, bicarbonate 22, BUN 42, creatinine 1.5. MICROBIOLOGY: Reveals 2 gram-negative rods from decubitus ulcers and an ESBL negative Escherichia coli from his urine. IMPRESSION: A 58-year-old with: 1. Septic shock. 2. Urinary tract infection. 3. Bilateral decubitus ulcers with gram-negative rods on culture. 4. Glioblastoma multiforme. 5. Hypoxemic respiratory failure. PLAN: 1. Continue broad-spectrum antibiotics. 2. Continue volume resuscitation. 3. Continue oxygen. 4. Continue comfort measures. 5. DNR level 2. The patient's prognosis is poor, and he likely will not survive this hospital stay. His mother is aware of the severity of his illness. cc: MD Vince Santos MD
[2019-02-01] MEDS: ATIVAN IV PRN ×2 (00:08→05:44)
[2019-02-01] MEDS: LEVOPHED 8 MG in D5 1/2 NS 250 ML IV SCH ×5 (00:31→19:45)
[2019-02-01] MEDS: SODIUM BICARBONATE 8.4% 100 MEQ in D5W 1,000 ML IV SCH ×2 (02:19→06:46)
[2019-02-01 04:46] LABS: ALLEN TEST YES; BE 9.2 mmoll (-3.0-3.0); BLOOD TYPE ARTERIAL; HCO3-(ACT) 32.1 mmoll (20.0-26.0); METHB 1.1 % (0.0-1.5); O2(CT) 16.1 mL/dL (15.0-23.0); O2HB 96.1 % (95.0-99.0); PCO2(98.6) 39 mmHg (35-45); PO2(98.6) 95 mmHg (60-100); SAMPLE BLOOD; SAO2 98.6 % (95.0-100.0); THB 11.8 g/dL (11.5-17.4); pH(98.6) 7.53 (7.35-7.45)
[2019-02-01 04:48] LABS: MODALITY COOL AEROSOL
[2019-02-01] MEDS: TAZIDIME 2 GM/NS 2 GM/100 ML IVPB IV SCH ×2 (05:04→12:08)
[2019-02-01] MEDS: PITRESSIN 40 UNIT in NS 100 ML IV SCH (06:00)
--- NOTE | 2019-02-01 07:14 | Diag Imaging Result Doc PS360 ---
EXAM: CHEST-PORTABLE 02/01/2019 HISTORY: abnormal exam TECHNIQUE: AP portable at 0541 COMMENT: There is an NG tube with its tip in the fundus of the stomach. There is a left internal jugular central venous catheter with its tip at the confluence of the brachiocephalic veins. Considering differences in technique and inspiration there has been no significant change since 01/31/2019. There may be a minimal degree of interstitial pulmonary edema. IMPRESSION: Stable chest. Electronically signed by Alfredito Fulton 02/01/2019 7:11 AM
[2019-02-01 07:32] LABS: CALCIUM 5.3 mg/dL (8.8-10.2)
[2019-02-01 07:33] LABS: ALB/GLOB RATIO 0.9; ALBUMIN 2.2 g/dL (3.5-5.0); CREATININE 1.4 mg/dL (0.7-1.2); MAGNESIUM 1.5 mg/dL (1.5-2.7); PHOSPHORUS 3.4 mg/dL (2.7-4.5); POTASSIUM 3.7 mmol/L (3.5-5.1); TOTAL BILIRUBIN 0.83 mg/dL (0.20-1.00); TOTAL PROTEIN 4.7 g/dL (6.3-8.3)
--- NOTE | 2019-02-01 07:51 | EKG Report ---
Test Performed on : 02/01/2019 07:01:37 AM Test Reason : evaluation Blood Pressure : / mmHG Vent. Rate : 122 BPM Atrial Rate : 122 BPM P-R Int : 000 ms QRS Dur : 074 ms QT Int : 382 ms P-R-T Axes : 000 -53 037 degrees QTc Int : 544 ms Undetermined rhythm Left axis deviation Nonspecific ST abnormality Abnormal ECG When compared with ECG of 01-FEB-2019 06:56, (Unconfirmed) Current undetermined rhythm precludes rhythm comparison, needs review Questionable change in QRS duration Confirmed by Gloria MCGOVERN, Roderick Rosa ([id number]) on 02/02/2019 7:31:22 AM
[2019-02-01] MEDS: KEPPRA LIQUID PO SCH ×2 (08:01→19:59)
[2019-02-01] MEDS: LANOXIN IV SCH (08:01)
[2019-02-01 08:22] LABS: BASO# 0.01 X1000 (0.0-0.2); BASO% 0.1 % (0.0-0.8); EOS# 0.01 X1000 (0.0-0.7); EOS% 0.1 % (0.0-10.0); HEMATOCRIT 32.2 % (42.0-52.0); IMM GRAN# 0.17 X1000 (0.0-0.04); IMM GRAN% 1.5 % (0.0-0.5); LYMPH# 0.19 X1000 (1.2-3.4); LYMPH% 1.6 % (20.5-51.1); MCH 31.4 PG (27-31); MCHC 34.2 g/dL (33-37); MONO# 0.18 X1000 (0.11-0.59); MONO% 1.5 % (1.7-9.3); MPV 11.8 FL (7.4-10.4); NEUT# 11.09 X1000 (1.4-6.5); NEUT% 95.2 % (42.2-75.2); PLT 36 X1000 (130-400); RDW 13.9 % (11.5-14.5); WBC 11.65 X1000 (4.8-10.8)
--- NOTE | 2019-02-01 08:25 | PROGRESS NOTE ---
DATE: 02/01/2019 SUBJECTIVE: Vital signs of temperature 98 degrees, heart rate 122 and irregular, and blood pressure 100/59 on max Levophed. 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 He is currently unresponsive to verbal stimulus. His breathing is less labored. Chest x-ray reveals stable chest with minimal pulmonary edema. LABORATORY: Blood gas, pH 7.5, pCO2 39, and PO2 95 on 40% mask. Lactate is 8.6. CBC is pending. Sodium low at 118, potassium 3.7, BUN 34, creatinine 1.4, calcium 5.3, AST 93, alkaline phosphatase 445, total protein 4.7, and albumin 2.2. Blood cultures revealed no growth at 48 hours. Wound culture revealed Klebsiella and Morganella. Urine showed E. Coli. E. Coli is sensitive to cefazolin and gentamicin, but resistant to levofloxacin and trimethoprim sulfa. Wound culture sensitive to ceftriaxone and trimethoprim sulfa. Also sensitive to Zosyn. I and O last shift was +4100. There has been no further bleeding from NG and Castro. PLAN: Continue supportive care and DNR level 2. Prognosis is poor. cc: Vince Stevenson MD
[2019-02-01 08:30] LABS: BANDS 8 % (0-1); LYMPHS 2 % (21-51); MONO 2 % (1-9); SEGS 86 % (42-75)
[2019-02-01] MEDS ORDERED: CALCIUM GLUCONATE 4.65 MEQ in NS 50 ML IV ONE (09:00)
[2019-02-01] MEDS: NS 1,000 ML IV SCH ×2 (09:07→18:18)
[2019-02-01] MEDS: ZYVOX 600 MG/D5W 600 MG/300 ML IVPB IV SCH (10:31)
[2019-02-01] MEDS: SANTYL OINT TOP SCH (11:50)
--- NOTE | 2019-02-01 14:18 | INFECTIOUS DISEASE PROGRESS NO ---
DATE: 02/01/2019 PRESENT ILLNESS: Mr. Cordero has an Escherichia coli urinary tract infection as well as a Klebsiella and Morganella infection to his buttock wound. There is also a significant, new thrombocytopenia with some bleeding noted in his rectal and Castro catheter tubes. MEDICATIONS: He has been receiving Zyvox 600 mg IV every 12 hours and ceftazidime 2 g IV every 8 hours, both of which we will stop today. OBJECTIVE: Vital signs: Temperature is 98, pulse rate 102, respiratory rate 22, blood pressure 127/70, O2 saturation is 100% on a 40% FiO2 cool aerosol soft face mask. HEENT: He is atraumatic and normocephalic. Oral mucous membranes are difficulty to visualize. Conjunctivae are pink. Respiratory: Lung sounds have some coarse rhonchi noted in the upper lobes, diminished in the mid and bases. Cardiovascular: Heart rate and rhythm are regular and fast. Sinus tachycardia on the monitor with occasional ectopic beats. Abdomen is soft, round and appears to be nontender to palpation. There is an NG tube to low intermittent suction. Bowel sounds are hypoactive. Neurologic: The patient is drowsy and lethargic, not following commands or opening his eyes, but he does arouse mildly. Integumentary: There is a left intrajugular central line in place that is without erythema, edema or drainage. Skin is warm and dry. DIAGNOSTIC DATA: Today his white count is 11.65, hemoglobin 11, platelet count 36,000. Creatinine is 1.4, GFR is 52, total bilirubin is 0.83, AST is 93, ALT is 28, alkaline phosphatase 445. His pH on the cool aerosol face mask at 40% FiO2 is 7.53, pCO2 of 39, pO2 of 95, HCO3 of 32.1. His urine culture has grown an Escherichia coli, and the buttock culture has grown a Klebsiella pneumoniae and a Morganella morganii. Blood cultures have shown no growth after 48 hours. Chest x-ray today shows minimal interstitial pulmonary edema. ASSESSMENT AND PLAN: Mr. Cordero has had a significant thrombocytopenia on Zyvox and ceftazidime for a urinary tract infection and infections to his buttock decubitus ulcers. We will discontinue Zyvox due to his thrombocytopenia as well as the absence of any gram-positive organisms. We will also change the ceftazidime to ceftriaxone 2 g IV daily which will treat the E. coli, Klebsiella and Morganella. These plans have been discussed with and recommended by Dr. Cano. COMORBIDITIES: Glioblastoma, cerebral palsy, seizure disorder with recent seizures, spinal stenosis with paraplegia, and right eye blindness. Dictated by ALEX Means for Josep Cano MD cc: MD Vince Miller MD [facility]
[2019-02-01] MEDS: ROCEPHIN 2 GM in NS 50 ML IV SCH (14:35)
--- NOTE | 2019-02-01 15:17 | PROGRESS NOTE ---
DATE: 02/01/2019 SUBJECTIVE: Patient continues on intravenous Levophed for blood pressure support. He still is not very responsive to verbal stimuli or physical stimuli according to his mother, who has been with him pretty much the whole time. Urine output has been good. OBJECTIVE: Vital Signs: Blood pressure 133/61, heart rate 100 to 110 with ECG monitor showing sinus rhythm with frequent supraventricular ectopy. Oxygen saturation 100% on supplemental oxygen per mask. Neck: There is no significant jugular venous distention. Respiratory: Auscultation of the chest reveals scattered expiratory rhonchi. Cardiac: Reveals a regular rate and rhythm without appreciable murmur or gallop. Extremities: Without edema. LABORATORY DATA: Includes a white blood cell count 11.65, hematocrit 32.2, hemoglobin 11.0, platelet count 36,000. Sodium 118, potassium 3.7, chloride 69, carbon dioxide 23, BUN 34, creatinine 1.4. IMPRESSIONS: 1. Intermittent atrial fibrillation yesterday in the setting of septic shock. Patient continues in sinus rhythm. 2. Septic shock. Improving with treatment with intravenous pressors, intravenous volume replacement, and parenteral antibiotics. The patient's hemodynamics trending toward stabilizing. 3. Urinary tract infection with Escherichia coli. 4. Large bilateral decubitus ulcers. 5. Respiratory failure, hypoxemic. 6. Glioblastoma multiforme with progression of disease. 7. Cerebral palsy. RECOMMENDATIONS: 1. Continue telemetry observation. 2. Stop digoxin for now and continue metoprolol as needed. 3. If recurrent atrial fibrillation with rapid ventricular rate becomes problematic, consider amiodarone. 4. At this point, no further CV suggestions. I will see him further on an as needed basis. cc: MD Vince Page MD
--- NOTE | 2019-02-01 20:27 | PULMONOLOGY PROGRESS NOTE ---
DATE: 02/01/2019 SUBJECTIVE: The patient has mild to moderate work of breathing. He is unresponsive. OBJECTIVE: Blood pressure 119/74, heart rate 111, respiratory rate 18, oxygen saturation 100% on 40% FIO2.HEENT: Pupils are equal. Oropharynx appears dry. Neck: Supple. Chest: Reveals coarse rhonchi bilaterally. Cardiac: S1, S2. Abdomen: Soft with no bowel sounds present. Extremities: Reveal 2+ peripheral edema. The patient has large buttock decubiti bilaterally which were not examined. LABORATORIES: Arterial blood gas reveals a pH of 7.53, pCO2 of 39, pO2 of 95 with a lactate of 8.6, increased from a lactate of 7.9 on 01/30. White blood count 11.65, hemoglobin 11.0, platelet count 36,000. Sodium 118, potassium 3.7, chloride 99, bicarbonate 23, BUN 34, creatinine 1.4. Chest x-ray reveals mild interstitial edema. IMPRESSION: A 58-year-old with 1. Septic shock. 2. Escherichia coli urinary tract infection. 3. Bilateral stage IV decubitus ulcers. 4. Hypoxemic respiratory failure. 5. Glioblastoma multiform. PLAN: 1. Continue vasopressors for ongoing shock. 2. Change fluids with hyponatremia, but continue resuscitation. 3. Continue oxygen. 4. Continue comfort measures. 5. Overall prognosis appears poor. Critical care Time: 30+ minutes cc: MD Vince Santos MD MTDD
[2019-02-01] MEDS: DUONEB (A & A) INH SCH (21:30)
[2019-02-02] MEDS: LEVOPHED 8 MG in D5 1/2 NS 250 ML IV SCH ×5 (01:19→20:28)
[2019-02-02] MEDS: NS 1,000 ML IV SCH ×2 (06:16→15:14)
[2019-02-02 06:29] LABS: RBC 3.04 XMIL (4.7-6.1); WBC 6.51 X1000 (4.8-10.8)
[2019-02-02 06:30] LABS: EOS# 0.01 X1000 (0.0-0.7); EOS% 0.2 % (0.0-10.0); HEMATOCRIT 28.4 % (42.0-52.0); HEMOGLOBIN 9.4 g/dL (14.0-18.0); IMM GRAN# 0.49 X1000 (0.0-0.04); IMM GRAN% 7.5 % (0.0-0.5); LYMPH# 0.19 X1000 (1.2-3.4); LYMPH% 2.9 % (20.5-51.1); MCH 30.9 PG (27-31); MCHC 33.1 g/dL (33-37); MCV 93.4 FL (81-99); MONO# 0.06 X1000 (0.11-0.59); MONO% 0.9 % (1.7-9.3); MPV 12.6 FL (7.4-10.4); NEUT# 5.76 X1000 (1.4-6.5); NEUT% 88.5 % (42.2-75.2); PLT 44 X1000 (130-400); RDW 14.3 % (11.5-14.5)
[2019-02-02 07:09] LABS: CALCIUM 5.5 mg/dL (8.8-10.2)
[2019-02-02 07:10] LABS: AGAP 18; BUN 27 mg/dL (8-22); CHLORIDE 78 mmol/L (98-107); COSMO 253; CREATININE 1.2 mg/dL (0.7-1.2); ESTIMATED GFR > 60; GLUCOSE 69 mg/dL (70-104); POTASSIUM 2.7 mmol/L (3.5-5.1); SODIUM 124 mmol/L (136-145); TCO2 28 mmol/L (25-35)
--- NOTE | 2019-02-02 07:15 | EKG Report ---
Test Performed on : 02/02/2019 06:36:34 AM Test Reason : evaluation Blood Pressure : / mmHG Vent. Rate : 079 BPM Atrial Rate : 079 BPM P-R Int : 170 ms QRS Dur : 084 ms QT Int : 430 ms P-R-T Axes : 061 -13 058 degrees QTc Int : 493 ms Sinus rhythm. with frequent premature ventricular complexes. Prolonged QT Abnormal ECG When compared with ECG of 01-FEB-2019 07:01, (Unconfirmed) Previous ECG has undetermined rhythm, needs review QRS axis shifted right Confirmed by Gloria MCGOVERN, Roderick Rosa ([id number]) on 02/02/2019 7:32:28 AM
[2019-02-02 08:14] LABS: BANDS 6 % (0-1); LYMPHS 2 % (21-51); MONO 2 % (1-9); SEGS 90 % (42-75)
[2019-02-02] MEDS: KEPPRA LIQUID PO SCH ×2 (08:14→21:17)
[2019-02-02] MEDS: SANTYL OINT TOP SCH (08:14)
[2019-02-02] MEDS: DUONEB (A & A) INH SCH ×3 (09:12→21:32)
--- NOTE | 2019-02-02 09:28 | INFECTIOUS DISEASE PROGRESS NO ---
DATE: 02/02/2019 PRESENT ILLNESS: The patient has an E. coli urinary tract infection and infected decubitus ulcers with Klebsiella and Morganella. The patient's chest x-ray shows pulmonary edema and I doubt that there is pneumonia present. Blood cultures are pending. MEDICATIONS: The patient is on Rocephin. This is the 3rd day of treatment with antibiotics for the patient's infections. PHYSICAL EXAMINATION: Vital Signs: Temperature is 98.6 degrees, pulse 79, respirations 14, blood pressure 122/72. General: This is an ill-appearing middle-aged male. He is in no acute distress. He has a decreased level of consciousness. Head, eyes, ears, nose, and throat: There is no drainage from the nose or ears. Neck: No stiffness. Lungs: Clear to auscultation. Cardiovascular: Heart rate is regular. Abdomen: Soft except for the presence of a baclofen pump in the right lower quadrant. Neurologic: The patient did not respond to verbal stimuli today. Integument: Patient has 2 large buttock infected decubitus ulcers. ASSESSMENT AND PLAN: I plan on continuing Rocephin for the patient's urinary tract infection and infected decubitus ulcer. COMORBIDITIES: The patient has a glioblastoma. He also has seizure disorder. He is paralyzed due to spinal stenosis. He has previously had a duodenal ulcer. He has right eye blindness. He also has a baclofen pump present in the right lower quadrant of the abdomen. INTEGUMENT: No rash noted. cc: MD Vince Miller MD
[2019-02-02] MEDS: PITRESSIN 40 UNIT in NS 100 ML IV SCH (09:33)
[2019-02-02] MEDS ORDERED: CALCIUM GLUCONATE 4.65 MEQ in NS 50 ML IV ONE (10:12)
[2019-02-02] MEDS ORDERED: LASIX IV ONE ×2 (10:12→15:37)
[2019-02-02] MEDS ORDERED: POTASSIUM CHLORIDE 40 MEQ/SWI 40 MEQ/100 ML IVPB IV ONE (10:13)
--- NOTE | 2019-02-02 10:50 | PROGRESS NOTE ---
DATE: 02/02/2019 VITAL SIGNS: Temperature 98 degrees, heart rate 85, respirations 12, blood pressure 108/63 on Levophed and low-dose vasopressin, O2 saturation on mask of 97%. LABORATORY: Hemoglobin 9.4, hematocrit 28.4, white blood count 6500. Sodium 124, potassium 2.7, BUN 27, creatinine 1.2, calcium 5.5. PHYSICAL EXAMINATION: Patient is nonresponsive to verbal stimuli. Respirations are shallow. Lungs have a few scattered coarse rhonchi. Abdomen is soft. PLAN: Add calcium and potassium. He was given 40 mg of IV Lasix. Repeat BMP will be done tomorrow morning. Hopefully, he can get off vasopressor and Levophed soon. Nutritional status is poor. NG tube may be used to give Ensure starting tomorrow if he continues to be poorly responsive. cc: Vince Stevenson MD
[2019-02-02] MEDS: ROCEPHIN 2 GM in NS 50 ML IV SCH (13:23)
--- NOTE | 2019-02-02 19:59 | PULMONOLOGY PROGRESS NOTE ---
DATE: 02/02/2019 SUBJECTIVE: The patient is poorly responsive. His work of breathing has slightly decreased compared to yesterday afternoon. OBJECTIVE: The patient remains on Levophed and vasopressin.Vital Signs: Blood pressure 101/71, heart rate 84, respiratory rate 12, oxygen saturation 95% on 40% face mask. HEENT: Pupils are equal. Oropharynx appears clear, but dry. Neck: Is supple. Chest: Reveals coarse rhonchi bilaterally. Cardiac exam: S1-S2. Abdomen: Is soft Extremities: Reveal increased peripheral edema. LABORATORIES: White blood count 6.51, hemoglobin 9.4, platelet count 44,000. Sodium 124, potassium 2.7, chloride 78, bicarbonate 28, BUN 27, creatinine 1.2. Microbiology reveals no new data. IMPRESSION: 1. A 58-year-old with Escherichia coli urinary tract infection and septic shock. 2. Bilateral stage IV decubitus ulcers. 3. Hypoxemic respiratory failure. 4. Glioblastoma multiform. 5. Recurrent seizures. DISCUSSION: A 58-year-old with problems outlined above. The patient has had decline following his diagnosis of glioblastoma multiform. He is currently being treated for septic shock. His hemodynamic numbers appear to be improving and his renal function is improving as well. PLAN: 1. Continue vasopressors and wean as tolerated. 2. Continue normal saline for hyponatremia. 3. Continue current antibiotics. 4. Continue comfort measures. 5. Overall prognosis is guarded to poor. Critical care time: 30+ minutes cc: MD Vince Santos MD MTDD
[2019-02-03] MEDS: LEVOPHED 8 MG in D5 1/2 NS 250 ML IV SCH ×5 (01:28→20:41)
[2019-02-03] MEDS: NS 1,000 ML IV SCH ×2 (01:28→08:58)
[2019-02-03 04:29] LABS: ALLEN TEST YES; BE 9.2 mmoll (-3.0-3.0); BLOOD TYPE ARTERIAL; HCO3-(ACT) 32.1 mmoll (20.0-26.0); O2(CT) 12.2 mL/dL (15.0-23.0); O2HB 95.8 % (95.0-99.0); PCO2(98.6) 38 mmHg (35-45); PO2(98.6) 65 mmHg (60-100); SAMPLE BLOOD; SAO2 100.7 % (95.0-100.0); pH(98.6) 7.54 (7.35-7.45)
[2019-02-03 04:31] LABS: MODALITY COOL AEROSOL
[2019-02-03 05:23] LABS: EOS# 0.04 X1000 (0.0-0.7); EOS% 1.3 % (0.0-10.0); HEMATOCRIT 30.7 % (42.0-52.0); HEMOGLOBIN 10.7 g/dL (14.0-18.0); IMM GRAN# 0.03 X1000 (0.0-0.04); LYMPH# 0.16 X1000 (1.2-3.4); LYMPH% 5.2 % (20.5-51.1); MCH 31.5 PG (27-31); MCHC 34.9 g/dL (33-37); MCV 90.3 FL (81-99); MONO# 0.06 X1000 (0.11-0.59); NEUT# 2.78 X1000 (1.4-6.5); NEUT% 90.5 % (42.2-75.2); RDW 13.9 % (11.5-14.5); WBC 3.07 X1000 (4.8-10.8)
[2019-02-03 05:27] LABS: PLT 22 X1000 (130-400)
[2019-02-03] MEDS: PITRESSIN 40 UNIT in NS 100 ML IV SCH (05:35)
[2019-02-03 05:54] LABS: AGAP 16; ALBUMIN 2.5 g/dL (3.5-5.0); ALKALINE PHOSPHATASE 315 U/L (32-122); BUN 24 mg/dL (8-22); CHLORIDE 83 mmol/L (98-107); COSMO 258; ESTIMATED GFR > 60; GLUCOSE 79 mg/dL (70-104); GOT 57 U/L (10-34); GPT 17 U/L (10-44); MAGNESIUM 1.1 mg/dL (1.5-2.7); PHOSPHORUS 1.8 mg/dL (2.7-4.5); POTASSIUM 2.6 mmol/L (3.5-5.1); SODIUM 127 mmol/L (136-145); TCO2 28 mmol/L (25-35); TOTAL BILIRUBIN 1.11 mg/dL (0.20-1.00); TOTAL PROTEIN 4.9 g/dL (6.3-8.3)
[2019-02-03 06:06] LABS: CALCIUM 6.8 mg/dL (8.8-10.2)
--- NOTE | 2019-02-03 07:32 | Diag Imaging Result Doc PS360 ---
EXAM: CHEST-PORTABLE INDICATION: abnormal exam TECHNIQUE: One view COMPARISON: 02/01/2019 FINDINGS: Support tubes and lines are in stable positions. Minimal interstitial thickening bilaterally is unchanged. No new consolidation is identified. Cardiac silhouette is stable. IMPRESSION: Essentially stable chest. Electronically signed by Jackson Bunch 02/03/2019 7:30 AM
[2019-02-03] MEDS ORDERED: POTASSIUM CHLORIDE 40 MEQ/SWI 40 MEQ/100 ML IVPB IV ONE (07:47)
[2019-02-03] MEDS: DUONEB (A & A) INH SCH ×3 (07:47→20:02)
[2019-02-03] MEDS ORDERED: ALBUMIN 25% IV ONE (07:57)
--- NOTE | 2019-02-03 08:09 | PROGRESS NOTE ---
DATE: 02/03/2019 VITAL SIGNS: Temperature 98 degrees, heart rate 68, respirations 11, blood pressure 81/51. PHYSICAL EXAMINATION: General: The patient continues to be poorly responsive and weak with no spontaneous movement. Lungs sound about the same. O2 saturation is 100% on mask. LABORATORY: Hemoglobin 10.7, hematocrit 30.7, white blood count 3100, platelet count 22,000. Sodium 127, potassium 2.6, BUN 24, creatinine 1.0, calcium 6.8, total protein 4.9, albumin 2.5. PLAN: 1. Give additional platelets, IV potassium, and start tube feedings with Pro-Arnel at 50 mL an hour. 2. Continue supportive care and intravenous Rocephin. cc: Vince Stevenson MD
[2019-02-03] MEDS: KEPPRA LIQUID PO SCH ×2 (08:58→20:42)
[2019-02-03] MEDS: SANTYL OINT TOP SCH (08:58)
--- NOTE | 2019-02-03 09:09 | INFECTIOUS DISEASE PROGRESS NO ---
DATE: 02/03/2019 PRESENT ILLNESS: The patient has an E coli urinary tract infection and Klebsiella and Morganella infected decubitus ulcers. MEDICATIONS: This is the 4th day of treatment with antibiotics for the patient's infection. Currently, the patient is on Rocephin. PHYSICAL EXAMINATION: Vital Signs: Temperature is 98.8 degrees, pulse 100, respirations 16, blood pressure 117/77. General: This is an ill-appearing middle-aged male. He is sleeping and does not appear to be in any acute distress. Head/eyes/ears/nose/throat: No drainage noted from the nose or ears. Neck: No stiffness when I move his neck. Lungs: Clear to auscultation. Cardiovascular: Heart rate is regular. Abdomen: Soft and nontender with the exception that there is a baclofen pump in the right lower quadrant. Neurologic: The patient appears to be sleeping. He does not respond to verbal stimuli. Integument: The patient has 2 large buttock- infected decubitus ulcers. LAB AND RADIOLOGY: Chest x-ray shows no new consolidation. CBC: WBC 3.07, hgb 10.7, platelets 22K. Creatinine: 1.0. GFR: >60. AST: 57. ASSESSMENT AND PLAN: I plan on continuing Rocephin for the patient's urinary tract infection and infected decubitus ulcers. COMORBIDITIES: The patient has a glioblastoma, seizure disorder, and he is paralyzed due to spinal stenosis. The patient also had a duodenal ulcer, and he has right eye blindness. cc: MD Vince Miller MD MTDD
[2019-02-03] MEDS ORDERED: MORPHINE IV PRN (09:25)
[2019-02-03] MEDS ORDERED: ATIVAN IV PRN (09:25)
[2019-02-03] MEDS: MORPHINE IV PRN (09:56)
[2019-02-03] MEDS ORDERED: MAGNESIUM SULFATE 2 GM/S.W.I. 2 GM/50 ML IVPB IV ONE (11:39)
--- NOTE | 2019-02-03 14:02 | PULMONOLOGY PROGRESS NOTE ---
DATE: 02/03/2019 SUBJECTIVE: The patient opens his eyes to voice. He does not respond to questions. He remains on Levophed and vasopressin. OBJECTIVE: Vital Signs: The patient has been afebrile for the last 24 hours. Blood pressure 129/87, heart rate 121, respiratory rate 15, oxygen saturation 100% on 40% FiO2. HEENT pupils are equal and reactive. Oropharynx appears clear but dry. Neck is supple. Chest reveals rhonchi bilaterally. Cardiac exam: Increased rate, regular rhythm. Abdomen is soft with no bowel sounds present. Extremities reveal increasing peripheral edema. LABORATORIES: Sodium 127, potassium 2.6, chloride 83, bicarbonate 28, BUN 24, creatinine 1.0, phosphorus 1.8, magnesium 1.1, albumin 2.5. White blood count 3.07, hemoglobin 10.7, platelet count 22,000. Arterial blood gas reveals a pH of 7.54, pCO2 of 38, PO2 of 65 with a lactate of 3.9. Chest x-ray reveals mild increased interstitial markings bilaterally without change. IMPRESSION: A 58-year-old with 1. Escherichia coli urinary tract infection and septic shock. 2. Gram-negative infections of bilateral stage IV decubitus ulcers. 3. Hypoxemic respiratory failure. 4. Protein calorie malnutrition. 5. Glioblastoma multiforme. 6. Leukopenia, and thrombocytopenia. DISCUSSION: A 58-year-old with problems outlined above. He does appear to be resolving the shock but continues to require vasopressors. His kidney function appears to be improving and his lactic acidosis is decreasing. He continues to remain critically ill. PLAN: 1. Continue vasopressors ongoing septic shock. 2. Initiate ProcalAmine as a nutrition source. 3. Continue antibiotics. 4. Continue comfort measures. 5. Prognosis is guarded, but has improved over the last 48 hours. Time spent in critical care management: 30+ minutes cc: MD Vince Santos MD MTDD
[2019-02-03] MEDS: LASIX IV SCH (14:31)
[2019-02-03] MEDS: ROCEPHIN 2 GM in NS 50 ML IV SCH (14:32)
[2019-02-03] MEDS: CLINIMIX E 4.25%-5% SOLUTION 1,000 ML IV SCH (14:32)
[2019-02-03] MEDS ORDERED: POTASSIUM PHOSPHATE 30 MEQ in NS 250 ML IV ONE (17:31)
[2019-02-04] MEDS: CLINIMIX E 4.25%-5% SOLUTION 1,000 ML IV SCH ×3 (00:07→19:53)
[2019-02-04] MEDS: MORPHINE IV PRN (00:20)
[2019-02-04] MEDS: LASIX IV SCH (01:16)
[2019-02-04] MEDS: LEVOPHED 8 MG in D5 1/2 NS 250 ML IV SCH ×5 (01:16→19:54)
[2019-02-04 04:41] LABS: ALLEN TEST YES; BE 8.7 mmoll (-3.0-3.0); BLOOD TYPE ARTERIAL; HCO3-(ACT) 31.7 mmoll (20.0-26.0); METHB 1.4 % (0.0-1.5); O2HB 95.5 % (95.0-99.0); PCO2(98.6) 49 mmHg (35-45); PO2(98.6) 115 mmHg (60-100); SAMPLE BLOOD; THB 13.3 g/dL (11.5-17.4); pH(98.6) 7.45 (7.35-7.45)
[2019-02-04 04:50] LABS: MODALITY COOL AEROSOL
[2019-02-04] MEDS: PITRESSIN 40 UNIT in NS 100 ML IV SCH ×2 (05:54→15:30)
[2019-02-04] MEDS: NS 1,000 ML IV SCH (05:56)
--- NOTE | 2019-02-04 06:12 | Diag Imaging Result Doc PS360 ---
EXAM: CHEST-PORTABLE HISTORY: abnormal exam TECHNIQUE: Single view COMPARISON: 02/03/2019 FINDINGS: The patient is rotated to the right. No change in the nasogastric tube or left jugular line. No cardiomegaly. No pulmonary edema. No pneumonia. There may be a tiny right effusion. Left lower lobe granuloma. IMPRESSION: Stable chest Electronically signed by Errol Santos 02/04/2019 6:09 AM
[2019-02-04 06:20] LABS: EOS# 0.01 X1000 (0.0-0.7); EOS% 0.3 % (0.0-10.0); HEMATOCRIT 28.2 % (42.0-52.0); HEMOGLOBIN 9.5 g/dL (14.0-18.0); IMM GRAN# 0.02 X1000 (0.0-0.04); IMM GRAN% 0.5 % (0.0-0.5); LYMPH# 0.16 X1000 (1.2-3.4); LYMPH% 4.3 % (20.5-51.1); MCH 30.7 PG (27-31); MCHC 33.7 g/dL (33-37); MCV 91.3 FL (81-99); MONO# 0.31 X1000 (0.11-0.59); MONO% 8.3 % (1.7-9.3); MPV 11.9 FL (7.4-10.4); NEUT# 3.23 X1000 (1.4-6.5); NEUT% 86.6 % (42.2-75.2); RBC 3.09 XMIL (4.7-6.1); RDW 13.4 % (11.5-14.5); WBC 3.73 X1000 (4.8-10.8)
[2019-02-04 06:21] LABS: AGAP 17; ALB/GLOB RATIO 1.1; ALBUMIN 2.8 g/dL (3.5-5.0); ALKALINE PHOSPHATASE 266 U/L (32-122); BUN 25 mg/dL (8-22); CALCIUM 7.9 mg/dL (8.8-10.2); CHLORIDE 82 mmol/L (98-107); COSMO 268; CREATININE 0.9 mg/dL (0.7-1.2); ESTIMATED GFR > 60; GLUCOSE 186 mg/dL (70-104); GOT 29 U/L (10-34); GPT 13 U/L (10-44); MAGNESIUM 1.5 mg/dL (1.5-2.7); PHOSPHORUS 2.4 mg/dL (2.7-4.5); PLT 32 X1000 (130-400); POTASSIUM 3.3 mmol/L (3.5-5.1); SODIUM 129 mmol/L (136-145); TCO2 30 mmol/L (25-35); TOTAL BILIRUBIN 0.86 mg/dL (0.20-1.00); TOTAL PROTEIN 5.3 g/dL (6.3-8.3)
[2019-02-04 07:13] LABS: BANDS 4 % (0-1); LYMPHS 4 % (21-51); MONO 2 % (1-9); SEGS 90 % (42-75)
[2019-02-04] MEDS: DUONEB (A & A) INH SCH ×3 (07:52→21:35)
[2019-02-04] MEDS ORDERED: POTASSIUM CHLORIDE 40 MEQ/SWI 40 MEQ/100 ML IVPB IV ONE (07:53)
[2019-02-04] MEDS ORDERED: ALBUMIN 25% IV ONE (07:54)
--- NOTE | 2019-02-04 08:27 | PROGRESS NOTE ---
DATE: 02/04/2019 VITAL SIGNS: Temperature 97.8 degrees, heart rate 94, respirations 10, blood pressure 118/77, and O2 saturation on 40% mask 100%. LABORATORY: Sodium 129, potassium 3.3, BUN 25, creatinine 0.9, glucose 186, calcium 7.9, alkaline phosphatase 266, protein 5.3, albumin 2.8, hemoglobin 9.5, hematocrit 28.2, and white blood count 3700 with 86% neutrophils. Chest x-ray is stable with slight right pleural effusion. OBJECTIVE: Lungs to auscultation reveal increased upper airway breath sounds, but no rales. Abdomen is soft. He has developed some skin breakdown on his right ankle and heel. Tube feedings are progressing. He opens his eyes, and is fairly alert but has no verbal response to stimuli. PLAN: Continue supportive care. He continues to be a level 2 DNR with only ACLS medications. cc: Vince Stevenson MD
[2019-02-04] MEDS: KEPPRA LIQUID PO SCH ×2 (09:17→20:00)
[2019-02-04] MEDS: SANTYL OINT TOP SCH (09:19)
[2019-02-04] MEDS: ROCEPHIN 2 GM in NS 50 ML IV SCH (13:16)
--- NOTE | 2019-02-04 15:08 | PULMONOLOGY PROGRESS NOTE ---
DATE: 02/04/2019 SUBJECTIVE: The patient does respond to voice. He does open his eyes. The patient remains on Levophed and vasopressin. OBJECTIVE: Vital Signs: Blood pressure 109/68, heart rate 106, respiratory rate 9, oxygen saturation 98% on 35% FiO2. HEENT: Pupils are equal and reactive but decreased on the right. Oropharynx appears dry. Neck: Supple. Chest: Reveals rhonchi bilaterally. Cardiac Exam: Regular rate normal S1, normal S2. Abdomen: Soft with diminished bowel sounds. Extremities: Reveal 1+ peripheral edema. LABORATORIES: Chest x-ray is relatively clear. White blood count 3.73, hemoglobin 9.5, platelet count 32,000. Sodium 129, potassium 3.3, chloride 82, bicarbonate 30, BUN 25, creatinine 0.9, phosphorus 2.4, magnesium 1.5. On the arterial blood gas, pH 7.45, pCO2 of 49, PO2 of 115 with a lactate of 4.4. Microbiology reveals no new culture data. IMPRESSION: A 58-year-old with 1. Excretion coli urinary tract infection with ongoing septic shock. 2. Bilateral stage IV decubitus ulcers with gram-negative infection. 3. Hypoxemic respiratory failure. 4. Protein calorie malnutrition. 5. Glioblastoma multiforme with progression of disease. 6. Leukopenia, and thrombocytopenia. PLAN: 1. Continue vasopressors for ongoing shock. 2. Continue Clinimix/ProcalAmine as a nutrition source. Will attempt tube feeds. 3. Continue antibiotics. 4. Continue comfort measures. 5. Prognosis is guarded. He remains a DNR level 2. Time spent in critical care management 35 minutes. cc: MD Vince Santos MD
--- NOTE | 2019-02-04 16:51 | INFECTIOUS DISEASE PROGRESS NO ---
DATE: 02/04/2019 PRESENT ILLNESS: The patient has an E coli urinary tract infection and a Klebsiella and Morganella infected decubitus ulcers in both buttocks. MEDICATIONS: This is day 5 of treatment with the patient's antibiotic. Currently the patient is on Rocephin. PHYSICAL EXAMINATION: Vital Signs: Temperature is 100.3 degrees, pulse 101, respirations 11, blood pressure is 125/73. General: This is an ill-appearing middle-aged male. He is sleeping. He does not appear to be in any acute distress. Head, eyes, ears, nose, and throat: Throat no drainage noted from the nose or ears. I did not see any white patches in his mouth. Neck: No apparent pain when I moved his neck passively. Lungs: Bilateral rhonchi. Cardiovascular: Regular heart rate. Thorax: Patient has dorsal kyphosis. Abdomen: Soft and nontender. He does have a baclofen pump in the right lower quadrant. Neurologic: As mentioned above, the patient was sleeping. He does arouse when we moved him [id number] to do his dressings on his buttocks. Pelvic: The patient has 2 large buttock infected decubitus ulcers. There is some beefy red tissue in the ulcers but lot of it is devitalized tissue. LAB AND RADIOLOGY: CBC-WBC 7.8, hgb 9.2, platelets 13K. Creatinine-0.9. GFR- >60. Alk phos-266. Radiology-Chest x-ray shows no pneumonia. ASSESSMENT AND PLAN: I plan on continuing Rocephin for the patient's urinary tract infection and infected decubitus buttock ulcers. COMORBIDITIES: The patient has a glioblastoma, seizure disorder, and he is paralyzed due to spinal stenosis. cc: MD Vince Miller MD MTDD
[2019-02-04] MEDS: DECADRON IV SCH (17:57)
[2019-02-04] MEDS: GENTAMICIN OINTMENT TOP SCH (20:01)
[2019-02-05] MEDS: DECADRON IV SCH ×3 (00:21→18:04)
[2019-02-05] MEDS: LEVOPHED 8 MG in D5 1/2 NS 250 ML IV SCH ×3 (00:21→21:22)
[2019-02-05] MEDS: NS 1,000 ML IV SCH (00:21)
[2019-02-05] MEDS: GENTAMICIN OINTMENT TOP SCH ×5 (03:59→21:23)
[2019-02-05 04:39] LABS: AGAP 16; BUN 33 mg/dL (8-22); CHLORIDE 80 mmol/L (98-107); COSMO 266; CREATININE 0.8 mg/dL (0.7-1.2); ESTIMATED GFR > 60; GLUCOSE 199 mg/dL (70-104); SODIUM 126 mmol/L (136-145); TCO2 30 mmol/L (25-35)
[2019-02-05] MEDS: CLINIMIX E 4.25%-5% SOLUTION 1,000 ML IV SCH ×2 (05:24→15:14)
[2019-02-05] MEDS: DUONEB (A & A) INH SCH ×3 (08:35→21:40)
[2019-02-05] MEDS ORDERED: VASELINE TOP PRN (09:02)
[2019-02-05] MEDS: KEPPRA LIQUID PO SCH ×2 (09:28→21:23)
[2019-02-05] MEDS: SANTYL OINT TOP SCH (10:16)
[2019-02-05 11:41] LABS: HEMOGLOBIN 9.2 g/dL (14.0-18.0); MCH 31.9 PG (27-31); MCHC 34.1 g/dL (33-37); MCV 93.8 FL (81-99); MPV 12.2 FL (7.4-10.4); RBC 2.88 XMIL (4.7-6.1); RDW 13.8 % (11.5-14.5); WBC 7.8 X1000 (4.8-10.8)
[2019-02-05] MEDS: PROTONIX IV SCH (12:36)
[2019-02-05] MEDS: SODIUM CHLORIDE 0.9% INJ SCH (12:36)
--- NOTE | 2019-02-05 12:37 | PROGRESS NOTE ---
DATE: 02/05/2019 Mr. Herron is in ICU 5. He continues to be stuporous, and he has been at 35% FiO2, has respiratory failure. Arterial blood gases done yesterday revealed a pH of 7.45, pCO2 was 49, and pO2 was 115. His CBC was unremarkable except for anemia, hemoglobin 9.2, and platelet count had dropped earlier to 13. He was given 2 units of platelets. He has had some intermittent rectal bleeding. Electrolytes revealed the presence of hyponatremia, sodium 126, BUN 33, creatinine 0.8. Calcium has been low in the past, but is about 8 mEq per L. Urinalysis reveals 2+ bacteria, too numerous WBCs. INR was 1.35, PTT was 44.6. Fibrinogen level was 435. He has been on IV ceftriaxone, respiratory therapy, oxygen, IV glucose. He is on Pitressin 40 units IV. He is on pressure agents, also with IV Keppra. Overall prognosis is poor, he is DNR 2 besides getting the Jevity gastrostomy tube feeding he is getting Clinimix at 110 mL/h. We will continue the current management on him. cc: MD Vince Oconnor MD
[2019-02-05] MEDS: ROCEPHIN 2 GM in NS 50 ML IV SCH (15:14)
--- NOTE | 2019-02-05 16:38 | PULMONOLOGY PROGRESS NOTE ---
DATE: 02/05/2019 SUBJECTIVE: The patient is less responsive today. He is having some periods of apnea. OBJECTIVE: Vital Signs: Maximum temperature in the last 24 hours 100.6 degrees, BP 97/56, heart rate 78, respiratory rate 8, oxygen saturation 100%. HEENT: Pupils are equal and reactive with decreased reaction in the right eye. Oropharynx appears dry, but clear. neck: Neck is supple. CHEST: Chest reveals scattered rhonchi bilaterally. Cardiac: S1, S2. abdomen: Abdomen is soft with no bowel sounds present. rectal: He has a rectal tube in position draining maroon blood. Extremities: Reveal 1+ peripheral edema. LABORATORIES: White blood count 7.8, hemoglobin 9.2, platelet count 13,000. Sodium 126, potassium 4.0, chloride 80, bicarbonate 30, BUN 33, creatinine 0.8. IMPRESSION: A 58-year-old with: 1. Escherichia coli urinary tract infection with ongoing septic shock. 2. Bilateral stage IV decubitus ulcers with gram-negative infections. 3. Hypoxemic respiratory failure. 4. Protein calorie malnutrition. 5. Lower gastrointestinal bleeding/hematochezia. 6. Glioblastoma multiforme with progressions of disease. 7. Thrombocytopenia. 8. Encephalopathy. DISCUSSION: A 58-year-old with problems outlined above. The patient remains critically ill. His kidney function remains stable. His vasopressors are being weaned. He may or may not survive this hospital stay. This was discussed with his mother. PLAN: 1. Continue to wean vasopressors as tolerated. 2. Transfuse platelets for severe thrombocytopenia with active GI bleeding. 3. Continue tube feeds and ProcalAmine. 4. Continue antibiotics. 5. Continue comfort measures. 6. The patient remains critically ill. It is not clear he will survive this hospital stay. If he does survive, he still has a terminal illness associated with the glioblastoma multiforme. Time spent in critical care management: 30+ minutes cc: MD Vince Santos MD MTDD
[2019-02-06] MEDS: PROTONIX IV SCH ×2 (00:50→11:27)
[2019-02-06] MEDS: NS 1,000 ML IV SCH ×2 (00:50→16:49)
[2019-02-06] MEDS: CLINIMIX E 4.25%-5% SOLUTION 1,000 ML IV SCH ×3 (00:51→11:27)
[2019-02-06] MEDS: DECADRON IV SCH ×3 (01:30→16:49)
[2019-02-06] MEDS: DUONEB (A & A) INH SCH ×3 (07:57→21:33)
[2019-02-06] MEDS: GENTAMICIN OINTMENT TOP SCH ×4 (09:40→21:22)
[2019-02-06] MEDS: KEPPRA LIQUID PO SCH ×2 (09:40→21:22)
[2019-02-06] MEDS: SANTYL OINT TOP SCH (09:40)
[2019-02-06 11:22] LABS: BASO# 0.01 X1000 (0.0-0.2); BASO% 0.3 % (0.0-0.8); HEMATOCRIT 22.7 % (42.0-52.0); HEMOGLOBIN 7.1 g/dL (14.0-18.0); IMM GRAN# 0.04 X1000 (0.0-0.04); LYMPH% 10.3 % (20.5-51.1); MCH 30.9 PG (27-31); MCHC 31.3 g/dL (33-37); MCV 98.7 FL (81-99); MONO# 0.38 X1000 (0.11-0.59); MONO% 9.8 % (1.7-9.3); MPV 11.8 FL (7.4-10.4); NEUT# 3.05 X1000 (1.4-6.5); NEUT% 78.6 % (42.2-75.2); PLT 76 X1000 (130-400); RDW 13.9 % (11.5-14.5); WBC 3.88 X1000 (4.8-10.8)
[2019-02-06] MEDS: SODIUM CHLORIDE 0.9% INJ SCH (11:28)
[2019-02-06 11:48] LABS: AGAP 12; ALB/GLOB RATIO 1.2; ALKALINE PHOSPHATASE 385 U/L (32-122); BUN 70 mg/dL (8-22); CALCIUM 8.4 mg/dL (8.8-10.2); CHLORIDE 96 mmol/L (98-107); COSMO 306; CREATININE 0.8 mg/dL (0.7-1.2); ESTIMATED GFR > 60; GLUCOSE 216 mg/dL (70-104); GOT 84 U/L (10-34); GPT 63 U/L (10-44); POTASSIUM 3.8 mmol/L (3.5-5.1); SODIUM 140 mmol/L (136-145); TCO2 32 mmol/L (25-35); TOTAL BILIRUBIN 0.31 mg/dL (0.20-1.00); TOTAL PROTEIN 5.6 g/dL (6.3-8.3)
[2019-02-06 11:54] LABS: LYMPHS 10 % (21-51); MONO 9 % (1-9); SEGS 77 % (42-75)
[2019-02-06 11:55] LABS: ANISOCYTOSIS 1+; POIKILOCYTOSIS 1+; TARGET CELLS 1+
--- NOTE | 2019-02-06 12:23 | PROGRESS NOTE ---
DATE: 02/06/2019 ADDENDUM: His repeat CBC shows hemoglobin 7.1, hematocrit 22.7, white count is 3.88, platelet count has gone up to 76,000. His electrolyte status is stable. BUN is 70, creatinine 0.8. Liver enzymes, AST, ALT, and alkaline phosphatase all are elevated. cc: MD Vince Oconnor MD
[2019-02-06] MEDS: ROCEPHIN 2 GM in NS 50 ML IV SCH (14:13)
--- NOTE | 2019-02-06 16:23 | PULMONOLOGY PROGRESS NOTE ---
DATE: 02/06/2019 SUBJECTIVE: The patient opens his eyes. He responds with a moan. OBJECTIVE: Vital Signs: The patient is off vasopressin of vasopressin. He remains on low-dose Levophed. Blood pressure 116/67, heart rate 85, respiratory rate 14, oxygen saturation 100% on 28% FiO2. The patient has been afebrile for the last 24 hours HEENT: Pupils reveal decreased movement right pupil. Oropharynx appears clear. Neck is supple. Chest reveals rhonchi bilaterally. Cardiac exam: Distant heart sounds. Normal S1, normal S2. Abdomen is soft. Extremities without change in edema. LABORATORIES: Sodium 140, potassium 3.8, chloride 96, bicarbonate 32, BUN 70, creatinine 0.8. White blood count 3.88, hemoglobin 7.1, platelet count 76,000. IMPRESSION: 1. A 58-year-old with Escherichia coli urinary tract infection with ongoing septic shock. He continues to wean his vasopressors. 2. Stage IV decubitus ulcers on both the buttocks bilaterally. 3. Hypoxemic respiratory failure. 4. Protein calorie malnutrition. He is now tolerating tube feeds. 5. Lower gastrointestinal bleeding. 6. Glioblastoma multiforme with progression of disease. 7. Thrombocytopenia with significant improvement following platelet transfusion. 8. Encephalopathy. PLAN: 1. Continue to wean vasopressors as tolerated. 2. Continue antibiotics. 3. Monitor platelets and transfuse if less than 50 and actively bleeding. 4. Continue tube feeds. 5. Discontinue Clinimix/ProcalAmine. 6. Prognosis remains guarded. TIME SPENT: Critical care management 30+ minutes. cc: MD Vince Santos MD
[2019-02-07] MEDS: PROTONIX IV SCH ×3 (00:40→23:29)
[2019-02-07] MEDS: DECADRON IV SCH ×2 (00:41→09:32)
[2019-02-07 04:56] LABS: ALLEN TEST YES; BE 10.1 mmoll (-3.0-3.0); BLOOD TYPE ARTERIAL; HCO3-(ACT) 32.8 mmoll (20.0-26.0); METHB 1.7 % (0.0-1.5); MODALITY COOL AEROSOL; O2(CT) 12.7 mL/dL (15.0-23.0); O2HB 95.5 % (95.0-99.0); PCO2(98.6) 48 mmHg (35-45); PO2(98.6) 118 mmHg (60-100); SAMPLE BLOOD; SAO2 98.3 % (95.0-100.0); THB 9.3 g/dL (11.5-17.4); pH(98.6) 7.47 (7.35-7.45)
--- NOTE | 2019-02-07 05:52 | PROGRESS NOTE ---
DATE: 02/06/2019 Mr. Cordero is somewhat more alert today. His vital signs are stable, and he has Escherichia coli UTI with septic shock, and he received 2 units of packed RBCs. However, the platelet count has come up today after 2 units of platelets yesterday. It has come up to 70,000. He also has hypoxemic respiratory failure. Overall prognosis is poor. We will continue with the current management on him. -5 cc: MD Vince Oconnor MD
--- NOTE | 2019-02-07 06:11 | Diag Imaging Result Doc PS360 ---
EXAM: CHEST-PORTABLE HISTORY: abnormal exam TECHNIQUE: Single view COMPARISON: 02/04/2019 FINDINGS: No change in the nasogastric tube are left jugular line. The lungs are well expanded. No cardiomegaly. Mild vascular distention. Small infiltrates in the right base. IMPRESSION: Mild interval worsening Electronically signed by Errol Santos 02/07/2019 6:09 AM
[2019-02-07 06:28] LABS: BASO# 0.02 X1000 (0.0-0.2); BASO% 0.7 % (0.0-0.8); HEMATOCRIT 21.6 % (42.0-52.0); HEMOGLOBIN 6.6 g/dL (14.0-18.0); IMM GRAN# 0.08 X1000 (0.0-0.04); IMM GRAN% 2.7 % (0.0-0.5); LYMPH# 0.52 X1000 (1.2-3.4); LYMPH% 17.9 % (20.5-51.1); MCH 30.6 PG (27-31); MCHC 30.6 g/dL (33-37); MONO# 0.26 X1000 (0.11-0.59); MONO% 8.9 % (1.7-9.3); MPV 12.4 FL (7.4-10.4); NEUT# 2.03 X1000 (1.4-6.5); NEUT% 69.8 % (42.2-75.2); PLT 57 X1000 (130-400); RBC 2.16 XMIL (4.7-6.1); WBC 2.91 X1000 (4.8-10.8)
[2019-02-07 06:44] LABS: AGAP 12; ALB/GLOB RATIO 1.1; ALBUMIN 2.7 g/dL (3.5-5.0); ALKALINE PHOSPHATASE 530 U/L (32-122); BUN 80 mg/dL (8-22); CALCIUM 8.4 mg/dL (8.8-10.2); CHLORIDE 102 mmol/L (98-107); COSMO 316; CREATININE 0.7 mg/dL (0.7-1.2); ESTIMATED GFR > 60; GLUCOSE 152 mg/dL (70-104); GOT 398 U/L (10-34); GPT 350 U/L (10-44); MAGNESIUM 2.1 mg/dL (1.5-2.7); PHOSPHORUS 2.6 mg/dL (2.7-4.5); POTASSIUM 4.4 mmol/L (3.5-5.1); SODIUM 145 mmol/L (136-145); TCO2 31 mmol/L (25-35); TOTAL BILIRUBIN 0.35 mg/dL (0.20-1.00); TOTAL PROTEIN 5.1 g/dL (6.3-8.3)
--- NOTE | 2019-02-07 07:28 | PROGRESS NOTE ---
DATE: 02/07/2019 Vital signs stable with temperature of 97.8 degrees, heart rate 88, respirations 12, blood pressure 102/61, O2 saturation on mask with oxygen 100%. He continues to require vasopressin. Hematocrit dropped to 21, white blood count is 2900 with 70% neutrophils. He arouses to verbal stimuli and opens his eyes. There is no movement of arms or legs. Chest is fairly clear. X-ray this morning revealed mild worsening with right lower lobe infiltrate. Abdomen is soft to palpation. PLAN: Transfuse 2 units of packed red blood cells. Rocephin and vasopressin are continued. cc: Vince Stevenson MD
--- NOTE | 2019-02-07 08:22 | INFECTIOUS DISEASE PROGRESS NO ---
DATE: 02/07/2019 PRESENT ILLNESS: The patient has an E. coli urinary tract infection, Klebsiella and Morganella infected decubitus ulcers in both buttocks, and a possible right lower lobe infiltrate that could be due to pneumonia. MEDICATIONS: This is day 8 of treatment with the patient's antibiotics. PHYSICAL EXAMINATION: Vital Signs: Temperature earlier was 100 and now it is 98, pulse 88, respirations 12, blood pressure 102/61. General: This is an ill-appearing, middle-aged male. He is very lethargic and does not respond to verbal stimuli. Head, Eyes, Ears, Nose, and Throat: No drainage was seen from the nose or ears. Neck: There was no stiffness. Lungs: Had bilateral rhonchi. Cardiovascular: The patient's heart rate is regular. Abdomen: Soft and nontender. Neurologic: The patient does not respond to verbal stimuli. There is no tremor. Pelvic Examination: The patient has two large buttock infected decubitus ulcers. I asked his nurse to page me when she does the dressing change so I can see how the ulcers look. LAB AND RADIOLOGY: Chest x-ray shows mild worsening of the right lower lobe infiltrate. The alkaline phosphatase is 530, AST is 398. CBC shows a white count of 2910, hemoglobin 6.6, and platelet count 57,000. Blood gases show a pH of 7.47, a PO2 of 118, and a pCO2 of 48. Creatinine is 0.7. GFR is greater than 60. ASSESSMENT AND PLAN: I plan on continuing Rocephin for the patient's urinary tract infection, infected decubitus buttock ulcers, and possible pneumonia. COMORBIDITIES: The patient has a glioblastoma that cannot be removed. He also has a seizure disorder and he is paralyzed, and he has bilateral leg paralysis due to spinal stenosis. cc: MD Vince Miller MD
[2019-02-07] MEDS: KEPPRA LIQUID PO SCH ×2 (09:31→20:20)
[2019-02-07] MEDS: SANTYL OINT TOP SCH (09:32)
[2019-02-07] MEDS: GENTAMICIN OINTMENT TOP SCH ×4 (09:32→20:20)
[2019-02-07] MEDS: DUONEB (A & A) INH SCH ×3 (09:42→21:49)
[2019-02-07] MEDS: NS 1,000 ML IV SCH (13:00)
[2019-02-07] MEDS: SODIUM CHLORIDE 0.9% INJ SCH ×2 (13:31→23:30)
--- NOTE | 2019-02-07 13:37 | PULMONOLOGY PROGRESS NOTE ---
DATE: 02/07/2019 SUBJECTIVE: The patient is arousable. He will not interact with the examiner. His Levophed is now on standby. OBJECTIVE: Vital Signs: The patient has been afebrile for the last 24 hours. Blood pressure 109/60, heart rate 95, respiratory rate 11, oxygen saturation 97% on 35%. HEENT: Pupils are equal. Oropharynx appears clear but dry. Neck: Supple. Chest: Reveals scattered rhonchi bilaterally. Cardiac Exam: S1-S2. Abdomen: Soft with diminished bowel sounds. Extremities: Unchanged. LABORATORIES: Chest x-ray reveals mild increased markings at the right base. White blood count 2.9, hemoglobin 6.6, platelet count 57,000. Sodium 145, potassium 4.4, chloride 102, bicarbonate 31, BUN 80, creatinine 0.4. AST 398, ALT 350, alkaline phosphatase 530. IMPRESSION: A 58-year-old with 1. Escherichia coli infection and septic shock. He has been successfully weaned off vasopressors, but his blood pressure is marginal. 2. Stage IV decubitus ulcers. 3. Glioblastoma multiforme with progression of disease. 4. Hypoxemic respiratory failure. 5. Protein calorie malnutrition. 6. Gastrointestinal bleeding with blood loss anemia. 7. Thrombocytopenia. 8. Encephalopathy. PLAN: 1. Agree with transfusion of blood as outlined by Dr. Vince Stevenson. 2. Continue antibiotics. 3. We will transfuse platelets if bleeding continues and platelets continues to drop. 4. Overall prognosis is guarded to poor, but he has had clinical improvement over the last several days. cc: MD Vince Santos MD
[2019-02-07] MEDS: ROCEPHIN 2 GM in NS 50 ML IV SCH (13:40)
--- NOTE | 2019-02-07 14:00 | INFECTIOUS DISEASE PROGRESS NO ---
DATE: 02/07/2019 ADDENDUM REPORT: I returned see the patient in the intensive care unit. The packing from both of his buttock decubitus ulcers was removed. Unfortunately, both ulcers had devitalized and necrotic tissue present in them. cc: MD Vince Miller MD
[2019-02-08 05:44] LABS: CREATININE 0.8 mg/dL (0.7-1.2)
[2019-02-08] MEDS: DUONEB (A & A) INH SCH ×4 (07:32→20:30)
[2019-02-08] MEDS ORDERED: LASIX IV ONE (07:42)
--- NOTE | 2019-02-08 08:02 | PROGRESS NOTE ---
DATE: 02/08/2019 VITAL SIGNS: Temperature 98 degrees, heart rate 108, respirations 24, O2 saturation 92% on 40% oxygen by mask. SUBJECTIVE: Oxygen had to be increased last night. He sounds a little more wet, especially on the right to auscultation of his lungs this morning. He is less responsive. Hematocrit was 31. BUN and creatinine were 77 and 0.8 respectively. Abdomen is soft. PLAN: IV Lasix. Restart Decadron. cc: Vince Stevenson MD
[2019-02-08] MEDS: GENTAMICIN OINTMENT TOP SCH ×4 (08:25→20:17)
[2019-02-08] MEDS: DECADRON IV SCH ×3 (08:26→23:17)
[2019-02-08] MEDS: KEPPRA LIQUID PO SCH ×2 (08:26→20:17)
[2019-02-08] MEDS: NS 1,000 ML IV SCH (08:26)
[2019-02-08] MEDS: SANTYL OINT TOP SCH (08:41)
[2019-02-08] MEDS: SODIUM CHLORIDE 0.9% INJ SCH ×2 (12:21→23:17)
[2019-02-08] MEDS: PROTONIX IV SCH ×2 (12:21→23:17)
[2019-02-08] MEDS: ROCEPHIN 2 GM in NS 50 ML IV SCH (15:00)
--- NOTE | 2019-02-08 21:56 | PULMONOLOGY PROGRESS NOTE ---
DATE: 02/08/2019 SUBJECTIVE: The patient does not respond to voice or stimulus. He has no increased work of breathing. OBJECTIVE: Vital Signs: Maximum temperature in the last 24 hours 99.2 degrees, blood pressure 114/65, heart rate 106, respiratory rate 16, oxygen saturation 100% on face mask. He remains off Levophed and vasopressin. HEENT: Pupils are sluggish. Oropharynx appears clear, but dry. Neck: Is supple. Chest: Reveals occasional rhonchi bilaterally. Cardiac exam: S1-S2. Abdomen: Is soft. Extremities: Reveal +1 peripheral edema. LABORATORIES: Hemoglobin 31.4. No new microbiology data. IMPRESSION: 58-year-old with 1. Escherichia coli infection with septic shock. He has been weaned off vasopressor. 2. Stage IV decubitus ulcers. These appeared necrotic as per Dr. Cnao' notes. This is expected given his hypotension and malnutrition. 3. Glioblastoma with progression of disease. 4. Acute hypoxemic respiratory failure. 5. Protein-calorie malnutrition. 6. Encephalopathy. PLAN: 1. Continue current treatment regimen. 2. Follow up chemistries, CBC, and chest x-ray tomorrow. 3. Overall prognosis appears poor. He has had some cognitive decline despite improving hemodynamically. cc: MD Vince Santos MD
[2019-02-09] MEDS: NS 1,000 ML IV SCH (03:02)
[2019-02-09 05:14] LABS: ALLEN TEST YES; BE 9.1 mmoll (-3.0-3.0); BLOOD TYPE ARTERIAL; HCO3-(ACT) 31.9 mmoll (20.0-26.0); METHB 1.3 % (0.0-1.5); O2(CT) 14.1 mL/dL (15.0-23.0); O2HB 92.4 % (95.0-99.0); PCO2(98.6) 40 mmHg (35-45); PO2(98.6) 61 mmHg (60-100); SAMPLE BLOOD; SAO2 95.1 % (95.0-100.0); THB 10.8 g/dL (11.5-17.4); pH(98.6) 7.52 (7.35-7.45)
[2019-02-09 05:15] LABS: MODALITY COOL AEROSOL
[2019-02-09 06:13] LABS: BASO# 0.08 X1000 (0.0-0.2); BASO% 1.3 % (0.0-0.8); HEMATOCRIT 32.2 % (42.0-52.0); HEMOGLOBIN 9.8 g/dL (14.0-18.0); IMM GRAN# 0.12 X1000 (0.0-0.04); IMM GRAN% 1.9 % (0.0-0.5); LYMPH# 0.58 X1000 (1.2-3.4); LYMPH% 9.1 % (20.5-51.1); MCH 30.6 PG (27-31); MCHC 30.4 g/dL (33-37); MCV 100.6 FL (81-99); MONO# 0.17 X1000 (0.11-0.59); MONO% 2.7 % (1.7-9.3); MPV 12.3 FL (7.4-10.4); NEUT# 5.41 X1000 (1.4-6.5); PLT 55 X1000 (130-400); RDW 15.3 % (11.5-14.5); WBC 6.36 X1000 (4.8-10.8)
[2019-02-09 06:21] LABS: MAGNESIUM 1.9 mg/dL (1.5-2.7); PHOSPHORUS 2.8 mg/dL (2.7-4.5)
[2019-02-09 06:23] LABS: ESTIMATED GFR > 60
[2019-02-09 06:25] LABS: AGAP 11; ALB/GLOB RATIO 0.9; ALBUMIN 2.5 g/dL (3.5-5.0); ALKALINE PHOSPHATASE 349 U/L (32-122); BUN 85 mg/dL (8-22); CALCIUM 8.6 mg/dL (8.8-10.2); CHLORIDE 109 mmol/L (98-107); COSMO 335; CREATININE 0.9 mg/dL (0.7-1.2); GLUCOSE 171 mg/dL (70-104); GOT 55 U/L (10-34); GPT 225 U/L (10-44); POTASSIUM 3.8 mmol/L (3.5-5.1); SODIUM 154 mmol/L (136-145); TCO2 34 mmol/L (25-35); TOTAL BILIRUBIN 0.33 mg/dL (0.20-1.00); TOTAL PROTEIN 5.2 g/dL (6.3-8.3)
[2019-02-09] MEDS ORDERED: ALBUMIN 25% IV ONE (07:37)
--- NOTE | 2019-02-09 07:37 | Diag Imaging Result Doc PS360 ---
EXAM: CHEST-PORTABLE 02/09/2019 HISTORY: increasing chest congestion TECHNIQUE: AP portable at 0514 COMMENT: There is an NG tube which passes below the diaphragm into the stomach. There is a left internal jugular central venous catheter with its tip at the confluence of the brachiocephalic veins. There is pleural fluid on the left which has increased since 02/07/2019. There is mild interstitial pulmonary edema. IMPRESSION: Left pleural effusion. Pulmonary edema. Electronically signed by Alfredito Fulton 02/09/2019 7:35 AM
--- NOTE | 2019-02-09 08:01 | PROGRESS NOTE ---
DATE: 02/09/2019 OBJECTIVE: Vital signs stable with temperature 98 degrees, heart rate 102, respiration 18, blood pressure 119/68 O2 saturation on mask is 100%. LABORATORY DATA: Hemoglobin 9.8, hematocrit 32.2, white blood count 6300. Sodium 154, potassium 3.8, BUN 85, creatinine 0.9, glucose 171, calcium 8.6. Total bilirubin 0.33, AST 55, ALT 225, alkaline phosphatase 349, total protein 5.2, albumin 2.5. The patient is a little more alert and can open his eyes. Chest is more clear with fewer rhonchi and increased upper airway sounds. Chest x-ray is improved. PLAN: Continue current therapy and supportive care. He will be given IV albumin today. cc: Vince Stevenson MD
[2019-02-09] MEDS: DECADRON IV SCH ×2 (08:21→16:53)
[2019-02-09] MEDS: KEPPRA LIQUID PO SCH ×2 (08:21→20:47)
[2019-02-09] MEDS: SANTYL OINT TOP SCH (08:22)
[2019-02-09] MEDS: GENTAMICIN OINTMENT TOP SCH ×4 (08:22→20:47)
[2019-02-09] MEDS: DUONEB (A & A) INH SCH ×3 (08:42→21:16)
[2019-02-09] MEDS: PROTONIX IV SCH (11:42)
[2019-02-09] MEDS: SODIUM CHLORIDE 0.9% INJ SCH (11:42)
--- NOTE | 2019-02-09 11:52 | INFECTIOUS DISEASE PROGRESS NO ---
DATE: 02/09/2019 PRESENT ILLNESS: The patient has an E coli urinary tract infection, Klebsiella and Morganella infected bilateral buttock decubitus ulcers and possible pneumonia. MEDICATIONS: This is day 9 of treatment with the patient's antibiotics which and the current antibiotic is Rocephin. PHYSICAL EXAMINATION: Vital Signs: Temperature is 98.2 degrees, pulse 105, respirations 21, blood pressure 115/66. General: This is an ill-appearing middle-aged male. He is obtunded. Head, eyes, ears, nose, and throat: Throat no drainage noted from the nose or ears. He does have a nasogastric tube in place. There is no drainage from the nose or ears. Neck: The patient has a left-sided internal jugular vein catheter in place. The site is not purulent or red. Cardiovascular: Heart rate is regular and rapid. Lungs: Clear to auscultation. Abdomen: Soft and did not appear to be tender. Pelvic area: Yesterday I saw the patient's bilateral buttock decubitus ulcers. The ulcers are not getting any smaller and there is more devitalized and necrotic tissue than there since the last time I saw the patient. Neurologic: Patient does not respond to verbal stimuli. LAB AND RADIOLOGY: The CBC shows a white count of 6260, hemoglobin 9.8, platelet count 55,000. Blood gases show a pH of 7.52, a PO2 of 61, a pCO2 of 40. Creatinine is 0.9, GFR is greater than 60. ALT is 225, alkaline phosphatase 349. ASSESSMENT AND PLAN: The patient has a urinary tract infection and infected bilateral buttock decubitus ulcers. I plan on continuing Rocephin. As regard to the patient has pneumonia, I am going to repeat the patient's chest x-ray. COMORBIDITIES: The patient has a nonsurgical glioblastoma in place. He also has a seizure disorder and is paralyzed in the legs due to spinal stenosis. cc: MD Vince Miller MD
[2019-02-09] MEDS: ROCEPHIN 2 GM in NS 50 ML IV SCH (14:05)
--- NOTE | 2019-02-09 15:59 | Diag Imaging Result Doc PS360 ---
CHEST-1 VIEW - 02/09/2019 INDICATION: pneumonia COMPARISON: 02/09/2019 FINDINGS: Stable left central line. Stable nasogastric tube. There has been significant improvement in aeration of the left lung base with good visualization of the left hemidiaphragm. There is residual ill-defined infiltrate throughout the left lung diffusely. There is some trace patchy infiltrate in the right lung base as well. Heart size remains top normal. IMPRESSION: Improved aeration of the left lower lobe. Other infiltrates are stable. Electronically signed by Immanuel Brown 02/09/2019 3:56 PM
[2019-02-09] MEDS: D5W 1,000 ML IV SCH (23:04)
[2019-02-10] MEDS: DECADRON IV SCH ×4 (00:28→23:26)
[2019-02-10] MEDS: PROTONIX IV SCH ×3 (00:28→23:26)
--- NOTE | 2019-02-10 05:54 | PULMONOLOGY PROGRESS NOTE ---
DATE: 02/09/2019 SUBJECTIVE: The patient opens his eyes. His mother reports he had been speaking. OBJECTIVE: Maximum temperature in the last 24 hours 100.9 degrees. Blood pressure 110/62, heart rate 86, respiratory rate 17, and oxygen saturation 100% on 40% face mask. HEENT: Pupils are equal and reactive. Oropharynx appears clear. Neck: Supple. Chest reveals coarse rhonchi bilaterally. Cardiac: S1-S2. Abdomen: Soft with positive bowel sounds. Extremities: Unchanged. LABORATORIES: White blood count 6.36, hemoglobin 9.8, and platelet count 55,000. Sodium 154, potassium 3.8, chloride 100, bicarbonate 34, BUN 85, and creatinine 0.9. IMPRESSION: A 58-year-old with: 1. Escherichia coli urinary tract infection and septic shock. 2. Stage IV decubitus ulcers with areas of necrosis. 3. Glioblastoma with progression of disease. 4. Hypernatremia. 5. Acute hypoxemic respiratory failure. 6. Pneumonia. 7. Protein calorie malnutrition. 8. Encephalopathy with some improvement. PLAN: 1. Continue current antibiotic regimen. 2. Initiate free water replacement. 3. Continue antibiotics per Infectious Disease. 4. Prognosis is guarded. The patient has a terminal malignancy. cc: MD Vince Santos MD
[2019-02-10] MEDS ORDERED: VANCOMYCIN IV PER PHARMACY MISC SCH (07:00)
[2019-02-10 07:33] LABS: BASO# 0.02 X1000 (0.0-0.2); BASO% 0.5 % (0.0-0.8); HEMOGLOBIN 9.2 g/dL (14.0-18.0); IMM GRAN# 0.05 X1000 (0.0-0.04); IMM GRAN% 1.4 % (0.0-0.5); LYMPH# 0.34 X1000 (1.2-3.4); LYMPH% 9.3 % (20.5-51.1); MCH 30.6 PG (27-31); MCHC 29.7 g/dL (33-37); MONO# 0.22 X1000 (0.11-0.59); MPV 12.5 FL (7.4-10.4); NEUT# 3.03 X1000 (1.4-6.5); NEUT% 82.8 % (42.2-75.2); PLT 48 X1000 (130-400); RBC 3.01 XMIL (4.7-6.1); RDW 15.5 % (11.5-14.5); WBC 3.66 X1000 (4.8-10.8)
[2019-02-10] MEDS ORDERED: VANCOMYCIN 2,000 MG in NS 500 ML IV SCH (08:00)
[2019-02-10 08:09] LABS: AGAP 13; BUN 77 mg/dL (8-22); CHLORIDE 111 mmol/L (98-107); COSMO 331; CREATININE 0.9 mg/dL (0.7-1.2); ESTIMATED GFR > 60; GLUCOSE 182 mg/dL (70-104); POTASSIUM 4.4 mmol/L (3.5-5.1); SODIUM 153 mmol/L (136-145); TCO2 29 mmol/L (25-35)
[2019-02-10 08:11] LABS: LYMPHS 14 % (21-51); SEGS 86 % (42-75)
[2019-02-10] MEDS: DUONEB (A & A) INH SCH ×3 (08:46→21:37)
--- NOTE | 2019-02-10 08:50 | PROGRESS NOTE ---
DATE: 02/10/2019 VITAL SIGNS: Stable with temperature 98.7 degrees, heart rate 88, respiration 19, blood pressure 119/69 off IV pressors, O2 saturation 95% on mask. LABORATORY: Pending. OBJECTIVE: Chest: Reveals increased upper airway sounds. Abdomen: Soft. Neurologic: He is fairly alert and responding verbally at times. PLAN: Continue supportive care. Discontinue NG tube, NG feedings, and try p.o. liquids. cc: Vince Stevenson MD
[2019-02-10] MEDS: KEPPRA LIQUID PO SCH ×2 (08:56→20:46)
[2019-02-10] MEDS: SANTYL OINT TOP SCH (08:58)
[2019-02-10] MEDS: GENTAMICIN OINTMENT TOP SCH ×4 (08:58→20:07)
[2019-02-10] MEDS: D5W 1,000 ML IV SCH ×2 (09:06→23:35)
[2019-02-10] MEDS: TEFLARO 600 MG in NS 250 ML IV SCH ×2 (10:50→20:53)
--- NOTE | 2019-02-10 11:40 | INFECTIOUS DISEASE PROGRESS NO ---
DATE: 02/10/2019 PRESENT ILLNESS: The patient has an E coli urinary tract infection, Klebsiella, Morganella infected buttock decubitus ulcers, and possible bilateral pneumonia. MEDICATIONS: This is day 10 of treatment of Rocephin, including earlier antibiotics and Rocephin. PHYSICAL EXAMINATION: Vital Signs: Temperature is 100 degrees, pulse 77, respirations 15, blood pressure is 117/65. General: This is an ill-appearing middle-aged male. He is obtunded. Head, eyes, ears, nose, and throat: I did not see any drainage from the nose or ears. I was not able to get a good look into the patient's mouth. Neck: The patient has some slight stiffness of the neck, but it does not seem to hurt him. Lungs: Bilateral rhonchi. Cardiovascular: Heart rate is regular. Abdomen: Soft and nontender. The patient has bilateral buttock decubitus ulcers. They have dressings on them. Neurologic: The patient is obtunded. He did not respond to verbal stimuli. LABORATORY AND RADIOLOGY: There is no new lab for today. Chest x-ray shows bilateral infiltrates, which are better on the left side. ASSESSMENT AND PLAN: I have discontinued Rocephin and started the patient on ceftaroline to treat the UTI, decubitus ulcers and pneumonia. COMORBIDITIES: The patient has a glioblastoma in his head which cannot be operated on. He also has a seizure disorder. He is paralyzed in his legs due to spinal stenosis. cc: MD Vince Miller MD MTDD
[2019-02-10] MEDS: SODIUM CHLORIDE 0.9% INJ SCH (12:18)
--- NOTE | 2019-02-10 22:29 | PULMONOLOGY PROGRESS NOTE ---
DATE: 02/10/2019 SUBJECTIVE: Family reports he has been talking some today. He is slightly more awake. He appears fatigued. OBJECTIVE: Maximum temperature in the last 24 hours 100.9 degrees. Blood pressure 126/66, heart rate 64, respiratory rate 14, oxygen saturation 94%. HEENT: Pupils are equal and reactive, but sluggish on the right. Oropharynx is dry. Neck: Supple. Chest: Coarse rhonchi bilaterally. Cardiac: S1-S2. Abdomen: Soft with diminished bowel sounds. Extremities: Peripheral edema 1+. LABORATORY DATA: Sodium 153, potassium 4.4, chloride 111, bicarbonate 23, BUN 77, creatinine 0.9. White blood count 3.66, hemoglobin 9.2, platelet count 48,000. IMPRESSION: A 58-year-old with: 1. Escherichia coli urinary tract infection and septic shock. He remains off vasopressors. 2. Stage IV decubitus ulcers with progressive necrosis with recent hypotension event. 3. Glioblastoma with progression of disease. 4. Hypernatremia with marginal improvement with D5W. 5. Acute hypoxemic respiratory failure. 6. Pneumonia. 7. Protein-calorie malnutrition. DISCUSSION: A 58-year-old with the problems outlined above. He has stabilized and is having marginal improvement. Overall prognosis remains poor. PLAN: 1. Continue free water replacement. 2. Continue current antibiotic regimen per Infectious Disease. 3. Continue bronchial hygiene. 4. Wean oxygen as tolerated. 5. Overall prognosis appears poor. cc: MD Vince Santos MD
[2019-02-11 05:42] LABS: BASO# 0.01 X1000 (0.0-0.2); BASO% 0.4 % (0.0-0.8); HEMATOCRIT 29.7 % (42.0-52.0); HEMOGLOBIN 8.8 g/dL (14.0-18.0); IMM GRAN# 0.05 X1000 (0.0-0.04); IMM GRAN% 1.9 % (0.0-0.5); LYMPH# 0.43 X1000 (1.2-3.4); MCH 29.8 PG (27-31); MCHC 29.6 g/dL (33-37); MCV 100.7 FL (81-99); MONO# 0.18 X1000 (0.11-0.59); MONO% 6.7 % (1.7-9.3); MPV 11.6 FL (7.4-10.4); NEUT# 2.01 X1000 (1.4-6.5); PLT 47 X1000 (130-400); RBC 2.95 XMIL (4.7-6.1); RDW 14.7 % (11.5-14.5); WBC 2.68 X1000 (4.8-10.8)
[2019-02-11 06:06] LABS: ESTIMATED GFR > 60
[2019-02-11 06:16] LABS: AGAP 14; BUN 64 mg/dL (8-22); CALCIUM 8.7 mg/dL (8.8-10.2); CHLORIDE 106 mmol/L (98-107); COSMO 309; CREATININE 0.8 mg/dL (0.7-1.2); GLUCOSE 99 mg/dL (70-104); POTASSIUM 4.5 mmol/L (3.5-5.1); SODIUM 146 mmol/L (136-145); TCO2 26 mmol/L (25-35)
[2019-02-11 06:57] LABS: BANDS 4 % (0-1); LYMPHS 8 % (21-51); MONO 3 % (1-9); NRBC 4 % (0-0); SEGS 82 % (42-75)
--- NOTE | 2019-02-11 07:13 | Diag Imaging Result Doc PS360 ---
EXAM: CHEST-1 VIEW 02/11/2019 HISTORY: pneumonia TECHNIQUE: AP portable at 0503 COMMENT: There is a skin fold over the left apex. There is ill-defined alveolar opacity in the retrocardiac left lower lobe. The right lung is better expanded than on the previous study of 02/09/2019. Otherwise are has been no significant change. The left internal jugular central venous line and NG tube remain in place. IMPRESSION: Left lower lobe pneumonia. Electronically signed by Alfredito Fulton 02/11/2019 7:11 AM
[2019-02-11] MEDS: TEFLARO 600 MG in NS 250 ML IV SCH ×2 (08:06→20:42)
[2019-02-11] MEDS: DECADRON IV SCH ×3 (08:06→23:08)
[2019-02-11] MEDS: SANTYL OINT TOP SCH (08:07)
[2019-02-11] MEDS: GENTAMICIN OINTMENT TOP SCH ×4 (08:07→20:40)
[2019-02-11] MEDS: KEPPRA LIQUID PO SCH ×2 (08:07→20:41)
[2019-02-11] MEDS: DUONEB (A & A) INH SCH ×3 (08:32→21:16)
--- NOTE | 2019-02-11 08:48 | PROGRESS NOTE ---
DATE: 02/11/2019 VITAL SIGNS: Stable with temperature 98.7 degrees, heart rate 63, respirations 12, blood pressure 116/70, and O2 saturation on 40% mask 97%. LABORATORY: Hemoglobin 8.8, hematocrit 29.7, white blood count 2700. Sodium 146, potassium 4.5, BUN 64, creatinine 0.8, and calcium 8.7. SUBJECTIVE: The patient is alert and in the process of having oral suction. There continues to be some upper airway mucus. Nurses have not feel comfortable removing the NG tube. This will be done once he is able to swallow his medicines, and drink some fluids. Right side of his mouth looks a little worse this morning with some excoriation and erythema. Chest reveals increased upper airway mucus. Otherwise clear. I O yesterday was positive 530 balance. He has had liquid bowel movements daily. Abdomen is soft. PLAN: Continue supportive care. Hopefully, NG can be removed soon. cc: Vince Stevenson MD
[2019-02-11] MEDS: PROTONIX IV SCH ×2 (11:22→23:07)
[2019-02-11] MEDS: D5W 1,000 ML IV SCH (12:58)
--- NOTE | 2019-02-11 17:06 | INFECTIOUS DISEASE PROGRESS NO ---
DATE: 02/11/2019 PRESENT ILLNESS: Mr. Cordero is being treated for an Escherichia coli urinary tract infection and an infected decubitus ulcer on his buttocks which has grown Klebsiella and Morganella. There is also a left lower lobe pneumonia. MEDICATIONS: He is receiving ceftaroline 600 mg IV every 12 hours as a single agent. This was started yesterday. PHYSICAL EXAMINATION: Vital Signs: Temperature is 98.7 degrees, pulse rate 56, respiratory rate 19, blood pressure 122/69, O2 saturation is 98% on a 40% FiO2 mask. General: This is a chronically ill-appearing, middle-aged gentleman. He is lying in the bed, currently in no acute distress. HEENT: He does have some sores noted around his mouth with some mild eschar. Oral mucous membranes are pink with some exudate noted in his mouth. Conjunctivae are pale. Neck: Some decrease in suppleness. There is a left intrajugular central line in place. That site is without edema, erythema, or drainage. Respiratory: Lung sounds have coarse rhonchi noted bilaterally. He does have a congested cough. No work of breathing is noted. Cardiovascular: Heart rate and rhythm are regular and slow, sinus andre on the monitor. Abdomen: Soft, flat, and nontender. Bowel sounds are audible. He does have NG tube in place which is clamped. There are dressings in place to his decubitus ulcers. Neurologic: He is awake, alert, and following commands without difficulty. There are lower extremity contractures noted and he is able to move his upper extremities, which are very weak. LABORATORY AND X-RAY: Today, his white count is 2.68, hemoglobin 8.8, platelet count 47,000. Creatinine is 0.8, estimated GFR is greater than 60. His urine had previously grown Escherichia coli, and the buttock wounds have grown Klebsiella and Morganella. Blood cultures have shown no growth since admission. Chest x-ray today shows left lower lobe pneumonia. ASSESSMENT AND PLAN: Mr. Cordero was started yesterday on ceftaroline for his pneumonia, urinary tract infection, and buttock ulcers. He is afebrile and white count has remained normal to low. Absolute neutrophil count is normal. He is awake and alert today. For now, we will continue his ceftaroline as ordered. These plans have been discussed with and recommended by Dr. Cano. COMORBIDITIES: For Mr. Cordero include glioblastoma, seizure disorder, lower extremity paralysis and contractures, and cerebral palsy. Dictated by ALEX Means for Josep Cano MD cc: MD Vince Miller MD
[2019-02-11] MEDS ORDERED: LASIX IV ONE (19:42)
[2019-02-11] MEDS: SODIUM CHLORIDE 0.9% INJ SCH (23:08)
--- NOTE | 2019-02-12 00:21 | PULMONOLOGY PROGRESS NOTE ---
DATE: 02/11/2019 SUBJECTIVE: The patient is more awake today. He has a wet cough. OBJECTIVE: The patient has been afebrile for the last 24 hours. He is on no vasopressors. Blood pressure 109/62, heart rate 59, respiratory rate 14, oxygen saturation 94%. HEENT: Pupils are equal and reactive. Oropharynx appears clear but dry. Neck is supple. Chest reveals coarse rhonchi bilaterally with decreased breath sounds, left base. Cardiac exam: S1, S2. Abdomen is soft. Extremities reveal 1+ peripheral edema. LABORATORY DATA: Sodium 146, potassium 4.5, chloride 106, bicarbonate 26, BUN 64, creatinine 0.8. White blood count 2.8, hemoglobin 8.8, platelet count 47,000. DIAGNOSTIC DATA: Chest x-ray reveals retrocardiac infiltrate. IMPRESSION: A 58-year-old with: 1. Escherichia coli urinary tract infection and septic shock. 2. Stage IV decubitus with progressive necrosis, with recent hypotensive event. 3. Glioblastoma with progression of disease. 4. Hypernatremia, with continued improvement with D5W. 5. Pneumonia in the left lower lobe. 6. Acute hypoxemic respiratory failure. 7. Protein-calorie malnutrition. PLAN: 1. Continue free water replacement. 2. Continue antibiotic regimen. 3. Continue bronchial hygiene. 4. Wean oxygen as tolerated. 5. Overall prognosis is poor, with progression of glioblastoma. cc: MD Vince Santos MD
[2019-02-12] MEDS: D5W 1,000 ML IV SCH ×2 (02:07→16:20)
[2019-02-12 05:02] LABS: BASO# 0.02 X1000 (0.0-0.2); BASO% 0.8 % (0.0-0.8); HEMATOCRIT 31.4 % (42.0-52.0); HEMOGLOBIN 9.7 g/dL (14.0-18.0); IMM GRAN# 0.12 X1000 (0.0-0.04); LYMPH% 16.7 % (20.5-51.1); MCH 30.3 PG (27-31); MCHC 30.9 g/dL (33-37); MCV 98.1 FL (81-99); MONO% 8.3 % (1.7-9.3); MPV 12.1 FL (7.4-10.4); NEUT# 1.66 X1000 (1.4-6.5); NEUT% 69.2 % (42.2-75.2); PLT 55 X1000 (130-400); RDW 14.3 % (11.5-14.5)
[2019-02-12 05:20] LABS: ESTIMATED GFR > 60
[2019-02-12 05:21] LABS: AGAP 12; BUN 55 mg/dL (8-22); CALCIUM 8.4 mg/dL (8.8-10.2); CHLORIDE 101 mmol/L (98-107); COSMO 294; CREATININE 0.9 mg/dL (0.7-1.2); GLUCOSE 85 mg/dL (70-104); MAGNESIUM 1.7 mg/dL (1.5-2.7); PHOSPHORUS 3.7 mg/dL (2.7-4.5); POTASSIUM 3.9 mmol/L (3.5-5.1); SODIUM 140 mmol/L (136-145); TCO2 27 mmol/L (25-35)
[2019-02-12 07:32] LABS: BANDS 6 % (0-1); LYMPHS 26 % (21-51); MONO 4 % (1-9); SEGS 64 % (42-75)
[2019-02-12] MEDS: DUONEB (A & A) INH SCH ×3 (08:10→21:00)
[2019-02-12] MEDS: KEPPRA LIQUID PO SCH ×2 (08:35→20:34)
[2019-02-12] MEDS: GENTAMICIN OINTMENT TOP SCH ×4 (08:35→20:34)
[2019-02-12] MEDS: TEFLARO 600 MG in NS 250 ML IV SCH ×2 (08:35→20:34)
[2019-02-12] MEDS: DECADRON IV SCH ×3 (08:35→23:17)
[2019-02-12] MEDS: SANTYL OINT TOP SCH (08:47)
[2019-02-12] MEDS: PROTONIX IV SCH ×2 (12:31→23:16)
--- NOTE | 2019-02-12 17:42 | PROGRESS NOTE ---
DATE: 02/12/2019 SUBJECTIVE: A 58-year-old white gentleman was seen in ICU 5. Admitted on 01/29/2019. He appears to be a chronically sick patient. The patient was seen by multiple consultants, with Dr. Douglas and Dr. Cano. I spoke to the nursing staff. No significant complaints noted. PAST MEDICAL HISTORY: Reviewed. PAST SURGICAL HISTORY: Reviewed. MEDICINES: Reviewed. ALLERGIES: Reviewed. PHYSICAL EXAMINATION: Temperature is 97.2 degrees, pulse 63, blood pressure is 116/70, 40% Ventimask. He has significant crusted lesions noted on the right side of the chin. He had a central line on the left IJ. He is contracted in the position. Castro was placed. LABORATORY DATA: White cell count 2.4, hematocrit 31.4, platelets 55,000. Sodium 140, potassium 3.9, BUN is 55, creatinine 0.9. LFTs were high. Procalcitonin is 3.3. DIAGNOSTIC DATA: Chest x-ray: Left lower lobe pneumonia. Ultrasound of the abdomen: Echogenic kidneys, otherwise stable. ASSESSMENT: 1. Escherichia coli with septic shock. 2. Stage IV decubitus ulcer. 3. Glioblastoma. 4. Left lower lobe pneumonia. 5. Acute hypoxic respiratory failure. 6. Protein-calorie malnutrition. PLAN: 1. Right now he is getting IV antibiotics with ceftriaxone. 2. Glioblastoma multiforme progression, on Decadron and IV Keppra. Ativan for agitation. 3. Dehydration, on IV fluids. 4. Decubitus ulcers, on Santyl ointment. 5. Gastrointestinal prophylaxis with IV Protonix. 6. Prognosis is poor. Continue present treatment. 7. DNR level 2. cc: MD Vince Torrez MD
[2019-02-12] MEDS ORDERED: STERILE WATER INJ. INJ ONE (21:10)
[2019-02-12] MEDS ORDERED: CATHFLO IV ONE (21:10)
--- NOTE | 2019-02-12 21:10 | PULMONOLOGY PROGRESS NOTE ---
DATE: 02/12/2019 SUBJECTIVE: The patient is more arousable this morning. He will answer "no" or "yes" to questions. OBJECTIVE: The patient has been afebrile for the last 24 hours. Blood pressure 89/50, heart rate 74, respiratory rate 26, oxygen saturation 95%. HEENT: Pupils are equal and reactive. Oropharynx appears clear. Neck: Supple. Chest: Occasional rhonchi bilaterally. Cardiac: S1-S2. Abdomen: Soft. Extremities: Peripheral edema 1+. LABORATORIES: Sodium 140, potassium 3.9, chloride 101, bicarbonate 26, BUN 55, creatinine 0.9. Procalcitonin is elevated at 3.3. White blood count 2.4, hemoglobin 9.7, platelet count 55,000 and stable. IMPRESSION: A 58-year-old with: 1. Escherichia coli urinary tract infection and septic shock. He continues to improve. 2. Stage IV decubitus ulcer with progressive necrosis related to protein-calorie malnutrition and recent hypotensive event. 3. Glioblastoma multiforme with progression of disease. 4. Hypernatremia with continued slow improvement. 5. Pneumonia. 6. Acute hypoxemic respiratory failure. 7. Protein-calorie malnutrition. PLAN: 1. Continue free water replacement. 2. Continue bronchial hygiene. 3. Continue current antibiotic regimen. 4. Overall long-term prognosis is poor, but he appears to have survived the acute illness. cc: MD Vince Santos MD
[2019-02-13] MEDS: D5W 1,000 ML IV SCH ×2 (04:16→17:16)
[2019-02-13 04:55] LABS: ALLEN TEST YES; BE 3.4 mmoll (-3.0-3.0); BLOOD TYPE ARTERIAL; HCO3-(ACT) 27.5 mmoll (20.0-26.0); METHB 1.4 % (0.0-1.5); O2HB 95.2 % (95.0-99.0); PCO2(98.6) 36 mmHg (35-45); PO2(98.6) 95 mmHg (60-100); SAMPLE BLOOD; SAO2 98.6 % (95.0-100.0); THB 14.9 g/dL (11.5-17.4); pH(98.6) 7.48 (7.35-7.45)
[2019-02-13 04:57] LABS: MODALITY COOL AEROSOL
[2019-02-13 05:55] LABS: BASO# 0.03 X1000 (0.0-0.2); BASO% 0.4 % (0.0-0.8); EOS# 0.01 X1000 (0.0-0.7); EOS% 0.1 % (0.0-10.0); HEMATOCRIT 32.4 % (42.0-52.0); HEMOGLOBIN 10.2 g/dL (14.0-18.0); IMM GRAN# 0.13 X1000 (0.0-0.04); IMM GRAN% 1.9 % (0.0-0.5); LYMPH# 0.45 X1000 (1.2-3.4); LYMPH% 6.5 % (20.5-51.1); MCH 30.5 PG (27-31); MCHC 31.5 g/dL (33-37); MONO# 0.27 X1000 (0.11-0.59); MONO% 3.9 % (1.7-9.3); MPV 11.8 FL (7.4-10.4); NEUT# 5.99 X1000 (1.4-6.5); NEUT% 87.2 % (42.2-75.2); PLT 60 X1000 (130-400); RBC 3.34 XMIL (4.7-6.1); RDW 14.3 % (11.5-14.5); WBC 6.88 X1000 (4.8-10.8)
--- NOTE | 2019-02-13 06:23 | Diag Imaging Result Doc PS360 ---
EXAM: CHEST-PORTABLE HISTORY: abnormal exam TECHNIQUE: Single view COMPARISON: 02/11/2019 FINDINGS: The lungs are well expanded. The nasogastric tube has been removed. No change in the left jugular line. No cardiomegaly. Interstitial markings are less pronounced with partial clearing in the left base. IMPRESSION: Interval improvement Electronically signed by Errol Santos 02/13/2019 6:20 AM
[2019-02-13 06:40] LABS: AGAP 17; BUN 48 mg/dL (8-22); CHLORIDE 102 mmol/L (98-107); COSMO 293; CREATININE 0.9 mg/dL (0.7-1.2); ESTIMATED GFR > 60; GLUCOSE 91 mg/dL (70-104); POTASSIUM 3.5 mmol/L (3.5-5.1); SODIUM 141 mmol/L (136-145); TCO2 22 mmol/L (25-35)
[2019-02-13 06:41] LABS: ALB/GLOB RATIO 0.7; ALBUMIN 2.4 g/dL (3.5-5.0); ALKALINE PHOSPHATASE 350 U/L (32-122); GOT 67 U/L (10-34); GPT 172 U/L (10-44); MAGNESIUM 1.5 mg/dL (1.5-2.7); PHOSPHORUS 3.1 mg/dL (2.7-4.5); TOTAL BILIRUBIN 0.53 mg/dL (0.20-1.00); TOTAL PROTEIN 5.7 g/dL (6.3-8.3)
[2019-02-13 06:59] LABS: BANDS 30 % (0-1); LYMPHS 16 % (21-51); MONO 2 % (1-9); SEGS 46 % (42-75)
[2019-02-13] MEDS ORDERED: CALCIUM GLUCONATE 2 GM in NS 100 ML IV ONE (07:23)
--- NOTE | 2019-02-13 07:50 | INFECTIOUS DISEASE PROGRESS NO ---
DATE: 02/13/2019 PRESENT ILLNESS: The patient has an Escherichia coli urinary tract infection, infected bilateral buttock decubitus ulcers, and a left lower lobe pneumonia. MEDICATIONS: The patient has been on ceftaroline now for 3 days. He also is receiving Decadron. PHYSICAL EXAMINATION: Vital Signs: Temperature is 98.8 degrees, pulse 71, respirations 21, blood pressure 124/65. General: This is a chronically ill-appearing, middle-aged male. He is in no acute distress. HEENT: No drainage noted from the nose or ears. I could not get a good look into his mouth. Neck: There did not seem to be any pain when I passively moved his head. Lungs: Clear to auscultation. Cardiovascular: Heart rate is regular. Abdomen: Soft and nontender. Neurologic: The patient is sleeping. He did not respond to verbal stimuli. Buttocks-both buttock decubitus ulcers were covered by devitalized tissue. IMAGING AND LABORATORY DATA: Chest x-ray shows decrease in the interstitial markings in the left lower lobe. The patient's CBC shows a white count of 6880, hemoglobin 10.2, and platelet count 60,000. Arterial blood gases show a pH of 7.48, a PO2 of 95, and a pCO2 of 36. The creatinine is 0.9, GFR is greater than 60. ALT is 172, alkaline phosphatase is 350. Procalcitonin is 3.3, which translates into the patient extremely likely to have pneumonia. ASSESSMENT AND PLAN: I plan to continue ceftaroline for the patient's pneumonia and his urinary tract infection and his infected bilateral buttock decubitus ulcers. COMORBIDITIES: The patient has a glioblastoma, seizure disorder, bilateral leg paralysis, and cerebral palsy. cc: MD Vince Miller MD MTDD
[2019-02-13] MEDS: DUONEB (A & A) INH SCH ×3 (08:25→21:26)
[2019-02-13] MEDS: DECADRON IV SCH ×3 (08:43→23:02)
[2019-02-13] MEDS: TEFLARO 600 MG in NS 250 ML IV SCH ×2 (08:46→20:51)
[2019-02-13] MEDS: GENTAMICIN OINTMENT TOP SCH ×4 (08:50→20:11)
[2019-02-13] MEDS: SANTYL OINT TOP SCH (08:50)
[2019-02-13] MEDS: KEPPRA LIQUID PO SCH ×2 (08:50→20:11)
[2019-02-13 10:04] LABS: CALCIUM 8.9 mg/dL (8.8-10.2)
[2019-02-13] MEDS: PROTONIX IV SCH ×2 (11:23→23:02)
--- NOTE | 2019-02-13 13:38 | PULMONOLOGY PROGRESS NOTE ---
DATE: 02/13/2019 SUBJECTIVE: The patient is arousable but more lethargic than yesterday. OBJECTIVE: Blood pressure 95/61, heart rate 91, respiratory rate 20, oxygen saturation 99% on 40% FiO2. HEENT: Pupils are equal and reactive. Oropharynx appears clear. Neck is supple. Chest reveals coarse crackles bilaterally. Cardiac Examination: S1-S2. Abdomen is soft. Extremities reveal generalized edema. Laboratories: Arterial blood gas reveals a pH of 7.48, pCO2 of 36, PO2 of 95, with a lactate of 2.6. White blood count 6.88, hemoglobin 10.2, platelet count 60,000. Chest x-ray reveals partial clearing of pneumonia in the left base. IMPRESSION: A 58-year-old with: 1. Escherichia coli urinary tract infection. 2. Stage IV decubitus ulcers with progression during this hospitalization related to nutrition and hypotension. 3. Glioblastoma multiforme with progression of disease. 4. Pneumonia with radiographic improvement. 5. Severe protein calorie malnutrition. 6. Worsening physical status. PLAN: 1. Continue current resuscitation fluids. 2. Continue bronchial hygiene. 3. Continue antibiotics. 4. Overall prognosis is poor given multiple comorbidities including large decubitus ulcers, protein calorie malnutrition, and progressive [employer] malignancy. cc: MD Vince Santos MD
--- NOTE | 2019-02-13 15:39 | PROGRESS NOTE ---
DATE: 02/13/2019 SUBJECTIVE: A 58-year-old, white male, chronically sick. He is on oxygen mask, and he had a large bowel movement, and staff is cleaning up, very foul smelling. The patient is still arousable. Watching TV. REVIEW OF SYSTEMS: Some abnormal calcium levels and none reported. EXAM: Vitals: Temp is 97.4 degrees, pulse 90. Blood pressure is 95/61. He had lesions on the face which are crusting up. He had a central line on the left side and had a Castro placed. The nurses are changing the pressure ulcers dressing. LABS: White cell count 6.8, hematocrit 32, platelets 60,000. ABG: PH is 7.48, pCO2 36, PO2 95 on 40%. SMA 7 is normal. Elevated liver function tests. Chest x-ray: No definite infiltrate today. C difficile is negative. Urine is E coli. Wound cultures, Klebsiella and Morganella. Blood cultures were negative. ASSESSMENT AND PLAN: 1. Glioblastoma multiforme, worsening. 2. Resolving infiltrate in the lung. 3. Sacral decubitus ulcer. 4. Decreased performance status. PLAN OF CARE: 1. Oxygen. 2. Dr. Cano changed to ceftaroline IV q.12. 3. Decubitus care management. 4. Prophylactic dexamethasone and Keppra for the glioblastoma. 5. Prognosis is poor. 6. DNR level 2. 7. Continue present treatment. 8. Hypocalcemia: Replace the calcium gluconate and repeat of the calciums came back normal. LEVEL OF DOCUMENTATION: 25 minutes. cc: MD Vince Torrez MD
[2019-02-13 17:48] LABS: URINE SOURCE CATH
[2019-02-13 17:50] LABS: BILIRUBIN URINE NEGATIVE (NEGATIVE); BLOOD URINE SMALL (NEGATIVE); COLOR YELLOW; GLUCOSE URINE NEGATIVE (NEGATIVE); KETONE URINE NEGATIVE (NEGATIVE); LEUKOCYTES URINE LARGE (NEGATIVE); NITRITE URINE NEGATIVE (NEGATIVE); PH URINE 5.5; PROTEIN URINE 30 mg/dL (NEGATIVE); SP GRAVITY URINE 1.007; TURBIDITY URINE TURBID (CLEAR); UROBILINOGEN URINE NORMAL (NORMAL)
[2019-02-13 18:40] LABS: UR EPITHELIAL CELLS >10 /HPF (<10); URINE BACTERIA NEGATIVE /HPF; URINE RBC TNTC /HPF (<10); URINE WBC TNTC /HPF (<10)
[2019-02-13 18:42] LABS: URINE CASTS GRANULAR PRESENT; URINE CRYSTALS NONE SEEN; URINE YEAST PRESENT
[2019-02-14] MEDS: LEVOPHED 8 MG in D5 1/2 NS 250 ML IV SCH (04:24)
--- NOTE | 2019-02-14 07:33 | EKG Report ---
Test Performed on : 02/13/2019 01:55:51 AM Test Reason : TACHYCARDIA Blood Pressure : / mmHG Vent. Rate : 141 BPM Atrial Rate : 182 BPM P-R Int : 118 ms QRS Dur : 076 ms QT Int : 296 ms P-R-T Axes : 052 -07 081 degrees QTc Int : 453 ms Undetermined rhythm Nonspecific ST and T wave abnormality Abnormal ECG When compared with ECG of 02-FEB-2019 06:36, Current undetermined rhythm precludes rhythm comparison, needs review ST now depressed in Lateral leads Nonspecific T wave abnormality no longer evident in Inferior leads Nonspecific T wave abnormality, worse in Lateral leads Unconfirmed Result
[2019-02-14] MEDS: DUONEB (A & A) INH SCH ×3 (07:40→22:00)
--- NOTE | 2019-02-14 08:01 | EKG Report ---
Test Performed on : 02/13/2019 12:17:18 PM Test Reason : NO EKG ORDER FOR MUSE Blood Pressure : / mmHG Vent. Rate : 112 BPM Atrial Rate : 088 BPM P-R Int : 132 ms QRS Dur : 072 ms QT Int : 382 ms P-R-T Axes : 072 002 053 degrees QTc Int : 521 ms Undetermined rhythm Nonspecific ST abnormality Prolonged QT Abnormal ECG When compared with ECG of 13-FEB-2019 12:16, (Unconfirmed) Current undetermined rhythm precludes rhythm comparison, needs review Unconfirmed Result
[2019-02-14] MEDS: D5W 1,000 ML IV SCH ×2 (08:07→21:09)
[2019-02-14] MEDS: DECADRON IV SCH ×3 (08:07→23:40)
[2019-02-14] MEDS: KEPPRA LIQUID PO SCH ×2 (08:09→21:11)
--- NOTE | 2019-02-14 08:34 | PROGRESS NOTE ---
DATE: 02/14/2019 VITAL SIGNS: Stable with temperature of 98 degrees, heart rate 68, respirations 18, blood pressure 93/48, O2 saturation on 40% mask 100%. LABORATORY DATA: CBC yesterday revealed hemoglobin 10.2, hematocrit 32.4, and white blood count 6800. Sodium was 141, potassium 3.5, BUN 48, creatinine 0.9. AST 67, ALT 172, alkaline phosphatase 350, total protein 5.7, albumin 2.4. Chest is fairly clear. Chest x-ray showed no new infiltrate. The patient is taking some p.o. liquid. Antibiotics were changed by Dr. Cano to ceftaroline every 12 hours. PLAN: Continue supportive care. Consider moving to the floor either this evening or tomorrow. cc: Vince Stevenson MD
--- NOTE | 2019-02-14 09:48 | INFECTIOUS DISEASE PROGRESS NO ---
DATE: 02/14/2019 PRESENT ILLNESS: The patient has an E coli urinary tract infection, infected bilateral buttock decubitus ulcers, and left lower lobe pneumonia. MEDICATIONS: The patient has been on ceftaroline now for a total of for a total of 4 days. The patient also is on Decadron because of his glioblastoma. PHYSICAL EXAMINATION: Vital Signs: Temperature is 97.5 degrees, pulse 78, respirations 16, blood pressure is 101/55. General: This is an ill-appearing middle-aged male. He appears to be sleeping. He does not appear to be in any acute distress, however. Head, eyes, ears, nose and throat: No drainage noted from the nose or ears. Neck: There was no evidence that the patient was having pain when I passively moved his neck. Lungs: Clear to auscultation. Cardiovascular: Heart rate is regular. Abdomen: Soft and nontender. Buttocks: Yesterday I saw the patient's buttock decubitus ulcers and both buttock ulcers are covered by devitalized tissue. Neurologic: The patient did not respond to verbal stimuli. LAB AND X-RAY: Yesterday's chest x-ray showed interstitial markings are less pronounced with clearing in the left base. No new lab for today. ASSESSMENT/PLAN: I am treating the patient with ceftaroline for pneumonia and infected buttock decubitus ulcers and urinary tract infection. COMORBIDITIES: The patient has a non operative glioblastoma, seizure disorder, bilateral leg paralysis, and cerebral palsy. cc: MD Vince Miller MD MTDD
[2019-02-14] MEDS: SANTYL OINT TOP SCH (10:15)
[2019-02-14] MEDS: TEFLARO 600 MG in NS 250 ML IV SCH ×2 (10:15→21:09)
[2019-02-14] MEDS: GENTAMICIN OINTMENT TOP SCH ×4 (10:16→21:10)
[2019-02-14] MEDS: PROTONIX IV SCH ×2 (12:31→23:40)
--- NOTE | 2019-02-14 22:33 | PULMONOLOGY PROGRESS NOTE ---
DATE: 02/14/2019 SUBJECTIVE: The patient opens his eyes. He is not conversant this morning. OBJECTIVE: Vital Signs: The patient has been afebrile for the last 24 hours. Blood pressure 125/73, heart rate 58, respiratory rate 15, oxygen saturation 100%. HEENT: Pupils are equal and reactive. Oropharynx appeared clear but dry. Neck: Supple. Chest: Reveals coarse rhonchi bilaterally. Cardiac exam: S1, S2. Abdomen: Soft. Extremities: Reveal trace to 1+ peripheral edema. LABORATORIES: No new microbiology data. No chemistries or CBC. IMPRESSION: A 58-year-old with: 1. Escherichia coli urinary tract infection. 2. Severe protein calorie malnutrition. 3. Glioblastoma multiforme with progression of disease. 4. Stage IV decubitus ulcer with progression during this hospitalization due to malnutrition and hypotension. 5. Pneumonia. 6. Poor palliative performance status. PLAN: 1. Continue antibiotics per Infectious Disease. 2. Continue bronchial hygiene. 3. Continue D5W. 4. Chest x-ray, chemistry and CBC tomorrow morning. cc: MD Vince Satnos MD
[2019-02-15 06:44] LABS: AGAP 16; BUN 32 mg/dL (8-22); CALCIUM 8.2 mg/dL (8.8-10.2); CHLORIDE 107 mmol/L (98-107); COSMO 293; CREATININE 0.8 mg/dL (0.7-1.2); ESTIMATED GFR > 60; GLUCOSE 89 mg/dL (70-104); POTASSIUM 2.9 mmol/L (3.5-5.1); SODIUM 144 mmol/L (136-145); TCO2 21 mmol/L (25-35)
[2019-02-15 06:48] LABS: BASO# 0.02 X1000 (0.0-0.2); BASO% 0.4 % (0.0-0.8); HEMATOCRIT 32.1 % (42.0-52.0); HEMOGLOBIN 10.2 g/dL (14.0-18.0); IMM GRAN# 0.18 X1000 (0.0-0.04); IMM GRAN% 3.7 % (0.0-0.5); LYMPH# 0.53 X1000 (1.2-3.4); LYMPH% 10.9 % (20.5-51.1); MCH 30.5 PG (27-31); MCHC 31.8 g/dL (33-37); MCV 96.1 FL (81-99); MONO# 0.43 X1000 (0.11-0.59); MONO% 8.8 % (1.7-9.3); MPV 12.5 FL (7.4-10.4); NEUT# 3.72 X1000 (1.4-6.5); NEUT% 76.2 % (42.2-75.2); PLT 62 X1000 (130-400); RBC 3.34 XMIL (4.7-6.1); RDW 14.1 % (11.5-14.5); WBC 4.88 X1000 (4.8-10.8)
--- NOTE | 2019-02-15 07:20 | Diag Imaging Result Doc PS360 ---
EXAM: CHEST-1 VIEW 02/15/2019 HISTORY: pneumonia TECHNIQUE: AP portable at 0532 COMMENT: There is patchy alveolar opacity in the left lower lobe. This is slightly worse than on the previous study of 02/13/2019. There is a left internal jugular central venous catheter with its tip in the left innominate vein. IMPRESSION: Left lower lobe pneumonia. Electronically signed by Alfredito Fulton 02/15/2019 7:18 AM
[2019-02-15 07:24] LABS: BANDS 9 % (0-1); LYMPHS 21 % (21-51); MONO 6 % (1-9); SEGS 63 % (42-75)
[2019-02-15] MEDS: DUONEB (A & A) INH SCH ×3 (07:32→21:20)
[2019-02-15] MEDS ORDERED: POTASSIUM CHLORIDE 40 MEQ/SWI 40 MEQ/100 ML IVPB IV ONE (07:57)
--- NOTE | 2019-02-15 07:58 | INFECTIOUS DISEASE PROGRESS NO ---
DATE: 02/15/2019 PRESENT ILLNESS: The patient has an E. coli urinary tract infection, left lower lobe pneumonia, and infected bilateral buttock decubitus ulcers. MEDICATIONS: The patient has been on ceftaroline for a total of 5 days at this time. He also is on Decadron because of his glioblastoma. PHYSICAL EXAMINATION: Vital Signs: Temperature is 97.8 degrees, pulse 51, respirations 14, blood pressure 102/53. General: This is an ill-appearing, middle-aged male. He is sleeping again today. Head, Eyes, Ears, Nose, and Throat: The patient is wearing an oxygen mask. I did not see any drainage from his nose or ears. I was unable to see into his mouth. Neck: He did not seem to be in any pain when I passively moved his neck. The patient has a left internal jugular venous catheter in place. The site is not erythematous or purulent. Lungs: Clear to auscultation. Cardiovascular: Heart rate is regular. Abdomen: Soft and nontender. Buttocks: The patient has bilateral decubitus ulcers. Both ulcers are covered by devitalized tissue. Neurologic: The patient was sleeping. He did not respond to verbal stimuli. There was no tremor. LAB AND X-RAY: CBC, BMP, and chest x-ray have been ordered but the results are still pending. ASSESSMENT AND PLAN: The patient has a urinary tract infection, pneumonia, and infected buttock decubitus ulcers. I plan on continuing ceftaroline for the time-being. COMORBIDITIES: The patient has a nonoperative glioblastoma, seizure disorder, bilateral leg paralysis, and cerebral palsy. cc: MD Vince Miller MD
--- NOTE | 2019-02-15 08:15 | PROGRESS NOTE ---
DATE: 02/15/2019 VITAL SIGNS: Temperature 97.8 degrees, heart rate 50, respirations 14, blood pressure 102/53, O2 saturation on mask of 96%. The patient required Levophed a couple of nights ago. Nurse is concerned that he may need some with labile blood pressure and recommends not moving from the ICU this morning. LABORATORY: Hemoglobin 10.2, hematocrit 32.1, white blood count 4800. Sodium 144, potassium 2.9, BUN 32, creatinine 0.8, calcium 8.2. Chest is clear to auscultation. The patient is arousable and speaks occasionally. I and O yesterday indicated 240 mL p.o. intake. PLAN: Continue supportive care. We will transfer to the floor when he is more stable. cc: Vince Stevenson MD
[2019-02-15] MEDS: KEPPRA LIQUID PO SCH ×2 (08:57→20:31)
[2019-02-15] MEDS: DECADRON IV SCH ×3 (08:57→23:14)
[2019-02-15] MEDS: GENTAMICIN OINTMENT TOP SCH ×4 (08:57→20:33)
[2019-02-15] MEDS: TEFLARO 600 MG in NS 250 ML IV SCH ×2 (08:58→20:31)
[2019-02-15] MEDS: SANTYL OINT TOP SCH (08:58)
[2019-02-15] MEDS: D5W 1,000 ML IV SCH (09:06)
[2019-02-15] MEDS: PROTONIX IV SCH ×2 (13:44→23:15)
[2019-02-16] MEDS: D5W 1,000 ML IV SCH ×2 (00:30→12:00)
--- NOTE | 2019-02-16 01:04 | PULMONOLOGY PROGRESS NOTE ---
DATE: 02/15/2019 SUBJECTIVE: The patient will look at examiner. He answers "fine" when asked how he is doing. OBJECTIVE: The patient has been afebrile for the last 24 hours. Blood pressure 107/69, heart rate 68, respiratory rate 16, oxygen saturation 100%. HEENT: Pupils are equal and reactive. Oropharynx appears clear. Neck is supple. Chest reveals occasional rhonchi without wheezing. Cardiac exam: S1, S2. Abdomen is soft, with positive bowel sounds. Extremities reveal 1+ peripheral edema. LABORATORY DATA: White blood count 4.88, hemoglobin 10.2, platelet count 62,000. Sodium 144, potassium 2.9, chloride 107 bicarbonate 21, BUN 32, creatinine 0.8. DIAGNOSTIC DATA: Chest x-ray reveals infiltrate at the left base which may be slightly worse. IMPRESSION: A 58-year-old with: 1. Escherichia coli urinary tract infection. 2. Bilateral stage IV decubitus ulcers in the parasacral region with progression and necrosis. 3. Severe protein-calorie malnutrition. 4. Glioblastoma multiforme with occasional seizures. 5. Pneumonia. PLAN: 1. Continue current antibiotic regimen. 2. Continue bronchial hygiene. 3. Continue D5W. 4. Prognosis is poor. cc: MD Vince Santos MD
[2019-02-16] MEDS: MUCOMYST 20% INH SCH ×2 (07:59→19:35)
[2019-02-16] MEDS: ALBUTEROL NEB INH SCH ×5 (07:59→23:40)
[2019-02-16] MEDS: DECADRON IV SCH ×2 (08:11→16:35)
[2019-02-16] MEDS: KEPPRA LIQUID PO SCH ×2 (08:12→21:27)
[2019-02-16] MEDS: SANTYL OINT TOP SCH (08:13)
[2019-02-16] MEDS: GENTAMICIN OINTMENT TOP SCH ×4 (08:13→23:05)
--- NOTE | 2019-02-16 08:13 | PROGRESS NOTE ---
DATE: 02/16/2019 VITAL SIGNS: Stable. Temperature 98 degrees, heart rate 74, respirations 18, blood pressure 92/56, O2 sat on mask 98%. Patient's blood pressure dropped last evening into the 80s. He is less responsive this morning. He ate better yesterday, but may not be able to eat as well with decrease in alertness this morning. LABORATORY DATA: Potassium 3.4. LUNGS: Clear to auscultation. ABDOMEN: Soft. PLAN: Continue supportive care. He will be transferred to the floor when more stable. Hopefully this will be soon. cc: Vince Stevenson MD
[2019-02-16] MEDS: TEFLARO 600 MG in NS 250 ML IV SCH ×2 (09:24→21:27)
[2019-02-16] MEDS: DUONEB (A & A) INH SCH (11:04)
[2019-02-16] MEDS: PROTONIX IV SCH (11:22)
--- NOTE | 2019-02-16 16:14 | INFECTIOUS DISEASE PROGRESS NO ---
DATE: 02/16/2019 PRESENT ILLNESS: The patient has the following infections, an E. coli urinary tract infection, left lower lobe pneumonia, and infected bilateral buttock decubitus ulcers. MEDICATIONS: The patient has been on ceftaroline now for a total of 6 days. The patient also is on Decadron because of his glioblastoma. PHYSICAL EXAMINATION: Vital Signs: Temperature is 98 degrees, pulse 78, respirations 28, blood pressure is 125/82. General: Patient is sleeping. He looks chronically ill. Head, eyes, ears, nose, throat: No drainage noted from the nose or ears. I could not get a good look into his mouth. Neck: It was somewhat stiff trying to move it and it seemed to cause him discomfort. The patient also has a left internal jugular venous catheter in place. The site is not erythematous or swollen. Lungs: Clear to auscultation. Cardiovascular: Heart rate is regular. Abdomen: Soft and nontender. Buttocks: The patient still has the bilateral decubitus ulcers and most of the ulcerated area has devitalized tissue but no actual pus. Neurologic: The patient is sleeping. He does not have a tremor. He did not respond to verbal stimuli. LAB AND RADIOLOGY: No new lab or radiology studies for today. ASSESSMENT AND PLAN: The patient has a urinary tract infection, pneumonia, and infected buttock decubitus ulcers. I plan on continuing with ceftaroline. COMORBIDITIES: Nonoperative glioblastoma, seizure disorder, bilateral leg paralysis, and cerebral palsy. cc: MD Vince Miller MD MTDD
[2019-02-17] MEDS: DECADRON IV SCH ×3 (00:01→16:08)
[2019-02-17] MEDS: PROTONIX IV SCH ×2 (00:02→13:54)
[2019-02-17] MEDS: ALBUTEROL NEB INH SCH ×6 (03:03→22:43)
[2019-02-17] MEDS: D5W 1,000 ML IV SCH ×2 (03:26→16:07)
[2019-02-17 06:43] LABS: AGAP 16; BUN 31 mg/dL (8-22); CALCIUM 7.8 mg/dL (8.8-10.2); CHLORIDE 111 mmol/L (98-107); COSMO 298; CREATININE 0.8 mg/dL (0.7-1.2); ESTIMATED GFR > 60; GLUCOSE 73 mg/dL (70-104); SODIUM 147 mmol/L (136-145); TCO2 20 mmol/L (25-35)
[2019-02-17] MEDS ORDERED: POTASSIUM CHLORIDE 40 MEQ/SWI 40 MEQ/100 ML IVPB IV ONE (08:04)
[2019-02-17] MEDS: MUCOMYST 20% INH SCH ×2 (08:06→19:37)
[2019-02-17] MEDS ORDERED: ALBUMIN 25% IV ONE (08:06)
[2019-02-17] MEDS: TEFLARO 600 MG in NS 250 ML IV SCH ×2 (10:11→21:39)
[2019-02-17] MEDS: KEPPRA LIQUID PO SCH ×2 (10:11→21:39)
[2019-02-17] MEDS: GENTAMICIN OINTMENT TOP SCH ×4 (10:12→21:39)
[2019-02-17] MEDS: SANTYL OINT TOP SCH (10:13)
--- NOTE | 2019-02-17 10:35 | PROGRESS NOTE ---
DATE: 02/17/2019 OBJECTIVE: Vital Signs: Temperature 98.7 degrees, heart rate 62, respirations 17, blood pressure 81/51, O2 saturation 100% on nonrebreather mask. Chest: Reveals mild increase in upper airways breath sounds, but no rales. Neurologic: He is arousable but very weak. Extremities: Decubitus ulcers continue to have exudate. Appetite is poor. With his poor nutritional status, decubitus ulcers would probably not heal if debrided and attempt was made to repair or close at this point in time. ASSESSMENT: General prognosis is poor. Discussion will be made with his mother concerning hospice care and possible transfer back to his snf. He was moved out of ICU last night to his current room, 218. PLAN: Continue supportive care. His potassium was low at 3.0. Potassium is added IV. He will be given an additional bolus of albumin 25 g. Dietitian is asked to assist an increasing p.o. calories including ice cream plus Ensure or other forms of nutrition. cc: Vince Stevenson MD
--- NOTE | 2019-02-17 14:35 | INFECTIOUS DISEASE PROGRESS NO ---
DATE: 02/17/2019 PRESENT ILLNESS: The patient has the following infections: E coli urinary tract infection, a left lower lobe pneumonia, and infected bilateral buttock decubitus ulcers. MEDICATIONS: The patient is in the 7th day of treatment with ceftaroline. The patient is on Decadron because of his glioblastoma. PHYSICAL EXAMINATION: Vital Signs: Temperature is 98.7 degrees, pulse 63, respirations 18, blood pressure 81/51. General: This is a lethargic middle-aged male. He is in no acute distress. Head, Eyes, Ears, Nose, and Throat: No drainage noted from the nose or ears. He did not respond to verbal stimuli. Neck: Did not seem to bother him when I passively moved his neck. Lungs: Clear to auscultation. Cardiovascular: Regular heart rate. Abdomen: Soft and nontender. Buttocks: The patient has bilateral decubitus ulcers which are infected and being treated with antibiotics and wound care. Neurologic: The patient did not respond to verbal stimuli today. He was sleeping. DIAGNOSTIC STUDIES: The only lab for today is a creatinine which was 0.8, with a GFR of greater than 60. ASSESSMENT AND PLAN: Patient has: 1. Urinary tract infection. 2. Pneumonia. 3. Infected buttock decubitus ulcers. I plan on continuing with ceftaroline. I have ordered a CBC and BMP for tomorrow. Also, I will order a portable chest x-ray for tomorrow. COMORBIDITIES: Include: 1. Glioblastoma. 2. Seizure disorder. 3. Bilateral leg paralysis. 4. Cerebral palsy. cc: MD Vince Miller MD
[2019-02-18] MEDS: PROTONIX IV SCH ×2 (00:13→16:40)
[2019-02-18] MEDS: DECADRON IV SCH ×3 (00:14→16:40)
[2019-02-18] MEDS: ALBUTEROL NEB INH SCH ×6 (03:19→22:53)
--- NOTE | 2019-02-18 04:55 | PULMONOLOGY PROGRESS NOTE ---
DATE: 02/17/2019 SUBJECTIVE: The patient is arousable, but will not follow commands. He appears fatigued. OBJECTIVE: Vital Signs: The patient has been afebrile for the last 24 hours. Blood pressure 91/52, heart rate 68, respiratory rate 13, and oxygen saturation 100% on non-rebreather. HEENT: Pupils are equal and reactive. Oropharynx appears dry but clear. Neck: Supple. Lungs: Chest reveals shallow breath sounds bilaterally. Cardiac: S1-S2. Abdomen: Soft. Extremities: Without edema. LABORATORIES: Sodium 147, potassium 3.0, chloride 111, bicarbonate 20, BUN 31, and creatinine 0.8. IMPRESSION: A 58-year-old with: 1. Escherichia coli urinary tract infection. 2. Bilateral stage IV decubitus ulcers in the parasacral region. 3. Severe protein calorie malnutrition. 4. Glioblastoma with occasional seizures. He has had progression of disease status post treatment. 5. Pneumonia. PLAN: 1. Continue current antibiotic regimen. 2. Continue bronchial hygiene. 3. Continue D5W. 4. I agree with Dr. Stevenson's assessment. The patient's prognosis is extremely poor. Would consider reinstituting hospice. cc: MD Vince Santos MD
[2019-02-18] MEDS: D5W 1,000 ML IV SCH ×2 (06:12→21:13)
[2019-02-18 06:17] LABS: BASO# 0.02 X1000 (0.0-0.2); BASO% 0.4 % (0.0-0.8); EOS# 0.02 X1000 (0.0-0.7); EOS% 0.4 % (0.0-10.0); HEMATOCRIT 27.3 % (42.0-52.0); HEMOGLOBIN 8.4 g/dL (14.0-18.0); IMM GRAN# 0.37 X1000 (0.0-0.04); IMM GRAN% 6.9 % (0.0-0.5); LYMPH# 0.73 X1000 (1.2-3.4); LYMPH% 13.5 % (20.5-51.1); MCH 30.5 PG (27-31); MCHC 30.8 g/dL (33-37); MCV 99.3 FL (81-99); MONO# 0.76 X1000 (0.11-0.59); MONO% 14.1 % (1.7-9.3); MPV 11.4 FL (7.4-10.4); NEUT% 64.7 % (42.2-75.2); PLT 75 X1000 (130-400); RBC 2.75 XMIL (4.7-6.1); RDW 14.7 % (11.5-14.5)
[2019-02-18 06:59] LABS: AGAP 16; BUN 33 mg/dL (8-22); CALCIUM 8.1 mg/dL (8.8-10.2); CHLORIDE 112 mmol/L (98-107); COSMO 294; CREATININE 0.8 mg/dL (0.7-1.2); ESTIMATED GFR > 60; GLUCOSE 89 mg/dL (70-104); POTASSIUM 3.5 mmol/L (3.5-5.1); SODIUM 144 mmol/L (136-145); TCO2 16 mmol/L (25-35)
--- NOTE | 2019-02-18 07:42 | Diag Imaging Result Doc PS360 ---
EXAM: CHEST-1 VIEW INDICATION: pneumonia TECHNIQUE: One view COMPARISON: 02/15/2019 FINDINGS: The left central line is in stable position. The left lower lobe consolidation is approximately stable given slight differences in positioning. No new consolidation is identified. Cardiac silhouette is stable. IMPRESSION: Stable chest. Electronically signed by Jackson Bunch 02/18/2019 7:40 AM
[2019-02-18] MEDS: MUCOMYST 20% INH SCH ×2 (07:45→19:41)
[2019-02-18] MEDS: TEFLARO 600 MG in NS 250 ML IV SCH (09:10)
[2019-02-18] MEDS: GENTAMICIN OINTMENT TOP SCH ×4 (09:11→20:51)
[2019-02-18] MEDS: SANTYL OINT TOP SCH (09:11)
[2019-02-18] MEDS: KEPPRA LIQUID PO SCH ×2 (09:11→20:49)
--- NOTE | 2019-02-18 10:34 | PROGRESS NOTE ---
DATE: 02/18/2019 SUBJECTIVE: The patient is more alert and responds verbally this morning. Chest is fairly clear. Appetite seems to be improving. OBJECTIVE: Vital signs temperature 97.8 degrees, heart rate 61, respirations 19, blood pressure 86/46, O2 saturation on nonrebreather mask 100%. LAB: Hemoglobin 8.4, hematocrit 27.3, white blood count 5400. Sodium 144, potassium 3.5, BUN 33, creatinine 0.8, calcium 8.1. PLAN: Get him up in a chair twice today. When oxygen can be decreased, consideration will be made for getting him in a wheelchair to roll in the davidson. Physical Therapy will be consulted to help increase activity. cc: Vince Stevenson MD
--- NOTE | 2019-02-18 15:25 | INFECTIOUS DISEASE PROGRESS NO ---
DATE: 02/18/2019 I discussed the patient's situation with Dr. Stevenson. We both feel that the antibiotics are not helping to clear up the patient's decubitus ulcer infection. As Dr. Stevenson pointed out, we are probably just selecting for this patient to be colonized by multiply resistant antibiotics. We both agree to discontinue the antibiotics. I am going sign off on the patient's case. cc: MD Vince Miller MD
[2019-02-19] MEDS: ALBUTEROL NEB INH SCH ×6 (03:23→22:47)
[2019-02-19] MEDS: PROTONIX IV SCH ×2 (04:27→21:19)
[2019-02-19] MEDS: DECADRON IV SCH ×3 (04:28→20:36)
[2019-02-19] MEDS: MUCOMYST 20% INH SCH ×2 (08:03→19:28)
[2019-02-19] MEDS: KEPPRA LIQUID PO SCH ×2 (08:39→20:35)
[2019-02-19] MEDS: GENTAMICIN OINTMENT TOP SCH ×4 (08:39→21:19)
[2019-02-19] MEDS: SANTYL OINT TOP SCH (08:40)
[2019-02-19] MEDS ORDERED: NS 500 ML IV ONE (09:20)
[2019-02-19] MEDS: D5W 1,000 ML IV SCH ×2 (09:55→21:20)
--- NOTE | 2019-02-19 11:55 | PROGRESS NOTE ---
DATE: 02/19/2019 SUBJECTIVE: I am seeing Mr. Cordero in Dr. Stevenson's place as he is off this weekend. The patient has a very low blood pressure at 70 systolic, but he is alert and responsive and he ate his breakfast with his caretakers and his . He is looking about. OBJECTIVE: Afebrile, pulse 65, respirations 17, blood pressure 77/46, O2 saturation in room air 100%.CV: RRR. Lungs: Clear. Abdomen: Nondistended. Contractures noted. Some lower extremity edema is noted. He is eating about 25% of his meals, but he actually ate pretty good this morning. Has had 4 liquid brown bowel movements in the past 24 hours. LABS: No labs are ordered for today. Reviewed those done yesterday. ASSESSMENT: 1. Hypotension, acute on chronic. 2. Glioblastoma multiforme. 3. Do Not Resuscitate level 2. 4. Urinary tract infection. 5. Ischial decubitus ulcers. 6. Seizure disorder. PLAN: Dr. Cano has signed off. Will give him an IV fluid bolus, normal saline, see if that helps his blood pressure. Continue the Keppra and supportive measures. Will primarily concentrate on comfort. cc: MD Vince León MD
[2019-02-19] MEDS: MORPHINE IV PRN (21:17)
[2019-02-20] MEDS ORDERED: NS 500 ML IV ONE ×2 (01:04→12:49)
[2019-02-20] MEDS: ALBUTEROL NEB INH SCH ×6 (03:02→22:55)
[2019-02-20] MEDS: DECADRON IV SCH ×3 (03:50→21:10)
[2019-02-20] MEDS: MORPHINE IV PRN (03:50)
[2019-02-20 06:54] LABS: BASO# 0.04 X1000 (0.0-0.2); BASO% 0.6 % (0.0-0.8); EOS# 0.01 X1000 (0.0-0.7); EOS% 0.1 % (0.0-10.0); HEMOGLOBIN 8.3 g/dL (14.0-18.0); LYMPH# 0.67 X1000 (1.2-3.4); LYMPH% 9.3 % (20.5-51.1); MCH 30.1 PG (27-31); MCHC 30.7 g/dL (33-37); MCV 97.8 FL (81-99); MONO# 0.66 X1000 (0.11-0.59); MONO% 9.2 % (1.7-9.3); MPV 11.4 FL (7.4-10.4); NEUT# 5.29 X1000 (1.4-6.5); NEUT% 73.8 % (42.2-75.2); PLT 114 X1000 (130-400); RBC 2.76 XMIL (4.7-6.1); RDW 14.7 % (11.5-14.5); WBC 7.17 X1000 (4.8-10.8)
[2019-02-20 07:02] LABS: AGAP 15; BUN 36 mg/dL (8-22); CALCIUM 8.5 mg/dL (8.8-10.2); CHLORIDE 115 mmol/L (98-107); COSMO 299; CREATININE 0.9 mg/dL (0.7-1.2); ESTIMATED GFR > 60; GLUCOSE 104 mg/dL (70-104); POTASSIUM 3.6 mmol/L (3.5-5.1); SODIUM 146 mmol/L (136-145); TCO2 16 mmol/L (25-35)
[2019-02-20 07:17] LABS: BANDS 6 % (0-1); LYMPHS 6 % (21-51); SEGS 78 % (42-75)
[2019-02-20] MEDS: MUCOMYST 20% INH SCH ×2 (08:17→19:13)
[2019-02-20] MEDS: KEPPRA LIQUID PO SCH ×2 (09:43→21:11)
[2019-02-20] MEDS: PROTONIX IV SCH ×2 (09:43→21:10)
[2019-02-20] MEDS: GENTAMICIN OINTMENT TOP SCH ×4 (09:46→23:13)
[2019-02-20] MEDS: SANTYL OINT TOP SCH (09:47)
--- NOTE | 2019-02-20 10:29 | PROGRESS NOTE ---
DATE: 02/20/2019 SUBJECTIVE: The patient is more alert today, looks about. He is saying several intelligible words to his . The feeling of his face seems to be more alert today. OBJECTIVE: Vital Signs: Afebrile, pulse 57, respirations 14, blood pressure remains low at 73/46, O2 saturation on room air 98%. CV: RRR without murmur. Lungs: Clear. Abdomen: Soft, nontender. Bowel movement x1. Extremities: Chronic contractures to his legs, unchanged. Decubitus on his gluteal area still present. LABORATORY DATA: Sodium 146, potassium 3.6, chloride 115, CO2 of 16, BUN 36, creatinine 0.9, calcium 8.5. White count 7.17, hemoglobin 8.3, platelets 114,000. ASSESSMENT: 1. Hypotension. 2. Glioblastoma multiforme. 3. DO NOT RESUSCITATE level 2. 4. Urinary tract infection. 5. Ischial decubitus ulcers. 6. Seizure disorder. PLAN: Continue wound care of his decubitus aggressively, although this is difficult. Rectal tube came out once last night, and the nursing staff has put it back. Continue the Keppra. He received two 500 mL boluses of normal saline yesterday, and may have to continue that periodically to keep his blood pressures up. is interested in him returning to his home for possible hospice care. Dr. King will reassume his care tomorrow. cc: MD Vince León MD
[2019-02-20] MEDS: D5W 1,000 ML IV SCH (10:46)
[2019-02-21] MEDS: ALBUTEROL NEB INH SCH ×6 (03:20→23:50)
[2019-02-21] MEDS: DECADRON IV SCH (05:29)
[2019-02-21] MEDS ORDERED: MORPHINE IR PO PRN (07:46)
[2019-02-21] MEDS ORDERED: ATIVAN PO PRN (07:47)
--- NOTE | 2019-02-21 08:20 | PROGRESS NOTE ---
DATE: 02/21/2019 Temperature 97.9 degrees, heart rate 66, respirations 10, blood pressure 74/43, and O2 saturation on room air 92%. The patient is weak, but alert and responsive, and arousable. Chest is clear. He is off antibiotics. He is on several IV medicines which are changed today to p.o. If he does well through the day on p.o. medicines, he may be discharged home tomorrow with either hospice or home health. Discussion will be made with his mother. cc: Vince Stevenson MD
[2019-02-21] MEDS: MUCOMYST 20% INH SCH ×2 (08:30→19:16)
[2019-02-21] MEDS: KEPPRA LIQUID PO SCH ×2 (08:52→20:11)
[2019-02-21] MEDS: SANTYL OINT TOP SCH (08:52)
[2019-02-21] MEDS: GENTAMICIN OINTMENT TOP SCH ×4 (08:52→20:12)
[2019-02-21] MEDS: DECADRON PO SCH (08:52)
[2019-02-21] MEDS: D5W 1,000 ML IV SCH ×2 (13:51)
[2019-02-21] MEDS: LOMOTIL PO PRN (14:12)
[2019-02-22] MEDS: D5W 1,000 ML IV SCH ×2 (02:17→16:03)
[2019-02-22] MEDS: ALBUTEROL NEB INH SCH ×6 (03:40→23:29)
[2019-02-22] MEDS: PROTONIX PO SCH (06:17)
--- NOTE | 2019-02-22 07:06 | PULMONOLOGY PROGRESS NOTE ---
DATE: 02/21/2019 SUBJECTIVE: The patient is awake and alert. His caregiver at the bedside indicates he had a good supper. OBJECTIVE: Vital Signs: The patient has been afebrile for the last 24 hours. Blood pressure 106/65, heart rate 79, respiratory rate 17, and oxygen saturation 97% on room air HEENT: Pupils are equal and reactive. Oropharynx appears clear. Neck: Supple. Lungs: Chest reveals crackles in both lung bases. Cardiac: S1-S2. Abdomen: Soft. Extremities: Without edema. IMPRESSION: A 58-year-old with 1. Escherichia coli urinary tract infection. 2. Stage IV decubitus ulcers. 3. Protein calorie malnutrition. 4. Glioblastoma multiforme with progression of disease. 5. Pneumonia with continued improvement. PLAN: 1. Continue bronchial hygiene. 2. Agree with transition to oral medications with discharge to Hospice or Home Health tomorrow. cc: MD Vince aSntos MD
--- NOTE | 2019-02-22 07:18 | Diag Imaging Result Doc PS360 ---
EXAM: CHEST-PORTABLE 02/22/2019 HISTORY: abnormal exam TECHNIQUE: AP portable upright at 0533 COMMENT: The patient is rotated to the right. There is volume loss and opacity in the perihilar portion of the right upper lobe. There is interstitial opacity in the right lower lobe both of which have worsened since the previous study of 02/18/2019. There may be some improvement however in the left lower lobe opacity which was present previously. IMPRESSION: Pulmonary edema and/or pneumonia with atelectasis versus pneumonia right upper lobe. Improved atelectasis left lower lobe. Electronically signed by Alfredito Fulton 02/22/2019 7:15 AM
[2019-02-22] MEDS: MUCOMYST 20% INH SCH ×2 (08:04→19:21)
[2019-02-22] MEDS: DECADRON PO SCH (08:09)
[2019-02-22] MEDS: KEPPRA LIQUID PO SCH ×2 (08:10→21:06)
[2019-02-22] MEDS: SANTYL OINT TOP SCH (08:12)
[2019-02-22] MEDS: GENTAMICIN OINTMENT TOP SCH ×4 (08:12→21:06)
[2019-02-22] MEDS: DOXYCYCLINE PO SCH ×2 (08:30→21:06)
[2019-02-22] MEDS: MORPHINE IR PO PRN (09:42)
--- NOTE | 2019-02-22 10:25 | PROGRESS NOTE ---
DATE: 02/22/2019 VITAL SIGNS: Temperature 98.3 degrees axillary, heart rate 119, respirations 22, blood pressure 119/97, O2 saturation on room air 96%. SUBJECTIVE: The patient is alert, but not able to speak because of some hoarseness. He had moderate cough last evening. Chest x-ray this morning reveals pulmonary edema and possible pneumonia with atelectasis versus pneumonia on the right upper lung. Atelectasis of the left lower lobe is improved. Caregivers are hesitant to take him home with his multiple illnesses and management issues. He has a rectal tube, which they do not feel comfortable with. Wound care is questionable with his stage IV decubitus ulcers. With multiple medical illnesses, including inoperable glioblastoma, it is felt that his condition is most likely terminal. He will need hospice care at discharge. Arrangements will be made over the next day or two for supplies and care plans at discharge. With the chest x-ray changed today, he is started on doxycycline p.o. Discussion will be made with his mother, who is agreeable with disposition for best outcome. cc: Vince Stevenson MD
[2019-02-23] MEDS: ALBUTEROL NEB INH SCH ×6 (03:33→23:19)
[2019-02-23] MEDS: D5W 1,000 ML IV SCH ×2 (04:48→18:00)
[2019-02-23] MEDS: MORPHINE IR PO PRN (05:14)
[2019-02-23] MEDS: PROTONIX PO SCH (06:22)
--- NOTE | 2019-02-23 06:45 | PULMONOLOGY PROGRESS NOTE ---
DATE: 02/22/2019 SUBJECTIVE: The patient reports he is doing "fine". He ate approximately half of his evening meal. OBJECTIVE: Vital Signs: The patient has been afebrile for the last 24 hours. His blood pressure remains marginal in the mid 70s. HEENT: Pupils are equal and reactive. Oropharynx appears clear. Neck: Supple. Lungs: Chest reveals occasional rhonchi, but no wheezing or tactile fremitus. Cardiac: S1, S2. Abdomen: Soft. Extremities: Without edema. LABORATORIES: Chest x-ray reveals faint infiltrate versus atelectasis right upper lobe with some clearing of the left base. IMPRESSION: A 58-year-old with: 1. Aspiration pneumonia with continued improvement. 2. Glioblastoma with progression of disease. 3. Stage IV decubitus ulcers. 4. Protein calorie malnutrition. DISCUSSION: A 58-year-old with problems outlined above. He has survived his E. Coli sepsis, but is not thriving. This is likely related to his brain cancer along with large calorie consumption associated with his decubitus ulcers. PLAN: 1. Continue bronchial hygiene. 2. Agree with oral medications. The patient's prognosis is very poor. cc: MD Vince Santos MD
[2019-02-23] MEDS: MUCOMYST 20% INH SCH ×2 (07:43→19:23)
[2019-02-23] MEDS: DOXYCYCLINE PO SCH ×3 (09:02→20:04)
[2019-02-23] MEDS: DECADRON PO SCH (09:02)
[2019-02-23] MEDS: KEPPRA LIQUID PO SCH ×3 (09:02→20:04)
[2019-02-23] MEDS: GENTAMICIN OINTMENT TOP SCH ×5 (09:03→20:04)
--- NOTE | 2019-02-23 09:59 | PROGRESS NOTE ---
DATE: 02/23/2019 VITAL SIGNS: Temperature 97.6, heart rate 86, respiration 18, blood pressure 60/32. The patient is arousable and speaks brief responses. He ate about a third of his breakfast. He continues to take p.o. fluids poorly. His [facility] nurse is concerned about infectious disease and wants to have a Clostridium difficile and stool culture done. These will be ordered. He has an IV on the left side of his neck. This may be removed this p.m. if his blood pressure is better. Oxygen saturation has been fairly good on room air over the last couple of days. In general, he is eating better. He seems a little weaker today than a couple of days ago. Plans are in process to transfer him back to the [facility] with hospice care. He was seen by the hospice nurse this morning. PLAN: Continue supportive care. He is a level 1 Do Not Resuscitate. cc: Vince Stevenson MD
[2019-02-23] MEDS: SANTYL OINT TOP SCH (13:59)
[2019-02-23] MEDS: POTASSIUM CHLORIDE 20 MEQ/SWI 20 MEQ/100 ML IVPB IV SCH ×2 (17:16→19:57)
[2019-02-23] MEDS: NS 1,000 ML IV SCH (17:16)
[2019-02-23] MEDS: FLAGYL 500 MG/NS 500 MG/100 ML IVPB IV SCH ×2 (17:17→22:03)
[2019-02-24] MEDS: ALBUTEROL NEB INH SCH ×6 (03:29→23:02)
[2019-02-24] MEDS: PROTONIX PO SCH ×2 (04:58→06:03)
[2019-02-24] MEDS: FLAGYL 500 MG/NS 500 MG/100 ML IVPB IV SCH ×4 (04:59→21:59)
[2019-02-24] MEDS: NS 1,000 ML IV SCH (05:44)
[2019-02-24 06:12] LABS: BASO# 0.01 X1000 (0.0-0.2); BASO% 0.1 % (0.0-0.8); HEMATOCRIT 25.3 % (42.0-52.0); HEMOGLOBIN 7.9 g/dL (14.0-18.0); IMM GRAN# 0.14 X1000 (0.0-0.04); IMM GRAN% 1.1 % (0.0-0.5); LYMPH# 0.91 X1000 (1.2-3.4); MCH 30.5 PG (27-31); MCHC 31.2 g/dL (33-37); MCV 97.7 FL (81-99); MONO# 0.49 X1000 (0.11-0.59); MONO% 3.7 % (1.7-9.3); MPV 10.7 FL (7.4-10.4); NEUT# 11.53 X1000 (1.4-6.5); NEUT% 88.1 % (42.2-75.2); PLT 125 X1000 (130-400); RBC 2.59 XMIL (4.7-6.1); RDW 15.6 % (11.5-14.5); WBC 13.08 X1000 (4.8-10.8)
[2019-02-24 06:33] LABS: AGAP 12; BUN 40 mg/dL (8-22); CALCIUM 7.8 mg/dL (8.8-10.2); CHLORIDE 116 mmol/L (98-107); COSMO 299; CREATININE 0.9 mg/dL (0.7-1.2); ESTIMATED GFR > 60; GLUCOSE 71 mg/dL (70-104); POTASSIUM 4.4 mmol/L (3.5-5.1); SODIUM 146 mmol/L (136-145); TCO2 18 mmol/L (25-35)
[2019-02-24] MEDS ORDERED: ALBUMIN 25% IV ONE (07:59)
[2019-02-24] MEDS: MUCOMYST 20% INH SCH ×2 (08:04→19:17)
[2019-02-24] MEDS: DOXYCYCLINE PO SCH ×2 (08:16→21:59)
[2019-02-24] MEDS: DECADRON PO SCH (08:17)
[2019-02-24] MEDS: GENTAMICIN OINTMENT TOP SCH ×4 (08:17→21:59)
[2019-02-24] MEDS: KEPPRA LIQUID PO SCH ×2 (08:18→21:59)
[2019-02-24] MEDS: SANTYL OINT TOP SCH (08:19)
--- NOTE | 2019-02-24 08:39 | PULMONOLOGY PROGRESS NOTE ---
DATE: 02/23/2019 SUBJECTIVE: The patient reports his day has been "fine." He has no increased work of breathing. He appears to be comfortable. OBJECTIVE: Vital Signs: The patient's blood pressure has fluctuated during the day as low as 60/32, current blood pressure 83/43, heart rate 85, respiratory rate 15, oxygen saturation 97%. HEENT: Pupils are equal. Oropharynx appears dry, but clear. Neck: Supple. Chest: Occasional rhonchi, but otherwise clear. Cardiac: S1, S2. Abdomen: Soft. Extremities: Without edema. LABORATORY DATA: No new chemistries or CBC today. IMPRESSION: A 58-year-old with: 1. Aspiration pneumonia with continued improvement. 2. Glioblastoma with progression of disease. 3. Protein calorie malnutrition. 4. Stage IV decubitus ulcers. 5. Failure to thrive. PLAN: 1. Continue bronchial hygiene. 2. Concur with current plans outlined by Dr. Stevenson. Anticipate transitioning the patient back to the [facility] with hospice if this can be arranged. cc: MD Vince Santos MD
--- NOTE | 2019-02-24 11:12 | PROGRESS NOTE ---
DATE: 02/24/2019 VITAL SIGNS: Temperature 97.5 degrees axillary, heart rate 88, respirations 13, blood pressure 64/33, O2 saturation 95% on room air. Despite his hypotension, he is arousable and answers simple questions appropriately. His appetite has been decreased over the last couple of days. He continues to drink some, about 500 mL daily. He was started on some IV fluids and Flagyl for C difficile. He had no diarrhea overnight. LABORATORY: Hemoglobin 7.9, hematocrit 25.3, white blood count 13,000. Sodium 146, potassium 4.4, BUN 40, creatinine 0.9, calcium 7.8. PLAN: Transfuse 1 unit of packed red blood cells and give albumin. If he has a good day and night today, there is possibility of transfer back to the care home tomorrow. I would like to see his blood pressure up a little bit. cc: Vince Stevenson MD
[2019-02-24] MEDS: D5W 1,000 ML IV SCH (14:22)
[2019-02-24] MEDS: MORPHINE IR PO PRN (15:41)
[2019-02-25] MEDS: NS 1,000 ML IV SCH ×3 (00:23→14:43)
--- NOTE | 2019-02-25 01:57 | PULMONOLOGY PROGRESS NOTE ---
DATE: 02/24/2019 SUBJECTIVE: The patient opened his eyes to voice, but did not respond this evening. His p.o. intake is decreased today. Fecal output has diminished. OBJECTIVE: Vital Signs: The patient has been afebrile for the last 24 hours. Blood pressure 78/43, heart rate 71, respiratory rate 23, oxygen saturation 97% on room air. HEENT: Pupils are equal. Oropharynx appears dry. Neck: Supple. Chest: Reveals occasional rhonchi bilaterally. Cardiac: S1, S2. Abdomen: Soft. Decubitus ulcers were not examined. Extremities: Reveal no edema. LABORATORIES: Sodium 146, potassium 4.4, chloride 116, bicarbonate 18, BUN 40, creatinine 0.9. IMPRESSION: A 58-year-old with: 1. Aspiration pneumonia. 2. Glioblastoma with progression. 3. Protein calorie malnutrition. He is having difficulty consuming enough calories and fluids. 4. Advanced bilateral decubitus ulcers. 5. Failure to thrive. PLAN: 1. Continue current treatment regimen. 2. Continue current resuscitation status. He will be allowed to have a natural if he passes. 3. Attempting to transition him back to the [facility] to be with people who know him well. cc: MD Vince Santos MD
[2019-02-25] MEDS: ALBUTEROL NEB INH SCH ×6 (03:19→23:31)
[2019-02-25] MEDS: FLAGYL 500 MG/NS 500 MG/100 ML IVPB IV SCH (04:16)
[2019-02-25] MEDS: D5W 1,000 ML IV SCH (05:38)
[2019-02-25] MEDS: MUCOMYST 20% INH SCH ×2 (07:10→19:51)
[2019-02-25] MEDS: PROTONIX PO SCH (09:42)
[2019-02-25] MEDS: DECADRON PO SCH (09:43)
[2019-02-25] MEDS: KEPPRA LIQUID PO SCH ×2 (09:43→21:56)
[2019-02-25] MEDS: SANTYL OINT TOP SCH (09:45)
[2019-02-25] MEDS: GENTAMICIN OINTMENT TOP SCH ×3 (09:45→21:55)
--- NOTE | 2019-02-25 11:59 | PROGRESS NOTE ---
DATE: 02/25/2019 VITAL SIGNS: Stable with temperature 98.2 degrees, heart rate 76, respirations 24, blood pressure 76/38, and O2 saturation on room air 97%. I O 360 mL p.o. yesterday. IV intake was 900. OBJECTIVE: Chest is clear. Patient is arousable but weak. He does not complain of pain. PLAN: Change p.o. morphine to tramadol in attempt to wake him up a little more. He is encouraged to take more fluid by mouth. IV and IV Flagyl were discontinued. He is changed to p.o. Flagyl. Diarrhea has resolved. Nurses at the detention refused to take him back at this time with C. Diff being positive. Flagyl will be continued until Thursday. At that time, C. Diff antigen will be rechecked. If negative, he hopefully can return to the [facility]. cc: Vince Stevenson MD
[2019-02-25] MEDS: FLAGYL PO SCH ×2 (14:43→21:56)
[2019-02-26] MEDS: ALBUTEROL NEB INH SCH ×6 (03:32→23:43)
--- NOTE | 2019-02-26 03:52 | PROGRESS NOTE ---
DATE: 02/25/2019 OBJECTIVE: Temperature 97.4 degrees, heart rate 71, respiration 18, blood pressure 86/52, O2 saturation on room air 99%. I and O negative 470, there was 480 p.o. intake. Urine was 950 mL over the last 12 hours. ASSESSMENT: Discussion was made with the human resources safety manager of his residential this afternoon. He indicated that because of Joe's multiple medical illnesses and their limited resources, that they would not be able to take him back at the residential. Social service consult was obtained to assist disposition, either to [facility], hospice facility, or to his mother's home with hospice care. His mother indicated that there was no one to assist her in his care. She has requested [facility] in [place] at discharge. If he is stable over the weekend, he may be able to go to [facility] on Thursday. cc: Vince Stevenson MD
[2019-02-26] MEDS: PROTONIX PO SCH (06:07)
[2019-02-26] MEDS: FLAGYL PO SCH ×3 (06:07→20:35)
[2019-02-26] MEDS: MUCOMYST 20% INH SCH ×2 (08:20→19:27)
[2019-02-26] MEDS: GENTAMICIN OINTMENT TOP SCH ×5 (10:33→21:00)
[2019-02-26] MEDS: DECADRON PO SCH (10:34)
[2019-02-26] MEDS: KEPPRA LIQUID PO SCH ×2 (10:37→20:34)
[2019-02-26] MEDS: SANTYL OINT TOP SCH (13:47)
[2019-02-26] MEDS: LOMOTIL PO PRN ×2 (13:48→20:35)
[2019-02-26] MEDS ORDERED: CALMOSEPTINE OINTMENT TOP PRN (17:01)
[2019-02-26] MEDS: WELCHOL PO SCH (17:11)
--- NOTE | 2019-02-26 22:52 | PROGRESS NOTE ---
DATE: 02/26/2019 SUBJECTIVE: A 58-year-old white gentleman is well known, who I have seen before in the ICU, now on the floor. The patient has continued to have C. difficile diarrhea associated with foul- smelling on the rectal tube. Mother just left. Caregiver was at bedside. Multiple bedsores. The patient is basically in a moribund state. REVIEW OF SYSTEMS: None reported other than diarrhea. Interval history was reviewed. OBJECTIVE: On exam, temperature is 97 degrees, pulse 70, blood pressure is on the low side, 90/50. He is dehydrated, contracted with multiple bedsores. Castro catheter and rectal tube were noted. LABORATORY DATA: No investigations reported. ASSESSMENT AND PLAN: 1. Clostridium difficile antigen positive. Continue present treatment with rectal tube and Lomotil. Added on Welchol. 2. Decubitus ulcers. Santyl ointment. 3. Glioblastoma, on Decadron intravenous and p.o. Protonix. Seizure precautions. Keppra. 4. Living Will: Do Not Resuscitate/Allow Natural . Palliative Care Consult was initiated. Prognosis is poor. Level of documentation 25 minutes. cc: MD Vince Torrez MD
--- NOTE | 2019-02-27 01:36 | PULMONOLOGY PROGRESS NOTE ---
DATE: 02/26/2019 SUBJECTIVE: The patient is arousable. He has limited conversation today. He is having increase in liquid stools. OBJECTIVE: Vital Signs: Blood pressure 91/50, heart rate 71, respiratory rate 19, oxygen saturation 97% on room air. HEENT: Pupils are equal and reactive. Oropharynx appears clear. Neck: Supple. Chest: Reveals good air entry with no wheezing or rhonchi. Cardiac: S1, S2. Abdomen: Soft. Extremities: Without edema. IMPRESSION: A 58-year-old with: 1. Aspiration pneumonia. He continues to improve and is now on room air. 2. Glioblastoma with progression of disease. 3. Stage IV decubitus ulcers bilaterally. 4. Protein calorie malnutrition. PLAN: 1. Continue treatment for C difficile colitis. 2. Encourage p.o. intake. 3. Poor prognosis. cc: MD Vince Santos MD
[2019-02-27] MEDS: ALBUTEROL NEB INH SCH ×6 (02:58→23:30)
[2019-02-27] MEDS: PROTONIX PO SCH (06:13)
[2019-02-27] MEDS: FLAGYL PO SCH ×3 (06:13→20:55)
[2019-02-27] MEDS: MUCOMYST 20% INH SCH ×2 (08:27→19:35)
[2019-02-27] MEDS: DECADRON PO SCH (09:41)
[2019-02-27] MEDS: WELCHOL PO SCH ×3 (09:41→18:10)
[2019-02-27] MEDS: KEPPRA LIQUID PO SCH ×2 (09:42→20:55)
[2019-02-27] MEDS: GENTAMICIN OINTMENT TOP SCH ×4 (11:46→20:56)
[2019-02-27] MEDS: SANTYL OINT TOP SCH (11:46)
--- NOTE | 2019-02-27 11:57 | PROGRESS NOTE ---
DATE: 02/27/2019 SUBJECTIVE: The patient is in a vegetative state. Foul-smelling liquid stools. Limited conversation. Caregivers at bedside. PHYSICAL EXAMINATION: He is crippled, position. Temperature is 98 degrees, pulse 71, blood pressure is low, 140 pounds. On physical examination, no change. ASSESSMENT AND PLAN: 1. Clostridium difficile antigen positive. Rectal tube, on Lomotil and Welchol. 2. Stage IV decubitus ulcers. 3. Glioblastoma multiforme. 4. Prognosis poor. Dr. Vince Stevenson initiated palliative care consult for comfort care level, Do Not Resuscitate. Continue supportive care. LEVEL OF DOCUMENTATION: 25 minutes. cc: MD Vince Torrez MD
[2019-02-27] MEDS ORDERED: ATIVAN IV PRN (17:38)
[2019-02-28] MEDS: ALBUTEROL NEB INH SCH ×6 (03:39→23:27)
[2019-02-28] MEDS: MUCOMYST 20% INH SCH ×2 (07:50→19:22)
--- NOTE | 2019-02-28 08:06 | PROGRESS NOTE ---
DATE: 02/28/2019 VITAL SIGNS: Stable with temperature 98.2 degrees, heart rate 85, respirations 21, blood pressure 78/49, O2 saturation on room air 97%. SUBJECTIVE: Still continues to have a bad odor. Culture was negative. Clostridium difficile antigen was positive on 02/22, but toxin was negative. He has been on Flagyl, IV for several days, then p.o. Stool will be rechecked today for Clostridium. If it continues to be positive, he may need IV vancomycin to resolve the infection. Oral intake has improved. He has been off IV fluids and medications for a few days. Plans are for him to go to [facility] healthcare facility for long-term care. Hospice also will be assisting. Attempt will be made to resolve the Clostridium difficile before transfer. cc: Vince Stevenson MD
[2019-02-28] MEDS: FLAGYL PO SCH ×3 (08:53→22:14)
[2019-02-28] MEDS: WELCHOL PO SCH ×3 (08:53→22:14)
[2019-02-28] MEDS: PROTONIX PO SCH (08:54)
[2019-02-28] MEDS: DECADRON PO SCH (08:54)
[2019-02-28] MEDS: LOMOTIL PO PRN ×2 (08:54→22:22)
[2019-02-28] MEDS: KEPPRA LIQUID PO SCH ×2 (08:55→22:14)
[2019-02-28] MEDS: SANTYL OINT TOP SCH (08:55)
[2019-02-28] MEDS: GENTAMICIN OINTMENT TOP SCH ×4 (08:55→22:15)
[2019-03-01] MEDS: ALBUTEROL NEB INH SCH ×6 (03:25→23:32)
[2019-03-01] MEDS: FLAGYL PO SCH (04:35)
[2019-03-01] MEDS: PROTONIX PO SCH (06:11)
[2019-03-01] MEDS: MUCOMYST 20% INH SCH ×2 (07:57→19:57)
[2019-03-01] MEDS ORDERED: VANCOMYCIN ORAL SOLN PO SCH (09:00)
[2019-03-01] MEDS: KEPPRA LIQUID PO SCH ×2 (09:30→21:31)
[2019-03-01] MEDS: DECADRON PO SCH (10:31)
[2019-03-01] MEDS: WELCHOL PO SCH ×3 (10:31→21:30)
[2019-03-01] MEDS: DIFICID PO SCH ×2 (10:31→21:31)
--- NOTE | 2019-03-01 10:32 | PROGRESS NOTE ---
DATE: 03/01/2019 OBJECTIVE: Vital Signs: Temperature 99.2 degrees axillary, heart rate 84, respirations 16, blood pressure 89/42, O2 saturation on room air 96%. General: The patient continues to have foul odor diarrhea. Flagyl does not seem to be helping his C diff at this point. C diff studies yesterday revealed positive antigen and negative toxin. The patient is alert, arousable and answers simple questions. Chest: Clear to auscultation. Abdomen: Soft. Extremities: Decubitus ulcers are about the same. PLAN: Continue supportive care and change Flagyl to p.o. vancomycin. Brief discussion was made with the pharmacy and this medication can be compounded. He has an IV in the left forearm. One dose of vancomycin will be given IV. cc: Vince Stevenson MD
[2019-03-01] MEDS: SANTYL OINT TOP SCH (13:00)
[2019-03-01] MEDS: GENTAMICIN OINTMENT TOP SCH ×4 (15:17→21:31)
[2019-03-02] MEDS: ULTRAM PO PRN ×2 (02:03→23:09)
[2019-03-02] MEDS: ALBUTEROL NEB INH SCH ×6 (03:37→23:27)
[2019-03-02] MEDS: PROTONIX PO SCH (06:19)
[2019-03-02] MEDS: MUCOMYST 20% INH SCH ×2 (07:45→19:45)
--- NOTE | 2019-03-02 10:04 | PROGRESS NOTE ---
DATE: 03/02/2019 VITAL SIGNS: Temperature 99.4 degrees axillary, heart rate 58, respirations 16, blood pressure 92/57, O2 saturation on room air 98%. SUBJECTIVE: The patient had an episode of aspiration last evening. One of his p.o. medicines, Welchol, has been difficult to crush, and this may have caused some trouble. It was noted that he is allergic to vancomycin, and instead was started on Dificid 200 mg b.i.d. He continues to have liquid stool, and continues to need the rectal tube. Hopefully, this can be discontinued prior to transfer to [facility]. Welchol was discontinued. He still has Lomotil 2 tablets every 6 hours p.r.n. diarrhea. He is alert, and chest is fairly clear. Lab will be rechecked tomorrow morning, including CBC and BMP. cc: Vince Stevenson MD
[2019-03-02] MEDS: KEPPRA LIQUID PO SCH ×2 (10:21→20:11)
[2019-03-02] MEDS: DIFICID PO SCH ×2 (10:21→20:11)
[2019-03-02] MEDS: DECADRON PO SCH (10:21)
[2019-03-02] MEDS: GENTAMICIN OINTMENT TOP SCH ×3 (10:22→23:15)
[2019-03-02] MEDS: SANTYL OINT TOP SCH ×2 (10:22→20:12)
[2019-03-03] MEDS: ALBUTEROL NEB INH SCH ×6 (03:38→23:07)
[2019-03-03] MEDS: PROTONIX PO SCH (06:07)
[2019-03-03] MEDS: MUCOMYST 20% INH SCH ×2 (07:26→19:42)
[2019-03-03 07:28] LABS: BASO# 0.05 X1000 (0.0-0.2); BASO% 0.4 % (0.0-0.8); EOS# 0.01 X1000 (0.0-0.7); EOS% 0.1 % (0.0-10.0); HEMATOCRIT 29.5 % (42.0-52.0); HEMOGLOBIN 9.2 g/dL (14.0-18.0); IMM GRAN% 4.5 % (0.0-0.5); LYMPH# 1.29 X1000 (1.2-3.4); LYMPH% 11.5 % (20.5-51.1); MCH 29.4 PG (27-31); MCHC 31.2 g/dL (33-37); MCV 94.2 FL (81-99); MONO# 0.76 X1000 (0.11-0.59); MONO% 6.8 % (1.7-9.3); NEUT# 8.61 X1000 (1.4-6.5); NEUT% 76.7 % (42.2-75.2); PLT 134 X1000 (130-400); RBC 3.13 XMIL (4.7-6.1); WBC 11.22 X1000 (4.8-10.8)
[2019-03-03 07:45] LABS: AGAP 13; BUN 23 mg/dL (8-22); CALCIUM 8.4 mg/dL (8.8-10.2); CHLORIDE 109 mmol/L (98-107); COSMO 284; CREATININE 0.9 mg/dL (0.7-1.2); ESTIMATED GFR > 60; GLUCOSE 82 mg/dL (70-104); POTASSIUM 3.9 mmol/L (3.5-5.1); SODIUM 141 mmol/L (136-145); TCO2 19 mmol/L (25-35)
[2019-03-03 07:52] LABS: LYMPHS 12 % (21-51); SEGS 88 % (42-75)
[2019-03-03] MEDS: DIFICID PO SCH ×2 (10:41→20:35)
[2019-03-03] MEDS: KEPPRA LIQUID PO SCH ×2 (10:42→20:35)
[2019-03-03] MEDS: SANTYL OINT TOP SCH (10:42)
[2019-03-03] MEDS: DECADRON PO SCH (10:42)
[2019-03-03] MEDS: GENTAMICIN OINTMENT TOP SCH ×4 (10:42→20:36)
--- NOTE | 2019-03-03 11:02 | PROGRESS NOTE ---
DATE: 03/03/2019 SUBJECTIVE: A 58-year-old, white gentleman with multiple medical problems, admitted with decreased responsiveness, increasing shortness of breath and diffuse erythema. Patient is not able to give any history. History gotten from history and physical, Pulmonary consultation. The patient was very sick when he was admitted. Patient was septic. Patient seems to be getting better. No high-grade fever or chills. At times, blood pressure is low. The patient does have diarrhea, had rectal tube. Patient has a pressure sore on the gluteal area and also on the knee. Mild cough, no expectoration. No vomiting. No history of typical chest pain. No recent seizure- type episode. No abdominal distention. PAST MEDICAL HISTORY: Glioblastoma status post surgery and chemotherapy and radiation treatment, history of testicular cancer, cerebral palsy, seizure disorder, spinal stenosis with paraplegia, back surgery, coronary artery disease, history of exploratory laparotomy for perforated duodenal ulcer, recurrent UTI, decubitus ulcer. OBJECTIVE: Vital signs: Blood pressure 92/64, pulse 82, respiration rate 14, temperature 97.8 degrees. Extremities: The patient does have pressure sore on the gluteal area, also on the knee. Neck: Supple. No JVD. Lungs: Bibasilar crepitations. Heart: S1 and S2 heard. A 2/6 systolic murmur at the apex. Abdomen: Soft, globular. Bowel sounds present. Central nervous system: Alert, awake. Uncooperative for detailed exam. Patient does have flexion contracture of both the lower limbs. LABORATORY DATA: Done today, hemoglobin 9.2, hematocrit 29.5, WBC count 11.22, platelet count 134,000. Electrolytes fairly benign. Sodium 141, potassium 3.9, CO2 was 19. Stool was positive for Clostridium difficile antigen. ASSESSMENT: Patient's medical problems include: 1. Aspiration pneumonia, clinically doing better. 2. Stage IV decubitus ulcer on both the gluteal area. 3. Glioblastoma. 4. Protein calorie mild nutrition. 5. Clostridium difficile colitis. 6. Seizure disorder. 7. History of recurrent urinary tract infection. 8. Overall prognosis fair to poor. Family is aware of the prognosis. PLAN: Discharge patient to rehab. cc: MD Vince Wong MD
--- NOTE | 2019-03-03 11:09 | PROGRESS NOTE ---
DATE: 03/03/2019 Vital signs stable with temperature 97.8 degrees, heart rate 82, respirations 14, blood pressure 92/64, O2 saturation on room air 100%. Patient is alert and oriented. His strength seems to be slowly improving. When asked if he wanted to get out of bed and sit in a chair or roll in the wheelchair, he refused for now. His appetite is improving some. He continues to have some yellowish liquid BMs. LABORATORY: Hemoglobin 9.2, hematocrit 29.5, white blood count 11,200 with 77% neutrophils. Sodium 141, potassium 3.9, BUN 23, creatinine 0.9, calcium 8.4. Lungs are clear. PLAN: Transfer to [facility] when a private room is available. Also, his C. difficile needs to clear. If he is still in the hospital on Thursday, repeat C. difficile antigen and toxin will be checked. cc: Vince Stevenson MD
[2019-03-04] MEDS: ALBUTEROL NEB INH SCH ×6 (03:25→23:39)
[2019-03-04] MEDS: PROTONIX PO SCH (06:40)
[2019-03-04] MEDS: MUCOMYST 20% INH SCH (07:36)
--- NOTE | 2019-03-04 09:01 | PROGRESS NOTE ---
DATE: 03/04/2019 SUBJECTIVE/OBJECTIVE: Vital signs stable with temperature 97.6 degrees axillary, heart rate 73, respiration 19, blood pressure 73/50, O2 saturation on room air 98%. The patient is alert despite his hypotension. He is not eating breakfast this morning yet. He states he is not hungry. He continues to have loose yellow colored BM's with foul odor. He has been on Dificid for several days. PLAN: Continue current therapy. He will be transferred to [facility] healthcare facility for long-term care once a proper room bed is available. cc: Vince Stevenson MD
[2019-03-04] MEDS: KEPPRA LIQUID PO SCH ×2 (09:55→21:17)
[2019-03-04] MEDS: GENTAMICIN OINTMENT TOP SCH ×4 (09:56→21:17)
[2019-03-04] MEDS: DECADRON PO SCH (09:56)
[2019-03-04] MEDS: DIFICID PO SCH ×2 (09:56→21:17)
[2019-03-04] MEDS: SANTYL OINT TOP SCH (09:56)
[2019-03-05] MEDS: ALBUTEROL NEB INH SCH ×6 (03:40→23:07)
[2019-03-05] MEDS: PROTONIX PO SCH (06:08)
[2019-03-05] MEDS: MUCOMYST 20% INH SCH ×3 (07:30→19:12)
--- NOTE | 2019-03-05 09:37 | PROGRESS NOTE ---
DATE: 03/05/2019 VITAL SIGNS: Stable with better blood pressure this morning. Temperature 97.8 degrees, heart rate 73, respirations 19, blood pressure 116/94, O2 saturation on room air 100%. SUBJECTIVE: Blood pressure had dropped overnight to 70/42. His mother arrived and encouraged him to drink. He is more alert today than yesterday. He is anxious about the [place]. PHYSICAL EXAMINATION: Chest is clear. Abdomen is soft. Urine in Castro is clear. His Castro was changed last evening because it was leaking. A larger size was inserted. PLAN: Continue supportive care. Clostridium difficile antigen will be checked tomorrow. Hopefully, he can be transferred to [facility] on Thursday. cc: Vince Stevenson MD
[2019-03-05] MEDS: DIFICID PO SCH ×2 (10:10→20:05)
[2019-03-05] MEDS: PROZAC PO SCH (10:10)
[2019-03-05] MEDS: DECADRON PO SCH (10:10)
[2019-03-05] MEDS: GENTAMICIN OINTMENT TOP SCH ×4 (10:10→20:07)
[2019-03-05] MEDS: KEPPRA LIQUID PO SCH ×2 (10:11→20:05)
[2019-03-05] MEDS: SANTYL OINT TOP SCH (11:00)
[2019-03-06] MEDS: ALBUTEROL NEB INH SCH ×6 (03:18→22:43)
[2019-03-06] MEDS: PROTONIX PO SCH (06:32)
[2019-03-06] MEDS: MUCOMYST 20% INH SCH ×2 (07:30→20:27)
[2019-03-06] MEDS: GENTAMICIN OINTMENT TOP SCH ×4 (09:59→20:52)
[2019-03-06] MEDS: KEPPRA LIQUID PO SCH ×2 (09:59→20:51)
[2019-03-06] MEDS: DECADRON PO SCH (09:59)
[2019-03-06] MEDS: DIFICID PO SCH ×2 (09:59→20:51)
[2019-03-06] MEDS: PROZAC PO SCH (09:59)
[2019-03-06] MEDS: SANTYL OINT TOP SCH (10:00)
--- NOTE | 2019-03-06 11:06 | PROGRESS NOTE ---
DATE: 03/06/2019 OBJECTIVE: Vital signs temperature 98 degrees, heart rate 78, respiration 18, blood pressure 80/47, O2 saturation on room air 95%. The patient's bowel movements are slightly more formed. Chest is clear. Abdomen is soft. There are heel pads and dressings on heels, knees, ischial areas and back due to skin breakdown. The patient is alert and oriented. PLAN: C. Diff antigen today. If this is negative and room is still available at [facility], he may be transferred tomorrow. cc: Vince Stevenson MD
[2019-03-07] MEDS: ALBUTEROL NEB INH SCH ×6 (02:56→22:36)
[2019-03-07] MEDS: PROTONIX PO SCH (06:17)
[2019-03-07] MEDS: MUCOMYST 20% INH SCH ×2 (07:55→19:35)
[2019-03-07] MEDS: KEPPRA LIQUID PO SCH ×2 (08:20→20:31)
[2019-03-07] MEDS: GENTAMICIN OINTMENT TOP SCH ×3 (08:22→17:41)
[2019-03-07] MEDS: PROZAC PO SCH (08:22)
[2019-03-07] MEDS: SANTYL OINT TOP SCH (08:22)
[2019-03-07] MEDS: DIFICID PO SCH ×2 (08:22→20:30)
[2019-03-07] MEDS: DECADRON PO SCH (08:22)
--- NOTE | 2019-03-07 09:43 | DISCHARGE SUMMARY ---
ADMISSION DATE: 01/29/2019 DISCHARGE DATE: 03/07/2019 FINAL DIAGNOSES: 1. Sepsis. 2. Urinary tract infection with Escherichia coli. 3. Pneumonia. 4. Aspiration. 5. Inoperable glioblastoma in the right parietal area. 6. Seizures. 7. Malnutrition, protein and calorie. 8. Mental retardation. 9. Multiple decubitus ulcers, stage IV of both ischial areas. 10. Clostridium difficile colitis. 11. Neuropathy of his legs. 12. Hypertension. DISPOSITION: To [facility] healthcare facility also with continued hospice care. DISCHARGE MEDICATIONS: Continue previous medicines prior to hospitalization plus Dificid 200 mg b.i.d. (20). INITIAL LABORATORY: Hemoglobin 11.9, hematocrit 37.8, white blood count 22,400 with 90% neutrophils, low potassium at times down to 2.9. HOSPITAL COURSE: Complicated requiring ICU admission and maintenance of blood pressure with Levophed. Consultations were obtained with Dr. Douglas and Dr. Cano. He had antibiotics for more than 10 days. He had several seizures, but none in the last week. His seizures seem to be controlled with Keppra and Decadron 4 mg daily. He has been alert and eating better for the last week. He developed C diff colitis and C. Diff antigen and toxin were checked 3 times, about 5 days apart. All antigens have been positive. C. difficile antigen and negative toxin. His stools have become more formed and rectal tube has been removed. Brief discussion was made with Dr. Cano this morning concerning reliability of C diff studies. He stated that the studies could not be used to confirm whether or not the C diff had resolved. Due to clinical improvement and continuation of Dificid is felt he is appropriate for transfer to [facility] rehab. A bed is apparently available. Hospice will still be needed and he has been a DNR level 1 since shortly after admission. This resuscitation status will be continued at [facility]. He has a Castro in place. Urine is clear in the bag. Decubitus care will be continued at [facility]. Surgical procedure on the decubitus, especially stage IV ischial decubitus are not indicated because of his poor nutritional status. If he had surgery, those areas probably would not heal at this time. Comfort care and continued supportive care will be given. cc: Vince Stevenson MD [facility]
[2019-03-07] MEDS ORDERED: FLU VACCINE IM ONE (11:16)
[2019-03-08] MEDS: ALBUTEROL NEB INH SCH ×2 (03:38→08:35)
[2019-03-08] MEDS: PROTONIX PO SCH (06:36)
[2019-03-08] MEDS: MUCOMYST 20% INH SCH (08:35)
[2019-03-08 08:42] VITALS: BP 79/58
[2019-03-08] MEDS: PROZAC PO SCH (09:29)
[2019-03-08] MEDS: KEPPRA LIQUID PO SCH (09:29)
[2019-03-08] MEDS: DIFICID PO SCH (09:29)
[2019-03-08] MEDS: DECADRON PO SCH (09:29)
[2019-03-08] MEDS: SANTYL OINT TOP SCH (09:30)
--- NOTE | 2019-03-08 09:54 | PROGRESS NOTE ---
DATE: 03/08/2019 SUBJECTIVE: Vital signs are stable with temperature of 98.2 degrees, heart rate 74, respirations 18, blood pressure 89/54, O2 saturation on room air 100%. The patient's discharge was delayed because of level 1 screening by the [facility]. About a week ago, his mother indicated that he had an angry mood, and that Prozac had helped for this in the past. He does not seem to be clinically depressed. Depression was not listed in his discharge diagnoses. He had been on Prozac off and on for several years. Mental status and affect are normal and baseline today. OBJECTIVE: Chest is clear. Abdomen is soft. PLAN: Continue current medications and treatment. Transfer to [facility] is dependent on state evaluation. cc: Vince Stevenson MD
== END 2019-03-08 12:56 | DRG 871 ==
LOC: DIRADM 11:33 → ICU 11:36 → 2N 02-16 21:05 → 3N 02-25 19:43
PROVIDERS: ADMIT Family Medicine; ATTEND Family Medicine